=== PATIENT | female | born 1990 | race Caucasian/White ===

== ENCOUNTER 2016-11-21 09:21 | Inpatient (IN) | payer OTHER ==
[2016-11-21] MEDS ORDERED: HEMOQUE TEST 1 EACH EACH ONE ×3 (09:36→13:20)
[2016-11-21] MEDS ORDERED: SODIUM CHLORIDE 1,000 ML IV SCH (10:15)
--- NOTE | 2016-11-21 10:26 | PDOC ---
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4, with complications including peripheral neuropathy, but no diabetic retinopathy She was recently admitted for DKA in September 2016 Patient states in general her diabetes is poorly controlled for "a while" She is no longer on an insulin pump, and she is on a basal bolus regimen at this time Patient is complaining of a few days of progressive headache, nausea, diminished appetite, increased thirst, and polydipsia She is states like she feels like she is starting to go into DKA again, and her sugars have been running in the 300-400 range at home She states that she is having nausea, but has not vomited, but has not been able to eat or drink and feels very dehydrated She's also had a low-grade temperature yesterday of 100, but denies any cough or sputum, sore throat, earache, dysuria, diarrhea, or any other complaints She does have some mild diffuse abdominal discomfort, which she states that she usually gets when she has DKA She states that her last menstrual period was a month ago She states that she took her Lantus this morning, but did not take her NovoLog SHe states she feels very dehydrated Remainder of the review of systems is negative Past History - Past Medical History Allergies/Adverse Reactions: Allergies Allergy/AdvReac Type Severity Reaction Status Date / Time No Known Allergies Allergy Verified 11/21/16 09:27 Home Medications: Ambulatory Orders Insulin Glargine,Hum.rec.anlog [Lantus (nf)] 22 units SQ BID 09/26/16 Insulin Sliding Scale [Novolog Vial Sliding Scale -] 1 vial SQ HS units Anemia: No Asthma: No Cancer: No Cardiac Disorders: No CVA: No COPD: No CHF: No Dementia: No Diabetes: Yes (IDDM, HAS OMNI PD) GI Disorders: No Disorders: No HTN: No Hypercholesterolemia: No Liver Disease: No Suicide Attempt (Hx): No Seizures: No Thyroid Disease: No - Surgical History Abdominal Surgery: No Appendectomy: No Cardiac Surgery: No Cholecystectomy: No Lung Surgery: No Neurologic Surgery: No Orthopedic Surgery: No - Immunization History Immunization Up to Date: Yes - Psycho/Social/Smoking Cessation Hx Anxiety: No Suicidal Ideation: No Smoking Status: No Smoking History: Never smoked Have you smoked in the past 12 months: No Number of Cigarettes Smoked Daily: 0 Hx Alcohol Use: No Drug/Substance Use Hx: No Substance Use Type: None Review of Systems - Review of Systems Able to Perform ROS?: Yes Comments:: 11/21/16 10:26 12 point review of systems is as per history of present illness and otherwise negative *Physical Exam - Vital Signs Last Vital Signs Temp Pulse Resp BP Pulse Ox 97.8 F 132 H 22 119/78 99 11/21/16 09:24 11/21/16 09:24 11/21/16 09:24 11/21/16 09:24 11/21/16 09:24 - Physical Exam Comments: 11/21/16 10:28 Physical exam Last Vital Signs Temp Pulse Resp BP Pulse Ox 97.8 F 132 H 22 119/78 99 11/21/16 09:24 11/21/16 09:24 11/21/16 09:24 11/21/16 09:24 11/21/16 09:24 GENERAL: The patient is awake, alert, and answering questions, appears very dehydrated HEAD: Normal with no signs of trauma. EYES: Pupils equal, round and reactive to light, extraocular movements intact, sclera anicteric, conjunctiva are normal. ENT: He does membranes extremely dry NECK: Normal range of motion, supple LUNGS: Breath sounds equal, clear to auscultation bilaterally. No wheezes, and no crackles. HEART: Tachycardiac Regular rate and rhythm, normal S1 and S2 without murmur, rub or gallop. ABDOMEN: Soft, nontender, normoactive bowel sounds. No guarding, no rebound. No masses appreciated. EXTREMITIES: Normal range of motion, no edema. No clubbing or cyanosis. No cords, erythema, or tenderness. NEUROLOGICAL: Cranial nerves II through XII grossly intact. Normal speech, normal gait. PSYCH: Normal mood, normal affect. SKIN: Warm, Dry, normal turgor, no rashes or lesions noted. ED Treatment Course - LABORATORY CBC & Chemistry Diagram: 11/23/16 05:45 11/22/16 18:10 - ADDITIONAL ORDERS Additional order review: Laboratory Results 11/21/16 09:40 POC Glucometer 200.29466 11/21/16 09:40 POC Glucometer 200.89982 Medical Decision Making - Critical Care Time Total Critical Care Time (minutes): 45 Critical Care Statement: The care of this patient involved high complexity decision making to prevent further life threatening deterioration of the patient 's condition and/or to evalute & treat vital organ system(s) failure or risk of failure. - Medical Decision Making 11/21/16 10:32 26-year-old female with type 1 diabetes who is most likely in DKA, and appears extremely dehydrated Will start with IV fluid, awaiting lab work 11/21/16 12:00 Labwork reviewed-patient in DKA, with hypokalemia, and glucose under 200 (181) Will need to start correcting potassium first, then start the insulin drip without bolus since patient is under 200 After second liter of normal saline will switch to dextrose-containing solution Anion gap 20, potassium 3.3, glucose 181 Magnesium 2.3 Acetone positive ABG on room air PH 7.32/pCO2 29/pO2 105/bicarbonate 15/sat 98% CBC consistent with dehydration and hemoconcentration Laboratory Results - last 24 hr 11/21/16 11/21/16 11/21/16 09:40 10:15 10:15 WBC 7.1 D RBC 5.38 H Hgb 16.2 H D Hct 48.4 H MCV 90.0 MCHC 33.5 RDW 14.4 Plt Count 340 MPV 8.3 Anticoagulation Therapy Puncture Site ABG pH ABG pCO2 at Pt Temp ABG pO2 at Pt Temp ABG HCO3 ABG O2 Sat (Measured) ABG O2 Content ABG Base Excess Gucci Test O2 Delivery Device Oxygen Flow Rate Vent Mode Vent Rate Mechanical Rate PEEP Pressure Support Vent Sodium 140 Potassium 3.3 L Chloride 104 D Carbon Dioxide 16 L Anion Gap 20 H BUN 17 D Creatinine 0.9 Creat Clearance w eGFR > 60 POC Glucometer 200.60252 Random Glucose 181 H D Lactic Acid Calcium 9.4 Magnesium 2.3 D Total Bilirubin 0.7 D AST 11 D ALT 11 D Alkaline Phosphatase 111 H D Total Protein 8.0 Albumin 4.4 Lipase 23 Acetone, Qual 11/21/16 11/21/16 11/21/16 10:15 10:15 10:25 WBC RBC Hgb Hct MCV MCHC RDW Plt Count MPV Anticoagulation Therapy Y Puncture Site Left radial ABG pH 7.32 L ABG pCO2 at Pt Temp 29.9 L ABG pO2 at Pt Temp 105.0 H ABG HCO3 15.1 L ABG O2 Sat (Measured) 97.9 ABG O2 Content 20.9 ABG Base Excess -9.3 L Gucci Test Positive O2 Delivery Device Room air Oxygen Flow Rate 21% Vent Mode Y Vent Rate Y Mechanical Rate Y PEEP 0.0 Pressure Support Vent Y Sodium Potassium Chloride Carbon Dioxide Anion Gap BUN Creatinine Creat Clearance w eGFR POC Glucometer Random Glucose Lactic Acid 1.166 Calcium Magnesium Total Bilirubin AST ALT Alkaline Phosphatase Total Protein Albumin Lipase Acetone, Qual Positive small 1+ H Need to continue insulin drip to close the gap, at 0.1 units per kilogram, will not give bolus because glucose is under 200 Will need to replete potassium urgently, and then switch to dextrose-containing fluid Will need ICU admission Impression-DKA case discussed with Dr. Hunter for Dr. Watts-will admit Dr. CastroYbzvddit-qdrpllegwceax-qsqwj- no response yet Build And Release Manager paged 11/21/16 12:[address] DunlapIblayxkxff-hfszctwtlnb-wrlyer with above management Approves ICU bed 11/21/16 12:[address] CastroLtfgnguz-ncpwierms-tmjlhk with above management 1 second liter of normal saline is done, we'll switch to D5 half with 40 of potassium at 1 25 mL per hour He would also like the insulin drip decreased to 0.05 U per kilogram per hour ( 3 units per hour, rather than 6 units per hour)-will change 11/21/16 12:44 Normal sinus rhythm 87, normal axis Normal AV and IV conduction time Normal QTC Essentially normal EKG 11/21/16 12:54 Accu-Chek 62 ( pt on 0.05U/hr insulin drip WITHOUT any bolus given!) Insulin drip stopped, D5 half normal saline with 40 of potassium started Patient given one half amp of D50 Vital Signs - 24 hr 11/21/16 11/21/16 11/21/16 09:24 11:00 11:13 Temperature 97.8 F Pulse Rate 132 H Pulse Rate [ 90 88 Apical] Respiratory 22 20 19 Rate Blood Pressure 119/78 Blood Pressure 108/83 108/83 [Right Arm] O2 Sat by Pulse 99 100 100 Oximetry (%) 11/21/16 13:[address] Castro-agrees with above- States when the sugar is over 120, can restart the insulin drip at 2 units an hour 11/21/16 13:45 Glucose 146 after one half amp of D50 Will restart insulin drip at 2 units per hour, and patient will continue on the D5 half normal saline with 40 of potassium at 125 an hour Will repeat bmp and ekg pt to icu now *DC/Admit/Observation/Transfer Diagnosis at time of Disposition: Dehydration, Hypokalemia DKA (diabetic ketoacidoses) Qualifiers: Diabetes mellitus type: type 1 Diabetes mellitus complication detail: without coma Qualified Code(s): E10.10 - Type 1 diabetes mellitus with ketoacidosis without coma - Discharge Dispostion Condition at time of disposition: Fair Admit: Yes - Referrals
[2016-11-21 10:49] LABS: MCH 30.1 pg (25.7-33.7); MCHC 33.5 g/dl (32.0-36.0); MEAN PLT VOLUME 8.3 fl (7.5-11.1); PLATELET COUNT 340 K/MM3 (134-434); RDW 14.4 % (11.6-15.6); WHITE BLOOD COUNT 7.1 K/mm3 (4.0-10.0)
[2016-11-21 11:04] LABS: ALBUMIN 4.4 g/dl (3.5-5.0); ALK PHOS 111 U/L (32-92); ANION GAP 20 (8-16); BILIRUBIN,TOTAL 0.7 mg/dl (0.2-1.0); CALCIUM 9.4 mg/dl (8.4-10.2); CO2 16 mmol/L (22-28); CREATININE 0.9 mg/dl (0.6-1.3); GLUCOSE,RANDOM 181 mg/dl (74-106); MAGNESIUM 2.3 mg/dL (1.8-2.4); SGOT/AST 11 U/L (10-42); SGPT/ALT 11 U/L (10-40)
[2016-11-21 11:25] LABS: ALLENS TEST POSITIVE; ART PUNCT SITE LEFT RADIAL; ARTERIAL BLD GAS O2 SATURATION 97.9 % (90-98.9); ARTERIAL BLOOD GAS BASE EXCESS -9.3 meq/l (-2-2); ARTERIAL BLOOD GAS HCO3 15.1 meq/L (22-26); LPM/O2% 21%; PT. ON O2? NO; TYPE OF O2 ROOM AIR
[2016-11-21 11:26] LABS: ARTERIAL BLOOD GAS pH 7.32 (7.35-7.45)
--- NOTE | 2016-11-21 11:32 | EKG ---
Test Reason : Blood Pressure : / mmHG Vent. Rate : 087 BPM Atrial Rate : 087 BPM P-R Int : 150 ms QRS Dur : 074 ms QT Int : 348 ms P-R-T Axes : 048 052 036 degrees QTc Int : 418 ms POOR DATA QUALITY, INTERPRETATION MAY BE ADVERSELY AFFECTED NORMAL SINUS RHYTHM NONSPECIFIC ST ABNORMALITY ABNORMAL ECG WHEN COMPARED WITH ECG OF 06-FEB-2015 21:10, NO SIGNIFICANT CHANGE WAS FOUND Confirmed by OMERO SAINZ MD ([id number]) on 11/21/2016 11:31:39 AM Referred By: JASMYNE Confirmed By:OMERO SAINZ MD
[2016-11-21] MEDS ORDERED: KCL 10 MEQ IVPB 100 ML IVPB ONE (11:45)
[2016-11-21] MEDS ORDERED: SODIUM CHLORIDE 0.9% 500 ML INFUS.BAG IV ONE (11:48)
[2016-11-21] MEDS ORDERED: KCL 10 MEQ IVPB 100 ML IVPB SCH ×2 (12:00)
[2016-11-21] MEDS ORDERED: INSULIN REGULAR 100 UNITS in SODIUM CHLORIDE 99 ML IVPB SCH ×3 (12:00→14:00)
[2016-11-21] MEDS ORDERED: INSULIN REGULAR HUMAN 100 UNITS/ML *VIAL ONE ×2 (12:03→13:37)
[2016-11-21] MEDS ORDERED: ONDANSETRON 4 MG/2 ML VIAL ONE (12:26)
[2016-11-21] MEDS ORDERED: POTASSIUM CHLORIDE TABS 20 MEQ TABLET.ER (FP) PO ONE ×2 (12:27→13:01)
[2016-11-21] MEDS ORDERED: D5-1/2NS+40 MEQ KCL - 1,000 ML IV SCH (12:30)
[2016-11-21] MEDS ORDERED: DEXTROSE 50%-WATER 50 ML VIAL IVPUSH ONE (12:59)
[2016-11-21] MEDS ORDERED: DEXTROSE 50%-WATER 50 ML DISP.SYRIN ONE (13:00)
[2016-11-21 14:44] LABS: CALCIUM 7.9 mg/dl (8.4-10.2); CREATININE 0.6 mg/dl (0.6-1.3)
[2016-11-21 15:16] LABS: VENOUS BLOOD GAS HCO3 17.3 meq/L (22-29); VENOUS PH 7.29 (7.31-7.41)
[2016-11-21] MEDS ORDERED: ALBUTEROL SO4 0.083% IH SOL 2.5 MG/3 ML VIAL.NEB. NEB ONE (15:30)
[2016-11-21] MEDS ORDERED: EPINEPHrine/PF 1 MG/1 ML (1:1,000) AMPULE ONE (15:30)
--- NOTE | 2016-11-21 15:52 | EKG ---
Test Reason : Blood Pressure : / mmHG Vent. Rate : 082 BPM Atrial Rate : 082 BPM P-R Int : 150 ms QRS Dur : 064 ms QT Int : 378 ms P-R-T Axes : 042 053 050 degrees QTc Int : 441 ms POOR DATA QUALITY, INTERPRETATION MAY BE ADVERSELY AFFECTED NORMAL SINUS RHYTHM WHEN COMPARED WITH ECG OF 21-NOV-2016 10:46, NO SIGNIFICANT CHANGE WAS FOUND Confirmed by MD NURIA, VIKI ([id number]) on 11/21/2016 3:52:31 PM Referred By: JANEEN Confirmed By:VIKI QUIÑONES MD
[2016-11-21] MEDS ORDERED: INSULIN DETEMIR 100 UNITS/ML MDV SQ ONE (16:05)
--- NOTE | 2016-11-21 16:10 | CONSULT ---
Consult Consult Specialty:: Pulm/CCM Referred by:: ED Reason for Consultation:: Diabetic ketoacidosis - History of Present Illness Chief Complaint: nausea/Abdominal pain History of Present Illness: 26F with PMH of juvenile onset diabetes mellitus type 1 and diabetic neuropathy who presents to the ED at [facility] with nausea and abdominal pain. She was found to be in Diabetic Ketoacidosis with an elevated anion gap and hyperglycemia. She was recently discharged from this hospital with a diagnosis of Diabetic ketoacidosis. She states she had a low grade fever of 100F this morning. She also states she think she may have the flu. She states she felt the way she usually does when she is in DKA. She denies chest pain shortness of breath. She denies vomiting chills hematuria or dysuria. She used to have an insulin pump but no longer has one. - History Source History Provided By: Patient Limitations to Obtaining History: No Limitations - Past Medical History ...LMP: 09/17/16 Endocrine: Yes: Diabetes Mellitus (describes multiple episodes of DKA, the last being last month ), Other (Peripheral Neuropathy) - Alcohol/Substance Use Hx Alcohol Use: No - Smoking History Smoking history: Never smoked Have you smoked in the past 12 months: No Aproximately how many cigarettes per day: 0 - Social History Usual Living Arrangement: Alone ADL: Independent Occupation: Student / works at [employer] in COUNT[place] 234 BEDS AT THE [employer] History of Recent Travel: No Home Medications - Allergies Allergies/Adverse Reactions: Allergies Allergy/AdvReac Type Severity Reaction Status Date / Time No Known Allergies Allergy Verified 11/21/16 09:27 - Home Medications Home Medications: Ambulatory Orders Insulin Glargine,Hum.rec.anlog [Lantus (nf)] 22 units SQ BID 09/26/16 Insulin Sliding Scale [Novolog Vial Sliding Scale -] 1 vial SQ HS units Family Disease History - Family Disease History Family Disease History: Other: Father (alive: 42: healthy), Mother (alive: 43 GERD), Brother (No siblings), Son (No children) Other Family History: states most of father's side has diabetes Review of Systems - Review of Systems Constitutional: reports: Fever Eyes: reports: No Symptoms HENT: reports: No Symptoms Neck: reports: No Symptoms Cardiovascular: reports: No Symptoms Respiratory: reports: No Symptoms Gastrointestinal: reports: Bloating, Nausea Genitourinary: reports: No Symptoms Integumentary: reports: No Symptoms Neurological: reports: No Symptoms Hematology/Lymphatic: reports: No Symptoms Physical Exam Vital Signs: Vital Signs Temperature 97.8 F 11/21/16 15:16 Pulse Rate 88 11/21/16 15:16 Respiratory Rate 17 11/21/16 15:16 Blood Pressure 102/73 11/21/16 15:16 O2 Sat by Pulse Oximetry (%) 100 11/21/16 13:00 Constitutional: Yes: Well Nourished, No Distress, Calm Eyes: Yes: Conjunctiva Clear, EOM Intact HENT: Yes: Atraumatic, Normocephalic Neck: Yes: Supple, Trachea Midline Cardiovascular: Yes: Regular Rate and Rhythm Respiratory: Yes: WNL, Regular, CTA Bilaterally Gastrointestinal: Yes: Normal Bowel Sounds, Soft Musculoskeletal: Yes: WNL Extremities: Yes: WNL, Other (no calf tenderness) Edema: No Neurological: Yes: WNL, Alert, Oriented ...Motor Strength: WNL Psychiatric: Yes: Alert, Oriented Problem List - Problems (1) DKA (diabetic ketoacidoses) Assessment/Plan: states she is compliant with medications. also had a fever before presentation of symptoms. COuld be a viral syndrome causing patient to go into DKA Will do nasal flu swab admit to ICU insulin gtt then titrate off once anion gap closes bridge with levemir D51/2NS with 40meq potassium @ 125ml/hr strict I/O Diabetic diet Code(s): E13.10 - OTH DIABETES MELLITUS WITH KETOACIDOSIS WITHOUT COMA Qualifiers: Diabetes mellitus type: type 1 Diabetes mellitus complication detail: without coma Qualified Code(s): E10.10 - Type 1 diabetes mellitus with ketoacidosis without coma (2) Dehydration Assessment/Plan: secondary to poor oral intake and third spacing due to diabetic ketoacidosis aggressive IVF hydration Code(s): E86.0 - DEHYDRATION (3) Abdominal pain Assessment/Plan: abdominal pain significantly improved no issues at this time pain control PRN Code(s): R10.9 - UNSPECIFIED ABDOMINAL PAIN Qualifiers: Abdominal location: epigastric Qualified Code(s): R10.13 - Epigastric pain (4) Hyperglycemia due to type 1 diabetes mellitus Assessment/Plan: insulin sliding scale restart long acting levemir Code(s): E10.65 - TYPE 1 DIABETES MELLITUS WITH HYPERGLYCEMIA (5) IDDM (insulin dependent diabetes mellitus) Code(s): E11.9 - TYPE 2 DIABETES MELLITUS WITHOUT COMPLICATIONS Z79.4 - NURSING HOME (CURRENT) USE OF INSULIN (6) Diabetic neuropathy Assessment/Plan: used to be on gabapentin and lyrica but no longer on it outpatient follow up no issues at this time pain control PRN Code(s): E11.40 - TYPE 2 DIABETES MELLITUS WITH DIABETIC NEUROPATHY, UNSP Qualifiers: Diabetes mellitus type: type 1 Diabetes mellitus complication detail: diabetic polyneuropathy Qualified Code(s): E10.42 - Type 1 diabetes mellitus with diabetic polyneuropathy Assessment/Plan FEN: D51/2NS with 40meq potassium hypokalemia replete potassium recheck BMP diabetic diet PPx: HSQ no GI PPx needed no deconditioning concerns patient will need GI follow up for cholelithiasis upon discharge as she never saw a grade school teacher after discharge last month. Currently she is asymptomatic and will not need a grade school teacher or intervention at this time as an inpatient CCTime 60min
--- NOTE | 2016-11-21 16:29 | PN ---
Teaching Attending Note Name of Resident: Edison Michael ATTENDING PHYSICIAN STATEMENT I saw and evaluated the patient. I reviewed the resident's note and discussed the case with the resident. I agree with the resident's findings and plan as documented. SUBJECTIVE: 26 F, IDDM since childhood. Previous admissions for DKA. Presented to [facility] due to elevated blood sugars and feeling that she was "going into DKA." Patient was previously on an insulin pump, but has been on bolus regimen. (+) viral type symptoms. No CP or SOB. No significant cough or sputum production. (+) nausea, no vomiting, discomfort, and poor appetite Low grade temp. Intake & Output 11/18/16 11/19/16 11/20/16 11/21/16 23:59 23:59 23:59 23:59 Intake Total 2703 Balance 2703 Weight 130 lb Last Vital Signs Temp Pulse Resp BP Pulse Ox 97.8 F 88 17 102/73 100 11/21/16 15:16 11/21/16 15:16 11/21/16 15:16 11/21/16 15:16 11/21/16 13:00 Active Medications Sodium Chloride (Normal Saline -) 1,000 mls @ 500 mls/hr IV ASDIR DARA Last Admin: 11/21/16 10:15 Dose: 500 mls/hr Dextrose/Sodium Chloride (D5-1/2ns+40 Meq Kcl -) 1,000 mls @ 125 mls/hr IV ASDIR DARA Last Admin: 11/21/16 13:00 Dose: 125 mls/hr Insulin Human Regular 100 (units/ Sodium Chloride) 100 mls @ 2 mls/hr IVPB TITR DARA; 2 UNITS/HR PRN Reason: Protocol Last Admin: 11/21/16 13:45 Dose: 2 mls/hr GENERAL: awake, alert, NAD, appears dehydrated HEAD: Normal with no signs of trauma. EYES: Pupils equal, sclera anicteric ENT: (+) dry membranes NECK: Normal range of motion, supple LUNGS: Breath sounds equal, clear to auscultation bilaterally. HEART: Tachycardia, (-) murmur, rub or gallop. ABDOMEN: Soft, (+) mild tenderness, normoactive bowel sounds. No guarding EXTREMITIES: Normal range of motion, no edema. No clubbing or cyanosis. No cords, erythema, or tenderness. NEUROLOGICAL: Non-focal SKIN: Warm, Dry, normal turgor, no rashes or lesions noted. Laboratory Results - last 24 hr 11/21/16 11/21/16 11/21/16 09:40 10:15 10:15 WBC 7.1 D RBC 5.38 H Hgb 16.2 H D Hct 48.4 H MCV 90.0 MCHC 33.5 RDW 14.4 Plt Count 340 MPV 8.3 Anticoagulation Therapy Puncture Site ABG pH ABG pCO2 at Pt Temp ABG pO2 at Pt Temp ABG HCO3 ABG O2 Sat (Measured) ABG O2 Content ABG Base Excess Gucci Test VBG pH POC VBG pCO2 POC VBG pO2 O2 Delivery Device Oxygen Flow Rate Vent Mode Vent Rate Mechanical Rate PEEP Pressure Support Vent Sodium 140 Potassium 3.3 L Chloride 104 D Carbon Dioxide 16 L Anion Gap 20 H BUN 17 D Creatinine 0.9 Creat Clearance w eGFR > 60 POC Glucometer 200.83962 Random Glucose 181 H D Hemoglobin A1c % Lactic Acid Calcium 9.4 Magnesium 2.3 D Total Bilirubin 0.7 D AST 11 D ALT 11 D Alkaline Phosphatase 111 H D Total Protein 8.0 Albumin 4.4 Lipase 23 Acetone, Qual 11/21/16 11/21/16 11/21/16 10:15 10:15 10:25 WBC RBC Hgb Hct MCV MCHC RDW Plt Count MPV Anticoagulation Therapy Y Puncture Site Left radial ABG pH 7.32 L ABG pCO2 at Pt Temp 29.9 L ABG pO2 at Pt Temp 105.0 H ABG HCO3 15.1 L ABG O2 Sat (Measured) 97.9 ABG O2 Content 20.9 ABG Base Excess -9.3 L Gucci Test Positive VBG pH POC VBG pCO2 POC VBG pO2 O2 Delivery Device Room air Oxygen Flow Rate 21% Vent Mode Y Vent Rate Y Mechanical Rate Y PEEP 0.0 Pressure Support Vent Y Sodium Potassium Chloride Carbon Dioxide Anion Gap BUN Creatinine Creat Clearance w eGFR POC Glucometer Random Glucose Hemoglobin A1c % Lactic Acid 1.166 Calcium Magnesium Total Bilirubin AST ALT Alkaline Phosphatase Total Protein Albumin Lipase Acetone, Qual Positive small 1+ H 11/21/16 11/21/16 11/21/16 10:40 12:51 13:25 WBC RBC Hgb Hct MCV MCHC RDW Plt Count MPV Anticoagulation Therapy Puncture Site ABG pH ABG pCO2 at Pt Temp ABG pO2 at Pt Temp ABG HCO3 ABG O2 Sat (Measured) ABG O2 Content ABG Base Excess Gucci Test VBG pH POC VBG pCO2 POC VBG pO2 O2 Delivery Device Oxygen Flow Rate Vent Mode Vent Rate Mechanical Rate PEEP Pressure Support Vent Sodium Potassium Chloride Carbon Dioxide Anion Gap BUN Creatinine Creat Clearance w eGFR POC Glucometer 69.28103 142.79275 Random Glucose Hemoglobin A1c % 12.4 H D Lactic Acid Calcium Magnesium Total Bilirubin AST ALT Alkaline Phosphatase Total Protein Albumin Lipase Acetone, Qual 11/21/16 11/21/16 11/21/16 14:15 14:29 15:12 WBC RBC Hgb Hct MCV MCHC RDW Plt Count MPV Anticoagulation Therapy Puncture Site ABG pH ABG pCO2 at Pt Temp ABG pO2 at Pt Temp ABG HCO3 ABG O2 Sat (Measured) ABG O2 Content ABG Base Excess Gucci Test VBG pH 7.29 L POC VBG pCO2 37.0 L D POC VBG pO2 41.7 H D O2 Delivery Device Oxygen Flow Rate Vent Mode Vent Rate Mechanical Rate PEEP Pressure Support Vent Sodium 138 Potassium 3.8 Chloride 109 H Carbon Dioxide 15 L Anion Gap 14 BUN 14 Creatinine 0.6 D Creat Clearance w eGFR POC Glucometer 125.94171 Random Glucose 136 H D Hemoglobin A1c % Lactic Acid Calcium 7.9 L Magnesium Total Bilirubin AST ALT Alkaline Phosphatase Total Protein Albumin Lipase Acetone, Qual IMP: DKA Suspected Viral Illness Dehydration Electrolyte Imbalance PLAN: Insulin per protocol Aggressive IVF O2 as needed Follow BMP Strict I&O VTE prophylaxis Replete lytes Would monitor off ABX ICU monitoring Thank you. Dr Dunlap CCTime 35"
[2016-11-21 16:58] VITALS: BMI 24.6
--- NOTE | 2016-11-21 17:43 | CONSULT ---
Consult Consult Specialty:: Endocrinology Referred by:: Dr Hunter Reason for Consultation:: DKA - History of Present Illness Chief Complaint: Fever, Nausea History of Present Illness: This is a 26 y/o F with h/o T1DM with multiple admissions for DKA, Neuropathy who presented to ED with c/o Fever, nausea and abd pain for 2 days. Pt found to be acidotic with high anion gap and was treated with Insulin drip with improvement in the gap. Pt currently feels better with improved apetite. Pt was on Insulin pump until a few months ago when she lost her insurance and couldn't get the necessary supplies. Currently pt on Lantus 22 units BID and Novolog coverage premeals with BGM ranging from 150 to 200s and no hypoglycemia. - History Source History Provided By: Patient, Medical Record - Past Medical History ...LMP: 09/17/16 Endocrine: Yes: Diabetes Mellitus (describes multiple episodes of DKA, the last being last month ), Other (Peripheral Neuropathy) - Alcohol/Substance Use Hx Alcohol Use: No - Smoking History Smoking history: Never smoked Have you smoked in the past 12 months: No Aproximately how many cigarettes per day: 0 - Social History Usual Living Arrangement: Alone ADL: Independent Occupation: Student / works at [employer] in [facility] History of Recent Travel: No Home Medications - Allergies Allergies/Adverse Reactions: Allergies Allergy/AdvReac Type Severity Reaction Status Date / Time No Known Allergies Allergy Verified 11/21/16 09:27 - Home Medications Home Medications: Ambulatory Orders Insulin Glargine,Hum.rec.anlog [Lantus (nf)] 22 units SQ BID 09/26/16 Insulin Sliding Scale [Novolog Vial Sliding Scale -] 1 vial SQ HS units Family Disease History - Family Disease History Family Disease History: Other: Father (alive: 42: healthy), Mother (alive: 43 GERD), Brother (No siblings), Son (No children) Other Family History: states most of father's side has diabetes Review of Systems - Review of Systems Constitutional: reports: Loss of Appetite Eyes: reports: No Symptoms HENT: reports: No Symptoms Neck: reports: No Symptoms Cardiovascular: reports: No Symptoms Respiratory: reports: No Symptoms Gastrointestinal: reports: Nausea Genitourinary: reports: No Symptoms Breasts: reports: No Symptoms Reported Musculoskeletal: reports: No Symptoms Neurological: reports: No Symptoms Endocrine: reports: No Symptoms Hematology/Lymphatic: reports: No Symptoms Physical Exam Vital Signs: Vital Signs Temperature 98.5 F 11/21/16 15:45 Pulse Rate 83 11/21/16 15:45 Respiratory Rate 14 11/21/16 15:45 Blood Pressure 95/61 11/21/16 15:45 O2 Sat by Pulse Oximetry (%) 100 11/21/16 15:45 Constitutional: Yes: No Distress, Calm Eyes: Yes: Conjunctiva Clear, EOM Intact HENT: Yes: Atraumatic, Normocephalic Neck: Yes: Supple, Trachea Midline Cardiovascular: Yes: Regular Rate and Rhythm Respiratory: Yes: Regular, CTA Bilaterally Gastrointestinal: Yes: Normal Bowel Sounds, Soft Extremities: Yes: WNL Edema: No Neurological: Yes: Alert, Oriented Problem List - Problems (1) DKA (diabetic ketoacidoses) Code(s): E13.10 - OTH DIABETES MELLITUS WITH KETOACIDOSIS WITHOUT COMA Qualifiers: Diabetes mellitus type: type 1 Diabetes mellitus complication detail: without coma Qualified Code(s): E10.10 - Type 1 diabetes mellitus with ketoacidosis without coma (2) Diabetic neuropathy associated with type 1 diabetes mellitus Code(s): E10.40 - TYPE 1 DIABETES MELLITUS WITH DIABETIC NEUROPATHY, UNSP (3) IDDM (insulin dependent diabetes mellitus) Code(s): E11.9 - TYPE 2 DIABETES MELLITUS WITHOUT COMPLICATIONS Z79.4 - [facility] (CURRENT) USE OF INSULIN Assessment/Plan AP: DKA T1DM Diabetic Neuropathy Repeat BMP tonight CMP, Phos and Mag in a.m. Insulin drip at at least 2 units/hr until acidosis resolves Levemir with premeal Novolog once acidosis resolves D51/2NS with 40 KCL at 125ml/hr Increase D5 1/2NS as necessary to maintain blood sugar >120 D50 if BGM drops to >80
[2016-11-21] MEDS ORDERED: INSULIN (NOVOLOG) ASPART 100 UNITS/ML 10ML VIAL SQ ONE (20:00)
[2016-11-21 21:02] LABS: URINE APPEARANCE CLEAR; URINE BILIRUBIN NEGATIVE (NEGATIVE); URINE BLOOD NEGATIVE (NEGATIVE); URINE COLOR YELLOW; URINE GLUCOSE (UA) 2+ (NEGATIVE); URINE KETONE 2+ (NEGATIVE)
[2016-11-21 21:03] LABS: URINE LEUK ESTERASE 2+ (NEGATIVE); URINE NITRITE NEGATIVE (NEGATIVE); URINE PROTEIN 1+ (NEGATIVE); URINE UROBILINOGEN NORMAL (0.2-1.0)
[2016-11-21 21:05] LABS: URINE BACTERIA FEW /hpf (NEGATIVE); URINE HYALINE CAST 4 /lpf; URINE RBC 4 /hpf (0-3); URINE WBC 20 (3-5)
[2016-11-21 21:06] LABS: URINE MUCUS RARE
[2016-11-21] MEDS: HEPARIN NA (PORCINE) 5,000 UNITS/ML 1ML VIAL SQ SCH (21:25)
[2016-11-21 21:38] LABS: CALCIUM 7.7 mg/dL (8.5-10.1); CREATININE 0.9 mg/dL (0.55-1.02)
[2016-11-22] MEDS ORDERED: DEXTROSE 5%-0.45% SALINE 1,000 ML IV SCH (01:00)
[2016-11-22] MEDS: HEPARIN NA (PORCINE) 5,000 UNITS/ML 1ML VIAL SQ SCH ×4 (06:15→21:07)
[2016-11-22 06:50] LABS: ALBUMIN 2.9 g/dl (3.4-5.0); ANION GAP 12 (8-16); CALCIUM 8.4 mg/dL (8.5-10.1); CO2 25 mmol/L (21-32); GLUCOSE,RANDOM 160 mg/dL (74-106); PHOSPHOROUS 2.2 mg/dL (2.5-4.9); SGOT/AST 11 U/L (15-37)
[2016-11-22 06:52] LABS: ALK PHOS 101 U/L (45-117); BILIRUBIN,TOTAL 0.3 mg/dL (0.2-1.0); CREATININE 0.8 mg/dL (0.55-1.02); SGPT/ALT 13 U/L (12-78); TOT PROT 6.1 g/dl (6.4-8.2)
[2016-11-22] MEDS ORDERED: INSULIN DETEMIR 100 UNITS/ML MDV SQ ONE (08:15)
[2016-11-22] MEDS ORDERED: POTASSIUM CHLORIDE TABS 20 MEQ TABLET.ER (FP) PO ONE (08:15)
[2016-11-22] MEDS: KCL 10 MEQ IVPB 100 ML IVPB SCH ×3 (08:29→10:51)
[2016-11-22] MEDS ORDERED: MUPIROCIN 2% TOPICAL OINTMENT FOR DECOLONIZATION NS SCH (10:00)
--- NOTE | 2016-11-22 10:16 | PN ---
Progress Note (short form) - Note Progress Note: Seen and examined in the ICU Anion Gap closed transitioned to lantus resolved nausea, tolerating breakfast this AM Current Medications Chlorhexidine Gluconate (Hibiclens For Decolonization -) 1 applic TP HS DARA Heparin Sodium (Porcine) (Heparin -) 5,000 unit SQ TID DARA Last Admin: 11/22/16 06:15 Dose: 5,000 unit Dextrose/Sodium Chloride (D5-1/2ns -) 1,000 mls @ 25 mls/hr IV ASDIR [facility] Last Admin: 11/22/16 01:00 Dose: 25 mls/hr Potassium Chloride (Potassium Chloride 10 Meq Premix Ivpb -) 100 mls @ 100 mls/ hr IVPB Q1H [facility] Stop: 11/22/16 11:14 Last Admin: 11/22/16 09:15 Dose: 100 mls/hr Insulin Aspart (Novolog Vial Sliding Scale -) 1 vial SQ ACHS DARA PRN Reason: Protocol Mupirocin (Bactroban Ointment (For Decolonization) -) 1 applic NS BID [facility] Stop: 11/27/16 09:59 Vital Signs Period Temp Pulse Resp BP Sys/Estes Pulse Ox Last 24 Hr 97.8 F-98.6 F 65-90 13-20 93-140/57-83 100-100 Intake & Output 11/19/16 11/20/16 11/21/16 11/22/16 23:59 23:59 23:59 23:59 Intake Total 2943 295 Balance 2943 295 Weight 63.049 kg Exam: PERRL CTA RRR SNTND WWP +2 pulses, no edema Neuro: grossly intact CBCD WBC 7.1 K/mm3 (4.0-10.0) D 11/21/16 10:15 RBC 5.38 M/mm3 (3.60-5.2) H 11/21/16 10:15 Hgb 16.2 GM/dl (10.7-15.3) H D 11/21/16 10:15 Hct 48.4 % (32.4-45.2) H 11/21/16 10:15 MCV 90.0 fl (80-96) 11/21/16 10:15 MCHC 33.5 g/dl (32.0-36.0) 11/21/16 10:15 RDW 14.4 % (11.6-15.6) 11/21/16 10:15 Plt Count 340 K/MM3 (134-434) 11/21/16 10:15 MPV 8.3 fl (7.5-11.1) 11/21/16 10:15 CMP Sodium 141 mmol/L (136-145) 11/22/16 05:20 Potassium 2.9 mmol/L (3.5-5.1) L* D 11/22/16 05:20 Chloride 104 mmol/L (98-107) 11/22/16 05:20 Carbon Dioxide 25 mmol/L (21-32) D 11/22/16 05:20 Anion Gap 12 (8-16) 11/22/16 05:20 BUN 12 mg/dL (7-18) 11/22/16 05:20 Creatinine 0.8 mg/dL (0.55-1.02) 11/22/16 05:20 Creat Clearance w eGFR > 60 (>60) 11/22/16 05:20 Random Glucose 160 mg/dL (74-106) H D 11/22/16 05:20 Calcium 8.4 mg/dL (8.5-10.1) L 11/22/16 05:20 Total Bilirubin 0.3 mg/dL (0.2-1.0) 11/22/16 05:20 AST 11 U/L (15-37) L D 11/22/16 05:20 ALT 13 U/L (12-78) D 11/22/16 05:20 Alkaline Phosphatase 101 U/L (45-117) 11/22/16 05:20 Total Protein 6.1 g/dl (6.4-8.2) L 11/22/16 05:20 Albumin 2.9 g/dl (3.4-5.0) L 11/22/16 05:20 MP: DKA Suspected Viral Illness Dehydration Electrolyte Imbalance PLAN: Lantus and ISS IVF Follow BMP Strict I&O VTE prophylaxis advance diet stable for floor transfer Boerem ACNP Pulm/CCT CCT: 35m
[2016-11-22] MEDS: INSULIN SLIDING SCALE (NOVOLOG) 1 VIAL SQ SCH ×2 (10:52→16:48)
[2016-11-22] MEDS ORDERED: INSULIN SLIDING SCALE (NOVOLOG) 1 VIAL SQ SCH ×2 (11:00→22:00)
--- NOTE | 2016-11-22 11:05 | PN ---
Progress Note (short form) - Note Progress Note: Feels good tolerating diet Vital Signs Period Temp Pulse Resp BP Sys/Estes Pulse Ox Last 24 Hr 97.8 F-98.6 F 65-88 13-19 93-140/57-83 100-100 PE: AOx3 HEENT: PEERL, EOMI Neck: Supple, No JVD Lungs: CTA Abd: Benign CVS: S1S2 Ext: No edema Neuro: No focal deficit CMP Sodium 141 mmol/L (136-145) 11/22/16 05:20 Potassium 2.9 mmol/L (3.5-5.1) L* D 11/22/16 05:20 Chloride 104 mmol/L (98-107) 11/22/16 05:20 Carbon Dioxide 25 mmol/L (21-32) D 11/22/16 05:20 Anion Gap 12 (8-16) 11/22/16 05:20 BUN 12 mg/dL (7-18) 11/22/16 05:20 Creatinine 0.8 mg/dL (0.55-1.02) 11/22/16 05:20 Creat Clearance w eGFR > 60 (>60) 11/22/16 05:20 POC Glucometer 251.98665 UNITS (()) 11/22/16 10:16 Random Glucose 160 mg/dL (74-106) H D 11/22/16 05:20 Hemoglobin A1c % 12.4 % (4.8-6.0) H D 11/21/16 10:40 Lactic Acid 1.166 mmol/L (0.4-2.0) 11/21/16 10:15 Calcium 8.4 mg/dL (8.5-10.1) L 11/22/16 05:20 Phosphorus 2.2 mg/dL (2.5-4.9) L D 11/22/16 05:20 Magnesium 2.0 mg/dL (1.8-2.4) 11/22/16 05:20 Total Bilirubin 0.3 mg/dL (0.2-1.0) 11/22/16 05:20 AST 11 U/L (15-37) L D 11/22/16 05:20 ALT 13 U/L (12-78) D 11/22/16 05:20 Alkaline Phosphatase 101 U/L (45-117) 11/22/16 05:20 Total Protein 6.1 g/dl (6.4-8.2) L 11/22/16 05:20 Albumin 2.9 g/dl (3.4-5.0) L 11/22/16 05:20 Lipase 23 U/L (22-51) 11/21/16 10:15 Current Medications Generic Name Dose Route Start Last Admin Trade Name Freq PRN Reason Stop Dose Admin Chlorhexidine Gluconate 1 applic 11/22/16 22:00 Hibiclens For Decolonization - TP HS DARA Heparin Sodium (Porcine) 5,000 unit 11/21/16 22:00 11/22/16 06:15 Heparin - SQ 5,000 unit TID DARA Administration Dextrose/Sodium Chloride 1,000 mls @ 25 mls/hr 11/22/16 01:00 11/22/16 01:00 D5-1/2ns - IV 25 mls/hr ASDIR DARA Administration Potassium Chloride 100 mls @ 100 mls/hr 11/22/16 08:15 11/22/16 10:51 Potassium Chloride 10 Meq Premix Ivpb - IVPB 11/22/16 11:14 100 mls/hr Q1H DARA Administration Insulin Aspart 1 vial 11/22/16 11:00 11/22/16 10:52 Novolog Vial Sliding Scale - SQ 6 units TIDAC DARA Administration Protocol Insulin Aspart 0 units 11/22/16 22:00 Novolog SQ HS DARA Protocol Mupirocin 1 applic 11/22/16 10:00 Bactroban Ointment (For Decolonization) - NS 11/27/16 09:59 BID DARA AP: DKA: Resolved T1DM Electrolyte abnomality Viral Syndorme LEvermir 22 BID Novolog SS coverage Electrolyte replacement as necessary Dr Padilla covering until 11.25.2016 Problem List - Problems (1) DKA (diabetic ketoacidoses) Code(s): E13.10 - OTH DIABETES MELLITUS WITH KETOACIDOSIS WITHOUT COMA Qualifiers: Diabetes mellitus type: type 1 Diabetes mellitus complication detail: without coma Qualified Code(s): E10.10 - Type 1 diabetes mellitus with ketoacidosis without coma (2) Diabetic neuropathy associated with type 1 diabetes mellitus Code(s): E10.40 - TYPE 1 DIABETES MELLITUS WITH DIABETIC NEUROPATHY, UNSP (3) IDDM (insulin dependent diabetes mellitus) Code(s): E11.9 - TYPE 2 DIABETES MELLITUS WITHOUT COMPLICATIONS Z79.4 - INTERMEDIATE (CURRENT) USE OF INSULIN
[2016-11-22 15:15] LABS: CALCIUM 8.4 mg/dL (8.5-10.1); CREATININE 0.6 mg/dL (0.55-1.02)
--- NOTE | 2016-11-22 15:37 | PN ---
Progress Note, Physician Chief Complaint: Pt seen in the ICU Feels better,tolerating diet Pt is on Iv fluid And levemir Electrolyte abnormalities noted endocrine F/u noted - Current Medication List Current Medications: Active Medications Chlorhexidine Gluconate (Hibiclens For Decolonization -) 1 applic TP HS DARA Heparin Sodium (Porcine) (Heparin -) 5,000 unit SQ TID DARA Last Admin: 11/22/16 13:37 Dose: 5,000 unit Insulin Aspart (Novolog Vial Sliding Scale -) 1 vial SQ TIDAC DARA PRN Reason: Protocol Last Admin: 11/22/16 10:52 Dose: 6 units Insulin Aspart (Novolog) 0 units SQ HS DARA PRN Reason: Protocol Insulin Detemir (Levemir Vial) 20 units SQ BID DARA Mupirocin (Bactroban Ointment (For Decolonization) -) 1 applic NS BID DARA Stop: 11/27/16 09:59 Last Admin: 11/22/16 11:36 Dose: 1 applic - Objective Vital Signs: Vital Signs Temperature 98 F 11/22/16 12:39 Pulse Rate 77 11/22/16 15:00 Respiratory Rate 20 11/22/16 15:00 Blood Pressure 104/74 11/22/16 15:00 O2 Sat by Pulse Oximetry (%) 100 11/22/16 09:00 Constitutional: Yes: No Distress Eyes: Yes: Conjunctiva Clear HENT: Yes: Atraumatic Neck: Yes: Supple, Trachea Midline Cardiovascular: Yes: Regular Rate and Rhythm Respiratory: Yes: Regular, CTA Bilaterally Gastrointestinal: Yes: Normal Bowel Sounds, Soft Extremities: Yes: WNL Edema: No Peripheral Pulses WNL: Yes Integumentary: Yes: WNL Neurological: Yes: Alert, Oriented ...Motor Strength: WNL Psychiatric: Yes: WNL, Alert Labs: CBC, BMP 11/22/16 14:25 Laboratory Results - last 24 hr 11/21/16 11/21/16 11/21/16 16:36 18:38 19:00 Sodium 139 Potassium 3.7 Chloride 103 Carbon Dioxide 19 L D Anion Gap 17 H BUN 10 D Creatinine 0.9 D Creat Clearance w eGFR POC Glucometer 104.07979 231.88221 Random Glucose 265 H Calcium 7.7 L Phosphorus Magnesium Total Bilirubin AST ALT Alkaline Phosphatase Total Protein Albumin Urine Color Urine Appearance Urine pH Ur Specific Warner Urine Protein Urine Glucose (UA) Urine Ketones Urine Blood Urine Nitrite Urine Bilirubin Urine Ictotest Urine Urobilinogen Ur Leukocyte Esterase Urine RBC Urine WBC Ur Epithelial Cells Urine Bacteria Urine Casts Hyaline Casts Urine Mucus Urine HCG, Qual 11/21/16 11/21/16 11/21/16 19:30 19:31 19:40 Sodium Potassium Chloride Carbon Dioxide Anion Gap BUN Creatinine Creat Clearance w eGFR POC Glucometer 330.39912 Random Glucose Calcium Phosphorus Magnesium Total Bilirubin AST ALT Alkaline Phosphatase Total Protein Albumin Urine Color Yellow Urine Appearance Clear Urine pH 6.0 Ur Specific Warner 1.014 Urine Protein 1+ H Urine Glucose (UA) 2+ H Urine Ketones 2+ H Urine Blood Negative Urine Nitrite Negative Urine Bilirubin Negative Urine Ictotest Negative Urine Urobilinogen Normal Ur Leukocyte Esterase 2+ H Urine RBC 4 Urine WBC 20 Ur Epithelial Cells Rare Urine Bacteria Few Urine Casts 4 Hyaline Casts 4 Urine Mucus Rare Urine HCG, Qual Negative 11/21/16 11/22/16 11/22/16 20:28 00:40 04:09 Sodium Potassium Chloride Carbon Dioxide Anion Gap BUN Creatinine Creat Clearance w eGFR POC Glucometer 296.81730 145.72784 130.55858 Random Glucose Calcium Phosphorus Magnesium Total Bilirubin AST ALT Alkaline Phosphatase Total Protein Albumin Urine Color Urine Appearance Urine pH Ur Specific Warner Urine Protein Urine Glucose (UA) Urine Ketones Urine Blood Urine Nitrite Urine Bilirubin Urine Ictotest Urine Urobilinogen Ur Leukocyte Esterase Urine RBC Urine WBC Ur Epithelial Cells Urine Bacteria Urine Casts Hyaline Casts Urine Mucus Urine HCG, Qual 11/22/16 11/22/16 11/22/16 05:20 06:11 10:16 Sodium 141 Potassium 2.9 L* D Chloride 104 Carbon Dioxide 25 D Anion Gap 12 BUN 12 Creatinine 0.8 Creat Clearance w eGFR > 60 POC Glucometer 195.74717 251.29913 Random Glucose 160 H D Calcium 8.4 L Phosphorus 2.2 L D Magnesium 2.0 Total Bilirubin 0.3 AST 11 L D ALT 13 D Alkaline Phosphatase 101 Total Protein 6.1 L Albumin 2.9 L Urine Color Urine Appearance Urine pH Ur Specific Warner Urine Protein Urine Glucose (UA) Urine Ketones Urine Blood Urine Nitrite Urine Bilirubin Urine Ictotest Urine Urobilinogen Ur Leukocyte Esterase Urine RBC Urine WBC Ur Epithelial Cells Urine Bacteria Urine Casts Hyaline Casts Urine Mucus Urine HCG, Qual 01/28/17 14:25 Sodium 140 Potassium 3.5 D Chloride 102 Carbon Dioxide 27 Anion Gap 11 BUN 11 Creatinine 0.6 D Creat Clearance w eGFR POC Glucometer Random Glucose 178 H Calcium 8.4 L Phosphorus Magnesium Total Bilirubin AST ALT Alkaline Phosphatase Total Protein Albumin Urine Color Urine Appearance Urine pH Ur Specific Warner Urine Protein Urine Glucose (UA) Urine Ketones Urine Blood Urine Nitrite Urine Bilirubin Urine Ictotest Urine Urobilinogen Ur Leukocyte Esterase Urine RBC Urine WBC Ur Epithelial Cells Urine Bacteria Urine Casts Hyaline Casts Urine Mucus Urine HCG, Qual Assessment/Plan DKA resolved TYPE 1 DM,insulin dependant Electolye abnormality PLAN Monitor SUGAR MONITOR electrolytes INSULIN treatment ADA diet will f/u endocrine rec
--- NOTE | 2016-11-22 18:15 | HP ---
DATE OF ADMISSION: 11/21/2016 HISTORY OF PRESENT ILLNESS: The patient is a female with a past medical history of juvenile diabetes. Diabetes developed at the age of 4 with a complicating peripheral neuropathy, went to the emergency room with the complaints of , headache, nausea, and diminished appetite, polydipsia, and polyuria and palpitations. Her sugar is running between 300 and 400 mg. There is no history of any fever, no dysuria. The patient was recently admitted for diabetic ketoacidosis in September 2016 and as per her, she lost her insurance and she was no longer using the insulin pump, and she is currently using Lantus. The patient also complains of mild low-grade fever but no cough, no sore throat, no urinary symptoms. Mild diffuse abdominal discomfort worsens on and off, and complains of nausea also. PAST MEDICAL HISTORY: History of juvenile type diabetes mellitus. PAST SURGICAL HISTORY: Nothing significant. MEDICATIONS: Patient is on Lantus 22 units subcutaneous b.i.d. and NovoLog sliding scale. SOCIAL HISTORY: Never smoked. No alcohol. No drugs. Lives with the family. REVIEW OF SYSTEMS: As mentioned before. General: The patient feels tired, looks tired and mildly dehydrated. Nausea. Cardiovascular: Nothing significant. Respiratory: Nothing significant. Gastrointestinal: Mild nausea present. Genitourinary: Nothing significant. Central Nervous System: Mild headache present. Endocrine: History of diabetes. PHYSICAL EXAMINATION: Vital Signs: In the emergency room, temperature 97.8, blood pressure 119/78, pulse rate 132, respirations 22, saturation 99%. General: Awake, alert, dehydration present. Chest: Clear. Cardiovascular: Tachycardia present. First and second sound normal. Abdomen: Soft, mildly tender in the epigastrium area. Extremities: Full range of movement. No edema. Central Nervous System: Alert, oriented x3. No apparent motor or sensory deficits. Reflexes normal. Cranial nerves II-XII normal. LABORATORY DATA: CBC: Hemoglobin 16.2, hematocrit 48.4. CMP: Sugar 181, BUN 17, creatinine 0.9. Sodium 140, potassium 3.3, chloride 104, bicarbonate 16, AST 11, ALT 11, alkaline phosphatase normal. Lipase 23. Lactic acid 1.1. Hemoglobin A1c 12.4, magnesium 2.3. EKG normal sinus rhythm. Nonspecific ST changes. Blood shows acetone. Urine negative. ASSESSMENT AND PLAN: The patient admitted to intensive care unit. The patient was given insulin drip and normal saline IV hydration and monitoring of the blood sugar was done. Endocrine consult called. The patient started on D5 1/2 normal saline with 40 KCl at 125 mL/h. The patient started on Levemir and sliding scale. The patient stable on the floor. ADMITTING DIAGNOSES: Diabetic ketoacidosis, dehydration, hypokalemia, insulin-dependent diabetes. ALPA ANTONY M.D. [id number]
[2016-11-22 19:13] LABS: CALCIUM 8.3 mg/dL (8.5-10.1); CREATININE 0.9 mg/dL (0.55-1.02)
[2016-11-22] MEDS: INSULIN DETEMIR 100 UNITS/ML MDV SQ SCH (21:03)
[2016-11-22] MEDS ORDERED: Insulin (LOG) Aspart 100 UNITS/ML VIAL SQ SCH (22:00)
[2016-11-22] MEDS ORDERED: CHLORHEXIDINE GLUCONATE 4% CLEANSER FOR DECOLONIZATION TP SCH (22:00)
[2016-11-23] MEDS: HEPARIN NA (PORCINE) 5,000 UNITS/ML 1ML VIAL SQ SCH ×2 (06:11→13:14)
[2016-11-23] MEDS: INSULIN SLIDING SCALE (NOVOLOG) 1 VIAL SQ SCH ×4 (06:11→16:44)
[2016-11-23 07:11] LABS: BASOPHIL 0.5 % (0-2.0); EOSINOPHIL 3.9 % (0-4.5); MCH 31.2 pg (25.7-33.7); MCHC 34.2 g/dl (32.0-36.0); MEAN CELL VOLUME 91.2 fl (80-96); MEAN PLT VOLUME 8.5 fl (7.5-11.1); NEUTROPHILS 28.7 % (42.8-82.8); PLATELET COUNT 233 K/MM3 (134-434); RDW 15.4 % (11.6-15.6); WHITE BLOOD COUNT 4.2 K/mm3 (4.0-10.0)
[2016-11-23 07:49] LABS: ALBUMIN 2.9 g/dl (3.4-5.0); ALK PHOS 97 U/L (45-117); ANION GAP 11 (8-16); BILIRUBIN,TOTAL 0.3 mg/dL (0.2-1.0); CALCIUM 8.7 mg/dL (8.5-10.1); CO2 29 mmol/L (21-32); CREATININE 0.5 mg/dL (0.55-1.02); GLUCOSE,RANDOM 101 mg/dL (74-106); PHOSPHOROUS 3.3 mg/dL (2.5-4.9); SGOT/AST 11 U/L (15-37); SGPT/ALT 12 U/L (12-78); TOT PROT 6.1 g/dl (6.4-8.2)
[2016-11-23] MEDS ORDERED: INSULIN (NOVOLOG) ASPART 100 UNITS/ML 10ML VIAL ONE ×3 (08:10→16:42)
[2016-11-23] MEDS: INSULIN DETEMIR 100 UNITS/ML MDV SQ SCH (09:47)
--- NOTE | 2016-11-23 12:41 | PN ---
Progress Note, Physician Chief Complaint: Pt seen Feels better,tolerating diet Pt is on sliding scle insulin And levemir Electrolyte abnormalities noted endocrine F/u noted anticipate d/c home in the evening - Current Medication List Current Medications: Active Medications Heparin Sodium (Porcine) (Heparin -) 5,000 unit SQ TID [facility] Last Admin: 11/23/16 06:11 Dose: Not Given Insulin Aspart (Novolog Vial Sliding Scale -) 1 vial SQ TIDAC DARA PRN Reason: Protocol Last Admin: 11/23/16 11:16 Dose: 6 units Insulin Aspart (Novolog Vial Sliding Scale -) 1 vial SQ HS DARA PRN Reason: Protocol Last Admin: 11/22/16 21:03 Dose: 5 units Insulin Detemir (Levemir Vial) 20 units SQ BID [facility] Last Admin: 11/23/16 09:47 Dose: 20 units - Objective Vital Signs: Vital Signs Temperature 98.0 F 11/23/16 10:00 Pulse Rate 85 11/23/16 09:00 Respiratory Rate 18 11/23/16 09:00 Blood Pressure 98/61 11/23/16 09:00 O2 Sat by Pulse Oximetry (%) 97 11/23/16 09:00 HENT: Yes: Atraumatic, Normocephalic Neck: Yes: Supple, Trachea Midline Cardiovascular: Yes: Regular Rate and Rhythm Respiratory: Yes: Regular, CTA Bilaterally Gastrointestinal: Yes: Normal Bowel Sounds, Soft Musculoskeletal: Yes: WNL Extremities: Yes: WNL Peripheral Pulses WNL: Yes Neurological: Yes: WNL, Oriented Psychiatric: Yes: WNL, Alert Labs: CBC, BMP 11/23/16 05:45 11/23/16 05:45 Assessment/Plan DKA resolved TYPE 1 DM,insulin dependant Electolye abnormality PLAN Monitor SUGAR MONITOR electrolytes INSULIN treatment ADA diet will f/u endocrine rec K suppliment d/c home in the evening after checking k level
[2016-11-23] MEDS ORDERED: POTASSIUM CHLORIDE TABS 20 MEQ TABLET.ER (FP) PO ONE (13:15)
[2016-11-23 19:02] VITALS: BP 104/69; PULSE 70; TEMP 98.5
--- NOTE | 2016-11-23 20:33 | DS ---
Physical Examination Vital Signs: Vital Signs Temperature 98.5 F 11/23/16 18:00 Pulse Rate 70 11/23/16 18:00 Respiratory Rate 20 11/23/16 18:00 Blood Pressure 104/69 11/23/16 18:00 O2 Sat by Pulse Oximetry (%) 97 11/23/16 09:00 Labs: CBC, BMP 11/23/16 05:45 11/23/16 17:35 Discharge Summary Reason For Visit: DIABETIC KETOACIDOSIS Current Active Problems DKA (diabetic ketoacidoses) (Acute) Dehydration (Acute) Diabetic neuropathy (Acute) Diabetic neuropathy associated with diabetes mellitus due to underlying condition (Acute) Diabetic neuropathy associated with type 1 diabetes mellitus (Acute) Hypokalemia (Acute) Hospital Course: Pt with h/o insulin dependant Type 1 DM with neuropathy admitted with DKA, Dehydration and hypokalemia in ICU.Pt was treated with IV fluids,Insulin drip, and replacement of electrolytes once sugar was under control ,pt was put on levemir and humalog sliding scale . pt was follwed by endocrine.At the time of admission blood sugar was 181,K was 3.3 anion gap was high.Ekg was nl Pt was stable on the floor.Pt starts tolerating diet. d/c home in a stable condition on levemir and sliding scale insulin.pt advised to f/u with PMD and endocrine Condition: Stable - Instructions Referrals: Tarah Ceballos MD [Staff Physician] - Babak Castro MD [Primary Care Provider] - Disposition: HOME - Home Medications Comprehensive Discharge Medication List: Ambulatory Orders Insulin Glargine,Hum.rec.anlog [Lantus (10mL VIAL) -] 22 units SQ BID 09/26/16 Insulin Sliding Scale [Novolog Vial Sliding Scale -] 1 vial SQ HS units
== END 2016-11-23 19:07 | disposition home or self-care (01) | DRG 420 ==
LOC: FER 09:21 → JICU 15:45 → J5S 11-22 15:19
PROVIDERS: ADMIT Family Medicine; ATTEND Family Medicine
DX: E10.10 Type 1 diabetes mellitus with ketoacidosis without coma (principal); Z79.4 Long term (current) use of insulin; E10.42 Type 1 diabetes mellitus with diabetic polyneuropathy; E86.0 Dehydration; R10.13 Epigastric pain; B34.9 Viral infection, unspecified; E87.8 Other disorders of electrolyte and fluid balance, not elsewhere classified; E87.6 Hypokalemia
CPT/HCPCS: 36415; 36600; 80048; 80053; 81003; 81015; 82009; 82803; 83036; 83605; 83690; 83735; 84100; 84132; 84703; 85025; 85027; 87040; 87254; 87804; 93005; 99285-25; J1644

== ENCOUNTER 2017-01-09 11:51 | Inpatient (IN) | payer OTHER ==
[2017-01-09] MEDS ORDERED: SODIUM CHLORIDE 1,000 ML IV ONE ×2 (12:12→13:25)
--- NOTE | 2017-01-09 12:35 | PDOC ---
History of Present Illness - General History Source: Family Exam Limitations: Other - History of Present Illness Initial Comments: 01/09/17 14:52 The patient is a 26 year old female, with significant past medical history of IDDM, and peripheral neuropathy, who presents to the emergency department via ambulance with high glucose levels. When the ambulance arrived her blood sugar was 577. Her aunt administered 23 units of Lantus at home. The patient has a history of noncompliance with her insulin medications and has been in DKA before. The patient visited her primary doctor yesterday afternoon and was treated for a sinus infection. Upon arrival home from the doctors office, she experienced multiple episodes of vomiting throughout the night. Her aunt states that she has had difficulty breathing since last night. Denies fever, nausea, vomiting. Denies abdominal pain. Denies chest pain. Allergies: None reported PCP: [facility] Classer: Dr. Lazaro <Christin Cali - Last Filed: 01/09/17 15:25> - General History Source: Patient Exam Limitations: No Limitations <Marvel Nguyen - Last Filed: 01/12/17 20:06> - General Chief Complaint: Blood Sugar Problem Stated Complaint: HIGH BLOOD SUGAR Past History <Christin Cali - Last Filed: 01/09/17 15:25> - Past Medical History Anemia: No Asthma: No Cancer: No Cardiac Disorders: No CVA: No COPD: No CHF: No Dementia: No Diabetes: Yes (IDDM, HAS OMNI PD) GI Disorders: No Disorders: No HTN: No Hypercholesterolemia: No Liver Disease: No Suicide Attempt (Hx): No Seizures: No Thyroid Disease: No - Surgical History Abdominal Surgery: No Appendectomy: No Cardiac Surgery: No Cholecystectomy: No Lung Surgery: No Neurologic Surgery: No Orthopedic Surgery: No - Immunization History Immunization Up to Date: Yes - Psycho/Social/Smoking Cessation Hx Anxiety: No Suicidal Ideation: No Smoking Status: No Smoking History: Never smoked Have you smoked in the past 12 months: No Number of Cigarettes Smoked Daily: 0 Information on smoking cessation initiated: No Hx Alcohol Use: No Drug/Substance Use Hx: No Substance Use Type: None Hx Substance Use Treatment: No <Marvel Nguyen - Last Filed: 01/12/17 20:06> - Past Medical History Allergies/Adverse Reactions: Allergies Allergy/AdvReac Type Severity Reaction Status Date / Time No Known Allergies Allergy Verified 11/21/16 09:27 Home Medications: Ambulatory Orders Insulin Glargine,Hum.rec.anlog [Lantus (10mL VIAL) -] 23 units SQ BID 09/26/16 Insulin Sliding Scale [Novolog Vial Sliding Scale -] 1 vial SQ HS units Review of Systems - Review of Systems Able to Perform ROS?: No Is the patient limited Guinean proficient: Yes <Christin Cali - Last Filed: 01/09/17 15:25> *Physical Exam - Vital Signs Last Vital Signs Temp Pulse Resp BP Pulse Ox 94.6 F L 112 H 24 129/82 100 01/09/17 12:11 01/09/17 12:11 01/09/17 12:11 01/09/17 12:11 01/09/17 12:11 - Physical Exam Comments: 01/09/17 14:54 GENERAL: The patient is lethargic, kaussmall breathing HEAD: Normocephalic, atraumatic. EYES: extraocular movements intact, sclera anicteric, conjunctiva clear. ENT: Normal voice, very dry mucous membranes. NECK: Normal range of motion, supple LUNGS: Breath sounds equal, clear to auscultation bilaterally. No wheezes, no rhonchi, no rales. HEART: tachycardic ABDOMEN: Soft, nontender, normoactive bowel sounds. No guarding, no rebound. . No CVA tenderness EXTREMITIES: Normal range of motion, no edema. NEUROLOGICAL: No facial assymetry, Normal speech, SKIN: Warm, Dry, normal turgor, <Christin Cali - Last Filed: 01/09/17 15:25> - Vital Signs Last Vital Signs Temp Pulse Resp BP Pulse Ox 94.6 F L 112 H 24 129/82 100 01/09/17 12:11 01/09/17 12:11 01/09/17 12:11 01/09/17 12:11 01/09/17 12:11 <Marvel Nguyen - Last Filed: 01/12/17 20:06> Heart Score/ECG Review - ECG Impressions Comment:: 01/09/17 13:28 Twelve-lead EKG was performed and reviewed by me. There is normal sinus rhythm with a rate of 102 The axis is normal. The intervals are normal. There is normal R wave progression There are no ST or T wave abnormalities. Nonspecific T wave abnormality <Wendy,Marvel - Last Filed: 01/12/17 20:06> ED Treatment Course - LABORATORY CBC & Chemistry Diagram: 01/09/17 12:12 01/09/17 12:37 - ADDITIONAL ORDERS Additional order review: Laboratory Results 01/09/17 01/09/17 01/09/17 12:40 12:39 12:37 Puncture Site Md puncture ABG pH 6.90 L* D ABG pCO2 at Pt Temp 8.9 L* D ABG pO2 at Pt Temp 184.0 H* ABG HCO3 1.6 L* ABG O2 Sat (Measured) 97.9 ABG O2 Content 19.2 ABG Base Excess -32.6 L* Gucci Test Not applicable O2 Delivery Device Room air Oxygen Flow Rate 21% PEEP 0.0 Sodium Potassium Chloride Carbon Dioxide Anion Gap BUN Creatinine Creat Clearance w eGFR Random Glucose Lactic Acid 1.534 Calcium Magnesium Total Bilirubin AST ALT Alkaline Phosphatase Total Protein Albumin Acetone, Qual Positive moderate 2+ H 01/09/17 01/09/17 12:37 12:12 Puncture Site ABG pH ABG pCO2 at Pt Temp ABG pO2 at Pt Temp ABG HCO3 ABG O2 Sat (Measured) ABG O2 Content ABG Base Excess Gucci Test O2 Delivery Device Oxygen Flow Rate PEEP Sodium 134 L Potassium 3.7 Chloride 102 Carbon Dioxide 3 L D Anion Gap 29 H BUN 18 D Creatinine 1.0 D Creat Clearance w eGFR > 60 Random Glucose 516 H* D Lactic Acid Calcium 7.1 L Magnesium 2.1 Total Bilirubin 0.4 D AST 14 L D ALT 18 D Alkaline Phosphatase 187 H D Total Protein 7.2 Albumin 3.3 L Acetone, Qual 01/09/17 12:12 RBC 4.38 MCV 102.7 H MCHC 30.4 L RDW 16.3 H MPV 8.3 Neutrophils % 74.0 D Lymphocytes % 17.0 D Monocytes % 6.0 - Medications Given in the ED: ED Medications Discontinued Medications Generic Name Dose Route Start Last Admin Trade Name Freq PRN Reason Stop Dose Admin Sodium Chloride 1,000 mls @ 1,000 mls/hr 01/09/17 12:12 01/09/17 12:16 Normal Saline - IV 01/09/17 13:11 1,000 mls/hr .Q1H ONE Administration Sodium Chloride 1,000 mls @ 1,000 mls/hr 01/09/17 13:25 01/09/17 13:33 Normal Saline - IV 01/09/17 14:24 1,000 mls/hr .Q1H ONE Administration Insulin Human Regular 5 units 01/09/17 13:25 01/09/17 13:35 Novolin R Vial *For Ivpush Or Iv Drip Only* IVPUSH 01/09/17 13:26 5 units ONCE ONE Administration <Christin Cali - Last Filed: 01/09/17 15:25> - LABORATORY CBC & Chemistry Diagram: 01/12/17 05:00 01/12/17 05:00 - RADIOLOGY Radiology Studies Ordered: Category Date Time Status CHEST X-RAY PORTABLE* [RAD] Stat Radiology 01/09/17 12:12 Ordered <Marvel Nguyen - Last Filed: 01/12/17 20:06> Medical Decision Making - Medical Decision Making 01/09/17 15:25 Dr. Ceballos was paged at 1:29pm via office number. A second page was placed for Dr. Ceballos at 2:51pm. A third page was placed for Dr. Ceballos at 3:26pm. Dr. Lazaro was paged via office number at 1:30pm. Dr. Padilla is the covering doctor. Dr. Padilla was paged via paging service at 1:36pm. Dr. Nguyen spoke with Dr. Padilla regarding the patient's care at 1:45pm. <Christin Cali - Last Filed: 01/09/17 15:25> - Medical Decision Making 01/09/17 12:26 26y F hx of poorly controlled IDDM, dka, peripheral neuropathy, presents with vomiting, and tachypnea. on exam pt was slightly tachycardic, had very dry mucus membranes and is lethargic. pt also noted hyperthermic to 94. pt had recent uri symptoms and was given a zpack by her PMD. suspect dka will ck cultures, lactic acid leelee lsend abg, serum ketones, ua, test agressiv fluid hydration passive warming with warm blankets and warm IV fluids A portion of this note was documented by scribe services under my direction. I have reviewed the details of the note, within reason, and agree with the documentation with the following case summary and management plan written by me 01/09/17 13:27 pts labs reviewed c/w severe DKA with severe metabolic acidosis will start insulin gtt will giv emore fluids will admit to the ICU for further management Will page dr. Ocasio and dr lopez 01/09/17 13:[address] herring - will notify dr. ceballos, will admit pt to the ICU will notify dr. Lazaro will notify dr. Lloyd pt [facility] on [facility] CRITICAL CARE DOCUMENTATION: I spent ~35 minutes of Critical Care time, excluding separately billable procedures, involving high complexity decision making to assess, manipulate and support vital system function(s) to treat single or multiple vital organ system failure and/or to prevent further life threatening deterioration of the patient' s condition. 01/09/17 14:[address] lazaro, dr. lloyd agreed with icu admissino for further management of hypothermia and dka <Marvel Nguyen - Last Filed: 01/12/17 20:06> *DC/Admit/Observation/Transfer - Attestations Scribe Attestion: 01/09/17 14:54 Documentation prepared by DARON Horner, acting as medical laboratory assistant for Marvel Nguyen MD. <Christin Cali - Last Filed: 01/09/17 15:25> - Discharge Dispostion Admit: Yes <Marvel Nguyen - Last Filed: 01/12/17 20:06> Diagnosis at time of Disposition: DKA (diabetic ketoacidoses) Qualifiers: Diabetes mellitus type: type 1 Diabetes mellitus complication detail: without coma Qualified Code(s): E10.10 - Type 1 diabetes mellitus with ketoacidosis without coma Hypothermia Qualifiers: Encounter type: initial encounter Qualified Code(s): T68.XXXA - Hypothermia, initial encounter - Discharge Dispostion Condition at time of disposition: Critical
[2017-01-09 12:49] LABS: MCH 31.2 pg (25.7-33.7); MCHC 30.4 g/dl (32.0-36.0); MEAN CELL VOLUME 102.7 fl (80-96); MEAN PLT VOLUME 8.3 fl (7.5-11.1); PLATELET COUNT 294 K/MM3 (134-434); RDW 16.3 % (11.6-15.6); WHITE BLOOD COUNT 16.6 K/mm3 (4.0-10.0)
[2017-01-09 12:54] LABS: ARTERIAL BLD GAS O2 SATURATION 97.9 % (90-98.9); ARTERIAL BLOOD GAS HCO3 1.6 meq/L (22-26)
[2017-01-09 12:56] LABS: ARTERIAL BLOOD GAS BASE EXCESS -32.6 meq/l (-2-2)
[2017-01-09 13:02] LABS: LPM/O2% 21%; PT. ON O2? NO; TYPE OF O2 ROOM AIR
[2017-01-09] MEDS ORDERED: INSULIN REGULAR HUMAN 100 UNITS/ML *VIAL ONE (13:03)
[2017-01-09 13:19] LABS: ALBUMIN 3.3 g/dl (3.4-5.0); BILIRUBIN,TOTAL 0.4 mg/dL (0.2-1.0); CALCIUM 7.1 mg/dL (8.5-10.1); SGOT/AST 14 U/L (15-37); SGPT/ALT 18 U/L (12-78); TOT PROT 7.2 g/dl (6.4-8.2)
[2017-01-09 13:20] LABS: ALK PHOS 187 U/L (45-117)
[2017-01-09 13:23] LABS: ANION GAP 29 (8-16); CO2 3 mmol/L (21-32)
[2017-01-09 13:25] LABS: GLUCOSE,RANDOM 516 mg/dL (74-106)
[2017-01-09] MEDS ORDERED: INSULIN REGULAR HUMAN 100 UNITS/ML *VIAL IVPUSH ONE (13:25)
[2017-01-09] MEDS ORDERED: INSULIN REGULAR 100 UNITS in SODIUM CHLORIDE 99 ML IVPB SCH (13:30)
[2017-01-09 13:48] LABS: PLATELET ESTIMATE ADEQUATE (NORMAL)
[2017-01-09 15:08] LABS: ARTERIAL BLD GAS O2 SATURATION 78.8 % (90-98.9); ARTERIAL BLOOD GAS PO2 50.7 mmHg (80-100)
[2017-01-09 15:11] LABS: ARTERIAL BLOOD GAS BASE EXCESS -32.4 meq/l (-2-2); ARTERIAL BLOOD GAS HCO3 3.4 meq/L (22-26); ARTERIAL BLOOD GAS pH 6.84 (7.35-7.45); LPM/O2% 21%; PT. ON O2? NO; TYPE OF O2 ROOM AIR
[2017-01-09] MEDS ORDERED: SODIUM CHLORIDE 3,000 ML IV STA (16:08)
[2017-01-09] MEDS ORDERED: SODIUM CHLORIDE 1,000 ML IV SCH (16:15)
[2017-01-09] MEDS ORDERED: ONDANSETRON 4 MG/2 ML VIAL IVPB PRN (16:18)
[2017-01-09] MEDS ORDERED: LEVOFLOXACIN 500 MG IVPB 100 ML IVPB SCH (16:22)
[2017-01-09] MEDS ORDERED: ACETAMINOPHEN 1000 MG/100 ML VIAL (NON FORMULARY) IVPB PRN (16:23)
[2017-01-09 16:34] VITALS: BMI 20.5
--- NOTE | 2017-01-09 16:36 | PN ---
Teaching Attending Note Name of Resident: Cruz Cornejo ATTENDING PHYSICIAN STATEMENT I saw and evaluated the patient. I reviewed the resident's note and discussed the case with the resident. I agree with the resident's findings and plan as documented. SUBJECTIVE: Briefly, 26yo female with insulin dependent DM, compliant with her lantus/ novolog who presents with worsening shortness of breath, vomiting, generalized weakness. Found to be in DKA with anion gap 29 and pH 6.8. She had been experiencing sinus congestion with green discharge. She did receive her flu vaccine. Also with dysuria, polydipsia and polyuria. OBJECTIVE: Last Vital Signs Temp Pulse Resp BP Pulse Ox 93.2 F L 97 H 22 108/79 100 01/09/17 16:18 01/09/17 16:18 01/09/17 16:18 01/09/17 16:18 01/09/17 16:18 Intake & Output 01/06/17 01/07/17 01/08/17 01/09/17 23:59 23:59 23:59 23:59 Intake Total 1000 Balance 1000 Weight 120 lb Gen: weak appearing, lethargic but arousable, appropriate HEENT: dry mucous membranes Heart: RRR Lung: decreased breath sounds at the bases Abd: soft, nontender Ext: no edema CBC, BMP 01/09/17 12:12 01/09/17 12:37 Active Medications Acetaminophen (Ofirmev Injection -) 1,000 mg IVPB Q6H PRN PRN Reason: FEVER OR PAIN Stop: 01/10/17 10:24 Chlorhexidine Gluconate (Hibiclens For Decolonization -) 1 applic TP HS DARA Heparin Sodium (Porcine) (Heparin -) 5,000 unit SQ TID DARA Insulin Human Regular 100 (units/ Sodium Chloride) 100 mls @ 5.66 mls/hr IVPB TITR DARA; 0.1 UNITS/KG/HR PRN Reason: Protocol Last Admin: 01/09/17 13:33 Dose: 5.66 mls/hr Sodium Chloride (Normal Saline -) 3,000 mls @ 1,000 mls/hr IV ASDIR STA Stop: 01/09/17 19:07 Sodium Chloride (Normal Saline -) 1,000 mls @ 200 mls/hr IV ASDIR DARA Levofloxacin (Levaquin 500 Mg Premixed Ivpb -) 100 mls @ 100 mls/hr IVPB DAILY [facility] Mupirocin (Bactroban Ointment (For Decolonization) -) 1 applic NS BID DARA Stop: 01/14/17 21:59 ASSESSMENT AND PLAN: Diabetic Ketoacidosis Severe Anion Gap Metabolic Acidosis r/o Sinusitis r/o UTI - aggressive IVF resuscitation - insulin gtt 0.1units/kg/hr while pt with anion gap - check FS q1h, BMP q4h - if K <4.5 while on insulin gtt, add KCl 20mEq to IVF - if BGM <250 while on insulin gtt, add D5 to IVF - empiric antibiotics - send UA, urine culture - clears for now - advance diet when clinically improving - DVT prophylaxis
[2017-01-09] MEDS: LEVOFLOXACIN 500 MG IVPB 100 ML IVPB SCH (17:44)
--- NOTE | 2017-01-09 17:49 | CONSULT ---
Consultation: REQUESTING PROVIDER: Dr. Ceabllos CONSULT REQUEST: We have been asked to medically evaluate this patient for ICU care HISTORY OF PRESENT ILLNESS: 26 yo F w/ h/o IDDM type I on Lantus 23 unit/day and novolog with peripheral neuropathy admitted to the ICU for DKA. Patient has been admitted 3 times for DKA in last 12 months but she stated that she has been compliant with her insulin administrations. She's been feeling sick since Thursday in that she has headache, n/v, sinus fullness and tenderness, diffuse abd pain, and greenish nasal discharge at times but no fever or chills. She went to see her PMD on and was given albuterol and z-pack 250mg with no relief. Further more, she denies dizziness, chest pain, urinary or bowel sx. REVIEW OF SYSTEMS: CONSTITUTIONAL: loss of appetite Absent: fever, chills, diaphoresis, generalized weakness, malaise, , weight change HEENT: nasal discharge Absent: rhinorrhea, nasal congestion, throat pain, throat swelling, difficulty swallowing, mouth swelling, ear pain, eye pain, visual changes CARDIOVASCULAR: Absent: chest pain, syncope, palpitations, irregular heart rate, lightheadedness , peripheral edema RESPIRATORY: shortness of breath Absent: cough, dyspnea with exertion, orthopnea, wheezing, stridor, hemoptysis GASTROINTESTINAL: abdominal pain Absent:, abdominal distension, nausea, vomiting, diarrhea, constipation, melena , hematochezia GENITOURINARY: frequency Absent: dysuria, urgency, hesitancy, hematuria, flank pain, genital pain MUSCULOSKELETAL: Absent: myalgia, arthralgia, joint swelling, back pain, neck pain SKIN: Absent: rash, itching, pallor HEMATOLOGIC/IMMUNOLOGIC: Absent: easy bleeding, easy bruising, lymphadenopathy, frequent infections ENDOCRINE: Absent: unexplained weight gain, unexplained weight loss, heat intolerance, cold intolerance NEUROLOGIC: headache Absent: focal weakness or paresthesias, dizziness, unsteady gait, seizure, mental status changes, bladder or bowel incontinence PSYCHIATRIC: Absent: anxiety, depression, suicidal or homicidal ideation, hallucinations. PHYSICAL EXAMINATION Last Vital Signs Temp Pulse Resp BP Pulse Ox 93.2 F L 97 H 22 108/79 100 01/09/17 16:18 01/09/17 16:18 01/09/17 16:18 01/09/17 16:18 01/09/17 16:18 GENERAL: Awake, alert, and fully oriented, appears weak HEAD: AT, NC EYES: Pupils equal, round and reactive to light, sclera anicteric, conjunctiva clear EARS, NOSE, THROAT: nares patent, dry mucus, oropharynx clear without exudates, sinus tenderness LUNGS:CTAB HEART: Tachycardic, S1 and S2, no murmur, rub ABDOMEN: +bs, soft, mild diffuse tenderness, no rebound, guarding EXTREMITIES: No calf tenderness. No peripheral edema. NEUROLOGICAL: Cranial nerves II-XII intact ABG Results ABG pH 6.84 (7.35-7.45) L* 01/09/17 15:10 ABG pCO2 at Pt Temp 20.9 mmHg (35-45) L D 01/09/17 15:10 ABG pO2 at Pt Temp 50.7 mmHg (80-100) L D 01/09/17 15:10 ABG HCO3 3.4 meq/L (22-26) L* 01/09/17 15:10 ABG O2 Sat (Measured) 78.8 % (90-98.9) L 01/09/17 15:10 ABG O2 Content 16.4 % vol (15-22) 01/09/17 15:10 ABG Base Excess -32.4 meq/l (-2-2) L* 01/09/17 15:10 CBCD WBC 16.6 K/mm3 (4.0-10.0) H D 01/09/17 12:12 RBC 4.38 M/mm3 (3.60-5.2) 01/09/17 12:12 Hgb 13.7 GM/dL (10.7-15.3) 01/09/17 12:12 Hct 44.9 % (32.4-45.2) D 01/09/17 12:12 MCV 102.7 fl (80-96) H 01/09/17 12:12 MCHC 30.4 g/dl (32.0-36.0) L 01/09/17 12:12 RDW 16.3 % (11.6-15.6) H 01/09/17 12:12 Plt Count 294 K/MM3 (134-434) D 01/09/17 12:12 MPV 8.3 fl (7.5-11.1) 01/09/17 12:12 CMP Sodium 134 mmol/L (136-145) L 01/09/17 12:37 Potassium 3.7 mmol/L (3.5-5.1) 01/09/17 12:37 Chloride 102 mmol/L (98-107) 01/09/17 12:37 Carbon Dioxide 3 mmol/L (21-32) L D 01/09/17 12:37 Anion Gap 29 (8-16) H 01/09/17 12:37 BUN 18 mg/dL (7-18) D 01/09/17 12:37 Creatinine 1.0 mg/dL (0.55-1.02) D 01/09/17 12:37 Creat Clearance w eGFR > 60 (>60) 01/09/17 12:37 Calcium 7.1 mg/dL (8.5-10.1) L 01/09/17 12:37 Total Bilirubin 0.4 mg/dL (0.2-1.0) D 01/09/17 12:37 AST 14 U/L (15-37) L D 01/09/17 12:37 ALT 18 U/L (12-78) D 01/09/17 12:37 Alkaline Phosphatase 187 U/L (45-117) H D 01/09/17 12:37 Total Protein 7.2 g/dl (6.4-8.2) 01/09/17 12:37 Albumin 3.3 g/dl (3.4-5.0) L 01/09/17 12:37 Intake & Output 01/06/17 01/07/17 01/08/17 01/09/17 23:59 23:59 23:59 23:59 Intake Total 1000 Balance 1000 Weight 54.431 kg Active Medications Generic Name Dose Route Start Last Admin Trade Name Freq PRN Reason Stop Dose Admin Acetaminophen 1,000 mg 01/09/17 16:23 Ofirmev Injection - IVPB 01/10/17 10:24 Q6H PRN FEVER OR PAIN Chlorhexidine Gluconate 1 applic 01/09/17 22:00 Hibiclens For Decolonization - TP HS [facility] Heparin Sodium (Porcine) 5,000 unit 01/09/17 22:00 Heparin - SQ TID DARA Insulin Human Regular 100 100 mls @ 5.66 mls/hr 01/09/17 13:30 01/09/17 13:33 units/ Sodium Chloride IVPB 5.66 mls/hr TITR DARA Administration Protocol 0.1 UNITS/KG/HR Sodium Chloride 3,000 mls @ 1,000 mls/hr 01/09/17 16:08 Normal Saline - IV 01/09/17 19:07 ASDIR STA Sodium Chloride 1,000 mls @ 200 mls/hr 01/09/17 16:15 Normal Saline - IV ASDIR DARA Levofloxacin 100 mls @ 100 mls/hr 01/09/17 16:22 Levaquin 500 Mg Premixed Ivpb - IVPB DAILY DARA Mupirocin 1 applic 01/09/17 22:00 Bactroban Ointment (For Decolonization) - NS 01/14/17 21:59 BID DARA Imaging CXR on 01/09: No acute pathology ASSESSMENT/PLAN: 26 yo F w/ h/o IDDM type I on Lantus 23 unit/day and novolog with peripheral neuropathy admitted to the ICU for DKA Endo: DKA with anion gap metabolic acidosis - Glc = 516, pH < 7.3, bicarb >18 + ketonuria - Received 2L NS in ED * Received 2 boluses of NS in ICU * transition to D5+1/2 NS + 20 KCl at 125ml/hr once glc in target range - On insulin gtt 5 unit/hr * slowly titrate insulin gtt to maintain glc 200 * restart diet and start sliding scale - Potassium within normal limit * add 20 KCl * maintain K+ between 4-5 - BMP Q4H, FS Q1H ID: Sinusitis - Levaquin 500mg IVPB daily - F/U urine culture - Cont to monitor CBC FEN - Fluid management as above - Cont. to monitor lytes - Start feeding after glc is at goal Prophylaxis - DVT: heparin SQ 5000 TID - GI: not indicated Disposition - Cont to monitor in ICU Code status - Full code Visit type - Emergency Visit Emergency Visit: Yes ED Registration Date: 01/09/17 Care time: The patient presented to the Emergency Department on the above date and was hospitalized for further evaluation of their emergent condition. - New Patient This patient is new to me today: Yes Date on this admission: 01/09/17 - Critical Care Critical Care patient: Yes Total Critical Care Time (in minutes): 45 Critical Care Statement: The care of this patient involved high complexity decision making to prevent further life threatening deterioration of the patient 's condition and/or to evalute & treat vital organ system(s) failure or risk of failure.
[2017-01-09 17:59] LABS: CREATININE 0.8 mg/dL (0.55-1.02)
[2017-01-09 18:07] LABS: CALCIUM 6.5 mg/dL (8.5-10.1)
[2017-01-09] MEDS ORDERED: CALCIUM GLUCONATE 10% - 1,000 MG/10 ML VIAL IVPB ONE (18:20)
--- NOTE | 2017-01-09 18:23 | CONSULT ---
Consult Consult Specialty:: endocrine/diabetes mellitus Referred by:: covering for / called by er Reason for Consultation:: dka - History of Present Illness Chief Complaint: dka History of Present Illness: 26 year old female, with significant past medical history of IDDM, and peripheral neuropathy, who presents to the emergency department via ambulance with high glucose levels. When the ambulance arrived her blood sugar was 577. Her aunt administered 23 units of Lantus at home. The patient has a history of noncompliance with her insulin medications and has been in DKA before. has had nausea vomiting shortness of breath,weakness,unable to keep food or liquid down. - History Source History Provided By: Patient - Past Medical History ...LMP: 09/17/16 ...LMP Comment: IRREGULAR Endocrine: Yes: Diabetes Mellitus (describes multiple episodes of DKA, the last being last month ), Other (Peripheral Neuropathy) - Alcohol/Substance Use Hx Alcohol Use: No - Smoking History Smoking history: Never smoked Have you smoked in the past 12 months: No Aproximately how many cigarettes per day: 0 - Social History Usual Living Arrangement: Alone ADL: Independent Occupation: Student / works at [employer] in [place] [facility] [employer] History of Recent Travel: No Home Medications - Allergies Allergies/Adverse Reactions: Allergies Allergy/AdvReac Type Severity Reaction Status Date / Time No Known Allergies Allergy Verified 11/21/16 09:27 - Home Medications Home Medications: Ambulatory Orders Insulin Glargine,Hum.rec.anlog [Lantus (10mL VIAL) -] 23 units SQ BID 09/26/16 Insulin Sliding Scale [Novolog Vial Sliding Scale -] 1 vial SQ HS units Family Disease History - Family Disease History Family Disease History: Other: Father (alive: 42: healthy), Mother (alive: 43 GERD), Brother (No siblings), Son (No children) Review of Systems - Review of Systems Constitutional: reports: Lethargy, Loss of Appetite Eyes: reports: Blurred Vision HENT: reports: No Symptoms Neck: reports: No Symptoms Cardiovascular: reports: No Symptoms Respiratory: reports: SOB on Exertion Gastrointestinal: reports: No Symptoms Genitourinary: reports: No Symptoms Breasts: reports: No Symptoms Reported Musculoskeletal: reports: No Symptoms Integumentary: reports: No Symptoms Neurological: reports: Weakness Endocrine: reports: Unexplained Weight Loss Hematology/Lymphatic: reports: No Symptoms Physical Exam Vital Signs: Vital Signs Temperature 93.2 F L 01/09/17 16:18 Pulse Rate 97 H 01/09/17 16:18 Respiratory Rate 22 01/09/17 16:18 Blood Pressure 108/79 01/09/17 16:18 O2 Sat by Pulse Oximetry (%) 100 01/09/17 16:18 Constitutional: Yes: Anxious Eyes: Yes: EOM Intact HENT: Yes: Normocephalic Neck: Yes: Trachea Midline Cardiovascular: Yes: Regular Rate and Rhythm Respiratory: Yes: SOB on Exertion, Tachypnea Gastrointestinal: Yes: WNL ...Rectal Exam: Yes: Deferred Renal/: Yes: WNL Breast(s): Yes: WNL Musculoskeletal: Yes: Muscle Weakness Extremities: Yes: WNL Edema: No Peripheral Pulses WNL: Yes Neurological: Yes: Alert ...Motor Strength: WNL Labs: CBC, BMP 01/09/17 17:00 Problem List - Problems (1) DKA (diabetic ketoacidoses) Code(s): E13.10 - [facility] DIABETES MELLITUS WITH KETOACIDOSIS WITHOUT COMA Qualifiers: Diabetes mellitus type: type 1 Diabetes mellitus complication detail: without coma Qualified Code(s): E10.10 - Type 1 diabetes mellitus with ketoacidosis without coma Assessment/Plan Current Active Problems DKA (diabetic ketoacidoses) (Acute) Hypothermia (Acute) Abnormal Lab Results 01/09/17 01/09/17 01/09/17 12:12 12:37 12:37 WBC 16.6 H D MCV 102.7 H MCHC 30.4 L RDW 16.3 H ABG pH ABG pCO2 at Pt Temp ABG pO2 at Pt Temp ABG HCO3 ABG O2 Sat (Measured) ABG Base Excess Sodium 134 L Potassium Carbon Dioxide 3 L D Anion Gap 29 H Random Glucose 516 H* D Calcium 7.1 L AST 14 L D Alkaline Phosphatase 187 H D Albumin 3.3 L Acetone, Qual Positive moderate 2+ H 01/09/17 01/09/17 01/09/17 12:39 15:10 17:00 WBC MCV MCHC RDW ABG pH 6.90 L* D 6.84 L* ABG pCO2 at Pt Temp 8.9 L* D 20.9 L D ABG pO2 at Pt Temp 184.0 H* 50.7 L D ABG HCO3 1.6 L* 3.4 L* ABG O2 Sat (Measured) 78.8 L ABG Base Excess -32.6 L* -32.4 L* Sodium Potassium 3.0 L Carbon Dioxide 6 L D Anion Gap 25 H Random Glucose 243 H D Calcium 6.5 L* AST Alkaline Phosphatase Albumin Acetone, Qual Laboratory Tests 01/09/17 12:37 Sodium 134 L Potassium 3.7 Chloride 102 Carbon Dioxide 3 L D Anion Gap 29 H BUN 18 D Creatinine 1.0 D Creat Clearance w eGFR > 60 Random Glucose 516 H* D plan: continue ivns 200cc/hr insulin drip q 1 hr bgm ck bmp [id number] blood cultures pending
[2017-01-09] MEDS ORDERED: D5-1/2NS+20 MEQ KCL - 1,000 ML IV SCH (18:30)
[2017-01-09] MEDS ORDERED: SODIUM BICARBONATE IV SCH ×4 (18:57→23:45)
[2017-01-09] MEDS ORDERED: [UNRECOGNIZED DRUG - OTHER] IV SCH ×2 (18:57→19:15)
[2017-01-09] MEDS ORDERED: KCL IV SCH ×3 (18:57→23:45)
[2017-01-09] MEDS ORDERED: D5 IV SCH ×3 (18:57→23:45)
--- NOTE | 2017-01-09 19:49 | HP ---
DATE OF ADMISSION: DATE OF DICTATION: 01/09/2017 HISTORY OF PRESENT ILLNESS: This is a 26-year-old insulin dependent diabetic came to the emergency room not feeling well, was found to be in DKA. She was seen in my office yesterday with complaints of upper respiratory, was started on Z-Alvarado. Her last admission to the hospital with DKA was a few months ago. PHYSICAL EXAMINATION: General: Today she is awake, alert, not in severe distress. Vital signs: Blood pressure 100/71, respirations 20, temperature 98. HEENT: Unremarkable. Neck: Supple. No JVD. Lungs: Clear. Heart: S1, S2 normal. No S3, S4. Abdomen: Soft. Nontender. Extremities: Legs no edema. LABORATORY REPORTS: WBC 16, hemoglobin 13, hematocrit 44.9. Chemistry: sodium 138, potassium 3, chloride 107, CO2 of 6, anion gap 25, BUN 15, creatinine 0.8. Lactic acid 243. FINAL DIAGNOSIS: Diabetic ketoacidosis, insulin dependent diabetes, upper respiratory infection. PLAN: IV antibiotics, IV fluid, insulin IV, endocrine followup. Cory [id number]
[2017-01-09] MEDS: INSULIN REGULAR 100 UNITS in SODIUM CHLORIDE 99 ML IVPB SCH (19:59)
[2017-01-09 20:01] LABS: URINE APPEARANCE CLEAR; URINE BILIRUBIN NEGATIVE (NEGATIVE); URINE COLOR COLORLESS; URINE GLUCOSE (UA) 3+ (NEGATIVE); URINE KETONE 2+ (NEGATIVE); URINE LEUK ESTERASE NEGATIVE (NEGATIVE); URINE NITRITE NEGATIVE (NEGATIVE); URINE PROTEIN NEGATIVE (NEGATIVE); URINE UROBILINOGEN NEGATIVE E.U./dl (0.2-1.0)
[2017-01-09 20:10] LABS: URINE BLOOD 1+ (NEGATIVE)
[2017-01-09 20:19] LABS: URINE MUCUS RARE; URINE RBC 11 /hpf (0-3); URINE WBC 1 /hpf (3-5)
[2017-01-09] MEDS: HEPARIN NA (PORCINE) 5,000 UNITS/ML 1ML VIAL SQ SCH (22:06)
[2017-01-09] MEDS: INSULIN SLIDING SCALE (NOVOLOG) 1 VIAL SQ SCH (22:07)
[2017-01-09] MEDS: MUPIROCIN 2% TOPICAL OINTMENT FOR DECOLONIZATION NS SCH (22:07)
[2017-01-09] MEDS: CHLORHEXIDINE GLUCONATE 4% CLEANSER FOR DECOLONIZATION TP SCH (22:07)
[2017-01-09 23:18] LABS: CALCIUM 7.6 mg/dL (8.5-10.1); CREATININE 0.9 mg/dL (0.55-1.02)
[2017-01-09] MEDS ORDERED: [UNRECOGNIZED DRUG - OTHER] IV SCH (23:45)
[2017-01-09] MEDS ORDERED: [UNRECOGNIZED DRUG - OTHER] IV SCH (23:45)
[2017-01-09] MEDS ORDERED: DEXTROSE IV SCH (23:45)
[2017-01-09] MEDS ORDERED: POTASSIUM CHLORIDE TABS 20 MEQ TABLET.ER (FP) PO ONE (23:48)
[2017-01-09] MEDS ORDERED: SODIUM CHLORIDE 1,000 ML IV STA (23:48)
[2017-01-10] MEDS ORDERED: ONDANSETRON 4 MG/2 ML VIAL ONE ×2 (01:58→20:55)
[2017-01-10] MEDS: ONDANSETRON 4 MG/2 ML VIAL IVPUSH PRN ×2 (02:00→10:21)
[2017-01-10] MEDS: HEPARIN NA (PORCINE) 5,000 UNITS/ML 1ML VIAL SQ SCH ×3 (05:50→21:24)
[2017-01-10 05:58] LABS: BASOPHIL 0.1 % (0-2.0); MCH 31.7 pg (25.7-33.7); MCHC 34.5 g/dl (32.0-36.0); MEAN CELL VOLUME 91.9 fl (80-96); MEAN PLT VOLUME 8.2 fl (7.5-11.1); NEUTROPHILS 76.7 % (42.8-82.8); PLATELET COUNT 238 K/MM3 (134-434); RDW 15.8 % (11.6-15.6); WHITE BLOOD COUNT 10.2 K/mm3 (4.0-10.0)
[2017-01-10 06:29] LABS: ALBUMIN 2.9 g/dl (3.4-5.0); ANION GAP 15 (8-16); BILIRUBIN,TOTAL 0.3 mg/dL (0.2-1.0); CALCIUM 7.6 mg/dL (8.5-10.1); CO2 19 mmol/L (21-32); CREATININE 0.9 mg/dL (0.55-1.02); GLUCOSE,RANDOM 96 mg/dL (74-106); SGOT/AST 15 U/L (15-37); SGPT/ALT 16 U/L (12-78); TOT PROT 6.2 g/dl (6.4-8.2)
[2017-01-10 06:30] LABS: ALK PHOS 131 U/L (45-117)
[2017-01-10] MEDS: INSULIN SLIDING SCALE (NOVOLOG) 1 VIAL SQ SCH ×4 (06:42→22:22)
[2017-01-10] MEDS: KCL 10 MEQ IVPB 100 ML IVPB SCH ×3 (08:42→10:46)
[2017-01-10] MEDS: D5-1/2NS+40 MEQ KCL - 1,000 ML IV SCH (08:45)
[2017-01-10] MEDS: LEVOFLOXACIN 500 MG IVPB 100 ML IVPB SCH (09:04)
[2017-01-10] MEDS: RANITIDINE HCL 150 MG TABLET (FP) PO SCH ×2 (09:08→21:25)
[2017-01-10] MEDS: MUPIROCIN 2% TOPICAL OINTMENT FOR DECOLONIZATION NS SCH ×2 (09:08→21:24)
--- NOTE | 2017-01-10 09:20 | PN ---
Progress Note, Physician Chief Complaint: C/O nausea History of Present Illness: IDDM admitted with DKA - Current Medication List Current Medications: Active Medications Acetaminophen (Ofirmev Injection -) 1,000 mg IVPB Q6H PRN PRN Reason: FEVER OR PAIN Stop: 01/10/17 10:24 Acetaminophen (Tylenol -) 650 mg PO Q6H PRN PRN Reason: FEVER OR PAIN Chlorhexidine Gluconate (Hibiclens For Decolonization -) 1 applic TP HS [facility] Last Admin: 01/09/17 22:07 Dose: 1 applic Heparin Sodium (Porcine) (Heparin -) 5,000 unit SQ TID [facility] Last Admin: 01/10/17 05:50 Dose: 5,000 unit Levofloxacin (Levaquin 500 Mg Premixed Ivpb -) 100 mls @ 100 mls/hr IVPB DAILY [facility] Last Admin: 01/10/17 09:04 Dose: 100 mls/hr Insulin Human Regular 100 (units/ Sodium Chloride) 100 mls @ 5.44 mls/hr IVPB TITR [facility]; 0.1 UNITS/KG/HR PRN Reason: Protocol Last Titration: 01/10/17 09:03 Dose: 0.03 units/kg/hr Potassium Chloride (Potassium Chloride 10 Meq Premix Ivpb -) 100 mls @ 100 mls/ hr IVPB Q1H [facility] Stop: 01/10/17 11:59 Last Admin: 01/10/17 08:42 Dose: 100 mls/hr Dextrose/Sodium Chloride (D5-1/2ns+40 Meq Kcl -) 1,000 mls @ 125 mls/hr IV ASDIR [facility] Last Admin: 01/10/17 08:45 Dose: 125 mls/hr Insulin Aspart (Novolog Vial Sliding Scale -) 1 vial SQ ACHS [facility] PRN Reason: Protocol Last Admin: 01/10/17 06:42 Dose: Not Given Mupirocin (Bactroban Ointment (For Decolonization) -) 1 applic NS BID [facility] Stop: 01/14/17 21:59 Last Admin: 01/10/17 09:08 Dose: 1 applic Ondansetron HCl (Zofran Injection) 4 mg IVPUSH Q4H PRN PRN Reason: NAUSEA AND/OR VOMITING Stop: 01/10/17 14:45 Last Admin: 01/10/17 02:00 Dose: 4 mg Ranitidine HCl (Zantac -) 150 mg PO BID [facility] Last Admin: 01/10/17 09:08 Dose: 150 mg - Objective Vital Signs: Vital Signs Temperature 99.1 F 01/10/17 06:00 Pulse Rate 109 H 01/10/17 06:00 Respiratory Rate 21 01/10/17 06:00 Blood Pressure 103/67 01/10/17 06:00 O2 Sat by Pulse Oximetry (%) 100 01/09/17 20:54 Constitutional: Yes: Mild Distress Eyes: Yes: WNL HENT: Yes: WNL Neck: Yes: WNL Cardiovascular: Yes: WNL Respiratory: Yes: WNL Gastrointestinal: Yes: Normal Bowel Sounds ...Rectal Exam: Yes: Deferred Genitourinary: Yes: WNL Extremities: Yes: WNL Edema: No Peripheral Pulses WNL: Yes Integumentary: Yes: WNL Neurological: Yes: Alert Psychiatric: Yes: Alert Labs: CBC, BMP 01/10/17 05:00 01/10/17 05:00 Assessment/Plan Continue ICU care
--- NOTE | 2017-01-10 10:40 | PN ---
Progress Note (short form) - Note Progress Note: PULMONARY/CCM Pt seen and examined in the ICU. Remains on insulin gtt. Anion gap improving. Still with abdominal discomfort and nausea. Vomited bilious fluid. +subjective fevers. Last Vital Signs Temp Pulse Resp BP Pulse Ox 99.1 F 107 H 19 112/81 100 01/10/17 06:00 01/10/17 08:00 01/10/17 09:00 01/10/17 08:00 01/09/17 20:54 Intake & Output 01/07/17 01/08/17 01/09/17 01/10/17 23:59 23:59 23:59 23:59 Intake Total 4800 2130 Output Total 1000 2150 Balance 3800 -20 Weight 120 lb Gen: listless Heart: tachycardic, regular Lung: decreased breath sounds at the bases Abd: soft, mild diffuse TTP Ext: no edema CBC, BMP 01/10/17 05:00 01/10/17 05:00 Active Medications Acetaminophen (Tylenol -) 650 mg PO Q6H PRN PRN Reason: FEVER OR PAIN Chlorhexidine Gluconate (Hibiclens For Decolonization -) 1 applic TP HS [facility] Last Admin: 01/09/17 22:07 Dose: 1 applic Heparin Sodium (Porcine) (Heparin -) 5,000 unit SQ TID [facility] Last Admin: 01/10/17 05:50 Dose: 5,000 unit Levofloxacin (Levaquin 500 Mg Premixed Ivpb -) 100 mls @ 100 mls/hr IVPB DAILY [facility] Last Admin: 01/10/17 09:04 Dose: 100 mls/hr Insulin Human Regular 100 (units/ Sodium Chloride) 100 mls @ 5.44 mls/hr IVPB TITR [facility]; 0.1 UNITS/KG/HR PRN Reason: Protocol Last Titration: 01/10/17 10:15 Dose: 0.03 units/kg/hr Potassium Chloride (Potassium Chloride 10 Meq Premix Ivpb -) 100 mls @ 100 mls/ hr IVPB Q1H [facility] Stop: 01/10/17 11:59 Last Admin: 01/10/17 09:45 Dose: 100 mls/hr Dextrose/Sodium Chloride (D5-1/2ns+40 Meq Kcl -) 1,000 mls @ 125 mls/hr IV ASDIR [facility] Last Admin: 01/10/17 08:45 Dose: 125 mls/hr Insulin Aspart (Novolog Vial Sliding Scale -) 1 vial SQ ACHS [facility] PRN Reason: Protocol Last Admin: 01/10/17 06:42 Dose: Not Given Mupirocin (Bactroban Ointment (For Decolonization) -) 1 applic NS BID [facility] Stop: 01/14/17 21:59 Last Admin: 01/10/17 09:08 Dose: 1 applic Ondansetron HCl (Zofran Injection) 4 mg IVPUSH Q4H PRN PRN Reason: NAUSEA AND/OR VOMITING Stop: 01/10/17 14:45 Last Admin: 01/10/17 10:21 Dose: 4 mg Ranitidine HCl (Zantac -) 150 mg PO BID [facility] Last Admin: 01/10/17 09:08 Dose: 150 mg A/P Diabetic Ketoacidosis Severe Anion Gap Metabolic Acidosis r/o Sinusitis r/o UTI - continue IVF - insulin gtt per endocrine - monitor FS, BMP - if K <4.5 while on insulin gtt, add KCl 20mEq to IVF - if BGM <250 while on insulin gtt, add D5 to IVF - continue empiric antibiotics - f/u cultures - clears for now - advance diet when clinically improving - DVT prophylaxis - continue ICU monitoring
[2017-01-10] MEDS: POTASSIUM CHLORIDE 40 MEQ/30 ML UNIT DOSE CUP PO SCH ×2 (10:52→13:47)
[2017-01-10 12:37] LABS: CALCIUM 8.1 mg/dL (8.5-10.1); CREATININE 0.8 mg/dL (0.55-1.02)
[2017-01-10] MEDS: ACETAMINOPHEN 325 MG TABLET (FP) PO PRN ×2 (13:51→21:25)
[2017-01-10] MEDS: INSULIN REGULAR 100 UNITS in SODIUM CHLORIDE 99 ML IVPB SCH (21:04)
[2017-01-10] MEDS: CHLORHEXIDINE GLUCONATE 4% CLEANSER FOR DECOLONIZATION TP SCH (21:24)
[2017-01-10] MEDS: INSULIN DETEMIR 100 UNITS/ML MDV SQ SCH (21:25)
[2017-01-11 05:45] LABS: BASOPHIL 0.2 % (0-2.0); EOSINOPHIL 1.1 % (0-4.5); MCH 31.5 pg (25.7-33.7); MEAN CELL VOLUME 89.9 fl (80-96); MEAN PLT VOLUME 7.8 fl (7.5-11.1); NEUTROPHILS 45.4 % (42.8-82.8); PLATELET COUNT 220 K/MM3 (134-434); RDW 15.7 % (11.6-15.6); WHITE BLOOD COUNT 6.9 K/mm3 (4.0-10.0)
[2017-01-11] MEDS: INSULIN SLIDING SCALE (NOVOLOG) 1 VIAL SQ SCH ×5 (06:15→22:09)
[2017-01-11] MEDS: HEPARIN NA (PORCINE) 5,000 UNITS/ML 1ML VIAL SQ SCH ×3 (06:15→22:08)
[2017-01-11 09:01] LABS: ALBUMIN 2.6 g/dl (3.4-5.0); ANION GAP 11 (8-16); CALCIUM 8.1 mg/dL (8.5-10.1); CO2 28 mmol/L (21-32); CREATININE 0.5 mg/dL (0.55-1.02); GLUCOSE,RANDOM 77 mg/dL (74-106); MAGNESIUM 1.7 mg/dL (1.8-2.4); SGOT/AST 15 U/L (15-37); SGPT/ALT 12 U/L (12-78); TOT PROT 5.6 g/dl (6.4-8.2)
[2017-01-11] MEDS: RANITIDINE HCL 150 MG TABLET (FP) PO SCH ×2 (09:01→22:09)
[2017-01-11] MEDS: D5-1/2NS+40 MEQ KCL - 1,000 ML IV SCH ×2 (09:01→10:00)
[2017-01-11] MEDS: LEVOFLOXACIN 500 MG IVPB 100 ML IVPB SCH (09:01)
[2017-01-11 09:08] LABS: ALK PHOS 105 U/L (45-117); BILIRUBIN,TOTAL 0.3 mg/dL (0.2-1.0)
[2017-01-11] MEDS: MUPIROCIN 2% TOPICAL OINTMENT FOR DECOLONIZATION NS SCH (09:09)
[2017-01-11] MEDS: INSULIN DETEMIR 100 UNITS/ML MDV SQ SCH ×2 (09:09→22:08)
[2017-01-11 09:12] LABS: PHOSPHOROUS 0.9 mg/dL (2.5-4.9)
[2017-01-11] MEDS ORDERED: POTASSIUM CHLORIDE TABS 20 MEQ TABLET.ER (FP) PO SCH ×2 (10:30→14:30)
[2017-01-11] MEDS ORDERED: NAPH,MB-DB/K PH,MBDB POWDER PACKET PO SCH (10:30)
[2017-01-11] MEDS ORDERED: D5-1/2NS+40 MEQ KCL - 1,000 ML IV SCH (10:36)
--- NOTE | 2017-01-11 10:36 | PN ---
Progress Note (short form) - Note Progress Note: PULMONARY/CCM Pt seen and examined in the ICU. Insulin gtt stopped overnight. Anion gap closed. Still with abdominal discomfort and nausea. +headache Last Vital Signs Temp Pulse Resp BP Pulse Ox 97.5 F L 91 H 18 109/79 100 01/11/17 08:00 01/11/17 10:00 01/11/17 10:00 01/11/17 10:00 01/09/17 20:54 Intake & Output 01/08/17 01/09/17 01/10/17 01/11/17 23:59 23:59 23:59 23:59 Intake Total 4800 4505 1000 Output Total 1000 3150 Balance 3800 1355 1000 Weight 120 lb Gen: more comfortable Heart: RRR Lung: decreased breath sounds at the bases Abd: soft, mild diffuse TTP Ext: no edema CBC, BMP 01/11/17 05:00 01/11/17 05:00 Active Medications Acetaminophen (Tylenol -) 650 mg PO Q6H PRN PRN Reason: FEVER OR PAIN Last Admin: 01/10/17 21:25 Dose: 650 mg Chlorhexidine Gluconate (Hibiclens For Decolonization -) 1 applic TP HS [facility] Last Admin: 01/10/17 21:24 Dose: 1 applic Heparin Sodium (Porcine) (Heparin -) 5,000 unit SQ TID [facility] Last Admin: 01/11/17 06:15 Dose: 5,000 unit Levofloxacin (Levaquin 500 Mg Premixed Ivpb -) 100 mls @ 100 mls/hr IVPB DAILY [facility] Last Admin: 01/11/17 09:01 Dose: 100 mls/hr Insulin Human Regular 100 (units/ Sodium Chloride) 100 mls @ 5.44 mls/hr IVPB TITR [facility]ARA; 0.1 UNITS/KG/HR PRN Reason: Protocol Last Admin: 01/10/17 21:04 Dose: Not Given Dextrose/Sodium Chloride (D5-1/2ns+40 Meq Kcl -) 1,000 mls @ 125 mls/hr IV ASDIR [facility] Last Admin: 01/11/17 09:01 Dose: 125 mls/hr Potassium Phosphate 25 mm/ (Sodium Chloride) 258.3333 mls @ 62.5 mls/hr IVPB ONCE ONE Stop: 01/11/17 14:36 Insulin Aspart (Novolog Vial Sliding Scale -) 1 vial SQ ACHS [facility] PRN Reason: Protocol Last Admin: 01/11/17 10:00 Dose: 2 units Insulin Detemir (Levemir Vial) 15 units SQ BID [facility] Last Admin: 01/11/17 09:09 Dose: 15 units Mupirocin (Bactroban Ointment (For Decolonization) -) 1 applic NS BID [facility] Stop: 01/14/17 21:59 Last Admin: 01/11/17 09:09 Dose: 1 applic Potassium Chloride (K-Dur -) 40 meq PO Q4H [facility] Stop: 01/11/17 14:31 Potassium Phos/Sodium Phos (Phos-Nak Packet -) 1 packet PO TID [facility] Stop: 01/11/17 22:01 Ranitidine HCl (Zantac -) 150 mg PO BID [facility] Last Admin: 01/11/17 09:01 Dose: 150 mg A/P Diabetic Ketoacidosis resolved r/o Sinusitis - decrease IVF - replete lytes - continue empiric antibiotics - f/u cultures - advance diet as tolerated - DVT prophylaxis - OOB - can monitor on floor
[2017-01-11] MEDS ORDERED: POTASSIUM PHOSPHATE 25 MM in SODIUM CHLORIDE 250 ML IVPB ONE ×2 (10:50→11:00)
[2017-01-11] MEDS ORDERED: INSULIN REGULAR 100 UNITS in SODIUM CHLORIDE 99 ML IVPB SCH (10:50)
--- NOTE | 2017-01-11 11:16 | PN ---
Progress Note, Physician Chief Complaint: Feels better History of Present Illness: DKA improved - Current Medication List Current Medications: Active Medications Acetaminophen (Tylenol -) 650 mg PO Q6H PRN PRN Reason: FEVER OR PAIN Heparin Sodium (Porcine) (Heparin -) 5,000 unit SQ TID [facility] Insulin Human Regular 100 (units/ Sodium Chloride) 100 mls @ 5.44 mls/hr IVPB TITR [facility]ARA; 0.1 UNITS/KG/HR PRN Reason: Protocol Levofloxacin (Levaquin 500 Mg Premixed Ivpb -) 100 mls @ 100 mls/hr IVPB DAILY [facility] Dextrose/Sodium Chloride (D5-1/2ns+40 Meq Kcl -) 1,000 mls @ 75 mls/hr IV ASDIR [facility] Potassium Phosphate 25 mm/ (Sodium Chloride) 258.3333 mls @ 64.58 mls/hr IVPB ONCE ONE PRN Reason: 25 MM/4 HR Stop: 01/11/17 14:50 Insulin Aspart (Novolog Vial Sliding Scale -) 1 vial SQ ACHS [facility] PRN Reason: Protocol Insulin Detemir (Levemir Vial) 15 units SQ BID@0700,2200 [facility] Potassium Chloride (K-Dur -) 40 meq PO Q4H [facility] Stop: 01/11/17 14:31 Potassium Phos/Sodium Phos (Phos-Nak Packet -) 1 packet PO TID [facility] Stop: 01/11/17 22:01 Ranitidine HCl (Zantac -) 150 mg PO BID [facility] - Objective Vital Signs: Vital Signs Temperature 97.5 F L 01/11/17 08:00 Pulse Rate 91 H 01/11/17 10:00 Respiratory Rate 18 01/11/17 10:00 Blood Pressure 109/79 01/11/17 10:00 O2 Sat by Pulse Oximetry (%) 100 01/09/17 20:54 Constitutional: Yes: Anxious Eyes: Yes: WNL HENT: Yes: WNL Neck: Yes: WNL Cardiovascular: Yes: WNL Respiratory: Yes: WNL Gastrointestinal: Yes: WNL ...Rectal Exam: Yes: Deferred Genitourinary: Yes: WNL Musculoskeletal: Yes: WNL Extremities: Yes: WNL Labs: CBC, BMP 01/11/17 05:00 01/11/17 05:00 Assessment/Plan trasfer to floor
--- NOTE | 2017-01-11 11:16 | EKG ---
Test Reason : Blood Pressure : / mmHG Vent. Rate : 102 BPM Atrial Rate : 102 BPM P-R Int : 140 ms QRS Dur : 094 ms QT Int : 384 ms P-R-T Axes : 070 064 048 degrees QTc Int : 500 ms SINUS TACHYCARDIA NONSPECIFIC T WAVE ABNORMALITY ABNORMAL ECG WHEN COMPARED WITH ECG OF 21-NOV-2016 14:09, QT HAS LENGTHENED Confirmed by TALON DUKE MD ([id number]) on 01/11/2017 11:16:04 AM Referred By: Confirmed By:TALON DUKE MD
[2017-01-11] MEDS: NAPH,MB-DB/K PH,MBDB POWDER PACKET PO SCH ×2 (13:24→22:09)
[2017-01-12 05:55] LABS: MCH 31.9 pg (25.7-33.7); MCHC 34.6 g/dl (32.0-36.0); MEAN CELL VOLUME 91.9 fl (80-96); MEAN PLT VOLUME 8.1 fl (7.5-11.1); PLATELET COUNT 193 K/MM3 (134-434); RDW 15.8 % (11.6-15.6); WHITE BLOOD COUNT 4.8 K/mm3 (4.0-10.0)
[2017-01-12 06:20] LABS: CALCIUM 8.2 mg/dL (8.5-10.1); MAGNESIUM 1.7 mg/dL (1.8-2.4)
[2017-01-12 06:21] LABS: CREATININE 0.5 mg/dL (0.55-1.02)
[2017-01-12] MEDS: HEPARIN NA (PORCINE) 5,000 UNITS/ML 1ML VIAL SQ SCH ×3 (06:22→21:36)
[2017-01-12] MEDS: INSULIN DETEMIR 100 UNITS/ML MDV SQ SCH ×2 (06:22→21:37)
[2017-01-12] MEDS: INSULIN SLIDING SCALE (NOVOLOG) 1 VIAL SQ SCH ×4 (06:23→21:37)
[2017-01-12] MEDS ORDERED: POTASSIUM CHLORIDE 40 MEQ/30 ML UNIT DOSE CUP PO ONE (07:20)
[2017-01-12 08:50] LABS: SMUDGE CELLS FEW
[2017-01-12] MEDS: RANITIDINE HCL 150 MG TABLET (FP) PO SCH ×2 (09:03→21:38)
[2017-01-12] MEDS: LEVOFLOXACIN 500 MG IVPB 100 ML IVPB SCH (09:13)
--- NOTE | 2017-01-12 09:53 | PN ---
Progress Note, Physician Chief Complaint: Feels better History of Present Illness: DKA being corrected - Current Medication List Current Medications: Active Medications Acetaminophen (Tylenol -) 650 mg PO Q6H PRN PRN Reason: FEVER OR PAIN Heparin Sodium (Porcine) (Heparin -) 5,000 unit SQ TID [facility] Last Admin: 01/12/17 06:22 Dose: 5,000 unit Levofloxacin (Levaquin 500 Mg Premixed Ivpb -) 100 mls @ 100 mls/hr IVPB DAILY [facility] Last Admin: 01/12/17 09:13 Dose: 100 mls/hr Dextrose/Sodium Chloride (D5-1/2ns+40 Meq Kcl -) 1,000 mls @ 75 mls/hr IV ASDIR [facility] Last Admin: 01/11/17 10:00 Dose: 75 mls/hr Insulin Aspart (Novolog Vial Sliding Scale -) 1 vial SQ ACHS [facility] PRN Reason: Protocol Last Admin: 01/12/17 06:23 Dose: 5 units Insulin Detemir (Levemir Vial) 15 units SQ BID@0700,2200 [facility] Last Admin: 01/12/17 06:22 Dose: 15 units Magnesium Sulfate (Magnesium Sulfate) 2 gm IVPB ONCE ONE Stop: 01/12/17 09:51 Ranitidine HCl (Zantac -) 150 mg PO BID [facility] Last Admin: 01/12/17 09:03 Dose: 150 mg - Objective Vital Signs: Vital Signs Temperature 98.2 F 01/12/17 06:00 Pulse Rate 80 01/12/17 08:00 Respiratory Rate 16 01/12/17 08:59 Blood Pressure 85/55 01/12/17 08:00 O2 Sat by Pulse Oximetry (%) 100 01/09/17 20:54 Constitutional: Yes: Mild Distress Eyes: Yes: WNL HENT: Yes: WNL Neck: Yes: WNL Cardiovascular: Yes: WNL Respiratory: Yes: WNL Gastrointestinal: Yes: WNL ...Rectal Exam: Yes: Deferred Genitourinary: Yes: WNL Breast(s): Yes: WNL Musculoskeletal: Yes: WNL Labs: CBC, BMP 01/12/17 05:00 01/12/17 05:00 Assessment/Plan Mag sulfate ordered
[2017-01-12] MEDS ORDERED: MAGNESIUM SULF 50% (8.12 MEQ/2 ML-1 GM VIAL) IVPB ONE (10:00)
--- NOTE | 2017-01-12 12:30 | PN ---
Teaching Attending Note Name of Resident: Cruz Cornejo ATTENDING PHYSICIAN STATEMENT I saw and evaluated the patient. I reviewed the resident's note and discussed the case with the resident. I agree with the resident's findings and plan as documented. SUBJECTIVE: Pt seen and examined in the ICU. Feels better, abdominal pain persists but improving. Still with pressure like headache from sinuses. OBJECTIVE: Last Vital Signs Temp Pulse Resp BP Pulse Ox 98.6 F 84 16 101/72 100 01/12/17 10:18 01/12/17 10:18 01/12/17 10:18 01/12/17 10:18 01/09/17 20:54 Intake & Output 01/09/17 01/10/17 01/11/17 01/12/17 23:59 23:59 23:59 23:59 Intake Total 4800 4505 2020 940 Output Total 1000 3150 Balance 3800 1355 2020 940 Weight 120 lb Gen: more comfortable Heart: RRR Lung: decreased breath sounds at the bases Abd: soft, mild TTP lower quadrants Ext: no edema CBC, BMP 01/12/17 05:00 01/12/17 05:00 Active Medications Acetaminophen (Tylenol -) 650 mg PO Q6H PRN PRN Reason: FEVER OR PAIN Heparin Sodium (Porcine) (Heparin -) 5,000 unit SQ TID [facility] Last Admin: 01/12/17 06:22 Dose: 5,000 unit Levofloxacin (Levaquin 500 Mg Premixed Ivpb -) 100 mls @ 100 mls/hr IVPB DAILY [facility] Last Admin: 01/12/17 09:13 Dose: 100 mls/hr Dextrose/Sodium Chloride (D5-1/2ns+40 Meq Kcl -) 1,000 mls @ 75 mls/hr IV ASDIR [facility] Last Admin: 01/11/17 10:00 Dose: 75 mls/hr Insulin Aspart (Novolog Vial Sliding Scale -) 1 vial SQ ACHS [facility] PRN Reason: Protocol Last Admin: 01/12/17 10:05 Dose: 5 units Insulin Detemir (Levemir Vial) 15 units SQ BID@0700,2200 [facility] Last Admin: 01/12/17 06:22 Dose: 15 units Ranitidine HCl (Zantac -) 150 mg PO BID [facility] Last Admin: 01/12/17 09:03 Dose: 150 mg ASSESSMENT AND PLAN: Diabetic Ketoacidosis resolved r/o Sinusitis - continue IVF - replete lytes - continue empiric antibiotics - add flonase BID - advance diet as tolerated - DVT prophylaxis - OOB - can monitor on floor
[2017-01-12] MEDS: D5-1/2NS+40 MEQ KCL - 1,000 ML IV SCH (14:00)
--- NOTE | 2017-01-12 14:20 | PN ---
Physical Exam: SUBJECTIVE: Patient seen and examined in the ICU at bedside. She reported feeling better but still having headache, dizziness, chills, productive cough, RUQ and LLQ pain. She denied fever, weakness, tingling or numbness in extremities, dark stool, or urinary sx. OBJECTIVE: Vital Signs Period Temp Pulse Resp BP Sys/Estes Pulse Ox Last 24 Hr 98 F-98.6 F 77-104 15-25 85-104/55-77 GENERAL: Awake, alert, and fully oriented HEAD: AT, NC EYES: Pupils equal, round and reactive to light, sclera anicteric, conjunctiva clear EARS, NOSE, THROAT: nares patent oropharynx clear without exudates, sinus tenderness LUNGS:CTAB HEART: Tachycardic, S1 and S2, no murmur, rub ABDOMEN: +bs, soft, RUQ and LLQ tenderness, no rebound, guarding EXTREMITIES: No calf tenderness. No peripheral edema. NEUROLOGICAL: Cranial nerves II-XII intact CBCD WBC 4.8 K/mm3 (4.0-10.0) D 01/12/17 05:00 RBC 3.75 M/mm3 (3.60-5.2) 01/12/17 05:00 Hgb 11.9 GM/dL (10.7-15.3) 01/12/17 05:00 Hct 34.5 % (32.4-45.2) 01/12/17 05:00 MCV 91.9 fl (80-96) 01/12/17 05:00 MCHC 34.6 g/dl (32.0-36.0) 01/12/17 05:00 RDW 15.8 % (11.6-15.6) H 01/12/17 05:00 Plt Count 193 K/MM3 (134-434) 01/12/17 05:00 MPV 8.1 fl (7.5-11.1) 01/12/17 05:00 CMP Sodium 143 mmol/L (136-145) 01/12/17 05:00 Potassium 3.0 mmol/L (3.5-5.1) L 01/12/17 05:00 Chloride 103 mmol/L (98-107) 01/12/17 05:00 Carbon Dioxide 32 mmol/L (21-32) 01/12/17 05:00 Anion Gap 8 (8-16) 01/12/17 05:00 BUN 13 mg/dL (7-18) D 01/12/17 05:00 Creatinine 0.5 mg/dL (0.55-1.02) L 01/12/17 05:00 Creat Clearance w eGFR > 60 (>60) 01/11/17 05:00 Calcium 8.2 mg/dL (8.5-10.1) L 01/12/17 05:00 Total Bilirubin 0.3 mg/dL (0.2-1.0) 01/11/17 05:00 AST 15 U/L (15-37) 01/11/17 05:00 ALT 12 U/L (12-78) D 01/11/17 05:00 Alkaline Phosphatase 105 U/L (45-117) 01/11/17 05:00 Total Protein 5.6 g/dl (6.4-8.2) L 01/11/17 05:00 Albumin 2.6 g/dl (3.4-5.0) L 01/11/17 05:00 Intake & Output 01/09/17 01/10/17 01/11/17 01/12/17 23:59 23:59 23:59 23:59 Intake Total 4800 4505 2020 940 Output Total 1000 3150 Balance 3800 1355 2020 940 Weight 54.431 kg Active Medications Generic Name Dose Route Start Last Admin Trade Name Freq PRN Reason Stop Dose Admin Acetaminophen 650 mg 01/11/17 10:50 Tylenol - PO Q6H PRN FEVER OR PAIN Fluticasone Propionate 1 spray 01/12/17 14:00 Flonase - NS BID [facility] Heparin Sodium (Porcine) 5,000 unit 01/11/17 14:00 01/12/17 14:09 Heparin - SQ 5,000 unit TID [facility] Administration Levofloxacin 100 mls @ 100 mls/hr 01/12/17 10:00 01/12/17 09:13 Levaquin 500 Mg Premixed Ivpb - IVPB 100 mls/hr DAILY [facility] Administration Dextrose/Sodium Chloride 1,000 mls @ 75 mls/hr 01/11/17 10:50 01/11/17 10:00 D5-1/2ns+40 Meq Kcl - IV 75 mls/hr ASDIR [facility] Administration Insulin Aspart 1 vial 01/11/17 11:00 01/12/17 10:05 Novolog Vial Sliding Scale - SQ 5 units ACHS [facility] Administration Protocol Insulin Detemir 15 units 01/11/17 22:00 01/12/17 06:22 Levemir Vial SQ 15 units BID@0700,2200 [facility] Administration Ranitidine HCl 150 mg 01/11/17 22:00 01/12/17 09:03 Zantac - PO 150 mg BID [facility] Administration Microbiology 01/09/17 12:12 Blood - Peripheral Venous Blood Culture - Preliminary NO GROWTH OBTAINED AFTER 72 HOURS, INCUBATION TO CONTINUE FOR 2 DAYS. 01/09/17 12:12 Blood - Peripheral Venous Blood Culture - Preliminary NO GROWTH OBTAINED AFTER 72 HOURS, INCUBATION TO CONTINUE FOR 2 DAYS. ASSESSMENT/PLAN: 26 yo F w/ h/o IDDM type I on Lantus 23 unit/day and novolog with peripheral neuropathy admitted to the ICU for DKA Endo: DKA with anion gap metabolic acidosis - Resolved - Hypokalemia, cont. D5+1/2NS+40MeqKCl and PO KCl - On Levemir 15 BID and sliding scale - Glc stable at goal - F/U daily BMP ID: Sinusitis - Levaquin 500mg IVPB day 4 - Fluticosone BID for nasal pressure FEN - Fluid management as above - Cont. to monitor lytes - Diabetic diet Prophylaxis - DVT: heparin SQ 5000 TID - GI: not indicated Disposition - Transfer to [facility] Code status - Full code Visit type - Emergency Visit Emergency Visit: No - New Patient This patient is new to me today: No - Critical Care Critical Care patient: Yes Total Critical Care Time (in minutes): 45 Critical Care Statement: The care of this patient involved high complexity decision making to prevent further life threatening deterioration of the patient 's condition and/or to evalute & treat vital organ system(s) failure or risk of failure.
[2017-01-12] MEDS: FLUTICASONE PROP 0.05% 16 GM NASAL SPRAY NS SCH ×2 (17:16→21:36)
[2017-01-12 23:25] LABS: CALCIUM 8.7 mg/dL (8.5-10.1); CREATININE 0.6 mg/dL (0.55-1.02); MAGNESIUM 2.1 mg/dL (1.8-2.4); PHOSPHOROUS 2.9 mg/dL (2.5-4.9)
[2017-01-13] MEDS: INSULIN DETEMIR 100 UNITS/ML MDV SQ SCH ×2 (06:23→21:45)
[2017-01-13] MEDS: HEPARIN NA (PORCINE) 5,000 UNITS/ML 1ML VIAL SQ SCH ×3 (06:24→21:45)
[2017-01-13] MEDS: INSULIN SLIDING SCALE (NOVOLOG) 1 VIAL SQ SCH ×3 (06:24→16:25)
--- NOTE | 2017-01-13 08:23 | PN ---
Progress Note, Physician History of Present Illness: This is a 26 year old female with history of T1DM and peripheral neuropathy, who presents to the emergency department via ambulance with high glucose level of 577 when done by EMS. Her aunt administered 23 units of Lantus at home. Pt gives h/o feeling unwell for 3 days prior to admission with SOB, Fever, cough. Was seen by PCP a day prior to the admission and was treated for Sinusitis. Pt was found to be in DKA and treated with IV hyration, IV Insulin and electrolyte replacement in the ICU with resolution of DKA. Pt transferred to floor yesterday. Still feels not completely well with poor appetite. The patient has a history of noncompliance with her insulin medications and has been in DKA before. She has missed multiple appointments in the office. She was supposed to get labs including C Peptide and return to office to get approval for her Insulin pump supplies approved by her Insurance plan which she has not done yet. - Current Medication List Current Medications: Active Medications Acetaminophen (Tylenol -) 650 mg PO Q6H PRN PRN Reason: FEVER OR PAIN Fluticasone Propionate (Flonase -) 1 spray NS BID [facility] Last Admin: 01/12/17 21:36 Dose: 1 spray Heparin Sodium (Porcine) (Heparin -) 5,000 unit SQ TID [facility] Last Admin: 01/13/17 06:24 Dose: 5,000 unit Levofloxacin (Levaquin 500 Mg Premixed Ivpb -) 100 mls @ 100 mls/hr IVPB DAILY [facility] Last Admin: 01/12/17 09:13 Dose: 100 mls/hr Dextrose/Sodium Chloride (D5-1/2ns+40 Meq Kcl -) 1,000 mls @ 75 mls/hr IV ASDIR [facility] Last Admin: 01/12/17 14:00 Dose: 75 mls/hr Insulin Aspart (Novolog Vial Sliding Scale -) 1 vial SQ ACHS [facility] PRN Reason: Protocol Last Admin: 01/13/17 06:24 Dose: 4 units Insulin Detemir (Levemir Vial) 15 units SQ BID@0700,2200 [facility] Last Admin: 01/13/17 06:23 Dose: 15 units Ranitidine HCl (Zantac -) 150 mg PO BID [facility] Last Admin: 01/12/17 21:38 Dose: 150 mg - Objective Vital Signs: Vital Signs Temperature 97.6 F 01/13/17 06:21 Pulse Rate 71 01/13/17 06:21 Respiratory Rate 18 01/13/17 06:21 Blood Pressure 95/60 01/13/17 06:21 O2 Sat by Pulse Oximetry (%) 100 01/09/17 20:54 Constitutional: Yes: Calm Eyes: Yes: Conjunctiva Clear, EOM Intact HENT: Yes: Atraumatic, Normocephalic Neck: Yes: Supple, Trachea Midline Cardiovascular: Yes: Regular Rate and Rhythm Respiratory: Yes: Regular, CTA Bilaterally Gastrointestinal: Yes: Normal Bowel Sounds, Soft Musculoskeletal: Yes: WNL Extremities: Yes: WNL Edema: No Neurological: Yes: Alert, Oriented ...Motor Strength: WNL Psychiatric: Yes: Alert, Oriented Labs: CBC, BMP 01/12/17 05:00 Problem List - Problems (1) DKA (diabetic ketoacidoses) Code(s): E13.10 - OTH DIABETES MELLITUS WITH KETOACIDOSIS WITHOUT COMA Qualifiers: Diabetes mellitus type: type 1 Diabetes mellitus complication detail: without coma Qualified Code(s): E10.10 - Type 1 diabetes mellitus with ketoacidosis without coma (2) Diabetic neuropathy Code(s): E11.40 - TYPE 2 DIABETES MELLITUS WITH DIABETIC NEUROPATHY, UNSP Qualifiers: Diabetes mellitus type: type 1 Diabetes mellitus complication detail: diabetic polyneuropathy Qualified Code(s): E10.42 - Type 1 diabetes mellitus with diabetic polyneuropathy (3) Hypokalemia Code(s): E87.6 - HYPOKALEMIA Assessment/Plan AP: T1DM: DKA resolved URI Discussed need for compliance with Insulin. To go to ED whenever she feels sick and is unable to take long acting Insulin. To check urine for DKA whenever she feels sick or when BGM >300 at home. Pt verbalizes understanding and has necessary supplies at home. Levemir 15 BID Novolog SS coverage IVF Electrolyte replacement as necessary Levaquin Will f/u
[2017-01-13 08:33] LABS: CALCIUM 8.4 mg/dL (8.5-10.1); CREATININE 0.5 mg/dL (0.55-1.02); PHOSPHOROUS 4.1 mg/dL (2.5-4.9)
[2017-01-13] MEDS: RANITIDINE HCL 150 MG TABLET (FP) PO SCH ×2 (09:10→21:47)
[2017-01-13] MEDS: FLUTICASONE PROP 0.05% 16 GM NASAL SPRAY NS SCH ×2 (09:10→21:45)
[2017-01-13] MEDS: LEVOFLOXACIN 500 MG IVPB 100 ML IVPB SCH (09:10)
--- NOTE | 2017-01-13 09:35 | PN ---
Progress Note, Physician Chief Complaint: C/O cough History of Present Illness: DKA resolved Dr Rooney follow up note noted - Current Medication List Current Medications: Active Medications Acetaminophen (Tylenol -) 650 mg PO Q6H PRN PRN Reason: FEVER OR PAIN Fluticasone Propionate (Flonase -) 1 spray NS BID [facility] Last Admin: 01/13/17 09:10 Dose: 1 spray Heparin Sodium (Porcine) (Heparin -) 5,000 unit SQ TID [facility] Last Admin: 01/13/17 06:24 Dose: 5,000 unit Levofloxacin (Levaquin 500 Mg Premixed Ivpb -) 100 mls @ 100 mls/hr IVPB DAILY [facility] Last Admin: 01/13/17 09:10 Dose: 100 mls/hr Dextrose/Sodium Chloride (D5-1/2ns+40 Meq Kcl -) 1,000 mls @ 75 mls/hr IV ASDIR [facility] Last Admin: 01/12/17 14:00 Dose: 75 mls/hr Insulin Aspart (Novolog Vial Sliding Scale -) 1 vial SQ TIDAC [facility] PRN Reason: Protocol Insulin Aspart (Novolog Vial Sliding Scale -) 1 vial SQ HS [facility] PRN Reason: Protocol Insulin Detemir (Levemir Vial) 15 units SQ BID@0700,2200 [facility] Last Admin: 01/13/17 06:23 Dose: 15 units Ranitidine HCl (Zantac -) 150 mg PO BID [facility] Last Admin: 01/13/17 09:10 Dose: 150 mg - Objective Vital Signs: Vital Signs Temperature 97.9 F 01/13/17 08:52 Pulse Rate 71 01/13/17 08:52 Respiratory Rate 18 01/13/17 08:52 Blood Pressure 96/55 01/13/17 08:52 O2 Sat by Pulse Oximetry (%) 100 01/09/17 20:54 Constitutional: Yes: No Distress Eyes: Yes: WNL HENT: Yes: WNL Neck: Yes: WNL Cardiovascular: Yes: WNL Respiratory: Yes: WNL ...Rectal Exam: Yes: Deferred Genitourinary: Yes: WNL Edema: No Peripheral Pulses WNL: No Integumentary: Yes: WNL Psychiatric: Yes: Alert Labs: CBC, BMP 01/12/17 05:00 01/13/17 07:10 Assessment/Plan continue same trt
[2017-01-13] MEDS ORDERED: INSULIN (NOVOLOG) ASPART 100 UNITS/ML 10ML VIAL ONE ×3 (11:45→21:52)
[2017-01-13] MEDS: D5-1/2NS+40 MEQ KCL - 1,000 ML IV SCH (11:58)
[2017-01-13] MEDS ORDERED: INSULIN SLIDING SCALE (NOVOLOG) 1 VIAL SQ SCH (22:00)
[2017-01-14] MEDS: HEPARIN NA (PORCINE) 5,000 UNITS/ML 1ML VIAL SQ SCH ×3 (06:12→21:15)
[2017-01-14] MEDS ORDERED: INSULIN (NOVOLOG) ASPART 100 UNITS/ML 10ML VIAL ONE ×2 (06:24→21:11)
[2017-01-14] MEDS: INSULIN DETEMIR 100 UNITS/ML MDV SQ SCH ×2 (06:24→21:15)
[2017-01-14] MEDS: INSULIN SLIDING SCALE (NOVOLOG) 1 VIAL SQ SCH ×4 (06:25→21:16)
--- NOTE | 2017-01-14 08:57 | PN ---
Progress Note (short form) - Note Progress Note: Blood sugar >400 in morning No hypos Getting bedtime snack Feels better Tolerating food Vital Signs Period Temp Pulse Resp BP Sys/Estes Pulse Ox Last 24 Hr 97.7 F-97.8 F 60-76 18-20 94-103/60-64 99 PE: AOx3 Neck: Supple, No JVD HEENT: PERRL EOMI Lungs: CTA Abd: Benign CVS: S1S2 reg Ext: No edema Neuro: No focal deficit CMP Sodium 142 mmol/L (136-145) 01/13/17 07:10 Potassium 3.7 mmol/L (3.5-5.1) 01/13/17 07:10 Chloride 102 mmol/L (98-107) 01/13/17 07:10 Carbon Dioxide 30 mmol/L (21-32) 01/13/17 07:10 Anion Gap 10 (8-16) 01/13/17 07:10 BUN 12 mg/dL (7-18) 01/13/17 07:10 Creatinine 0.5 mg/dL (0.55-1.02) L 01/13/17 07:10 Creat Clearance w eGFR > 60 (>60) 01/11/17 05:00 POC Glucometer 425 UNITS (()) 01/14/17 06:15 Random Glucose 190 mg/dL (74-106) H D 01/13/17 07:10 Hemoglobin A1c % 13.7 % (4.8-6.0) H D 01/10/17 05:00 Lactic Acid 1.534 mmol/L (0.4-2.0) 01/09/17 12:40 Calcium 8.4 mg/dL (8.5-10.1) L 01/13/17 07:10 Phosphorus 4.1 mg/dL (2.5-4.9) D 01/13/17 07:10 Magnesium 2.0 mg/dL (1.8-2.4) 01/13/17 07:10 Total Bilirubin 0.3 mg/dL (0.2-1.0) 01/11/17 05:00 AST 15 U/L (15-37) 01/11/17 05:00 ALT 12 U/L (12-78) D 01/11/17 05:00 Alkaline Phosphatase 105 U/L (45-117) 01/11/17 05:00 Total Protein 5.6 g/dl (6.4-8.2) L 01/11/17 05:00 Albumin 2.6 g/dl (3.4-5.0) L 01/11/17 05:00 Serum , Qual Negative 01/09/17 14:50 Current Medications Generic Name Dose Route Start Last Admin Trade Name Freq PRN Reason Stop Dose Admin Acetaminophen 650 mg 01/11/17 10:50 Tylenol - PO Q6H PRN FEVER OR PAIN Fluticasone Propionate 1 spray 01/12/17 14:00 01/13/17 21:45 Flonase - NS 1 spray BID DARA Administration Heparin Sodium (Porcine) 5,000 unit 01/11/17 14:00 01/14/17 06:12 Heparin - SQ Not Given TID DARA Levofloxacin 100 mls @ 100 mls/hr 01/12/17 10:00 01/13/17 09:10 Levaquin 500 Mg Premixed Ivpb - IVPB 100 mls/hr DAILY [facility] Administration Insulin Aspart 1 vial 01/13/17 11:00 01/14/17 06:25 Novolog Vial Sliding Scale - SQ 10 unit TIDAC DARA Administration Protocol Insulin Aspart 1 vial 01/13/17 22:00 01/13/17 21:46 Novolog Vial Sliding Scale - SQ 6 units HS DARA Administration Protocol Insulin Detemir 15 units 01/11/17 22:00 01/14/17 06:24 Levemir Vial SQ 15 units BID@0700,2200 DARA Administration Ranitidine HCl 150 mg 01/11/17 22:00 01/13/17 21:47 Zantac - PO 150 mg BID DARA Administration AP: T1DM: S/P DKA Diabetic Neuropathy Increase Levemir 17 BID Increase Novolog coverage Diet Exercise discussed Discussed need for compliance with Insulin again Problem List - Problems (1) DKA (diabetic ketoacidoses) Code(s): E13.10 - OTH DIABETES MELLITUS WITH KETOACIDOSIS WITHOUT COMA Qualifiers: Diabetes mellitus type: type 1 Diabetes mellitus complication detail: without coma Qualified Code(s): E10.10 - Type 1 diabetes mellitus with ketoacidosis without coma (2) Diabetic neuropathy Code(s): E11.40 - TYPE 2 DIABETES MELLITUS WITH DIABETIC NEUROPATHY, UNSP Qualifiers: Diabetes mellitus type: type 1 Diabetes mellitus complication detail: diabetic polyneuropathy Qualified Code(s): E10.42 - Type 1 diabetes mellitus with diabetic polyneuropathy (3) Hypokalemia Code(s): E87.6 - HYPOKALEMIA
[2017-01-14 09:00] LABS: ALBUMIN 2.6 g/dl (3.4-5.0); ANION GAP 13 (8-16); CALCIUM 8.7 mg/dL (8.5-10.1); CO2 26 mmol/L (21-32); MAGNESIUM 1.8 mg/dL (1.8-2.4); SGPT/ALT 14 U/L (12-78)
[2017-01-14 09:03] LABS: ALK PHOS 127 U/L (45-117); BILIRUBIN,TOTAL 0.3 mg/dL (0.2-1.0); CREATININE 0.8 mg/dL (0.55-1.02); SGOT/AST 18 U/L (15-37); TOT PROT 5.9 g/dl (6.4-8.2)
--- NOTE | 2017-01-14 09:25 | PN ---
Progress Note, Physician Chief Complaint: Head ache mostly in the night History of Present Illness: Dr Meade note noted This AM sugar was very high 425 ,Lovemir increased to 17u BID - Current Medication List Current Medications: Active Medications Acetaminophen (Tylenol -) 650 mg PO Q6H PRN PRN Reason: FEVER OR PAIN Fluticasone Propionate (Flonase -) 1 spray NS BID [facility] Last Admin: 01/13/17 21:45 Dose: 1 spray Heparin Sodium (Porcine) (Heparin -) 5,000 unit SQ TID [facility] Last Admin: 01/14/17 06:12 Dose: Not Given Levofloxacin (Levaquin 500 Mg Premixed Ivpb -) 100 mls @ 100 mls/hr IVPB DAILY [facility] Last Admin: 01/13/17 09:10 Dose: 100 mls/hr Insulin Aspart (Novolog Vial Sliding Scale -) 1 vial SQ TIDAC [facility] PRN Reason: Protocol Insulin Aspart (Novolog Vial Sliding Scale -) 1 vial SQ HS [facility] PRN Reason: Protocol Insulin Detemir (Levemir Vial) 17 units SQ BID@0700,2200 [facility] Ranitidine HCl (Zantac -) 150 mg PO BID [facility] Last Admin: 01/13/17 21:47 Dose: 150 mg - Objective Vital Signs: Vital Signs Temperature 97.7 F 01/14/17 07:56 Pulse Rate 70 01/14/17 07:56 Respiratory Rate 20 01/14/17 07:56 Blood Pressure 94/60 01/14/17 07:56 O2 Sat by Pulse Oximetry (%) 99 01/13/17 20:58 Constitutional: Yes: No Distress Eyes: Yes: WNL HENT: Yes: Other (Tenderness noted on the maxillary sinus areas) Cardiovascular: Yes: WNL Respiratory: Yes: Juan-Hanks Gastrointestinal: Yes: WNL ...Rectal Exam: Yes: Deferred Extremities: Yes: WNL Edema: No Neurological: Yes: Alert Labs: CBC, BMP 01/12/17 05:00 01/14/17 08:00 Assessment/Plan Sinus Xrays ordered
[2017-01-14 09:33] LABS: GLUCOSE,RANDOM 335 mg/dL (74-106)
[2017-01-14] MEDS ORDERED: PT OWN MED DRAWER 7, Y5N ONE ×2 (09:51→21:11)
[2017-01-14] MEDS: LEVOFLOXACIN 500 MG IVPB 100 ML IVPB SCH (10:00)
[2017-01-14] MEDS: RANITIDINE HCL 150 MG TABLET (FP) PO SCH ×2 (10:00→21:16)
[2017-01-14] MEDS: FLUTICASONE PROP 0.05% 16 GM NASAL SPRAY NS SCH ×2 (10:01→21:15)
[2017-01-14] MEDS: ACETAMINOPHEN 325 MG TABLET (FP) PO PRN (14:49)
[2017-01-15] MEDS: HEPARIN NA (PORCINE) 5,000 UNITS/ML 1ML VIAL SQ SCH ×3 (05:52→21:40)
[2017-01-15] MEDS: INSULIN DETEMIR 100 UNITS/ML MDV SQ SCH ×2 (06:23→21:36)
[2017-01-15] MEDS: INSULIN SLIDING SCALE (NOVOLOG) 1 VIAL SQ SCH ×4 (06:23→21:37)
--- NOTE | 2017-01-15 08:45 | PN ---
Progress Note (short form) - Note Progress Note: Feels good denies any complaints No hypos Vital Signs Period Temp Pulse Resp BP Sys/Estes Pulse Ox Last 24 Hr 97.6 F-98.2 F 60-94 18-20 92-104/55-65 100 PE: AOx3 Neck: Supple, No JVD HEENT: PERRL EOMI Lungs: CTA Abd: Benign CVS: S1S2 reg Ext: No edema Neuro: No focal deficit CMP Sodium 136 mmol/L (136-145) 01/14/17 08:00 Potassium 4.4 mmol/L (3.5-5.1) 01/14/17 08:00 Chloride 97 mmol/L (98-107) L 01/14/17 08:00 Carbon Dioxide 26 mmol/L (21-32) 01/14/17 08:00 Anion Gap 13 (8-16) 01/14/17 08:00 BUN 16 mg/dL (7-18) D 01/14/17 08:00 Creatinine 0.8 mg/dL (0.55-1.02) D 01/14/17 08:00 Creat Clearance w eGFR > 60 (>60) 01/14/17 08:00 POC Glucometer 362 UNITS (()) 01/15/17 06:19 Random Glucose 335 mg/dL (74-106) H* D 01/14/17 08:00 Hemoglobin A1c % 13.7 % (4.8-6.0) H D 01/10/17 05:00 Lactic Acid 1.534 mmol/L (0.4-2.0) 01/09/17 12:40 Calcium 8.7 mg/dL (8.5-10.1) 01/14/17 08:00 Phosphorus 4.1 mg/dL (2.5-4.9) D 01/13/17 07:10 Magnesium 1.8 mg/dL (1.8-2.4) 01/14/17 08:00 Total Bilirubin 0.3 mg/dL (0.2-1.0) 01/14/17 08:00 AST 18 U/L (15-37) 01/14/17 08:00 ALT 14 U/L (12-78) 01/14/17 08:00 Alkaline Phosphatase 127 U/L (45-117) H D 01/14/17 08:00 Total Protein 5.9 g/dl (6.4-8.2) L 01/14/17 08:00 Albumin 2.6 g/dl (3.4-5.0) L 01/14/17 08:00 Serum , Qual Negative 01/09/17 14:50 Current Medications Generic Name Dose Route Start Last Admin Trade Name Freq PRN Reason Stop Dose Admin Acetaminophen 650 mg 01/11/17 10:50 01/14/17 14:49 Tylenol - PO 650 mg Q6H PRN Administration FEVER OR PAIN Fluticasone Propionate 1 spray 01/12/17 14:00 01/14/17 21:15 Flonase - NS 1 spray BID DARA Administration Heparin Sodium (Porcine) 5,000 unit 01/11/17 14:00 01/15/17 05:52 Heparin - SQ Not Given TID DARA Levofloxacin 100 mls @ 100 mls/hr 01/12/17 10:00 01/14/17 10:00 Levaquin 500 Mg Premixed Ivpb - IVPB 100 mls/hr DAILY [facility] Administration Insulin Aspart 1 vial 01/14/17 08:59 01/15/17 06:23 Novolog Vial Sliding Scale - SQ 11 units TIDAC [facility]ARA Administration Protocol Insulin Aspart 1 vial 01/14/17 08:59 01/14/17 21:16 Novolog Vial Sliding Scale - SQ 7 units HS DARA Administration Protocol Insulin Detemir 17 units 01/14/17 22:00 01/15/17 06:23 Levemir Vial SQ 17 units BID@0700,2200 [facility] Administration Ranitidine HCl 150 mg 01/11/17 22:00 01/14/17 21:16 Zantac - PO 150 mg BID DARA Administration AP: T1DM: S/P DKA Diabetic Neuropathy Sinusitis: Sinus X ray shows b/L maxillary sinusitis Increase Levemir 20 BID Increase Novolog coverage Diet Exercise discussed Discussed need for compliance with Insulin again Levaquin 500mg IVPB daily Problem List - Problems (1) DKA (diabetic ketoacidoses) Code(s): E13.10 - OTH DIABETES MELLITUS WITH KETOACIDOSIS WITHOUT COMA Qualifiers: Diabetes mellitus type: type 1 Diabetes mellitus complication detail: without coma Qualified Code(s): E10.10 - Type 1 diabetes mellitus with ketoacidosis without coma (2) Diabetic neuropathy Code(s): E11.40 - TYPE 2 DIABETES MELLITUS WITH DIABETIC NEUROPATHY, UNSP Qualifiers: Diabetes mellitus type: type 1 Diabetes mellitus complication detail: diabetic polyneuropathy Qualified Code(s): E10.42 - Type 1 diabetes mellitus with diabetic polyneuropathy (3) Hypokalemia Code(s): E87.6 - HYPOKALEMIA
--- NOTE | 2017-01-15 09:18 | PN ---
Progress Note, Physician History of Present Illness: Feels better ,BS still high X ray sinuses consistent with Ac sinusitis - Current Medication List Current Medications: Active Medications Acetaminophen (Tylenol -) 650 mg PO Q6H PRN PRN Reason: FEVER OR PAIN Last Admin: 01/14/17 14:49 Dose: 650 mg Fluticasone Propionate (Flonase -) 1 spray NS BID [facility] Last Admin: 01/14/17 21:15 Dose: 1 spray Heparin Sodium (Porcine) (Heparin -) 5,000 unit SQ TID [facility] Last Admin: 01/15/17 05:52 Dose: Not Given Levofloxacin (Levaquin 500 Mg Premixed Ivpb -) 100 mls @ 100 mls/hr IVPB DAILY [facility] Last Admin: 01/14/17 10:00 Dose: 100 mls/hr Insulin Aspart (Novolog Vial Sliding Scale -) 1 vial SQ TIDAC [facility] PRN Reason: Protocol Last Admin: 01/15/17 06:23 Dose: 11 units Insulin Aspart (Novolog Vial Sliding Scale -) 1 vial SQ HS [facility] PRN Reason: Protocol Last Admin: 01/14/17 21:16 Dose: 7 units Insulin Detemir (Levemir Vial) 17 units SQ BID@0700,2200 [facility] Last Admin: 01/15/17 06:23 Dose: 17 units Ranitidine HCl (Zantac -) 150 mg PO BID [facility] Last Admin: 01/14/17 21:16 Dose: 150 mg - Objective Vital Signs: Vital Signs Temperature 97.7 F 01/15/17 07:58 Pulse Rate 94 H 01/15/17 07:58 Respiratory Rate 18 01/15/17 07:58 Blood Pressure 104/65 01/15/17 07:58 O2 Sat by Pulse Oximetry (%) 100 01/14/17 09:00 Constitutional: Yes: No Distress Eyes: Yes: WNL HENT: Yes: WNL Neck: Yes: WNL Cardiovascular: Yes: WNL Respiratory: Yes: WNL Gastrointestinal: Yes: WNL ...Rectal Exam: Yes: WNL Genitourinary: Yes: WNL Musculoskeletal: Yes: WNL Edema: No Neurological: Yes: Alert Labs: CBC, BMP 01/12/17 05:00 01/14/17 08:00 Assessment/Plan Lantus insulin increased 20 units BID
[2017-01-15] MEDS: LEVOFLOXACIN 500 MG IVPB 100 ML IVPB SCH (09:38)
[2017-01-15] MEDS: RANITIDINE HCL 150 MG TABLET (FP) PO SCH ×2 (09:38→21:38)
[2017-01-15] MEDS: FLUTICASONE PROP 0.05% 16 GM NASAL SPRAY NS SCH ×2 (09:39→21:35)
--- NOTE | 2017-01-15 10:45 | PN ---
Progress Note (short form) - Note Progress Note: Sinus COTTO and pressure. Some intermittent congested cough. Noted elevated BS -> meds adjusted by Endocrine. Intake & Output 01/12/17 01/13/17 01/14/17 01/15/17 23:59 23:59 23:59 23:59 Intake Total 2780 2300 1700 450 Balance 2780 2300 1700 450 Weight 122 lb 5 oz 124 lb 2 oz 125 lb 6 oz Last Vital Signs Temp Pulse Resp BP Pulse Ox 97.7 F 94 H 18 104/65 100 01/15/17 07:58 01/15/17 07:58 01/15/17 07:58 01/15/17 07:58 01/14/17 09:00 Active Medications Acetaminophen (Tylenol -) 650 mg PO Q6H PRN PRN Reason: FEVER OR PAIN Last Admin: 01/14/17 14:49 Dose: 650 mg Fluticasone Propionate (Flonase -) 1 spray NS BID [facility] Last Admin: 01/15/17 09:39 Dose: 1 spray Heparin Sodium (Porcine) (Heparin -) 5,000 unit SQ TID [facility] Last Admin: 01/15/17 05:52 Dose: Not Given Levofloxacin (Levaquin 500 Mg Premixed Ivpb -) 100 mls @ 100 mls/hr IVPB DAILY [facility] Last Admin: 01/15/17 09:38 Dose: 100 mls/hr Insulin Aspart (Novolog Vial Sliding Scale -) 1 vial SQ HS [facility] PRN Reason: Protocol Last Admin: 01/14/17 21:16 Dose: 7 units Insulin Aspart (Novolog Vial Sliding Scale -) 1 vial SQ TIDAC [facility] PRN Reason: Protocol Insulin Detemir (Levemir Vial) 20 units SQ BID@0700,2200 [facility] Ranitidine HCl (Zantac -) 150 mg PO BID [facility] Last Admin: 01/15/17 09:38 Dose: 150 mg Gen: NAD Heart: RRR Lung: decreased breath sounds at the bases Abd: soft, NT, (+) BS Ext: no edema Laboratory Results - last 24 hr 01/14/17 01/14/17 01/14/17 11:46 16:37 21:06 POC Glucometer 423 314 285 01/15/17 06:19 POC Glucometer 362 ASSESSMENT AND PLAN: Diabetic Ketoacidosis resolved Acute Sinusitis - Noted ABX ordered - Nasal spray - Flonase BID - PO as tolerated - DVT prophylaxis - OOB - Glycemic control per Endocrine Dr Dunlpa
[2017-01-15] MEDS: ACETAMINOPHEN 325 MG TABLET (FP) PO PRN ×2 (11:32→21:39)
[2017-01-15] MEDS ORDERED: INSULIN (NOVOLOG) ASPART 100 UNITS/ML 10ML VIAL ONE (16:25)
[2017-01-16] MEDS: HEPARIN NA (PORCINE) 5,000 UNITS/ML 1ML VIAL SQ SCH (06:00)
[2017-01-16] MEDS: INSULIN DETEMIR 100 UNITS/ML MDV SQ SCH (06:18)
[2017-01-16] MEDS: INSULIN SLIDING SCALE (NOVOLOG) 1 VIAL SQ SCH ×3 (06:18→17:05)
--- NOTE | 2017-01-16 08:32 | DS ---
Physical Examination Vital Signs: Vital Signs Temperature 97.6 F 01/16/17 05:00 Pulse Rate 60 01/16/17 05:00 Respiratory Rate 20 01/16/17 05:00 Blood Pressure 98/54 01/16/17 05:00 O2 Sat by Pulse Oximetry (%) 100 01/14/17 09:00 Findings/Remarks: Admitted with DKA and sinusitis improved Constitutional: Yes: No Distress Eyes: Yes: WNL HENT: Yes: WNL Neck: Yes: WNL Cardiovascular: Yes: WNL Respiratory: Yes: WNL Gastrointestinal: Yes: WNL ...Rectal Exam: Yes: WNL Renal/: Yes: WNL Musculoskeletal: Yes: WNL Extremities: Yes: WNL Edema: No Integumentary: Yes: WNL Wound/Incision: Yes: Unapproximated ...Motor Strength: WNL Psychiatric: Yes: WNL Labs: CBC, BMP 01/12/17 05:00 01/14/17 08:00 Discharge Summary Reason For Visit: DKA,HYPERGLYCEMIA,HYPOTHERMIA Current Active Problems DKA (diabetic ketoacidoses) (Acute) Hypothermia (Acute) Condition: Critical - Home Medications Comprehensive Discharge Medication List: Ambulatory Orders Insulin Glargine,Hum.rec.anlog [Lantus (10mL VIAL) -] 23 units SQ BID 09/26/16 Insulin Sliding Scale [Novolog Vial Sliding Scale -] 1 vial SQ HS units
--- NOTE | 2017-01-16 08:49 | PN ---
Progress Note (short form) - Note Progress Note: Feels good denies any complaints No headache No hypos Vital Signs Period Temp Pulse Resp BP Sys/Estes Pulse Ox Last 24 Hr 97.4 F-98.2 F 60-76 16-20 98-99/54-66 PE: AOx3 Neck: Supple, No JVD HEENT: PERRL EOMI Lungs: CTA Abd: Benign CVS: S1S2 reg Ext: No edema Neuro: No focal deficit CMP Sodium 136 mmol/L (136-145) 01/14/17 08:00 Potassium 4.4 mmol/L (3.5-5.1) 01/14/17 08:00 Chloride 97 mmol/L (98-107) L 01/14/17 08:00 Carbon Dioxide 26 mmol/L (21-32) 01/14/17 08:00 Anion Gap 13 (8-16) 01/14/17 08:00 BUN 16 mg/dL (7-18) D 01/14/17 08:00 Creatinine 0.8 mg/dL (0.55-1.02) D 01/14/17 08:00 Creat Clearance w eGFR > 60 (>60) 01/14/17 08:00 POC Glucometer 274 UNITS (()) 01/16/17 05:49 Random Glucose 335 mg/dL (74-106) H* D 01/14/17 08:00 Hemoglobin A1c % 13.7 % (4.8-6.0) H D 01/10/17 05:00 Lactic Acid 1.534 mmol/L (0.4-2.0) 01/09/17 12:40 Calcium 8.7 mg/dL (8.5-10.1) 01/14/17 08:00 Phosphorus 4.1 mg/dL (2.5-4.9) D 01/13/17 07:10 Magnesium 1.8 mg/dL (1.8-2.4) 01/14/17 08:00 Total Bilirubin 0.3 mg/dL (0.2-1.0) 01/14/17 08:00 AST 18 U/L (15-37) 01/14/17 08:00 ALT 14 U/L (12-78) 01/14/17 08:00 Alkaline Phosphatase 127 U/L (45-117) H D 01/14/17 08:00 Total Protein 5.9 g/dl (6.4-8.2) L 01/14/17 08:00 Albumin 2.6 g/dl (3.4-5.0) L 01/14/17 08:00 Serum , Qual Negative 01/09/17 14:50 Current Medications Generic Name Dose Route Start Last Admin Trade Name Malcomq PRN Reason Stop Dose Admin Acetaminophen 650 mg 01/11/17 10:50 01/15/17 21:39 Tylenol - PO 650 mg Q6H PRN Administration FEVER OR PAIN Fluticasone Propionate 1 spray 01/12/17 14:00 01/15/17 21:35 Flonase - NS 1 spray BID DARA Administration Insulin Aspart 1 vial 01/14/17 08:59 01/15/17 21:37 Novolog Vial Sliding Scale - SQ 7 units HS DARA Administration Protocol Insulin Aspart 1 vial 01/15/17 09:34 01/16/17 06:18 Novolog Vial Sliding Scale - SQ 11 units TIDAC DARA Administration Protocol Insulin Detemir 20 units 01/15/17 22:00 01/16/17 06:18 Levemir Vial SQ 20 unit BID@0700,2200 DARA Administration Ranitidine HCl 150 mg 01/11/17 22:00 01/15/17 21:38 Zantac - PO 150 mg BID DARA Administration AP: T1DM: S/P DKA Diabetic Neuropathy Sinusitis: Sinus X ray shows b/L maxillary sinusitis Increase Levemir 22 BID Novolog coverage Diet Exercise discussed Discussed need for compliance with Insulin again. Complications of DKA including discussed. Levaquin 500mg IVPB daily Pt to get Cpeptide done tomorrow. F/U in office next week with FS record. Problem List - Problems (1) DKA (diabetic ketoacidoses) Code(s): E13.10 - OTH DIABETES MELLITUS WITH KETOACIDOSIS WITHOUT COMA Qualifiers: Diabetes mellitus type: type 1 Diabetes mellitus complication detail: without coma Qualified Code(s): E10.10 - Type 1 diabetes mellitus with ketoacidosis without coma (2) Diabetic neuropathy Code(s): E11.40 - TYPE 2 DIABETES MELLITUS WITH DIABETIC NEUROPATHY, UNSP Qualifiers: Diabetes mellitus type: type 1 Diabetes mellitus complication detail: diabetic polyneuropathy Qualified Code(s): E10.42 - Type 1 diabetes mellitus with diabetic polyneuropathy (3) Hypokalemia Code(s): E87.6 - HYPOKALEMIA
[2017-01-16] MEDS ORDERED: PT OWN MED DRAWER 7, Y5N ONE (09:05)
[2017-01-16] MEDS: RANITIDINE HCL 150 MG TABLET (FP) PO SCH (09:10)
[2017-01-16] MEDS: FLUTICASONE PROP 0.05% 16 GM NASAL SPRAY NS SCH (09:11)
[2017-01-16] MEDS ORDERED: INSULIN (NOVOLOG) ASPART 100 UNITS/ML 10ML VIAL ONE (11:16)
[2017-01-16 14:05] VITALS: BP 101/64; PULSE 75; TEMP 98.2
[2017-01-16] MEDS: ACETAMINOPHEN 325 MG TABLET (FP) PO PRN (14:54)
[2017-01-16] MEDS ORDERED: LEVOFLOXACIN 500 MG IVPB 100 ML IVPB ONE (15:45)
[2017-01-16] MEDS ORDERED: INSULIN DETEMIR 100 UNITS/ML MDV SQ SCH (22:00)
== END 2017-01-16 18:23 | disposition home or self-care (01) | DRG 420 ==
LOC: JER 11:51 → JERBED 13:34 → JICU 15:45 → J6S 01-12 22:40
PROVIDERS: ADMIT Internal Medicine; ATTEND Internal Medicine
DX: E10.10 Type 1 diabetes mellitus with ketoacidosis without coma (principal); J01.00 Acute maxillary sinusitis, unspecified; E10.42 Type 1 diabetes mellitus with diabetic polyneuropathy; E10.65 Type 1 diabetes mellitus with hyperglycemia; Z79.4 Long term (current) use of insulin; R68.0 Hypothermia, not associated with low environmental temperature; E87.6 Hypokalemia
CPT/HCPCS: 36415; 36600; 70220-TC; 71010-TC; 80048; 80053; 81003; 81015; 82009; 82803; 83036; 83605; 83735; 84100; 84703; 85025; 87040; 93005; 93010; 99284-25; J1644

== ENCOUNTER → 2017-05-10 | Emergency (ER) | payer OTHER ==
[~2017-05-10] MED LIST: CLINDAMYCIN 600MG PREMIX IVPB 50 ML IVPB ONE; LIDOCAINE HCL 2% (20ML MULTI-DOSE VIAL) NR ONE; ONDANSETRON 4 MG/2 ML VIAL IVPUSH ONE; ONDANSETRON 4 MG/2 ML VIAL ONE; OXYCODONE/APAP 5/325MG COMBO TABLET ONE; OXYCODONE/APAP 5/325MG COMBO TABLET PO ONE; SODIUM CHLORIDE 1,000 ML IV STA; morphine CARPU-JECT 4 MG/1 ML DISP.SYRIN IVPUSH ONE; morphine CARPU-JECT 4 MG/1 ML DISP.SYRIN ONE
[2017-05-10 22:48] VITALS: BMI 22.3
--- NOTE | 2017-05-11 00:06 | PDOC ---
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 Patient states symptoms began 3 weeks ago, patient saw [facility] 2 weeks ago was prescribed topical cream but unsure of the names. She states going to beach today when symptoms worsened. She denies n/v/d, fever, rash, abd pain, CP, diff breathing, or any other complaints at this time. Patient states having difficulty sitting. Timing/Duration: getting worse Severity: severe Modifying Factors: improves with: medication Associated Symptoms: denies: denies symptoms, chest pain, cough, diaphoresis, fever/chills, headaches, loss of appetite, malaise, nausea/vomiting, rash, seizure, shortness of breath, syncope, weakness, other Aspirin Received prior to arrival: No: no aspirin today, unknown, 81 mg x 1, 81 mg x 2, 81 mg x 3, 81 mg x 4, 325 mg x 1, provided at home, provided by EMS, provided by ED [facility] Contraindications(Core Measure): No: Allergy, Other, Active Blding w/i 24 hrs., Plavix, Receiving Warfarin Beta Taryn Contraindications(Core Measure): No: Not Prescribed, Allergy, Bradycardia (HR <60bpm), Advanced Heart Block, Pacemaker, Other Past History - Travel Traveled outside of the country in the last 30 days: No Close contact w/someone who was outside of country & ill: No - Past Medical History Allergies/Adverse Reactions: Allergies Allergy/AdvReac Type Severity Reaction Status Date / Time No Known Allergies Allergy Verified 05/10/17 22:45 Home Medications: Ambulatory Orders Insulin Glargine,Hum.rec.anlog [Lantus (10mL VIAL) -] 23 units SQ BID 09/26/16 Insulin Sliding Scale [Novolog Vial Sliding Scale -] 1 vial SQ HS units Clindamycin [Cleocin -] 300 mg PO Q6H #40 capsule 05/11/17 Oxycodone HCl/Acetaminophen [Percocet 5-325 mg Tablet] 1 tab PO Q6H PRN #20 tablet MDD 4 TABS 05/11/17 Anemia: No Asthma: No Cancer: No Cardiac Disorders: No CVA: No COPD: No CHF: No Dementia: No Diabetes: Yes (IDDM, HAS OMNI PD) GI Disorders: No Disorders: No HTN: No Hypercholesterolemia: No Liver Disease: No Suicide Attempt (Hx): No Seizures: No Thyroid Disease: No Other medical history: Peripheral neuropathy - Surgical History Abdominal Surgery: No Appendectomy: No Cardiac Surgery: No Cholecystectomy: No Lung Surgery: No Neurologic Surgery: No Orthopedic Surgery: No - Immunization History Immunization Up to Date: Yes - Psycho/Social/Smoking Cessation Hx Anxiety: No Suicidal Ideation: No Smoking Status: No Smoking History: Never smoked Have you smoked in the past 12 months: No Number of Cigarettes Smoked Daily: 0 Information on smoking cessation initiated: No Hx Alcohol Use: No Drug/Substance Use Hx: No Substance Use Type: None Hx Substance Use Treatment: No Review of Systems - Review of Systems Able to Perform ROS?: Yes Is the patient limited Kyrgyz proficient: No Integumentary: Yes: Other (Abscess) All Other Systems: Reviewed and Negative *Physical Exam - Vital Signs Last Vital Signs Temp Pulse Resp BP Pulse Ox 98.3 F 113 H 20 111/73 98 05/10/17 22:45 05/10/17 22:45 05/10/17 22:45 05/10/17 22:45 05/10/17 22:45 - Physical Exam General Appearance: Yes: Nourished, Appropriately Dressed, Apparent Distress, Moderate Distress. No: Mild Distress, Severe Distress Respiratory/Chest: positive: Lungs Clear, Normal Breath Sounds. negative: Chest Tender, Respiratory Distress, Accessory Muscle Use, Labored Respiration, Rapid RR Cardiovascular: positive: Regular Rhythm, Regular Rate Gastrointestinal/Abdominal: positive: Normal Bowel Sounds, Soft. negative: Distended, Guarding, Rebound, Tenderness Rectal Exam: positive: normal exam, normal rectal tone. negative: decreased tone, hemorrhoids Musculoskeletal: positive: Normal Inspection. negative: CVA Tenderness Extremity: positive: Normal Capillary Refill, Normal Inspection, Normal Range of Motion. negative: Pedal Edema, Swelling, Calf Tenderness, Erythema Integumentary: positive: Normal Color, Dry, Warm, Erythema, Swelling, Other ( Large Abscess to left inner thigh adjacent to Vagina (Labia Majora). Abscess head noted, swollen, tender, erythema to area.) Neurologic: positive: servicer II-XII NML intact, Fully Oriented, Alert, Normal Mood/ Affect, Normal Response, Motor Strength 5/5 Procedures - Consent Consent obtained: Verbal, From Patient - Incision and Drainage I&D Site: Left: Groin Betadine cleansed: Yes Anesthesia: 1% Lidocaine Volume(ml): 8 Blade Size: 15 Attempts: 1 Plain Packing: No Complications: none Dressing: Yes Progress: 05/11/17 00:48 PATIENT TOLERATED PROCEDURE WELL. SMALL INCISION TO HEAD OF ABSCESS. PURULENT BLOODY DRAINAGE EXPRESSED. WOUND EXPLORED AND IRRIGATED. NO PACKING. STERILE DRESSING TO SITE. IV ABX STARTED. ED Treatment Course - LABORATORY CBC & Chemistry Diagram: 05/11/17 00:05 05/11/17 00:05 - Medications Given in the ED: ED Medications Discontinued Medications Generic Name Dose Route Start Last Admin Trade Name Freq PRN Reason Stop Dose Admin Morphine Sulfate 4 mg 05/10/17 23:43 05/10/17 23:58 Morphine Injection - IVPUSH 05/10/17 23:44 4 mg ONCE ONE Administration Ondansetron HCl 4 mg 05/10/17 23:43 05/10/17 23:59 Zofran Injection IVPUSH 05/10/17 23:44 4 mg ONCE ONE Administration *DC/Admit/Observation/Transfer Diagnosis at time of Disposition: Abscess - Discharge Dispostion Disposition: HOME Condition at time of disposition: Improved Admit: No - Prescriptions Prescriptions: Clindamycin [Cleocin -] 300 mg PO Q6H #40 capsule Oxycodone HCl/Acetaminophen [Percocet 5-325 mg Tablet] 1 tab PO Q6H PRN #20 tablet MDD 4 TABS PRN Reason: Severe Pain - Patient Instructions Printed Discharge Instructions: DI for Incision and Drainage of a Skin Abscess , DI for Skin Abscess Additional Instructions: FOLLOW UP WITH DR. BLACKWELL THIS WEEK. CALL TO SCHEDULE APPOINTMENT. TAKE MEDICATIONS PRESCRIBED. DRESSING CHANGES TWICE A DAY. KEEP AREA CLEAN AND DRY. PERCOCET FOR PAIN NOT RELIEVED BY MOTRIN OR TYLENOL. RETURN IF SYMPTOMS WORSEN OR ANY CONCERNS FOR FURTHER EVALUATION. Print Language: WELSH - Post Discharge Activity Work/School Note: Back to Work
[2017-05-11 00:28] LABS: BASOPHIL 0.5 % (0-2.0); EOSINOPHIL 2.3 % (0-4.5); MCH 31.6 pg (25.7-33.7); MEAN CELL VOLUME 93.1 fl (80-96); MEAN PLT VOLUME 8.4 fl (7.5-11.1); NEUTROPHILS 64.9 % (42.8-82.8); PLATELET COUNT 265 K/MM3 (134-434); RDW 14.4 % (11.6-15.6); WHITE BLOOD COUNT 7.5 K/mm3 (4.0-10.0)
[2017-05-11 00:56] LABS: ALBUMIN 3.8 g/dl (3.4-5.0); ALK PHOS 148 U/L (45-117); ANION GAP 12 (8-16); BILIRUBIN,TOTAL 0.4 mg/dL (0.2-1.0); CALCIUM 8.9 mg/dL (8.5-10.1); CO2 25 mmol/L (21-32); CREATININE 1.2 mg/dL (0.55-1.02); GLUCOSE,RANDOM 230 mg/dL (74-106); SGOT/AST 12 U/L (15-37); SGPT/ALT 14 U/L (12-78); TOT PROT 7.4 g/dl (6.4-8.2)
[2017-05-11 01:14] VITALS: BP 111/71; PULSE 90; TEMP 98.5
== END | disposition home or self-care (01) ==
LOC: JER 22:24
PROC: 0U9MXZZ Drainage of Vulva, External Approach (ICD-10-PCS; principal; 2017-05-10)
PROC: 3E03329 Introduction of Other Anti-infective into Peripheral Vein, Percutaneous Approach (ICD-10-PCS; 2017-05-10)
PROC: 3E033NZ Introduction of Analgesics, Hypnotics, Sedatives into Peripheral Vein, Percutaneous Approach (ICD-10-PCS; 2017-05-10)
PROC: 3E033GC Introduction of Other Therapeutic Substance into Peripheral Vein, Percutaneous Approach (ICD-10-PCS; 2017-05-10)
DX: N76.4 Abscess of vulva (principal); E10.9 Type 1 diabetes mellitus without complications; Z79.4 Long term (current) use of insulin
CPT/HCPCS: 36415; 56405; 80053; 85025; 87040; 96365; 96375; 99283-25

== ENCOUNTER 2017-06-06 17:03 | Emergency (ER) | payer OTHER ==
[2017-06-06 17:31] VITALS: BP 109/74; PULSE 85; TEMP 97.8; BMI 223.1
[2017-06-06] MEDS ORDERED: TETRACAINE 0.5% OPHTH SOLN 2 ML BOTTLE ONE (17:55)
[2017-06-06] MEDS ORDERED: FLUORESCEIN NA 1 EA STRIP ONE (17:55)
--- NOTE | 2017-06-06 18:02 | PDOC ---
Attending Attestation - Resident Resident Name: Vini Alvarado - ED Attending Attestation I have performed the following: I have examined & evaluated the patient, The case was reviewed & discussed with the resident, I agree w/resident's findings & plan, Exceptions are as noted
[2017-06-06] MEDS ORDERED: FLUORESCEIN NA 1 EA STRIP OS ONE (18:04)
[2017-06-06] MEDS ORDERED: TETRACAINE 0.5% HCL 0.6ML DROPPER.BOTTLE OS ONE (18:04)
[2017-06-06] MEDS ORDERED: valACYclovir HCL 1000 MG TABLET PO ONE (18:04)
[2017-06-06] MEDS ORDERED: valACYclovir HCL 500 MG TABLET (FP) ONE (18:30)
--- NOTE | 2017-06-06 18:33 | PDOC ---
History of Present Illness - General Chief Complaint: Pain Stated Complaint: PAIN AND REDNESS TO LEFT EYE Time Seen by Provider: 06/06/17 18:04 History Source: Patient - History of Present Illness Initial Comments: 06/06/17 19:02 27 with dm2 presents with one day of Left eye redness and pain, photophobia and periocular pain. Crusty discharge in the morning, watery throughout the day. Decreased vision on the left. Doesn't wear contacts. No purulent discharge. Fingerstick around 100, 250's yesterday due to lots of food at family member's wake. Past History - Past Medical History Allergies/Adverse Reactions: Allergies Allergy/AdvReac Type Severity Reaction Status Date / Time No Known Allergies Allergy Verified 06/06/17 17:05 Home Medications: Ambulatory Orders Insulin Glargine,Hum.rec.anlog [Lantus (10mL VIAL) -] 26 units SQ BID 09/26/16 Insulin Sliding Scale [Novolog Vial Sliding Scale -] 1 vial SQ HS units Carboxymethylcell/Glycerin/Pf [Lubricant 0.5-0.9% Eye Drops] 3 each OS PRN PRN # 7 droperette 06/06/17 Carboxymethylcellulose Sodium [Thera Tears] 15 ml OP PRN #7 drops 06/06/17 Polymyxin B Sulf/Trimethoprim [Polymyxin B-Tmp Eye Drops] 10 ml OP Q3H6XD #7 drops 06/06/17 Polymyxin B Sulf/Trimethoprim [Polymyxin B-Tmp Eye Drops] 10 ml OS Q3H6XD #7 drops 06/06/17 Valacyclovir HCl [Valtrex] 1,000 mg PO ONCE #7 tablet 06/06/17 Valacyclovir HCl [Valtrex] 1,000 mg PO ONCE #7 tablet 06/06/17 Anemia: No Asthma: No Cancer: No Cardiac Disorders: No CVA: No COPD: No CHF: No Dementia: No Diabetes: Yes (IDDM, HAS OMNI PD) GI Disorders: No Disorders: No HTN: No Hypercholesterolemia: No Liver Disease: No Suicide Attempt (Hx): No Seizures: No Thyroid Disease: No Other medical history: NEUROPATHY - Surgical History Abdominal Surgery: No Appendectomy: No Cardiac Surgery: No Cholecystectomy: No Lung Surgery: No Neurologic Surgery: No Orthopedic Surgery: No - Immunization History Immunization Up to Date: Yes - Psycho/Social/Smoking Cessation Hx Anxiety: No Suicidal Ideation: No Smoking Status: No Smoking History: Never smoked Have you smoked in the past 12 months: No Number of Cigarettes Smoked Daily: 0 Information on smoking cessation initiated: No Hx Alcohol Use: Yes (SOCIAL) Drug/Substance Use Hx: No Substance Use Type: Alcohol Hx Substance Use Treatment: No Review of Systems - Review of Systems Constitutional: No: Symptoms Reported HEENTM: Yes: See HPI Respiratory: No: Symptoms reported Cardiac (ROS): No: Symptoms Reported ABD/GI: No: Symptoms Reported : No: Symptoms Reported Musculoskeletal: No: Symptoms Reported *Physical Exam - Vital Signs Last Vital Signs Temp Pulse Resp BP Pulse Ox 97.8 F 85 14 109/74 100 06/06/17 17:05 06/06/17 17:05 06/06/17 17:05 06/06/17 17:05 06/06/17 17:05 - Physical Exam General Appearance: Yes: Nourished, Appropriately Dressed, Mild Distress (Light bothering her) HEENT: positive: Photophobia, Other (Herpetic lesion at right corner of mouth, untreated. Normal pupils, equal and reactive to light. Injected conjuntiva. Left eye acuity: 20/50. right: 20/20). negative: Normal ENT Inspection, Nasal Congestion, Rhinorrhea Neck: negative: Tender, Trachea midline Respiratory/Chest: positive: Lungs Clear, Normal Breath Sounds. negative: Chest Tender Cardiovascular: positive: Regular Rhythm, Regular Rate, S1, S2 Procedures - Eye Procedure Alcaine Drops Administered: (tetracaine + Fluorets: negative exam.) ED Treatment Course - Medications Given in the ED: ED Medications Discontinued Medications Generic Name Dose Route Start Last Admin Trade Name Freq PRN Reason Stop Dose Admin Fluorescein Sodium 1 ea 06/06/17 18:04 06/06/17 18:00 Fluorets - OS 06/06/17 18:05 1 ea ONCE ONE Administration Tetracaine HCl 1 drop 06/06/17 18:04 06/06/17 18:00 Tetravisc 0.5% Eye Drops - OS 06/06/17 18:05 1 drop ONCE ONE Administration Medical Decision Making - Medical Decision Making 06/06/17 19:10 27F presenting with left red eye Viral conjunctivitis vs infective keratitis vs bacterial etiology Given patient's herpetic lesion on the right corner of the mouth, given Valtrex dose + Rx, Cellulose drops for comfort and polymixin anx drops for empiric therapy. Follow up with opthalmologist MARIE. *DC/Admit/Observation/Transfer Diagnosis at time of Disposition: Eye infection - Discharge Dispostion Disposition: HOME Condition at time of disposition: Stable Admit: No - Prescriptions Prescriptions: Polymyxin B Sulf/Trimethoprim [Polymyxin B-Tmp Eye Drops] 10 ml OS Q3H6XD #7 drops Polymyxin B Sulf/Trimethoprim [Polymyxin B-Tmp Eye Drops] 10 ml OP Q3H6XD #7 drops Carboxymethylcell/Glycerin/Pf [Lubricant 0.5-0.9% Eye Drops] 3 each OS PRN PRN # 7 droperette PRN Reason: Dry Eyes Carboxymethylcellulose Sodium [Thera Tears] 15 ml OP PRN #7 drops Valacyclovir HCl [Valtrex] 1,000 mg PO ONCE #7 tablet Valacyclovir HCl [Valtrex] 1,000 mg PO ONCE #7 tablet - Referrals Referrals: Chao Ruby MD [Staff Physician] - - Patient Instructions Printed Discharge Instructions: How to Instill Eye Drops, DI for Red Eye Additional Instructions: Take Valtrex twice a day for one day 12h apart. Use the rest of the prescription if you have future episodes. Take it as soon as you start feeling symptoms. Please follow up with your Opthalmologist or with Dr. Ruby.
== END 2017-06-06 18:52 | disposition home or self-care (01) ==
LOC: FER 17:03
DX: H44.002 Unspecified purulent endophthalmitis, left eye (principal); E11.8 Type 2 diabetes mellitus with unspecified complications; Z79.4 Long term (current) use of insulin
CPT/HCPCS: 99281-25

== ENCOUNTER 2017-10-30 21:34 | Inpatient (IN) | payer OTHER ==
[2017-10-30] MEDS ORDERED: SODIUM CHLORIDE 0.9% 500 ML INFUS.BAG IV ONE (22:01)
[2017-10-30] MEDS ORDERED: ACETAMINOPHEN 1000 MG/100 ML VIAL (NON FORMULARY) IVPB ONE (22:05)
[2017-10-30] MEDS ORDERED: ACETAMINOPHEN INJECTION 100 ML IVPB ONE (22:08)
[2017-10-30 22:21] VITALS: BMI 20.5
[2017-10-30 22:33] LABS: BASO % 0.2 % (0-2.0); HEMATOCRIT 45.9 % (32.4-45.2); HEMOGLOBIN 14.7 GM/dL (10.7-15.3); LYMPH % 5.2 % (8-40); MCH 32.7 pg (25.7-33.7); MEAN CELL VOLUME 102.1 fl (80-96); MEAN PLT VOLUME 8.6 fl (7.5-11.1); NEUT % 88.6 % (42.8-82.8); PLATELET COUNT 311 K/MM3 (134-434); RDW 13.5 % (11.6-15.6); WHITE BLOOD COUNT 13.8 K/mm3 (4.0-10.0)
[2017-10-30 23:00] LABS: VENOUS PO2 46.2 mmHg (28-48)
[2017-10-30 23:02] LABS: VENOUS PC02 14.8 mmHg (38-52); VENOUS PH 7.15 (7.32-7.42)
[2017-10-30 23:07] LABS: ALBUMIN 4.1 g/dl (3.4-5.0); ANION GAP 29 (8-16); BLOOD UREA NITROGEN 21 mg/dL (7-18); CALCIUM 8.3 mg/dL (8.5-10.1); CHLORIDE 104 mmol/L (98-107); CO2 7 mmol/L (21-32); CREATININE 1.2 mg/dL (0.55-1.02); MAGNESIUM 2.2 mg/dL (1.8-2.4); POTASSIUM 3.8 mmol/L (3.5-5.1); SGOT/AST 14 U/L (15-37); SGPT/ALT 26 U/L (12-78); SODIUM 140 mmol/L (136-145)
[2017-10-30 23:11] LABS: ALK PHOS 139 U/L (45-117); BILIRUBIN,TOTAL 0.8 mg/dL (0.2-1.0)
[2017-10-30 23:14] LABS: GLUCOSE,RANDOM 381 mg/dL (74-106)
--- NOTE | 2017-10-30 23:21 | PDOC ---
History of Present Illness <Zoey Graham - Last Filed: 10/31/17 00:23> - History of Present Illness Initial Comments: 10/31/17 02:29 The patient is a 27 year old female with past medical history of IDDM and DKA who presents to the ED with complaints of nausea and NBNB vomiting that began today. She reports that her symptoms began after breakfast in which resulted in her vomiting up her breakfast and every other meal after. She reports also that she took multiple finger sticks today which have been in the 300s. She states they normally run in the 200s. She reports having abdominal pain cramping prior to arrival which has subsided, but presently complains of gradual onset frontal/ bitemporal headache.The patient reports having a sore throat in the previous week where she was prescribed a Z pack and reports finishing it yesterday. She reports that her symptoms shes experiencing are similar to when she has been in DKA before. She denies any shortness of breath or chest pain. She denies any urinary symptoms. Denies focal weakness or numbness. <Miyl Sims - Last Filed: 10/31/17 02:31> - General Chief Complaint: Blood Sugar Problem Stated Complaint: HYPERGLYCEMIA Time Seen by Provider: 10/30/17 22:02 Past History <Zoey Graham - Last Filed: 10/31/17 00:23> - Past Medical History Anemia: No Asthma: No Cancer: No Cardiac Disorders: No CVA: No COPD: No CHF: No Dementia: No Diabetes: Yes (IDDM, HAS OMNI PD) GI Disorders: No Disorders: No HTN: No Hypercholesterolemia: No Liver Disease: No Seizures: No Thyroid Disease: No - Surgical History Abdominal Surgery: No Appendectomy: No Cardiac Surgery: No Cholecystectomy: No Lung Surgery: No Neurologic Surgery: No Orthopedic Surgery: No - Immunization History Immunization Up to Date: Yes - Suicide/Smoking/Psychosocial Hx Smoking Status: No Smoking History: Never smoked Have you smoked in the past 12 months: No Number of Cigarettes Smoked Daily: 0 Hx Alcohol Use: No Drug/Substance Use Hx: No Substance Use Type: Alcohol Hx Substance Use Treatment: No <Mily Sims - Last Filed: 10/31/17 02:31> - Past Medical History Allergies/Adverse Reactions: Allergies Allergy/AdvReac Type Severity Reaction Status Date / Time No Known Allergies Allergy Verified 06/06/17 17:05 Home Medications: Ambulatory Orders Insulin Glargine,Hum.rec.anlog [Lantus (10mL VIAL) -] 26 units SQ BID 09/26/16 Insulin Sliding Scale [Novolog Vial Sliding Scale -] 1 vial SQ HS units Review of Systems - Review of Systems Comments:: 10/31/17 02:30 GENERAL/CONSTITUTIONAL: No fever or chills. No weakness. HEAD, EYES, EARS, NOSE AND THROAT: No change in vision. No ear pain or discharge. No sore throat. GASTROINTESTINAL: Present: nausea, vomiting No diarrhea or constipation, abd pain GENITOURINARY: No dysuria, frequency, or change in urination. CARDIOVASCULAR: No chest pain or shortness of breath. RESPIRATORY: No cough, wheezing, or hemoptysis. MUSCULOSKELETAL: No joint or muscle swelling or pain. No neck or back pain. SKIN: No rash NEUROLOGIC: Present: headache No vertigo, loss of consciousness, or change in strength/sensation. ENDOCRINE: No increased thirst. No abnormal weight change. HEMATOLOGIC/LYMPHATIC: No anemia, easy bleeding, or history of blood clots. ALLERGIC/IMMUNOLOGIC: No hives or skin allergy. <Mily Sims - Last Filed: 10/31/17 02:31> *Physical Exam - Vital Signs Last Vital Signs Temp Pulse Resp BP Pulse Ox 98.5 F 89 113/78 100 10/30/17 22:17 10/30/17 22:17 10/30/17 22:17 10/30/17 22:17 <Zoey Graham - Last Filed: 10/31/17 00:23> - Vital Signs Last Vital Signs Temp Pulse Resp BP Pulse Ox 98.5 F 89 113/78 100 10/30/17 22:17 10/30/17 22:17 10/30/17 22:17 10/30/17 22:17 - Physical Exam Comments: 10/31/17 02:30 GENERAL: Awake, alert, and fully oriented, in no acute distress HEAD: No signs of trauma EYES: PERRLA, EOMI, sclera anicteric, conjunctiva clear ENT: Auricles normal inspection, hearing grossly normal, nares patent, oropharynx clear without exudates. dry MM NECK: Normal ROM, supple, no lymphadenopathy, JVD, or masses LUNGS: Breath sounds equal, clear to auscultation bilaterally. No wheezes, and no crackles HEART: tachy to 110 but regular, normal S1 and S2, no murmurs, rubs or gallops ABDOMEN: Soft, nontender, normoactive bowel sounds. No guarding, no rebound. No masses. EXTREMITIES: Normal range of motion, no edema. No clubbing or cyanosis. No cords, erythema, or tenderness NEUROLOGICAL: Normal speech, cranial nerves intact, negative pronator drift, 5/ 5 strength in all 4 extremities, normal sensation to light touch in all 4 extremities, normal cerebellar exam, normal reflexes and tone, gait deferred SKIN: Warm, Dry, normal turgor, no rashes or lesions noted. <Mily Sims - Last Filed: 10/31/17 02:31> ED Treatment Course - LABORATORY CBC & Chemistry Diagram: 10/30/17 22:18 10/30/17 22:18 - ADDITIONAL ORDERS Additional order review: Laboratory Results 10/30/17 10/30/17 10/30/17 22:38 22:18 22:18 VBG pH 7.15 L* POC VBG pCO2 14.8 L* D POC VBG pO2 46.2 Mixed VBG HCO3 4.9 L* Sodium 140 Potassium 3.8 Chloride 104 Carbon Dioxide 7 L D Anion Gap 29 H BUN 21 H D Creatinine 1.2 H Creat Clearance w eGFR 54.74 POC Glucometer Random Glucose 381 H* D Calcium 8.3 L Magnesium 2.2 D Total Bilirubin 0.8 D AST 14 L ALT 26 D Alkaline Phosphatase 139 H Total Protein 8.0 Albumin 4.1 Beta HCG, Quant < 1.0 Acetone, Qual Positive large 3+ H 10/30/17 22:01 VBG pH POC VBG pCO2 POC VBG pO2 Mixed VBG HCO3 Sodium Potassium Chloride Carbon Dioxide Anion Gap BUN Creatinine Creat Clearance w eGFR POC Glucometer [phone] Random Glucose Calcium Magnesium Total Bilirubin AST ALT Alkaline Phosphatase Total Protein Albumin Beta HCG, Quant Acetone, Qual 10/30/17 10/30/17 22:18 22:01 RBC 4.50 MCV 102.1 H MCHC 32.0 RDW 13.5 MPV 8.6 Neutrophils % 88.6 H D Lymphocytes % 5.2 L D Monocytes % 6.0 Eosinophils % 0.0 D Basophils % 0.2 POC Glucometer [phone] - Medications Given in the ED: ED Medications Discontinued Medications Generic Name Dose Route Start Last Admin Trade Name Elena PRN Reason Stop Dose Admin Acetaminophen 1,000 mg 10/30/17 22:05 10/30/17 23:44 Ofirmev Injection - IVPB 10/30/17 22:06 1,000 mg ONCE ONE Administration Potassium Chloride 20 meq/ 1,010 mls @ 1,000 mls/hr 10/30/17 23:22 10/30/17 23:37 Sodium Chloride IVPB 10/31/17 00:22 1,000 mls/hr ASDIR STA Administration Sodium Chloride 1,000 ml 10/30/17 22:01 10/30/17 22:03 Normal Saline - IV 10/30/17 22:02 1,000 ml ONCE ONE Administration <Zoey Graham - Last Filed: 10/31/17 00:23> - LABORATORY CBC & Chemistry Diagram: 10/30/17 22:18 10/30/17 22:18 - ADDITIONAL ORDERS Additional order review: Laboratory Results 10/30/17 10/30/17 10/30/17 22:38 22:18 22:18 VBG pH 7.15 L* POC VBG pCO2 14.8 L* D POC VBG pO2 46.2 Mixed VBG HCO3 4.9 L* Sodium 140 Potassium 3.8 Chloride 104 Carbon Dioxide 7 L D Anion Gap 29 H BUN 21 H D Creatinine 1.2 H Creat Clearance w eGFR 54.74 Random Glucose 381 H* D Calcium 8.3 L Magnesium 2.2 D Total Bilirubin 0.8 D AST 14 L ALT 26 D Alkaline Phosphatase 139 H Total Protein 8.0 Albumin 4.1 Beta HCG, Quant < 1.0 Acetone, Qual Positive large 3+ H 10/30/17 22:18 RBC 4.50 MCV 102.1 H MCHC 32.0 RDW 13.5 MPV 8.6 Neutrophils % 88.6 H D Lymphocytes % 5.2 L D Monocytes % 6.0 Eosinophils % 0.0 D Basophils % 0.2 - Medications Given in the ED: ED Medications Discontinued Medications Generic Name Dose Route Start Last Admin Trade Name Elena PRN Reason Stop Dose Admin Sodium Chloride 1,000 ml 10/30/17 22:01 01/05/18 22:03 Normal Saline - IV 10/30/17 22:02 1,000 ml ONCE ONE Administration <Mily Sims - Last Filed: 10/31/17 02:31> Medical Decision Making - Medical Decision Making 10/31/17 00:23 Microblog sent to [facility] at 23:26. Awaiting call back <Zoey Graham - Last Filed: 10/31/17 00:23> - Medical Decision Making 10/30/17 23:19 27-year-old female with a history of insulin-dependent diabetes complicated by multiple episodes of DKA presents with nausea, vomiting and elevated fingersticks at home. The patient reports this feels like her previous episodes of DKA. Labs are remarkable for tachycardia to the 110s. Exam remarkable for dry mucous membranes. Initial labs with acetone at a level of 3+ consistent with likely DKA. Patient is currently being given fluids, will await potassium level prior to initiating insulin. 10/31/17 00:06 Anion gap is 30, pH is 7.15 consistent with DKA. Potassium level is 3.8, Mg wnl. Ordered another liter of fluids with 20 mEq of potassium. Started an insulin drip at 5 units an hour. test is negative, will order a chest x-ray to evaluate for infection. Patient has been discussed with Dr. Blanc. Also discussed case with SAL Orellana from ICU, pt is currently needs ICU level care , however there are no ICU beds. Case discussed in detail with admitting physician Dr. Blanc including history , physical exam and ancillary studies. Admitting physician has assumed care for the patient, will follow all pending diagnostics and will complete the evaluation and treatment. <Mily Sims - Last Filed: 10/31/17 02:31> *DC/Admit/Observation/Transfer - Attestations Scribe Attestion: 10/31/17 00:23 Documentation prepared by oZey Graham, acting as medical social worker for Mily Sims MD. <Zoey Graham - Last Filed: 10/31/17 00:23> - Discharge Dispostion Admit: Yes - Attestations Physician Attestion: 10/31/17 00:34 I, Dr. Mily Sims MD, attest that this document has been prepared under my direction and personally reviewed by me in its entirety. I further attest, that it accurately reflects all work, treatment, procedures and medical decision -making performed by me. <Mily Sims - Last Filed: 10/31/17 02:31> Diagnosis at time of Disposition: DKA (diabetic ketoacidoses) - Discharge Dispostion Condition at time of disposition: Guarded
[2017-10-30] MEDS ORDERED: SODIUM CHLORIDE 1,000 ML with POTASSIUM CHLORIDE 20 MEQ IVPB STA (23:22)
[2017-10-30] MEDS ORDERED: INSULIN REGULAR 100 UNITS in SODIUM CHLORIDE 99 ML IVPB SCH (23:45)
[2017-10-30] MEDS ORDERED: INSULIN REGULAR HUMAN 100 UNITS/ML *VIAL ONE (23:48)
[2017-10-31 00:29] LABS: URINE APPEARANCE CLEAR; URINE BILIRUBIN NEGATIVE (NEGATIVE); URINE BLOOD 1+ (NEGATIVE); URINE COLOR COLORLESS; URINE GLUCOSE (UA) 3+ (NEGATIVE); URINE KETONE 2+ (NEGATIVE); URINE LEUK ESTERASE NEGATIVE (NEGATIVE); URINE NITRITE NEGATIVE (NEGATIVE); URINE PROTEIN NEGATIVE (NEGATIVE); URINE UROBILINOGEN NEGATIVE mg/dL (0.2-1.0)
[2017-10-31 00:30] LABS: HCG,QUALITATIVE URINE NEGATIVE
[2017-10-31 00:33] LABS: URINE BACTERIA RARE /hpf (NONE SEEN); URINE MUCUS RARE
--- NOTE | 2017-10-31 01:41 | HP ---
CHIEF COMPLAINT: nausea, vomiting, elevated blood glucose PCP: Dr. Ceballos Grain Drier Operator: Dr. Biggs HISTORY OF PRESENT ILLNESS: 27yo young woman with PMH of IDDM Type I, multiple admission for DKA, and peripheral neuropathy who p/w nausea and NBNB emesis starting today. She reports have a sore throat and cough for the past several days and completed a Zpack yesterday. Patient also states that due to insurance changes she had to switch from insulin omnipump to Flexpen, which has been more difficult for her to regulate her BG levels. Denies fever, chill, chest pain, or sob. Reports that her symptoms are similar to prior DKA episodes. ER course was notable for: (1) BG 381 (2) VBG pH 7.15, AG 29 (3) UA 2+ ketones, 3+ Acetone in blood Recent Travel: none PAST MEDICAL HISTORY: see HPI PAST SURGICAL HISTORY: none Social History: Smoking: never smoker Alcohol: none Drugs: none Family History: paternal side with DM Allergies: NKDA HOME MEDICATIONS: Home Medications Medication Instructions Recorded Insulin Glargine,Hum.rec.anlog 26 units SQ BID 09/26/16 [Lantus (10mL VIAL) -] Insulin Sliding Scale [Novolog 1 vial SQ HS units 10/06/16 Vial Sliding Scale -] REVIEW OF SYSTEMS CONSTITUTIONAL: Absent: fever, chills, diaphoresis, generalized weakness, malaise, loss of appetite, weight change HEENT: +rhinorrhea, throat pain Absent: rhinorrhea, nasal congestion, throat pain, throat swelling, difficulty swallowing, mouth swelling, ear pain, eye pain, visual changes CARDIOVASCULAR: Absent: chest pain, syncope, palpitations, irregular heart rate, lightheadedness , peripheral edema RESPIRATORY: Absent: cough, shortness of breath, dyspnea with exertion, orthopnea, wheezing, stridor, hemoptysis GASTROINTESTINAL: +nausea, vomiting Absent: abdominal pain, abdominal distension, nausea, vomiting, diarrhea, constipation, melena, hematochezia GENITOURINARY: Absent: dysuria, frequency, urgency, hesitancy, hematuria, flank pain, genital pain MUSCULOSKELETAL: Absent: myalgia, arthralgia, joint swelling, back pain, neck pain SKIN: Absent: rash, itching, pallor HEMATOLOGIC/IMMUNOLOGIC: Absent: easy bleeding, easy bruising, lymphadenopathy, frequent infections ENDOCRINE: Absent: unexplained weight gain, unexplained weight loss, heat intolerance, cold intolerance NEUROLOGIC: Absent: headache, focal weakness or paresthesias, dizziness, unsteady gait, seizure, mental status changes, bladder or bowel incontinence PSYCHIATRIC: Absent: anxiety, depression, suicidal or homicidal ideation, hallucinations. PHYSICAL EXAMINATION Vital Signs - 24 hr 10/30/17 22:17 Temperature 98.5 F Pulse Rate 89 Blood Pressure 113/78 O2 Sat by Pulse 100 Oximetry (%) GENERAL: nad, aaox3 HEAD: No signs of trauma EYES: PERRLA, EOMI, sclera anicteric, conjunctiva clear ENT: oropharynx clear without exudates. dry MM NECK: Normal ROM, supple, no cervical LAD LUNGS: CTAB HEART: tachy to 110 but regular, normal S1/S2, no m/r/g ABDOMEN: Soft, ntnd, normoactive bowel sounds EXTREMITIES: Normal range of motion, no edema. No clubbing or cyanosis. No cords, erythema, or tenderness NEUROLOGICAL: CN intact, Normal speech, motor strength 5/5 in all 4 extremities , negative pronator drift, intact sensation to light touch in all 4 extremities , FnF intact, normal reflexes and tone, gait deferred SKIN: Warm, Dry, normal turgor, no rashes or lesions noted. CBC, BMP 10/30/17 22:18 10/30/17 22:18 Hepatic Panel Total Bilirubin 0.8 mg/dL (0.2-1.0) D 10/30/17 22:18 AST 14 U/L (15-37) L 10/30/17 22:18 ALT 26 U/L (12-78) D 10/30/17 22:18 Alkaline Phosphatase 139 U/L (45-117) H 10/30/17 22:18 Albumin 4.1 g/dl (3.4-5.0) 10/30/17 22:18 Urine Test Results Urine Color Colorless 10/31/17 00:00 Urine Appearance Clear 10/31/17 00:00 Urine pH 5.0 (5.0-8.0) 10/31/17 00:00 Ur Specific [place] 1.005 (1.001-1.035) 10/31/17 00:00 Urine Protein Negative (NEGATIVE) 10/31/17 00:00 Urine Glucose (UA) 3+ (NEGATIVE) H 10/31/17 00:00 Urine Ketones 2+ (NEGATIVE) H 10/31/17 00:00 Urine Blood 1+ (NEGATIVE) H 10/31/17 00:00 Urine Nitrite Negative (NEGATIVE) 10/31/17 00:00 Urine Bilirubin Negative (NEGATIVE) 10/31/17 00:00 Ur Leukocyte Esterase Negative (NEGATIVE) 10/31/17 00:00 Urine Bacteria Rare /hpf (NONE SEEN) 10/31/17 00:00 Urine Mucus Rare 10/31/17 00:00 CXR: No focal consolidations, pleural effusion, or pneumothorax. Active Medications Chlorhexidine Gluconate (Hibiclens For Decolonization -) 1 applic TP HS DARA Potassium Chloride/Dextrose/Sod Cl (D5-1/2ns+20 Meq Kcl -) 20 meq in 1,000 mls @ 200 mls/hr IV ASDIR DARA Last Admin: 10/31/17 04:48 Dose: 200 mls/hr Insulin Human Regular 100 (units/ Sodium Chloride) 100 mls @ 52.61 mls/hr IVPB TITR DARA; 1 UNITS/KG/HR PRN Reason: Protocol Mupirocin (Bactroban Ointment (For Decolonization) -) 1 applic NS BID DARA Stop: 11/05/17 09:59 Prochlorperazine Edisylate (Compazine Injection -) 5 mg IVPB Q4H PRN PRN Reason: NAUSEA AND/OR VOMITING ASSESSMENT/PLAN: 27yo young woman with IDDM Type 1 and multiple prior episodes of DKA who p/w with nausea and NBNB emesis x1 day and found to be in DKA in the setting of recent cold. #DKA -IVF -insulin drip with BGM Q1H -BMP q2H until gap closes -compazine for nausea -f/u urine and blood cultures #FEN: continue IVFs/ K repletion as needed / NPO #DVT PPX - encourage early ambulation #Dispo: ICU Full code d/w Dr. Jayashree Banuelos MD PGY1 - Internal Medicine Visit type - Emergency Visit Emergency Visit: Yes ED Registration Date: 10/31/17 Care time: The patient presented to the Emergency Department on the above date and was hospitalized for further evaluation of their emergent condition. - New Patient This patient is new to me today: Yes Date on this admission: 10/31/17 - Critical Care Critical Care patient: No
[2017-10-31] MEDS ORDERED: D5-1/2NS+20 MEQ KCL - 20 MEQ/1,000 ML INFUS.BAG IV SCH ×3 (02:00→14:47)
[2017-10-31] MEDS ORDERED: DEXTROSE 50%-WATER 25 GM/50 ML DISP.SYRIN IVPUSH ONE (04:34)
[2017-10-31] MEDS ORDERED: DEXTROSE 50%-WATER 25 GM/50 ML DISP.SYRIN ONE (04:42)
[2017-10-31 05:26] LABS: CHLORIDE 112 mmol/L (98-107); POTASSIUM 3.2 mmol/L (3.5-5.1); SODIUM 146 mmol/L (136-145)
[2017-10-31 05:31] LABS: ANION GAP 17 (8-16); BLOOD UREA NITROGEN 17 mg/dL (7-18); CALCIUM 7.8 mg/dL (8.5-10.1); CO2 17 mmol/L (21-32)
[2017-10-31] MEDS ORDERED: POTASSIUM CHLORIDE ORAL LIQUID 20 MEQ/15 ML PO ONE (05:32)
[2017-10-31 05:33] LABS: GLUCOSE,RANDOM 35 mg/dL (74-106)
[2017-10-31] MEDS ORDERED: POTASSIUM CHLORIDE ORAL LIQUID 20 MEQ/15 ML ONE (05:36)
[2017-10-31] MEDS ORDERED: INSULIN REGULAR 100 UNITS in SODIUM CHLORIDE 99 ML IVPB SCH ×2 (05:46→10:30)
--- NOTE | 2017-10-31 05:46 | PN ---
Teaching Attending Note Name of Resident: Tiffanie Banuelos ATTENDING PHYSICIAN STATEMENT I saw and evaluated the patient. I reviewed the resident's note and discussed the case with the resident. I agree with the resident's findings and plan as documented. SUBJECTIVE: 27 y/o Female c/o anorexia, nonbloody diarrhea and nausea, presented to ED and found to be in DKA. PAtient has h/o significant neuropathy that previously had her wheelchair bound, but now has resolved. OBJECTIVE: GEN: A&Ox3 in NAD HEENT: NC, AT, PERRLA, EOMI, MMM CVS: RRR, S1, S2 Lungs: CTA, no wheezing Abd: Soft, NT, ND, BS+, no organomegaly Ext: Nl ROM, 2+ pulses, no edema Skin: no lesions CBCD WBC 13.8 K/mm3 (4.0-10.0) H D 10/30/17 22:18 RBC 4.50 M/mm3 (3.60-5.2) 10/30/17 22:18 Hgb 14.7 GM/dL (10.7-15.3) 10/30/17 22:18 Hct 45.9 % (32.4-45.2) H 10/30/17 22:18 MCV 102.1 fl (80-96) H 10/30/17 22:18 MCHC 32.0 g/dl (32.0-36.0) 10/30/17 22:18 RDW 13.5 % (11.6-15.6) 10/30/17 22:18 Plt Count 311 K/MM3 (134-434) 10/30/17 22:18 MPV 8.6 fl (7.5-11.1) 10/30/17 22:18 CMP Sodium 146 mmol/L (136-145) H 10/31/17 04:50 Potassium 3.2 mmol/L (3.5-5.1) L 10/31/17 04:50 Chloride 112 mmol/L (98-107) H 10/31/17 04:50 Carbon Dioxide 17 mmol/L (21-32) L D 10/31/17 04:50 Anion Gap 17 (8-16) H 10/31/17 04:50 BUN 17 mg/dL (7-18) 10/31/17 04:50 Creatinine 1.0 mg/dL (0.55-1.02) 10/31/17 04:50 Creat Clearance w eGFR 54.74 (>60) 10/30/17 22:18 Random Glucose 35 mg/dL (74-106) L* D 10/31/17 04:50 Calcium 7.8 mg/dL (8.5-10.1) L 10/31/17 04:50 Total Bilirubin 0.8 mg/dL (0.2-1.0) D 10/30/17 22:18 AST 14 U/L (15-37) L 10/30/17 22:18 ALT 26 U/L (12-78) D 10/30/17 22:18 Alkaline Phosphatase 139 U/L (45-117) H 10/30/17 22:18 Total Protein 8.0 g/dl (6.4-8.2) 10/30/17 22:18 Albumin 4.1 g/dl (3.4-5.0) 10/30/17 22:18 ASSESSMENT AND PLAN: DKA- IVF switched to D51/2NS with KCL 20 MEQ, Insulin drip and titrate as needed. Trend BMP and FS and when AG closes, start Basal insulin 28 Units BID and RISS AC. Maintain potassium above 4. metoclopramide in case of nausea. DVt prophylaxis Critical Care Total Critical Care Time (in minutes): 135 Critical Care Statement: The care of this patient involved high complexity decision making to prevent further life threatening deterioration of the patient 's condition and/or to evaluate & treat vital organ system(s) failure or risk of failure.
[2017-10-31] MEDS ORDERED: PROCHLORPERAZINE INJECTION 10 MG/2 ML VIAL IVPB PRN (05:56)
[2017-10-31] MEDS ORDERED: HEMOQUE TEST 1 EACH EACH ONE (07:40)
[2017-10-31 08:06] LABS: ARTERIAL BLOOD GAS BASE EXCESS -6.4 meq/l (-2-2); ARTERIAL BLOOD GAS PCO2 33.2 mmHg (35-45); ARTERIAL BLOOD GAS PO2 95.9 mmHg (80-100); ARTERIAL BLOOD GAS pH 7.35 (7.35-7.45)
[2017-10-31 08:43] LABS: ALLENS TEST POSITIVE
[2017-10-31 09:07] LABS: ANION GAP 12 (8-16); BLOOD UREA NITROGEN 12 mg/dL (7-18); CALCIUM 7.9 mg/dL (8.5-10.1); CHLORIDE 107 mmol/L (98-107); CO2 19 mmol/L (21-32); GLUCOSE,RANDOM 280 mg/dL (74-106); POTASSIUM 4.6 mmol/L (3.5-5.1); SODIUM 138 mmol/L (136-145)
[2017-10-31] MEDS: MUPIROCIN 2% TOPICAL OINTMENT FOR DECOLONIZATION NS SCH ×2 (09:59→22:28)
[2017-10-31 12:28] LABS: ANION GAP 11 (8-16); BLOOD UREA NITROGEN 10 mg/dL (7-18); CALCIUM 8.3 mg/dL (8.5-10.1); CHLORIDE 107 mmol/L (98-107); CO2 22 mmol/L (21-32); CREATININE 1.1 mg/dL (0.55-1.02); GLUCOSE,RANDOM 246 mg/dL (74-106); POTASSIUM 3.8 mmol/L (3.5-5.1); SODIUM 140 mmol/L (136-145)
--- NOTE | 2017-10-31 13:24 | EKG ---
Test Reason : Blood Pressure : / mmHG Vent. Rate : 095 BPM Atrial Rate : 095 BPM P-R Int : 140 ms QRS Dur : 084 ms QT Int : 338 ms P-R-T Axes : 049 050 061 degrees QTc Int : 424 ms NORMAL SINUS RHYTHM NONSPECIFIC T WAVE ABNORMALITY ABNORMAL ECG Confirmed by OMERO SAINZ MD ([id number]) on 10/31/2017 1:24:36 PM Referred By: Confirmed By:OMERO SAINZ MD
--- NOTE | 2017-10-31 14:27 | CONSULT ---
Consult Consult Specialty:: Endocrinology Referred by:: Dr Ceballos Reason for Consultation:: DKA - History of Present Illness Chief Complaint: Nausea, vomiting History of Present Illness: This is a 27y/o young woman with h/o T1DM diagnosed at age 5, severe neuropathy , multiple admissions for DKA, who presented to ED with c/o nausea and vomiting starting yesterday.. She reported a sore throat and cough for the past several days and completed a Zpack yesterday. Patient also states that due to insurance changes she had to switch from insulin omnipump to Flexpen, which has been more difficult for her to regulate her BG levels. Pt found to be in DKA and treated with IV hydration, IV Insulin and electrolyte replacement with resolution of DKA. Pt feels much better and has tolerated regular diet. Takes Lantus 28 BID at home. Pt has been noncompliant with last f/u in the office in April. Says she has been taking her Insulins including Lantus regularly and last dose taken last night. - History Source History Provided By: Patient, Medical Record - Past Medical History ...LMP: 09/17/16 Endocrine: Yes: Diabetes Mellitus (describes multiple episodes of DKA, the last being last month ), Other (Peripheral Neuropathy) - Alcohol/Substance Use Hx Alcohol Use: No - Smoking History Smoking history: Never smoked Have you smoked in the past 12 months: No Aproximately how many cigarettes per day: 0 - Social History Usual Living Arrangement: Alone ADL: Independent Occupation: Student / works at [employer] in [employer] [facility] [employer] [facility] History of Recent Travel: No Home Medications - Allergies Allergies/Adverse Reactions: Allergies Allergy/AdvReac Type Severity Reaction Status Date / Time No Known Allergies Allergy Verified 06/06/17 17:05 - Home Medications Home Medications: Ambulatory Orders Insulin Glargine,Hum.rec.anlog [Lantus (10mL VIAL) -] 26 units SQ BID 09/26/16 Insulin Sliding Scale [Novolog Vial Sliding Scale -] 1 vial SQ HS units Family Disease History - Family Disease History Family Disease History: Other: Father (alive: 42: healthy), Mother (alive: 43 GERD), Brother (No siblings), Son (No children) Other Family History: Aunts have diabetes Review of Systems - Review of Systems Constitutional: reports: Malaise Eyes: reports: No Symptoms HENT: reports: No Symptoms Neck: reports: No Symptoms Cardiovascular: reports: No Symptoms Respiratory: reports: No Symptoms Gastrointestinal: reports: No Symptoms Genitourinary: reports: No Symptoms Breasts: reports: No Symptoms Reported Musculoskeletal: reports: Other (Numbness of feet) Integumentary: reports: No Symptoms Neurological: reports: No Symptoms Endocrine: reports: No Symptoms Physical Exam Vital Signs: Vital Signs Temperature 98.0 F 10/31/17 07:47 Pulse Rate 102 H 10/31/17 13:10 Respiratory Rate 16 10/31/17 13:10 Blood Pressure 88/58 10/31/17 13:10 O2 Sat by Pulse Oximetry (%) 100 10/31/17 13:10 Constitutional: Yes: No Distress, Calm Eyes: Yes: Conjunctiva Clear, EOM Intact HENT: Yes: Atraumatic, Normocephalic Neck: Yes: Supple, Trachea Midline Cardiovascular: Yes: Regular Rate and Rhythm Respiratory: Yes: Regular, CTA Bilaterally Gastrointestinal: Yes: Normal Bowel Sounds Musculoskeletal: Yes: WNL Extremities: Yes: WNL Edema: No Neurological: Yes: Alert, Oriented Labs: CBC, BMP 10/30/17 22:18 10/31/17 11:38 Problem List - Problems (1) DKA (diabetic ketoacidoses) Code(s): E13.10 - OTH DIABETES MELLITUS WITH KETOACIDOSIS WITHOUT COMA Qualifiers: (2) Diabetic neuropathy Code(s): E11.40 - TYPE 2 DIABETES MELLITUS WITH DIABETIC NEUROPATHY, UNSP Qualifiers: Diabetes mellitus type: type 1 Diabetes mellitus complication detail: diabetic polyneuropathy Qualified Code(s): E10.42 - Type 1 diabetes mellitus with diabetic polyneuropathy (3) IDDM (insulin dependent diabetes mellitus) Code(s): E11.9 - TYPE 2 DIABETES MELLITUS WITHOUT COMPLICATIONS; Z79.4 - ALF (CURRENT) USE OF INSULIN Assessment/Plan AP: DKA with CO2 of 7 and A Gap 27, now resolved T1DM Peripheral Neuropathy BGM QACHS and 3 a.m. Levemir 20 units Stat Stop Insulin drip one hour after injecting Levemir Levemir 16 units BID starting tomorrow morning Novolog SS coverage D5 1/2 NS 75 cc/hr CMP at 6 p.m. HbAic Electrolyte replacement as necessary May be admitted to the floor.
[2017-10-31] MEDS ORDERED: INSULIN DETEMIR 100 UNITS/ML MDV SQ ONE (14:34)
[2017-10-31] MEDS ORDERED: Insulin (LOG) Aspart 100 UNITS/ML VIAL SQ SCH ×2 (16:30→22:00)
[2017-10-31 21:30] LABS: ALK PHOS 86 U/L (45-117); ANION GAP 15 (8-16); BILIRUBIN,TOTAL 0.5 mg/dL (0.2-1.0); BLOOD UREA NITROGEN 8 mg/dL (7-18); CALCIUM 8.4 mg/dL (8.5-10.1); CHLORIDE 102 mmol/L (98-107); CO2 21 mmol/L (21-32); CREATININE 1.1 mg/dL (0.55-1.02); GLUCOSE,RANDOM 245 mg/dL (74-106); SGPT/ALT 20 U/L (12-78); SODIUM 138 mmol/L (136-145)
[2017-10-31 21:41] LABS: POTASSIUM 3.8 mmol/L (3.5-5.1); SGOT/AST 16 U/L (15-37)
[2017-10-31] MEDS ORDERED: CHLORHEXIDINE GLUCONATE 4% CLEANSER FOR DECOLONIZATION TP SCH (22:00)
[2017-10-31] MEDS ORDERED: INSULIN (NOVOLOG) ASPART 100 UNITS/ML 10ML VIAL ONE (22:21)
[2017-10-31] MEDS: INSULIN SLIDING SCALE (NOVOLOG) 1 VIAL SQ SCH (22:24)
[2017-11-01] MEDS: INSULIN DETEMIR 100 UNITS/ML MDV SQ SCH ×2 (06:24→10:48)
[2017-11-01] MEDS: INSULIN SLIDING SCALE (NOVOLOG) 1 VIAL SQ SCH ×4 (06:25→21:26)
[2017-11-01 08:45] LABS: ALK PHOS 88 U/L (45-117); ANION GAP 8 (8-16); BILIRUBIN,TOTAL 0.4 mg/dL (0.2-1.0); BLOOD UREA NITROGEN 9 mg/dL (7-18); CALCIUM 8.8 mg/dL (8.5-10.1); CHLORIDE 102 mmol/L (98-107); CO2 31 mmol/L (21-32); CREATININE 0.8 mg/dL (0.55-1.02); GLUCOSE,RANDOM 196 mg/dL (74-106); MAGNESIUM 1.8 mg/dL (1.8-2.4); PHOSPHOROUS 2.9 mg/dL (2.5-4.9); POTASSIUM 3.4 mmol/L (3.5-5.1); SGOT/AST 13 U/L (15-37); SGPT/ALT 20 U/L (12-78); SODIUM 141 mmol/L (136-145)
[2017-11-01] MEDS ORDERED: INSULIN (NOVOLOG) ASPART 100 UNITS/ML 10ML VIAL ONE ×2 (11:45→21:23)
[2017-11-01] MEDS ORDERED: POTASSIUM CHLORIDE TABS 20 MEQ TABLET.ER (FP) PO ONE (12:15)
--- NOTE | 2017-11-01 12:56 | PN ---
Progress Note (short form) - Note Progress Note: Feels good No complaints Vital Signs Period Temp Pulse Resp BP Sys/Estes Pulse Ox Last 24 Hr 98.7 F-99.1 F 80-102 16-20 88-110/57-70 100-100 PE: AOx3 Neck: Supple, No JVD HEENT: PERRL, EOMI Lungs: CTA CVS: S1S2 Abd: Benign Ext: No edema Neuro: No focal deficit CMP Sodium 141 mmol/L (136-145) 11/01/17 07:30 Potassium 3.4 mmol/L (3.5-5.1) L 11/01/17 07:30 Chloride 102 mmol/L (98-107) 11/01/17 07:30 Carbon Dioxide 31 mmol/L (21-32) D 11/01/17 07:30 Anion Gap 8 (8-16) 11/01/17 07:30 BUN 9 mg/dL (7-18) 11/01/17 07:30 Creatinine 0.8 mg/dL (0.55-1.02) D 11/01/17 07:30 Creat Clearance w eGFR > 60 (>60) 11/01/17 07:30 POC Glucometer 316 UNITS (80-120) 11/01/17 11:39 Random Glucose 196 mg/dL (74-106) H 11/01/17 07:30 Hemoglobin A1c % 13.7 % (4.8-6.0) H 11/01/17 07:30 Calcium 8.8 mg/dL (8.5-10.1) 11/01/17 07:30 Phosphorus 2.9 mg/dL (2.5-4.9) D 11/01/17 07:30 Magnesium 1.8 mg/dL (1.8-2.4) 11/01/17 07:30 Total Bilirubin 0.4 mg/dL (0.2-1.0) 11/01/17 07:30 AST 13 U/L (15-37) L 11/01/17 07:30 ALT 20 U/L (12-78) 11/01/17 07:30 Alkaline Phosphatase 88 U/L (45-117) 11/01/17 07:30 Total Protein 6.0 g/dl (6.4-8.2) L 11/01/17 07:30 Albumin 3.0 g/dl (3.4-5.0) L 11/01/17 07:30 Beta HCG, Quant < 1.0 mIU/ml 10/30/17 22:18 Current Medications Generic Name Dose Route Start Last Admin Trade Name Elena PRN Reason Stop Dose Admin Insulin Aspart 1 vial 11/01/17 07:00 11/01/17 06:25 Novolog Vial Sliding Scale - SQ 5 units TIDAC DARA Administration Protocol Insulin Aspart 1 vial 10/31/17 22:15 10/31/17 22:24 Novolog Vial Sliding Scale - SQ 6 units HS DARA Administration Protocol Insulin Detemir 16 units 11/01/17 07:00 11/01/17 10:48 Levemir Vial SQ 16 units BID DARA Administration Prochlorperazine Edisylate 5 mg 10/31/17 05:56 Compazine Injection - IVPB Q4H PRN NAUSEA AND/OR VOMITING AP: DKA with CO2 of 7 and A Gap 27, now resolved T1DM Peripheral Neuropathy Discussed need for contol of blood sugar. Diet exercise discussed BGM QACHS and 3 a.m. Levemir 16 units BID. Hold Levemir dose tonight if FS <200 as she already got 2 doses today, Increase Novolog SS coverage D/C D5 1/2 NS KCL 40 meq given HbAic: 13.7 Electrolyte replacement as necessary Problem List - Problems (1) DKA (diabetic ketoacidoses) Code(s): E13.10 - OTH DIABETES MELLITUS WITH KETOACIDOSIS WITHOUT COMA Qualifiers: (2) Diabetic neuropathy Code(s): E11.40 - TYPE 2 DIABETES MELLITUS WITH DIABETIC NEUROPATHY, UNSP Qualifiers: Diabetes mellitus type: type 1 Diabetes mellitus complication detail: diabetic polyneuropathy Qualified Code(s): E10.42 - Type 1 diabetes mellitus with diabetic polyneuropathy (3) IDDM (insulin dependent diabetes mellitus) Code(s): E11.9 - TYPE 2 DIABETES MELLITUS WITHOUT COMPLICATIONS; Z79.4 - HALF-WAY (CURRENT) USE OF INSULIN
[2017-11-01] MEDS ORDERED: INSULIN DETEMIR 100 UNITS/ML MDV SQ SCH (13:00)
--- NOTE | 2017-11-01 13:30 | HP ---
DATE OF ADMISSION: 10/31/2017 This is a 27-year-old known to have insulin-dependent diabetes, came to the emergency room with complaints of vomiting, 2 days' duration. In the ER, she was found to be in DKA, so got admitted. Dr. Castro is her excellence leader; she was consulted. This morning, the patient is feeling fine. She was on IV fluids and insulin; now her DKA is corrected. No complaints of vomiting this morning. PHYSICAL EXAMINATION: General: Awake, alert, oriented, not in distress. Vital Signs: Blood pressure is 110/66, pulse 72, respirations 20, temperature 98.7. HEENT: Unremarkable. Neck: Supple. No JVD. Lungs: Clear. Heart: S1, S2 normal. No S3, S4. Abdomen: Soft, nontender. Legs: No edema. Neurologic: Grossly normal. LABORATORY: Yesterday, probably on October 30, 2017, WBC count 13, hemoglobin 14, hematocrit 45. Chemistry at the time of admission, her CO2 is 21 and anion gap was 15. Chemistry this morning, her anion gap is normal and CO2 is 31; blood sugar 316, which is not as bad; potassium is 3.4 today. ELECTROCARDIOGRAM: Normal sinus rhythm. CHEST X-RAY: Negative. IMPRESSION: Diabetic ketoacidosis, insulin-dependent diabetes. PLAN: Continue same treatment. Will follow. Case discussed with Dr. Castro. MC BLACKWELL M.D. [id number]
[2017-11-02] MEDS: INSULIN SLIDING SCALE (NOVOLOG) 1 VIAL SQ SCH ×2 (06:36→11:22)
--- NOTE | 2017-11-02 09:03 | DS ---
Physical Examination Vital Signs: Vital Signs Temperature 97.6 F 11/02/17 08:44 Pulse Rate 74 11/02/17 08:44 Respiratory Rate 18 11/02/17 08:44 Blood Pressure 97/62 11/02/17 08:44 O2 Sat by Pulse Oximetry (%) 100 11/01/17 22:00 Findings/Remarks: Admitted with DKA Corrected,DC home with follow up in the office Constitutional: Yes: No Distress Eyes: Yes: WNL HENT: Yes: WNL Neck: Yes: WNL Cardiovascular: Yes: WNL Respiratory: Yes: WNL Gastrointestinal: Yes: WNL Renal/: Yes: WNL Breast(s): Yes: WNL Musculoskeletal: Yes: WNL Edema: No Peripheral Pulses WNL: Yes Integumentary: Yes: WNL Neurological: Yes: WNL ...Motor Strength: WNL Labs: CBC, BMP 10/30/17 22:18 11/01/17 07:30 Discharge Summary Reason For Visit: DIABETIC KETOACIDOSIS Current Active Problems DKA (diabetic ketoacidoses) (Acute) Condition: Guarded - Instructions Referrals: Tarah Ceballos MD [Primary Care Provider] - - Home Medications Comprehensive Discharge Medication List: Ambulatory Orders Insulin Glargine,Hum.rec.anlog [Lantus (10mL VIAL) -] 26 units SQ BID 09/26/16 Insulin Sliding Scale [Novolog Vial Sliding Scale -] 1 vial SQ HS units
--- NOTE | 2017-11-02 09:56 | PN ---
Progress Note (short form) - Note Progress Note: Feels good No complaints Blood sugar fluctuating Vital Signs Period Temp Pulse Resp BP Sys/Estes Pulse Ox Last 24 Hr 97.6 F-98.8 F 66-78 18-20 84-97/52-65 100-100 PE: AOx3 Neck: Supple, No JVD HEENT: PERRL, EOMI Lungs: CTA CVS: S1S2 Abd: Benign Ext: No edema Neuro: No focal deficit CMP Sodium 141 mmol/L (136-145) 11/01/17 07:30 Potassium 3.4 mmol/L (3.5-5.1) L 11/01/17 07:30 Chloride 102 mmol/L (98-107) 11/01/17 07:30 Carbon Dioxide 31 mmol/L (21-32) D 11/01/17 07:30 Anion Gap 8 (8-16) 11/01/17 07:30 BUN 9 mg/dL (7-18) 11/01/17 07:30 Creatinine 0.8 mg/dL (0.55-1.02) D 11/01/17 07:30 Creat Clearance w eGFR > 60 (>60) 11/01/17 07:30 POC Glucometer 265 UNITS (80-120) 11/02/17 05:42 Random Glucose 196 mg/dL (74-106) H 11/01/17 07:30 Hemoglobin A1c % 13.7 % (4.8-6.0) H 11/01/17 07:30 Calcium 8.8 mg/dL (8.5-10.1) 11/01/17 07:30 Phosphorus 2.9 mg/dL (2.5-4.9) D 11/01/17 07:30 Magnesium 1.8 mg/dL (1.8-2.4) 11/01/17 07:30 Total Bilirubin 0.4 mg/dL (0.2-1.0) 11/01/17 07:30 AST 13 U/L (15-37) L 11/01/17 07:30 ALT 20 U/L (12-78) 11/01/17 07:30 Alkaline Phosphatase 88 U/L (45-117) 11/01/17 07:30 Total Protein 6.0 g/dl (6.4-8.2) L 01/07/18 07:30 Albumin 3.0 g/dl (3.4-5.0) L 11/01/17 07:30 Beta HCG, Quant < 1.0 mIU/ml 10/30/17 22:18 Current Medications Generic Name Dose Route Start Last Admin Trade Name Elena PRN Reason Stop Dose Admin Insulin Aspart 1 vial 10/31/17 22:15 11/01/17 21:26 Novolog Vial Sliding Scale - SQ Not Given HS DARA Protocol Insulin Aspart 1 vial 11/01/17 16:30 11/02/17 06:36 Novolog Vial Sliding Scale - SQ 7 units TIDAC DARA Administration Protocol Insulin Detemir 16 units 11/01/17 13:00 11/02/17 09:50 Levemir Vial SQ 16 units BID DARA Administration Prochlorperazine Edisylate 5 mg 10/31/17 05:56 Compazine Injection - IVPB Q4H PRN NAUSEA AND/OR VOMITING AP: DKA with CO2 of 7 and A Gap 27, now resolved T1DM Peripheral Neuropathy Discussed need for contol of blood sugar. Diet exercise discussed. BGM QACHS and 3 a.m. Levemir 16 units at 10 a.m. today Novolog SS coverage HbAic: 13.7 F/U in office this week with FS record To take Levemir 20 units tonight at home and go back to her usual dose of 26 BID starting tomorrow. Discussed with pt. Problem List - Problems (1) DKA (diabetic ketoacidoses) Code(s): E13.10 - OTH DIABETES MELLITUS WITH KETOACIDOSIS WITHOUT COMA Qualifiers: (2) Diabetic neuropathy Code(s): E11.40 - TYPE 2 DIABETES MELLITUS WITH DIABETIC NEUROPATHY, UNSP Qualifiers: Diabetes mellitus type: type 1 Diabetes mellitus complication detail: diabetic polyneuropathy Qualified Code(s): E10.42 - Type 1 diabetes mellitus with diabetic polyneuropathy (3) IDDM (insulin dependent diabetes mellitus) Code(s): E11.9 - TYPE 2 DIABETES MELLITUS WITHOUT COMPLICATIONS; Z79.4 - PRISON (CURRENT) USE OF INSULIN
[2017-11-02 15:02] VITALS: BP 103/66; PULSE 72; TEMP 97.7
== END 2017-11-02 17:24 | disposition home or self-care (01) | DRG 420 ==
LOC: JER 21:34 → JERBED 10-31 00:35 → UNDOADMIN 10-31 00:44 → JERBED 10-31 00:44 → J6S 10-31 16:59
PROVIDERS: ADMIT Internal Medicine; ATTEND Internal Medicine
DX: E10.10 Type 1 diabetes mellitus with ketoacidosis without coma (principal); E10.40 Type 1 diabetes mellitus with diabetic neuropathy, unspecified; Z79.4 Long term (current) use of insulin
CPT/HCPCS: 36415; 36600; 71045-TC; 80048; 80053; 81003; 81015; 82009; 82803; 82962; 83036; 83735; 84100; 84702; 84703; 85025; 87040; 87086; 93005; 93010; 99285-25

== ENCOUNTER 2018-02-17 06:20 | Inpatient (IN) | payer OTHER ==
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
[2018-02-17] MEDS ORDERED: SODIUM CHLORIDE 1,000 ML IV STA ×2 (06:28→08:30)
[2018-02-17 07:05] LABS: BASO % 0.4 % (0-2.0); EOS % 0.9 % (0-4.5); HEMATOCRIT 41.7 % (32.4-45.2); HEMOGLOBIN 14.3 GM/dL (10.7-15.3); LYMPH % 32.6 % (8-40); MCH 34.3 pg (25.7-33.7); MCHC 34.4 g/dl (32.0-36.0); MEAN CELL VOLUME 99.9 fl (80-96); MEAN PLT VOLUME 8.2 fl (7.5-11.1); MONO % 6.6 % (3.8-10.2); NEUT % 59.5 % (42.8-82.8); PLATELET COUNT 299 K/MM3 (134-434); RBC 4.17 M/mm3 (3.60-5.2); RDW 13.1 % (11.6-15.6); VENOUS PC02 27.8 mmHg (38-52); VENOUS PH 7.32 (7.32-7.42); WHITE BLOOD COUNT 5.4 K/mm3 (4.0-10.0)
[2018-02-17 07:10] LABS: INR 0.85 (0.82-1.09); PROTHROMBIN TIME (PATIENT) 9.6 SEC (9.7-13.0)
[2018-02-17] MEDS ORDERED: IBUPROFEN 400 MG TABLET (FP) PO ONE ×2 (07:57→07:59)
[2018-02-17 08:24] LABS: ARTERIAL BLD GAS O2 SATURATION 97.5 % (90-98.9); ARTERIAL BLOOD GAS BASE EXCESS -8.4 meq/l (-2-2); ARTERIAL BLOOD GAS PCO2 33.2 mmHg (35-45); ARTERIAL BLOOD GAS PO2 95.8 mmHg (80-100); ARTERIAL BLOOD GAS pH 7.32 (7.35-7.45); CARBOXYHEMOGLOBIN 1.9 gm% (0.5-2.0)
[2018-02-17 08:28] LABS: ALLENS TEST POSITIVE
[2018-02-17 08:31] LABS: URINE APPEARANCE CLEAR; URINE BILIRUBIN NEGATIVE (<2.0 mg/dL); URINE BLOOD NEGATIVE (NEGATIVE); URINE COLOR STRAW; URINE GLUCOSE (UA) 3+ (NEGATIVE); URINE KETONE 2+ (NEGATIVE); URINE LEUK ESTERASE TRACE (NEGATIVE); URINE NITRITE NEGATIVE (NEGATIVE); URINE PROTEIN NEGATIVE (NEGATIVE); URINE UROBILINOGEN NEGATIVE mg/dL (0.2-1.0)
[2018-02-17 08:59] LABS: ALBUMIN 3.4 g/dl (3.4-5.0); ANION GAP 18 (8-16); BILIRUBIN,TOTAL 0.7 mg/dL (0.2-1.0); BLOOD UREA NITROGEN 15 mg/dL (7-18); CALCIUM 8.3 mg/dL (8.5-10.1); CHLORIDE 107 mmol/L (98-107); CO2 16 mmol/L (21-32); CREATININE 0.9 mg/dL (0.55-1.02); GLUCOSE,RANDOM 257 mg/dL (74-106); LIPASE 95 U/L (73-393); MAGNESIUM 2.1 mg/dL (1.8-2.4); POTASSIUM 3.1 mmol/L (3.5-5.1); SGOT/AST 11 U/L (15-37); SGPT/ALT 19 U/L (12-78); SODIUM 141 mmol/L (136-145)
[2018-02-17 09:02] LABS: ALK PHOS 135 U/L (45-117)
[2018-02-17] MEDS ORDERED: POTASSIUM CHLORIDE TABS 20 MEQ TABLET.ER (FP) PO ONE ×3 (09:13→14:00)
[2018-02-17] MEDS ORDERED: D5-1/2NS+20 MEQ KCL - 20 MEQ/1,000 ML INFUS.BAG IV SCH (09:15)
[2018-02-17 09:24] LABS: EPI CELLS RARE /HPF (FEW); URINE MUCUS RARE
[2018-02-17] MEDS ORDERED: SODIUM CHLORIDE 1,000 ML IV SCH (10:00)
[2018-02-17] MEDS ORDERED: INSULIN REGULAR 100 UNITS in SODIUM CHLORIDE 99 ML IVPB SCH ×2 (10:00→10:15)
[2018-02-17 11:26] VITALS: BMI 18.8
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
[2018-02-17 12:56] LABS: ANION GAP 15 (8-16); BLOOD UREA NITROGEN 12 mg/dL (7-18); CALCIUM 7.8 mg/dL (8.5-10.1); CHLORIDE 106 mmol/L (98-107); CO2 18 mmol/L (21-32); CREATININE 0.8 mg/dL (0.55-1.02); GLUCOSE,RANDOM 249 mg/dL (74-106); POTASSIUM 3.1 mmol/L (3.5-5.1); SODIUM 139 mmol/L (136-145)
[2018-02-17] MEDS ORDERED: ONDANSETRON 4 MG/2 ML VIAL IVPUSH PRN (13:22)
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
--- NOTE | 2018-02-17 13:34 | PN ---
Teaching Attending Note Name of Resident: Bela Armenta ATTENDING PHYSICIAN STATEMENT I saw and evaluated the patient. I reviewed the resident's note and discussed the case with the resident. I agree with the resident's findings and plan as documented. SUBJECTIVE: Pt seen and examined in the ICU. Briefly, 28yo female with h/o IDDM with questionable compliance, h/o DKA, peripheral neuropathy who was admitted with nausea and abdominal pain. Denies missed doses, reports multiple sick contacts. Glucometer nonfunctioning at home, unable to check her fingersticks. No fevers but with subjective chills. Found to be hyperglycemic, hypokalemic with anion gap of 18. Started on IVF and insulin gtt, transferred to the ICU for further monitoring. OBJECTIVE: Last Vital Signs Temp Pulse Resp BP Pulse Ox 99 F 96 H 18 83/56 100 02/17/18 11:15 02/17/18 12:00 02/17/18 12:00 02/17/18 12:00 02/17/18 11:44 Intake & Output 02/14/18 02/15/18 02/16/18 02/17/18 23:59 23:59 23:59 23:59 Intake Total 1999 Balance 1999 Weight 47.627 kg Gen: listless Heart: RRR Lung: decreased breath sounds at the bases Abd: soft, nontender Ext: no edema CBC, BMP 02/17/18 06:42 02/17/18 11:49 Active Medications Chlorhexidine Gluconate (Hibiclens For Decolonization -) 1 applic TP HS DARA Heparin Sodium (Porcine) (Heparin -) 5,000 unit SQ TID DARA Potassium Chloride/Dextrose/Sod Cl (D5-1/2ns+20 Meq Kcl -) 20 meq in 1,000 mls @ 125 mls/hr IV ASDIR DARA Last Admin: 02/17/18 09:45 Dose: 125 mls/hr Sodium Chloride (Normal Saline -) 1,000 mls @ 100 mls/hr IV ASDIR DARA Last Admin: 02/17/18 09:59 Dose: 100 mls/hr Insulin Human Regular 100 (units/ Sodium Chloride) 100 mls @ 2.38 mls/hr IVPB TITR DARA; 0.05 UNITS/KG/HR PRN Reason: Protocol Last Admin: 02/17/18 10:44 Dose: 0.05 units/kg/hr, 2.38 mls/hr Mupirocin (Bactroban Ointment (For Decolonization) -) 1 applic NS BID DARA Stop: 02/22/18 21:59 Ondansetron HCl (Zofran Injection) 4 mg IVPUSH Q4H PRN PRN Reason: NAUSEA AND/OR VOMITING Potassium Chloride (K-Dur -) 40 meq PO ONCE ONE Stop: 02/17/18 14:01 ASSESSMENT AND PLAN: Diabetic Ketoacidosis Hypokalemia Diabetic Neuropathy - insulin gtt - IVF resuscitation - monitor BGM q1h, BMP q4h while on insulin gtt - replete lytes - antiemetics - diabetic teaching - continue ICU monitoring while on insulin gtt
[2018-02-17] MEDS ORDERED: HEMOQUE TEST 1 EACH EACH ONE (14:20)
[2018-02-17] MEDS ORDERED: ACETAMINOPHEN 1000 MG/100 ML VIAL (NON FORMULARY) IVPB ONE ×2 (14:31)
[2018-02-17] MEDS: SODIUM CHLORIDE 0.9%/KCL 20 MEQ/1,000 ML INFUS.BAG IV SCH (15:11)
--- NOTE | 2018-02-17 15:33 | EKG ---
Test Reason : Blood Pressure : / mmHG Vent. Rate : 097 BPM Atrial Rate : 097 BPM P-R Int : 144 ms QRS Dur : 070 ms QT Int : 342 ms P-R-T Axes : 044 056 030 degrees QTc Int : 434 ms NORMAL SINUS RHYTHM POSSIBLE LEFT ATRIAL ENLARGEMENT NONSPECIFIC T WAVE ABNORMALITY ABNORMAL ECG WHEN COMPARED WITH ECG OF 31-OCT-2017 06:43, NO SIGNIFICANT CHANGE WAS FOUND Confirmed by DELMA BARAJAS, SUBHA ([id number]) on 02/17/2018 3:33:10 PM Referred By: Confirmed By:SUBHA NGUYỄN MD
[2018-02-17 16:16] LABS: ANION GAP 11 (8-16); BLOOD UREA NITROGEN 10 mg/dL (7-18); CALCIUM 8.2 mg/dL (8.5-10.1); CHLORIDE 106 mmol/L (98-107); CO2 21 mmol/L (21-32); CREATININE 0.7 mg/dL (0.55-1.02); GLUCOSE,RANDOM 134 mg/dL (74-106); MAGNESIUM 1.8 mg/dL (1.8-2.4); POTASSIUM 3.6 mmol/L (3.5-5.1); SODIUM 138 mmol/L (136-145)
[2018-02-17] MEDS: INSULIN SLIDING SCALE (NOVOLOG) 1 VIAL SQ SCH ×2 (17:01→21:21)
[2018-02-17] MEDS: INSULIN (LEVEMIR) 100 UNITS/ML UNITS SQ SCH (21:21)
[2018-02-17] MEDS: HEPARIN NA (PORCINE) 5,000 UNITS/ML 1ML VIAL SQ SCH (21:21)
[2018-02-17] MEDS: MUPIROCIN 2% TOPICAL OINTMENT FOR DECOLONIZATION NS SCH (21:23)
[2018-02-17 21:47] LABS: ANION GAP 7 (8-16); BLOOD UREA NITROGEN 9 mg/dL (7-18); CALCIUM 8.2 mg/dL (8.5-10.1); CHLORIDE 104 mmol/L (98-107); CO2 25 mmol/L (21-32); CREATININE 0.7 mg/dL (0.55-1.02); GLUCOSE,RANDOM 242 mg/dL (74-106); POTASSIUM 3.4 mmol/L (3.5-5.1); SODIUM 136 mmol/L (136-145)
[2018-02-17] MEDS ORDERED: CHLORHEXIDINE GLUCONATE 4% CLEANSER FOR DECOLONIZATION TP SCH (22:00)
[2018-02-18] MEDS: HEPARIN NA (PORCINE) 5,000 UNITS/ML 1ML VIAL SQ SCH ×3 (06:24→21:34)
[2018-02-18] MEDS: INSULIN (LEVEMIR) 100 UNITS/ML UNITS SQ SCH ×2 (06:24→21:33)
[2018-02-18] MEDS: INSULIN SLIDING SCALE (NOVOLOG) 1 VIAL SQ SCH ×4 (06:24→21:32)
[2018-02-18 06:30] LABS: HEMATOCRIT 35.5 % (32.4-45.2); HEMOGLOBIN 12.7 GM/dL (10.7-15.3); MCH 35.3 pg (25.7-33.7); MCHC 35.7 g/dl (32.0-36.0); MEAN CELL VOLUME 98.9 fl (80-96); MEAN PLT VOLUME 8.4 fl (7.5-11.1); PLATELET COUNT 232 K/MM3 (134-434); RDW 12.9 % (11.6-15.6); WHITE BLOOD COUNT 4.8 K/mm3 (4.0-10.0)
[2018-02-18 07:02] LABS: ALBUMIN 2.7 g/dl (3.4-5.0); ANION GAP 5 (8-16); BILIRUBIN,TOTAL 0.4 mg/dL (0.2-1.0); BLOOD UREA NITROGEN 11 mg/dL (7-18); CHLORIDE 108 mmol/L (98-107); CO2 30 mmol/L (21-32); CREATININE 0.6 mg/dL (0.55-1.02); GLUCOSE,RANDOM 76 mg/dL (74-106); MAGNESIUM 1.6 mg/dL (1.8-2.4); PHOSPHOROUS 3.9 mg/dL (2.5-4.9); POTASSIUM 3.1 mmol/L (3.5-5.1); SGOT/AST 12 U/L (15-37); SGPT/ALT 13 U/L (12-78); SODIUM 143 mmol/L (136-145); TOT PROT 5.3 g/dl (6.4-8.2)
[2018-02-18 07:03] LABS: ALK PHOS 92 U/L (45-117)
[2018-02-18] MEDS: SODIUM CHLORIDE 0.9%/KCL 20 MEQ/1,000 ML INFUS.BAG IV SCH ×3 (07:40→17:57)
[2018-02-18] MEDS ORDERED: MAGNESIUM OXIDE 400 MG TABLET (FP) PO ONE (07:40)
[2018-02-18] MEDS ORDERED: POTASSIUM CHLORIDE TABS 20 MEQ TABLET.ER (FP) PO ONE ×2 (07:40→07:57)
[2018-02-18] MEDS ORDERED: MAGNESIUM SULF 50% (8.12 MEQ/2 ML-1 GM VIAL) IVPB ONE (07:56)
[2018-02-18] MEDS: MUPIROCIN 2% TOPICAL OINTMENT FOR DECOLONIZATION NS SCH (09:01)
--- NOTE | 2018-02-18 09:05 | PN ---
Progress Note, Physician Chief Complaint: Feels OK History of Present Illness: Admitted with DKA Corrected now ,co2 is 30 - Current Medication List Current Medications: Active Medications Chlorhexidine Gluconate (Hibiclens For Decolonization -) 1 applic TP HS [facility] Last Admin: 02/17/18 21:22 Dose: 1 applic Heparin Sodium (Porcine) (Heparin -) 5,000 unit SQ TID [facility] Last Admin: 02/18/18 06:24 Dose: 5,000 unit Potassium Chloride/Sodium Chloride (Ns+20 Meq Kcl -) 20 meq in 1,000 mls @ 125 mls/hr IV ASDIR [facility] Last Admin: 02/18/18 07:40 Dose: 125 mls/hr Insulin Aspart (Novolog Vial Sliding Scale -) 1 vial SQ ACHS [facility] PRN Reason: Protocol Last Admin: 02/18/18 06:24 Dose: Not Given Insulin Detemir (Levemir Vial) 28 units SQ BID@0700,2200 [facility] Last Admin: 02/18/18 06:24 Dose: 28 units Mupirocin (Bactroban Ointment (For Decolonization) -) 1 applic NS BID [facility] Stop: 02/22/18 21:59 Last Admin: 02/18/18 09:01 Dose: 1 applic Ondansetron HCl (Zofran Injection) 4 mg IVPUSH Q4H PRN PRN Reason: NAUSEA AND/OR VOMITING - Objective Vital Signs: Vital Signs Temperature 98.0 F 02/18/18 08:00 Pulse Rate 89 02/18/18 08:00 Respiratory Rate 15 02/18/18 08:00 Blood Pressure 87/68 02/18/18 08:00 O2 Sat by Pulse Oximetry (%) 99 02/18/18 08:00 Constitutional: Yes: No Distress Eyes: Yes: WNL HENT: Yes: WNL Neck: Yes: WNL Cardiovascular: Yes: WNL Respiratory: Yes: WNL Gastrointestinal: Yes: WNL ...Rectal Exam: Yes: Deferred Genitourinary: Yes: WNL Extremities: Yes: WNL Neurological: Yes: Alert Labs: CBC, BMP 02/18/18 05:25 02/18/18 05:25 INR, PTT INR 0.85 (0.82-1.09) L 02/17/18 06:42 Assessment/Plan DC IV KCL po Transfer to regular floor
--- NOTE | 2018-02-18 09:07 | PN ---
Progress Note (short form) - Note Progress Note: feels better No nausea, vomiting Tolerating food Vital Signs Period Temp Pulse Resp BP Sys/Estes Pulse Ox Last 24 Hr 98 F-99 F 64-98 15-19 83-103/53-73 96-100 PE: AOx3 Neck: Supple HEENT: PERRL, EOMI Lungs: CTA CVS: s1S2 Abd: Benign Ext: No edema Neuro: No focal deficit CMP Sodium 143 mmol/L (136-145) 02/18/18 05:25 Potassium 3.1 mmol/L (3.5-5.1) L 02/18/18 05:25 Chloride 108 mmol/L (98-107) H 02/18/18 05:25 Carbon Dioxide 30 mmol/L (21-32) 02/18/18 05:25 Anion Gap 5 (8-16) L 02/18/18 05:25 BUN 11 mg/dL (7-18) 02/18/18 05:25 Creatinine 0.6 mg/dL (0.55-1.02) 02/18/18 05:25 Creat Clearance w eGFR > 60 (>60) 02/18/18 05:25 POC Glucometer 87.82625 UNITS (80-120) 02/18/18 05:45 Random Glucose 76 mg/dL (74-106) 02/18/18 05:25 Hemoglobin A1c % 14.1 % (4.8-6.0) H 02/17/18 11:49 Lactic Acid 1.7 mmol/L (0.0-2.0) 02/17/18 06:42 Calcium 8.0 mg/dL (8.5-10.1) L 02/18/18 05:25 Phosphorus 3.9 mg/dL (2.5-4.9) 02/18/18 05:25 Magnesium 1.6 mg/dL (1.8-2.4) L 02/18/18 05:25 Total Bilirubin 0.4 mg/dL (0.2-1.0) D 02/18/18 05:25 AST 12 U/L (15-37) L 02/18/18 05:25 ALT 13 U/L (12-78) 02/18/18 05:25 Alkaline Phosphatase 92 U/L (45-117) 02/18/18 05:25 Creatine Kinase 38 IU/L (26-192) 02/17/18 08:20 Troponin I < 0.02 ng/ml (0.00-0.05) 02/17/18 08:20 Total Protein 5.3 g/dl (6.4-8.2) L 02/18/18 05:25 Albumin 2.7 g/dl (3.4-5.0) L 02/18/18 05:25 Lipase 95 U/L (73-393) 02/17/18 08:20 Serum , Qual Negative 02/17/18 06:42 Current Medications Generic Name Dose Route Start Last Admin Trade Name Freq PRN Reason Stop Dose Admin Chlorhexidine Gluconate 1 applic 02/17/18 22:00 02/17/18 21:22 Hibiclens For Decolonization - TP 1 applic HS DARA Administration Heparin Sodium (Porcine) 5,000 unit 02/17/18 18:00 02/18/18 06:24 Heparin - SQ 5,000 unit TID DARA Administration Potassium Chloride/Sodium Chloride 20 meq in 1,000 mls @ 125 mls/hr 02/17/18 14:45 02/18/18 07:40 Ns+20 Meq Kcl - IV 125 mls/hr ASDIR DARA Administration Insulin Aspart 1 vial 02/17/18 16:30 02/18/18 06:24 Novolog Vial Sliding Scale - SQ Not Given ACHS [facility] Protocol Insulin Detemir 28 units 02/17/18 22:00 02/18/18 06:24 Levemir Vial SQ 28 units BID@0700,2200 DARA Administration Mupirocin 1 applic 02/17/18 22:00 02/18/18 09:01 Bactroban Ointment (For Decolonization) - NS 02/22/18 21:59 1 applic BID DARA Administration Ondansetron HCl 4 mg 02/17/18 13:22 Zofran Injection IVPUSH Q4H PRN NAUSEA AND/OR VOMITING AP: DKA: resolved T1DM Neuropathy BGM Q ACHS and 3 a.m. Off Insulin drip levemri 28 BID Novolog Coverage ACHS IV hydration with KCl as necessary: replace electrolytes as necessary Will f/u
[2018-02-18] MEDS ORDERED: ACETAMINOPHEN 325 MG TABLET (FP) PO PRN ×2 (10:31→17:08)
--- NOTE | 2018-02-18 10:43 | PN ---
Teaching Attending Note Name of Resident: Bela Armenta ATTENDING PHYSICIAN STATEMENT I saw and evaluated the patient. I reviewed the resident's note and discussed the case with the resident. I agree with the resident's findings and plan as documented. SUBJECTIVE: Pt seen and examined in the ICU. Anion gap closed, off insulin gtt. Still some headache and abdominal pain. Tolerating PO. OBJECTIVE: Last Vital Signs Temp Pulse Resp BP Pulse Ox 98.1 F 82 15 88/68 99 02/18/18 10:00 02/18/18 10:00 02/18/18 10:00 02/18/18 10:00 02/18/18 08:00 Intake & Output 02/15/18 02/16/18 02/17/18 02/18/18 23:59 23:59 23:59 23:59 Intake Total 3135.2 1576 Balance 3135.2 1576 Weight 47.627 kg Gen: NAD at rest Heart: RRR Lung: clear to auscultation Abd: soft, nontender Ext: no edema CBC, BMP 02/18/18 05:25 02/18/18 05:25 Active Medications Acetaminophen (Tylenol -) 650 mg PO Q4H PRN PRN Reason: HEADACHE Last Admin: 02/18/18 10:35 Dose: 650 mg Chlorhexidine Gluconate (Hibiclens For Decolonization -) 1 applic TP HS [facility] Last Admin: 02/17/18 21:22 Dose: 1 applic Heparin Sodium (Porcine) (Heparin -) 5,000 unit SQ TID [facility] Last Admin: 02/18/18 06:24 Dose: 5,000 unit Potassium Chloride/Sodium Chloride (Ns+20 Meq Kcl -) 20 meq in 1,000 mls @ 125 mls/hr IV ASDIR [facility] Last Admin: 02/18/18 07:40 Dose: 125 mls/hr Insulin Aspart (Novolog Vial Sliding Scale -) 1 vial SQ ACHS [facility] PRN Reason: Protocol Last Admin: 02/18/18 06:24 Dose: Not Given Insulin Detemir (Levemir Vial) 28 units SQ BID@0700,2200 [facility] Last Admin: 02/18/18 06:24 Dose: 28 units Mupirocin (Bactroban Ointment (For Decolonization) -) 1 applic NS BID [facility] Stop: 02/22/18 21:59 Last Admin: 02/18/18 09:01 Dose: 1 applic Ondansetron HCl (Zofran Injection) 4 mg IVPUSH Q4H PRN PRN Reason: NAUSEA AND/OR VOMITING ASSESSMENT AND PLAN: Diabetic Ketoacidosis resolved Hypokalemia Diabetic Neuropathy - continue levemir - IVF - monitor BGM - replete lytes - antiemetics - diabetic teaching - DVT prophylaxis - can monitor on floor
--- NOTE | 2018-02-18 11:08 | PN ---
Physical Exam: SUBJECTIVE: Patient seen and examined in the ICU. Anion gap closed, insulin drip D/Oumar yesterday afternoon. Pt continues to c/o headache. Pt denies chest pain, sob, abdominal pain, fever, chills, n/v/d/c. Pt tolerating diabetic diet. No events overnight. OBJECTIVE: Vital Signs Period Temp Pulse Resp BP Sys/Estes Pulse Ox Last 24 Hr 98 F-99 F 64-98 15-19 83-99/53-72 96-100 GENERAL: Awake, alert, and fully oriented, in no acute distress. LUNGS: Breath sounds equal, clear to auscultation bilaterally. No wheezes, and no crackles. No accessory muscle use. HEART: Regular rate and rhythm, normal S1 and S2 without murmur, rub or gallop. ABDOMEN: Soft, nontender, not distended, no guarding. LOWER EXTREMITIES: Warm, well-perfused. No calf tenderness. No peripheral edema. NEUROLOGICAL: Cranial nerves II-XII grossly intact. Normal speech. No facial droop. PSYCHIATRIC: Cooperative. Good eye contact. Appropriate mood and affect. Laboratory Results - last 24 hr 02/17/18 02/17/18 02/17/18 06:28 10:36 11:49 WBC RBC Hgb Hct MCV MCH MCHC RDW Plt Count MPV Sodium 139 Potassium 3.1 L Chloride 106 Carbon Dioxide 18 L Anion Gap 15 BUN 12 Creatinine 0.8 Creat Clearance w eGFR POC Glucometer 242.98767 264.93521 Random Glucose 249 H Hemoglobin A1c % Calcium 7.8 L Phosphorus Magnesium Total Bilirubin AST ALT Alkaline Phosphatase Total Protein Albumin 02/17/18 02/17/18 02/17/18 11:49 12:04 12:56 WBC RBC Hgb Hct MCV MCH MCHC RDW Plt Count MPV Sodium Potassium Chloride Carbon Dioxide Anion Gap BUN Creatinine Creat Clearance w eGFR POC Glucometer 250.23921 219.50965 Random Glucose Hemoglobin A1c % 14.1 H Calcium Phosphorus Magnesium Total Bilirubin AST ALT Alkaline Phosphatase Total Protein Albumin 02/17/18 02/17/18 02/17/18 14:20 14:24 15:20 WBC RBC Hgb Hct MCV MCH MCHC RDW Plt Count MPV Sodium Cancelled 138 Potassium Cancelled 3.6 Chloride Cancelled 106 Carbon Dioxide Cancelled 21 Anion Gap Cancelled 11 BUN Cancelled 10 Creatinine Cancelled 0.7 Creat Clearance w eGFR POC Glucometer 155.87190 Random Glucose Cancelled 134 H Hemoglobin A1c % Calcium Cancelled 8.2 L Phosphorus Magnesium 1.8 Total Bilirubin AST ALT Alkaline Phosphatase Total Protein Albumin 02/17/18 02/17/18 02/17/18 15:33 16:57 20:30 WBC RBC Hgb Hct MCV MCH MCHC RDW Plt Count MPV Sodium 136 Potassium 3.4 L Chloride 104 Carbon Dioxide 25 Anion Gap 7 L BUN 9 Creatinine 0.7 Creat Clearance w eGFR POC Glucometer 151.60829 164.34653 Random Glucose 242 H Hemoglobin A1c % Calcium 8.2 L Phosphorus Magnesium Total Bilirubin AST ALT Alkaline Phosphatase Total Protein Albumin 02/17/18 02/18/18 02/18/18 21:18 05:25 05:25 WBC 4.8 RBC 3.60 Hgb 12.7 D Hct 35.5 MCV 98.9 H MCH 35.3 H MCHC 35.7 RDW 12.9 Plt Count 232 D MPV 8.4 Sodium 143 Potassium 3.1 L Chloride 108 H Carbon Dioxide 30 Anion Gap 5 L BUN 11 Creatinine 0.6 Creat Clearance w eGFR > 60 POC Glucometer 265.58944 Random Glucose 76 Hemoglobin A1c % Calcium 8.0 L Phosphorus 3.9 Magnesium 1.6 L Total Bilirubin 0.4 D AST 12 L ALT 13 Alkaline Phosphatase 92 Total Protein 5.3 L Albumin 2.7 L 02/18/18 05:45 WBC RBC Hgb Hct MCV MCH MCHC RDW Plt Count MPV Sodium Potassium Chloride Carbon Dioxide Anion Gap BUN Creatinine Creat Clearance w eGFR POC Glucometer 87.67590 Random Glucose Hemoglobin A1c % Calcium Phosphorus Magnesium Total Bilirubin AST ALT Alkaline Phosphatase Total Protein Albumin Active Medications Generic Name Dose Route Start Last Admin Trade Name Freq PRN Reason Stop Dose Admin Acetaminophen 650 mg 02/18/18 10:31 02/18/18 10:35 Tylenol - PO 650 mg Q4H PRN Administration HEADACHE Chlorhexidine Gluconate 1 applic 02/17/18 22:00 02/17/18 21:22 Hibiclens For Decolonization - TP 1 applic HS DARA Administration Heparin Sodium (Porcine) 5,000 unit 02/17/18 18:00 02/18/18 06:24 Heparin - SQ 5,000 unit TID DARA Administration Potassium Chloride/Sodium Chloride 20 meq in 1,000 mls @ 125 mls/hr 02/17/18 14:45 02/18/18 07:40 Ns+20 Meq Kcl - IV 125 mls/hr ASDIR DARA Administration Insulin Aspart 1 vial 02/17/18 16:30 02/18/18 06:24 Novolog Vial Sliding Scale - SQ Not Given ACHS DARA Protocol Insulin Detemir 28 units 02/17/18 22:00 02/18/18 06:24 Levemir Vial SQ 28 units BID@0700,2200 D[facility] Administration Mupirocin 1 applic 02/17/18 22:00 02/18/18 09:01 Bactroban Ointment (For Decolonization) - NS 02/22/18 21:59 1 applic BID DARA Administration Ondansetron HCl 4 mg 02/17/18 13:22 Zofran Injection IVPUSH Q4H PRN NAUSEA AND/OR VOMITING ASSESSMENT/PLAN: 28F with PMH of IDDM, multiple admissions for DKA, peripheral neuropathy, presents with nausea and abdominal pain, c/o feeling like she is going into DKA. # IDDM - DKA resolved, anion gap closed, insulin drip D/Oumar yesterday afternoon at 2 :30pm - continue home regimen of Levemir 28U BID - Novolog SSI - monitor BGMs - IVFs - Zofran prn for nausea - blood cultures (-) x 24 hrs - urine culture (+) for beta hemolytic strep - most likely contaminant # headache - Tylenol prn added # electrolyte abnormalities - hypokalemia repleted with K-dur 40meq - hypomagnesemia repleted with MagOx 800mg po # FEN - Fluids: D5-1/2 NS + 20meq KCl/L @ 125 ml/hr - Electrolytes: continue to monitor - Nutrition: diabetic diet # Prophylaxis - DVT ppx with Heparin TID # dispo - pt stable for transfer to med-surg floors Visit type - Emergency Visit Emergency Visit: Yes ED Registration Date: 02/17/18 Care time: The patient presented to the Emergency Department on the above date and was hospitalized for further evaluation of their emergent condition. - New Patient This patient is new to me today: No - Critical Care Critical Care patient: Yes Total Critical Care Time (in minutes): 36 Critical Care Statement: The care of this patient involved high complexity decision making to prevent further life threatening deterioration of the patient 's condition and/or to evaluate & treat vital organ system(s) failure or risk of failure.
[2018-02-18] MEDS ORDERED: diphenhydrAMINE HCL 25 MG CAPSULE (FP) PO ONE (14:00)
[2018-02-18] MEDS ORDERED: PT OWN MED DRAWER 7, Y5N ONE (15:16)
[2018-02-18] MEDS ORDERED: METOCLOPRAMIDE HCL 10 MG TABLET (FP) PO SCH (16:30)
[2018-02-18] MEDS ORDERED: ONDANSETRON 4 MG/2 ML VIAL IVPUSH PRN (17:14)
[2018-02-18 17:16] LABS: MAGNESIUM 1.8 mg/dL (1.8-2.4); POTASSIUM 4.2 mmol/L (3.5-5.1)
[2018-02-18] MEDS: METOCLOPRAMIDE HCL 10 MG TABLET (FP) PO SCH (21:32)
[2018-02-19] MEDS: SODIUM CHLORIDE 0.9%/KCL 20 MEQ/1,000 ML INFUS.BAG IV SCH ×4 (01:51→18:39)
[2018-02-19] MEDS: HEPARIN NA (PORCINE) 5,000 UNITS/ML 1ML VIAL SQ SCH ×3 (05:20→22:03)
[2018-02-19] MEDS: INSULIN SLIDING SCALE (NOVOLOG) 1 VIAL SQ SCH ×4 (06:04→21:58)
[2018-02-19] MEDS ORDERED: INSULIN (NOVOLOG) ASPART 100 UNITS/ML 10ML VIAL ONE ×2 (06:12→16:55)
[2018-02-19] MEDS: METOCLOPRAMIDE HCL 10 MG TABLET (FP) PO SCH ×4 (06:15→21:59)
[2018-02-19] MEDS: INSULIN (LEVEMIR) 100 UNITS/ML UNITS SQ SCH ×2 (06:34→21:59)
[2018-02-19 07:36] LABS: HEMATOCRIT 36.1 % (32.4-45.2); HEMOGLOBIN 12.7 GM/dL (10.7-15.3); MCH 34.6 pg (25.7-33.7); MCHC 35.1 g/dl (32.0-36.0); MEAN CELL VOLUME 98.4 fl (80-96); MEAN PLT VOLUME 8.2 fl (7.5-11.1); PLATELET COUNT 176 K/MM3 (134-434); RBC 3.67 M/mm3 (3.60-5.2)
[2018-02-19 07:46] LABS: WHITE BLOOD COUNT 1.5 K/mm3 (4.0-10.0)
[2018-02-19 08:24] LABS: ANION GAP 9 (8-16); BLOOD UREA NITROGEN 16 mg/dL (7-18); CALCIUM 8.3 mg/dL (8.5-10.1); CHLORIDE 105 mmol/L (98-107); CO2 30 mmol/L (21-32); CREATININE 0.4 mg/dL (0.55-1.02); GLUCOSE,RANDOM 81 mg/dL (74-106); MAGNESIUM 1.7 mg/dL (1.8-2.4); PHOSPHOROUS 4.4 mg/dL (2.5-4.9); POTASSIUM 3.8 mmol/L (3.5-5.1); SODIUM 144 mmol/L (136-145)
[2018-02-19 08:43] LABS: HEMOGLOBIN 13.2 GM/dL (10.7-15.3); MCH 34.1 pg (25.7-33.7); MCHC 34.7 g/dl (32.0-36.0); MEAN CELL VOLUME 98.4 fl (80-96); MEAN PLT VOLUME 8.1 fl (7.5-11.1); PLATELET COUNT 201 K/MM3 (134-434); RBC 3.87 M/mm3 (3.60-5.2); RDW 13.3 % (11.6-15.6)
[2018-02-19 08:49] LABS: WHITE BLOOD COUNT 1.8 K/mm3 (4.0-10.0)
--- NOTE | 2018-02-19 09:37 | PN ---
Progress Note (short form) - Note Progress Note: Events noted Found to be neutropenic Denies any fever or chills Was not taking any meds except for insulin at home Vital Signs Period Temp Pulse Resp BP Sys/Estes Pulse Ox Last 24 Hr 97.8 F-98.3 F 71-102 14-20 88-120/64-77 99 PE: AOx3 Neck: Supple HEENT: PERRL, EOMI Lungs: CTA CVS: s1S2 Abd: Benign Ext: No edema Neuro: No focal deficit CMP Sodium 144 mmol/L (136-145) 02/19/18 06:40 Potassium 3.8 mmol/L (3.5-5.1) 02/19/18 06:40 Chloride 105 mmol/L (98-107) 02/19/18 06:40 Carbon Dioxide 30 mmol/L (21-32) 02/19/18 06:40 Anion Gap 9 (8-16) 02/19/18 06:40 BUN 16 mg/dL (7-18) 02/19/18 06:40 Creatinine 0.4 mg/dL (0.55-1.02) L 02/19/18 06:40 Creat Clearance w eGFR > 60 (>60) 02/18/18 05:25 POC Glucometer 109 UNITS (80-120) 02/19/18 05:37 Random Glucose 81 mg/dL (74-106) 02/19/18 06:40 Hemoglobin A1c % 14.1 % (4.8-6.0) H 02/17/18 11:49 Lactic Acid 1.7 mmol/L (0.0-2.0) 02/17/18 06:42 Calcium 8.3 mg/dL (8.5-10.1) L 02/19/18 06:40 Phosphorus 4.4 mg/dL (2.5-4.9) 02/19/18 06:40 Magnesium 1.7 mg/dL (1.8-2.4) L 02/19/18 06:40 Total Bilirubin 0.4 mg/dL (0.2-1.0) D 02/18/18 05:25 AST 12 U/L (15-37) L 02/18/18 05:25 ALT 13 U/L (12-78) 02/18/18 05:25 Alkaline Phosphatase 92 U/L (45-117) 02/18/18 05:25 Creatine Kinase 38 IU/L (26-192) 02/17/18 08:20 Troponin I < 0.02 ng/ml (0.00-0.05) 02/17/18 08:20 Total Protein 5.3 g/dl (6.4-8.2) L 02/18/18 05:25 Albumin 2.7 g/dl (3.4-5.0) L 02/18/18 05:25 Lipase 95 U/L (73-393) 02/17/18 08:20 Serum , Qual Negative 02/17/18 06:42 Current Medications Generic Name Dose Route Start Last Admin Trade Name Freq PRN Reason Stop Dose Admin Acetaminophen 650 mg 02/18/18 17:08 Tylenol - PO Q4H PRN HEADACHE Heparin Sodium (Porcine) 5,000 unit 02/18/18 22:00 02/19/18 05:20 Heparin - SQ Not Given TID DARA Potassium Chloride/Sodium Chloride 20 meq in 1,000 mls @ 125 mls/hr 02/18/18 17:15 02/19/18 01:51 Ns+20 Meq Kcl - IV 125 mls/hr ASDIR DARA Administration Insulin Aspart 1 vial 02/18/18 22:00 02/18/18 21:32 Novolog Vial Sliding Scale - SQ Not Given HS [facility] Protocol Insulin Aspart 1 vial 02/18/18 16:30 02/19/18 06:04 Novolog Vial Sliding Scale - SQ Not Given TIDAC [facility] Protocol Insulin Detemir 28 units 02/18/18 22:00 02/19/18 06:34 Levemir Vial SQ 28 units BID@0700,2200 DARA Administration Metoclopramide HCl 10 mg 02/18/18 22:00 02/19/18 06:15 Reglan - PO 10 mg ACHS DARA Administration Ondansetron HCl 4 mg 02/18/18 17:14 Zofran Injection IVPUSH Q4H PRN NAUSEA AND/OR VOMITING AP: Neutropenia DKA: resolved T1DM Neuropathy UTI: 30 to 40 thousand beta hemolytic strep BGM Q ACHS and 3 a.m. Off Insulin drip levemir 28 BID Novolog Coverage ACHS IV hydration with KCl as necessary: replace electrolytes as necessary Management of Neutropenia as per Primary. Consider Hematology consult. Discussed with primary. Will F/u
--- NOTE | 2018-02-19 09:51 | PN ---
Progress Note, Physician Chief Complaint: Feels better History of Present Illness: WBC came down to 1.8 Urine culture grew Beta strep - Current Medication List Current Medications: Active Medications Acetaminophen (Tylenol -) 650 mg PO Q4H PRN PRN Reason: HEADACHE Heparin Sodium (Porcine) (Heparin -) 5,000 unit SQ TID [facility] Last Admin: 02/19/18 05:20 Dose: Not Given Potassium Chloride/Sodium Chloride (Ns+20 Meq Kcl -) 20 meq in 1,000 mls @ 125 mls/hr IV ASDIR [facility] Last Admin: 02/19/18 01:51 Dose: 125 mls/hr Cefazolin Sodium (Ancef 1 Gm Premixed Ivpb -) 1 gm in 50 mls @ 100 mls/hr IVPB Q8H-IV DARA Insulin Aspart (Novolog Vial Sliding Scale -) 1 vial SQ HS [facility] PRN Reason: Protocol Last Admin: 02/18/18 21:32 Dose: Not Given Insulin Aspart (Novolog Vial Sliding Scale -) 1 vial SQ TIDAC [facility] PRN Reason: Protocol Last Admin: 02/19/18 06:04 Dose: Not Given Insulin Detemir (Levemir Vial) 28 units SQ BID@0700,2200 [facility] Last Admin: 02/19/18 06:34 Dose: 28 units Metoclopramide HCl (Reglan -) 10 mg PO ACHS [facility] Last Admin: 02/19/18 06:15 Dose: 10 mg Ondansetron HCl (Zofran Injection) 4 mg IVPUSH Q4H PRN PRN Reason: NAUSEA AND/OR VOMITING - Objective Vital Signs: Vital Signs Temperature 98.3 F 02/19/18 08:37 Pulse Rate 98 H 02/19/18 08:37 Respiratory Rate 18 02/19/18 08:37 Blood Pressure 120/70 02/19/18 08:37 O2 Sat by Pulse Oximetry (%) 99 02/18/18 17:30 Constitutional: Yes: No Distress Eyes: Yes: WNL HENT: Yes: WNL Neck: Yes: WNL Cardiovascular: Yes: WNL Respiratory: Yes: WNL Gastrointestinal: Yes: Normal Bowel Sounds ...Rectal Exam: Yes: Deferred Genitourinary: Yes: WNL Neurological: Yes: Alert Labs: CBC, BMP 02/19/18 08:25 04/27/18 06:40 INR, PTT INR 0.85 (0.82-1.09) L 02/17/18 06:42 Assessment/Plan Neutropenia precaution ordered Start on ancf for +urine culture
[2018-02-19] MEDS ORDERED: ceFAZolin SODIUM 1 GM VIAL ONE ×2 (10:30→17:05)
[2018-02-19] MEDS ORDERED: DEXTROSE 5%-WATER - 50 ML IVPB ONE ×2 (10:30→17:05)
[2018-02-19] MEDS: CEFAZOLIN 1 GM in DEXTROSE 5%-WATER - 50 ML IVPB SCH ×2 (10:33→18:28)
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
[2018-02-19] MEDS: MAGNESIUM OXIDE 400 MG TABLET (FP) PO SCH (16:44)
[2018-02-20] MEDS ORDERED: DEXTROSE 5%-WATER - 50 ML IVPB ONE ×2 (00:45→09:31)
[2018-02-20] MEDS ORDERED: ceFAZolin SODIUM 1 GM VIAL ONE ×2 (00:45→09:31)
[2018-02-20] MEDS: CEFAZOLIN 1 GM in DEXTROSE 5%-WATER - 50 ML IVPB SCH ×2 (01:27→09:44)
[2018-02-20] MEDS: HEPARIN NA (PORCINE) 5,000 UNITS/ML 1ML VIAL SQ SCH ×4 (05:16→22:15)
[2018-02-20] MEDS: SODIUM CHLORIDE 0.9%/KCL 20 MEQ/1,000 ML INFUS.BAG IV SCH ×3 (05:41→22:14)
[2018-02-20] MEDS: INSULIN SLIDING SCALE (NOVOLOG) 1 VIAL SQ SCH ×4 (06:06→22:13)
[2018-02-20] MEDS: METOCLOPRAMIDE HCL 10 MG TABLET (FP) PO SCH ×2 (06:13→11:55)
[2018-02-20 07:32] LABS: HEMATOCRIT 34.3 % (32.4-45.2); HEMOGLOBIN 12.1 GM/dL (10.7-15.3); MCHC 35.3 g/dl (32.0-36.0); MEAN CELL VOLUME 99.1 fl (80-96); MEAN PLT VOLUME 8.7 fl (7.5-11.1); PLATELET COUNT 154 K/MM3 (134-434); RBC 3.46 M/mm3 (3.60-5.2); RDW 12.7 % (11.6-15.6)
[2018-02-20 07:37] LABS: WHITE BLOOD COUNT 1.5 K/mm3 (4.0-10.0)
[2018-02-20 08:50] LABS: CHLORIDE 101 mmol/L (98-107); POTASSIUM 4.1 mmol/L (3.5-5.1); SODIUM 142 mmol/L (136-145)
--- NOTE | 2018-02-20 08:55 | PN ---
Progress Note, Physician Chief Complaint: Feels better History of Present Illness: Admitted with DKA Also has UTI on IV antibiotics WBC count is low 1.5 - Current Medication List Current Medications: Active Medications Acetaminophen (Tylenol -) 650 mg PO Q4H PRN PRN Reason: HEADACHE Last Admin: 02/19/18 11:27 Dose: 650 mg Heparin Sodium (Porcine) (Heparin -) 5,000 unit SQ TID ON LICENSE OF [facility] Last Admin: 02/20/18 05:16 Dose: Not Given Potassium Chloride/Sodium Chloride (Ns+20 Meq Kcl -) 20 meq in 1,000 mls @ 125 mls/hr IV ASDIR ON LICENSE OF [facility] Last Admin: 02/20/18 05:41 Dose: 125 mls/hr Cefazolin Sodium 1 gm/ (Dextrose) 50 mls @ 100 mls/hr IVPB Q8H-IV ON LICENSE OF [facility] Last Admin: 02/20/18 01:27 Dose: 100 mls/hr Insulin Aspart (Novolog Vial Sliding Scale -) 1 vial SQ HS ON LICENSE OF [facility] PRN Reason: Protocol Last Admin: 02/19/18 21:58 Dose: 2 units Insulin Aspart (Novolog Vial Sliding Scale -) 1 vial SQ TIDAC ON LICENSE OF [facility] PRN Reason: Protocol Last Admin: 02/20/18 06:06 Dose: Not Given Insulin Detemir (Levemir Vial) 28 units SQ BID@0700,2200 ON LICENSE OF [facility] Last Admin: 02/19/18 21:59 Dose: 28 units Magnesium Oxide (Mag-Ox -) 400 mg PO DAILY ON LICENSE OF [facility] Stop: 02/20/18 10:01 Last Admin: 02/19/18 16:44 Dose: 400 mg Metoclopramide HCl (Reglan -) 10 mg PO ACHS ON LICENSE OF [facility] Last Admin: 02/20/18 06:13 Dose: 10 mg Ondansetron HCl (Zofran Injection) 4 mg IVPUSH Q4H PRN PRN Reason: NAUSEA AND/OR VOMITING - Objective Vital Signs: Vital Signs Temperature 97.7 F 02/20/18 08:44 Pulse Rate 73 02/20/18 08:44 Respiratory Rate 18 02/20/18 08:44 Blood Pressure 95/63 02/20/18 08:44 O2 Sat by Pulse Oximetry (%) 98 02/19/18 09:00 Constitutional: Yes: No Distress Eyes: Yes: WNL HENT: Yes: WNL, Tonsillar Exudate Cardiovascular: Yes: WNL Respiratory: Yes: WNL Gastrointestinal: Yes: WNL ...Rectal Exam: Yes: Deferred Genitourinary: Yes: WNL Breast(s): Yes: WNL Extremities: Yes: WNL Edema: No Labs: CBC, BMP 02/20/18 06:30 INR, PTT INR 0.85 (0.82-1.09) L 02/17/18 06:42 Assessment/Plan Continue same trt
[2018-02-20 09:20] LABS: ALBUMIN 2.7 g/dl (3.4-5.0); ALK PHOS 138 U/L (45-117); ANION GAP 8 (8-16); BILIRUBIN,TOTAL 0.3 mg/dL (0.2-1.0); BLOOD UREA NITROGEN 12 mg/dL (7-18); CALCIUM 8.5 mg/dL (8.5-10.1); CO2 33 mmol/L (21-32); CREATININE 0.4 mg/dL (0.55-1.02); GLUCOSE,RANDOM 144 mg/dL (74-106); TOT PROT 5.3 g/dl (6.4-8.2)
[2018-02-20] MEDS: INSULIN (LEVEMIR) 100 UNITS/ML UNITS SQ SCH ×2 (09:43→22:13)
[2018-02-20] MEDS: MAGNESIUM OXIDE 400 MG TABLET (FP) PO SCH (09:44)
[2018-02-20 09:46] LABS: SGOT/AST 1425 U/L (15-37); SGPT/ALT 794 U/L (12-78)
--- NOTE | 2018-02-20 10:50 | PN ---
Progress Note (short form) - Note Progress Note: No new complaints Still neutropenic Denies any fever or chills elevated LFTs now Vital Signs Period Temp Pulse Resp BP Sys/Estes Pulse Ox Last 24 Hr 97.7 F-98.7 F 62-87 18-18 89-120/61-70 PE: AOx3 Neck: Supple HEENT: PERRL, EOMI Lungs: CTA CVS: s1S2 Abd: Benign Ext: No edema Neuro: No focal deficit CMP Sodium 142 mmol/L (136-145) 02/20/18 06:30 Potassium 4.1 mmol/L (3.5-5.1) 02/20/18 06:30 Chloride 101 mmol/L (98-107) 02/20/18 06:30 Carbon Dioxide 33 mmol/L (21-32) H 02/20/18 06:30 Anion Gap 8 (8-16) 02/20/18 06:30 BUN 12 mg/dL (7-18) 02/20/18 06:30 Creatinine 0.4 mg/dL (0.55-1.02) L 02/20/18 06:30 Creat Clearance w eGFR > 60 (>60) 02/20/18 06:30 POC Glucometer 280 UNITS (80-120) 02/20/18 09:42 Random Glucose 144 mg/dL (74-106) H 02/20/18 06:30 Hemoglobin A1c % 14.1 % (4.8-6.0) H 02/17/18 11:49 Lactic Acid 1.7 mmol/L (0.0-2.0) 02/17/18 06:42 Calcium 8.5 mg/dL (8.5-10.1) 02/20/18 06:30 Phosphorus 4.4 mg/dL (2.5-4.9) 02/19/18 06:40 Magnesium 1.7 mg/dL (1.8-2.4) L 02/19/18 06:40 Total Bilirubin 0.3 mg/dL (0.2-1.0) D 02/20/18 06:30 AST 1425 U/L (15-37) H 02/20/18 06:30 ALT 794 U/L (12-78) H 02/20/18 06:30 Alkaline Phosphatase 138 U/L (45-117) H 02/20/18 06:30 Creatine Kinase 38 IU/L (26-192) 02/17/18 08:20 Troponin I < 0.02 ng/ml (0.00-0.05) 02/17/18 08:20 Total Protein 5.3 g/dl (6.4-8.2) L 02/20/18 06:30 Albumin 2.7 g/dl (3.4-5.0) L 02/20/18 06:30 Lipase 95 U/L (73-393) 02/17/18 08:20 Serum , Qual Negative 02/17/18 06:42 Current Medications Generic Name Dose Route Start Last Admin Trade Name Freq PRN Reason Stop Dose Admin Acetaminophen 650 mg 02/18/18 17:08 02/19/18 11:27 Tylenol - PO 650 mg Q4H PRN Administration HEADACHE Heparin Sodium (Porcine) 5,000 unit 02/18/18 22:00 02/20/18 05:16 Heparin - SQ Not Given TID [facility] Potassium Chloride/Sodium Chloride 20 meq in 1,000 mls @ 125 mls/hr 02/18/18 17:15 02/20/18 05:41 Ns+20 Meq Kcl - IV 125 mls/hr ASDIR DARA Administration Cefazolin Sodium 1 gm/ 50 mls @ 100 mls/hr 02/19/18 10:00 02/20/18 09:44 Dextrose IVPB 100 mls/hr Q8H-IV DARA Administration Insulin Aspart 1 vial 02/18/18 22:00 02/19/18 21:58 Novolog Vial Sliding Scale - SQ 2 units HS DARA Administration Protocol Insulin Aspart 1 vial 02/18/18 16:30 02/20/18 06:06 Novolog Vial Sliding Scale - SQ Not Given TIDAC [facility] Protocol Insulin Detemir 28 units 02/18/18 22:00 02/20/18 09:43 Levemir Vial SQ 28 units BID@0700,2200 ADRA Administration Metoclopramide HCl 10 mg 02/18/18 22:00 02/20/18 06:13 Reglan - PO 10 mg ACHS DARA Administration Ondansetron HCl 4 mg 02/18/18 17:14 Zofran Injection IVPUSH Q4H PRN NAUSEA AND/OR VOMITING AP: Neutropenia Elevated LFTs DKA: resolved T1DM Neuropathy UTI: 30 to 40 thousand beta hemolytic strep EB virus, CMV and Hepatitis Panel Consider ID Consult BGM Q ACHS and 3 a.m. Off Insulin drip Decrease levemir 25 BID Novolog Coverage ACHS Management of Neutropenia as per Primary. Consider Hematology/ID consult. Will F/u
--- NOTE | 2018-02-20 11:51 | PN ---
Progress Note (short form) - Note Progress Note: PULMONARY Leukopenic. Some chills overnight. Last Vital Signs Temp Pulse Resp BP Pulse Ox 97.7 F 73 18 95/63 98 02/20/18 08:44 02/20/18 08:44 02/20/18 08:44 02/20/18 08:44 02/19/18 09:00 Gen: NAD at rest Heart: RRR Lung: decreased breath sounds at the bases Abd: soft, nontender Ext: no edema CBC, BMP 02/20/18 06:30 02/20/18 06:30 Active Medications Acetaminophen (Tylenol -) 650 mg PO Q4H PRN PRN Reason: HEADACHE Last Admin: 02/19/18 11:27 Dose: 650 mg Heparin Sodium (Porcine) (Heparin -) 5,000 unit SQ TID [facility] Last Admin: 02/20/18 05:16 Dose: Not Given Potassium Chloride/Sodium Chloride (Ns+20 Meq Kcl -) 20 meq in 1,000 mls @ 125 mls/hr IV ASDIR [facility] Last Admin: 02/20/18 05:41 Dose: 125 mls/hr Cefazolin Sodium 1 gm/ (Dextrose) 50 mls @ 100 mls/hr IVPB Q8H-IV [facility] Last Admin: 02/20/18 09:44 Dose: 100 mls/hr Insulin Aspart (Novolog Vial Sliding Scale -) 1 vial SQ HS [facility] PRN Reason: Protocol Last Admin: 02/19/18 21:58 Dose: 2 units Insulin Aspart (Novolog Vial Sliding Scale -) 1 vial SQ TIDAC [facility] PRN Reason: Protocol Last Admin: 02/20/18 06:06 Dose: Not Given Insulin Detemir (Levemir Vial) 25 units SQ BID@0700,2200 [facility] Metoclopramide HCl (Reglan -) 10 mg PO ACHS [facility] Last Admin: 02/20/18 06:13 Dose: 10 mg Ondansetron HCl (Zofran Injection) 4 mg IVPUSH Q4H PRN PRN Reason: NAUSEA AND/OR VOMITING A/P Diabetic Ketoacidosis resolved Hypokalemia Diabetic Neuropathy Leukopenia - will d/c antibiotics as urinalysis not suggestive of UTI and cefazolin has been associated with leukopenia - d/c reglan as well - continue levemir - monitor WBC - DVT prophylaxis
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
[2018-02-21] MEDS: INSULIN (LEVEMIR) 100 UNITS/ML UNITS SQ SCH ×2 (06:21→21:47)
[2018-02-21] MEDS: INSULIN SLIDING SCALE (NOVOLOG) 1 VIAL SQ SCH ×4 (06:22→21:48)
[2018-02-21] MEDS: HEPARIN NA (PORCINE) 5,000 UNITS/ML 1ML VIAL SQ SCH ×3 (06:22→21:43)
[2018-02-21] MEDS: SODIUM CHLORIDE 0.9%/KCL 20 MEQ/1,000 ML INFUS.BAG IV SCH ×3 (06:23→17:15)
[2018-02-21] MEDS ORDERED: INSULIN (NOVOLOG) ASPART 100 UNITS/ML 10ML VIAL ONE (06:31)
[2018-02-21 08:07] LABS: CMV IgM < 30.0 AU/mL (0.0-29.9)
[2018-02-21 08:24] LABS: BASO % 0.9 % (0-2.0); HEMATOCRIT 34.9 % (32.4-45.2); LYMPH % 49.7 % (8-40); MCH 34.4 pg (25.7-33.7); MCHC 34.5 g/dl (32.0-36.0); MEAN CELL VOLUME 99.7 fl (80-96); MEAN PLT VOLUME 8.7 fl (7.5-11.1); MONO % 10.5 % (3.8-10.2); NEUT % 31.9 % (42.8-82.8); PLATELET COUNT 180 K/MM3 (134-434); RDW 13.4 % (11.6-15.6); WHITE BLOOD COUNT 2.7 K/mm3 (4.0-10.0)
[2018-02-21 08:45] LABS: ALBUMIN 2.5 g/dl (3.4-5.0); ALK PHOS 148 U/L (45-117); ANION GAP 8 (8-16); BILIRUBIN,TOTAL 0.4 mg/dL (0.2-1.0); BLOOD UREA NITROGEN 16 mg/dL (7-18); CALCIUM 8.7 mg/dL (8.5-10.1); CHLORIDE 105 mmol/L (98-107); CO2 29 mmol/L (21-32); CREATININE 0.4 mg/dL (0.55-1.02); GLUCOSE,RANDOM 109 mg/dL (74-106); POTASSIUM 4.1 mmol/L (3.5-5.1); SODIUM 142 mmol/L (136-145); TOT PROT 5.4 g/dl (6.4-8.2)
[2018-02-21 09:04] LABS: SGOT/AST 606 U/L (15-37); SGPT/ALT 565 U/L (12-78)
--- NOTE | 2018-02-21 10:37 | PN ---
Progress Note, Physician Chief Complaint: Patient feels improved denies any chest pain or SOB History of Present Illness: 28 y.o. female with PMH of uncontrolled IDDM, DKA, and peripheral neuropathy admitted for c/o nausea and vomiting and generally not feeling well. She was admitted to the ICU for management of DKA , treated with Cefazolin for suspected UTI , U grew Group B Strept but no symptoms, developed leukopenia and deranged LFTs, now improving off Cefazolin (wbc - 1.5K) and elevated LFTs. - Current Medication List Current Medications: Active Medications Heparin Sodium (Porcine) (Heparin -) 5,000 unit SQ TID [facility] Last Admin: 02/21/18 06:22 Dose: Not Given Potassium Chloride/Sodium Chloride (Ns+20 Meq Kcl -) 20 meq in 1,000 mls @ 125 mls/hr IV ASDIR [facility] Last Admin: 02/21/18 06:23 Dose: 125 mls/hr Insulin Aspart (Novolog Vial Sliding Scale -) 1 vial SQ HS [facility] PRN Reason: Protocol Last Admin: 02/20/18 22:13 Dose: 2 units Insulin Aspart (Novolog Vial Sliding Scale -) 1 vial SQ TIDAC [facility] PRN Reason: Protocol Last Admin: 02/21/18 06:22 Dose: 4 units Insulin Detemir (Levemir Vial) 25 units SQ BID@0700,2200 [facility] Last Admin: 02/21/18 06:21 Dose: 25 units Ondansetron HCl (Zofran Injection) 4 mg IVPUSH Q4H PRN PRN Reason: NAUSEA AND/OR VOMITING - Objective Vital Signs: Vital Signs Temperature 98.0 F 02/21/18 09:27 Pulse Rate 76 02/21/18 09:27 Respiratory Rate 16 02/21/18 09:27 Blood Pressure 102/69 02/21/18 09:27 O2 Sat by Pulse Oximetry (%) 92 L 02/20/18 09:00 Young F not in distress HEENT: Mm moist, no anemia, PERRLA, EOMI NECK: No JVd, No bruit CHEST: CTA B/L CVS: S1S2 R no m/g/r ABD: No distention, non tender Bs + EXT: No edema feet, no calf tenderness [employer]GER: AOX3 non focal Labs: CBC, BMP 02/21/18 07:50 02/21/18 07:50 INR, PTT INR 0.85 (0.82-1.09) L 02/17/18 06:42 Problem List - Problems (1) DKA (diabetic ketoacidoses) Assessment/Plan: Improved currently tolerating PO Fs are well controlled , Cont current Insulin regimen. Code(s): E13.10 - OTH DIABETES MELLITUS WITH KETOACIDOSIS WITHOUT COMA Qualifiers: Diabetes mellitus type: other specified (including LIANA) Diabetes mellitus complication detail: without coma Qualified Code(s): E13.10 - Other specified diabetes mellitus with ketoacidosis without coma (2) Neutropenia Assessment/Plan: Probably drug induced or due to Viral sickness as patient has deranged Lfts F/U Viral panel as recommonded by ID observer off abx Code(s): D70.9 - NEUTROPENIA, UNSPECIFIED (3) Transaminitis Assessment/Plan: Elevated LFts now improving avoid paracetamol f/u LFTs daily hepatitis panel - ve Code(s): R74.0 - NONSPEC ELEV OF LEVELS OF TRANSAMNS & LACTIC ACID DEHYDRGNSE (4) Group B streptococcal bacteriuria Assessment/Plan: No symptoms will rpt UA observe off abx. Code(s): R82.71 - BACTERIURIA
--- NOTE | 2018-02-21 12:45 | PN ---
Progress Note (short form) - Note Progress Note: PULMONARY Leukopenia improving. Some sweats at night. Last Vital Signs Temp Pulse Resp BP Pulse Ox 98.0 F 76 16 102/69 92 L 02/21/18 09:27 02/21/18 09:27 02/21/18 09:27 02/21/18 09:27 02/20/18 09:00 Gen: NAD at rest Heart: RRR Lung: decreased breath sounds at the bases Abd: soft, nontender Ext: no edema CBC, BMP 02/21/18 07:50 02/21/18 07:50 Active Medications Heparin Sodium (Porcine) (Heparin -) 5,000 unit SQ TID [facility] Last Admin: 02/21/18 06:22 Dose: Not Given Potassium Chloride/Sodium Chloride (Ns+20 Meq Kcl -) 20 meq in 1,000 mls @ 125 mls/hr IV ASDIR [facility] Last Admin: 02/21/18 11:40 Dose: Not Given Insulin Aspart (Novolog Vial Sliding Scale -) 1 vial SQ HS [facility] PRN Reason: Protocol Last Admin: 02/20/18 22:13 Dose: 2 units Insulin Aspart (Novolog Vial Sliding Scale -) 1 vial SQ TIDAC [facility] PRN Reason: Protocol Last Admin: 02/21/18 11:45 Dose: 3 units Insulin Detemir (Levemir Vial) 25 units SQ BID@0700,2200 [facility] Last Admin: 02/21/18 06:21 Dose: 25 units Ondansetron HCl (Zofran Injection) 4 mg IVPUSH Q4H PRN PRN Reason: NAUSEA AND/OR VOMITING A/P Diabetic Ketoacidosis resolved Hypokalemia Diabetic Neuropathy Leukopenia - monitor CBC - monitor off antibiotics - continue levemir - DVT prophylaxis
--- NOTE | 2018-02-21 14:24 | PN ---
Progress Note (short form) - Note Progress Note: No new complaints Improving Neutropenia and LFTS Denies any fever or chills Vital Signs Period Temp Pulse Resp BP Sys/Estes Pulse Ox Last 24 Hr 97.6 F-98.0 F 60-80 16-20 86-122/55-72 PE: AOx3 Neck: Supple HEENT: PERRL, EOMI Lungs: CTA CVS: s1S2 Abd: Benign Ext: No edema Neuro: No focal deficit CMP Sodium 142 mmol/L (136-145) 02/21/18 07:50 Potassium 4.1 mmol/L (3.5-5.1) 02/21/18 07:50 Chloride 105 mmol/L (98-107) 02/21/18 07:50 Carbon Dioxide 29 mmol/L (21-32) 02/21/18 07:50 Anion Gap 8 (8-16) 02/21/18 07:50 BUN 16 mg/dL (7-18) 02/21/18 07:50 Creatinine 0.4 mg/dL (0.55-1.02) L 02/21/18 07:50 Creat Clearance w eGFR > 60 (>60) 02/21/18 07:50 POC Glucometer 189 UNITS (80-120) 02/21/18 11:39 Random Glucose 109 mg/dL (74-106) H 02/21/18 07:50 Hemoglobin A1c % 14.1 % (4.8-6.0) H 02/17/18 11:49 Lactic Acid 1.7 mmol/L (0.0-2.0) 02/17/18 06:42 Calcium 8.7 mg/dL (8.5-10.1) 02/21/18 07:50 Phosphorus 4.4 mg/dL (2.5-4.9) 02/19/18 06:40 Magnesium 1.7 mg/dL (1.8-2.4) L 02/19/18 06:40 Total Bilirubin 0.4 mg/dL (0.2-1.0) D 02/21/18 07:50 AST 606 U/L (15-37) H 02/21/18 07:50 ALT 565 U/L (12-78) H 02/21/18 07:50 Alkaline Phosphatase 148 U/L (45-117) H 02/21/18 07:50 Creatine Kinase 38 IU/L (26-192) 02/17/18 08:20 Troponin I < 0.02 ng/ml (0.00-0.05) 02/17/18 08:20 Total Protein 5.4 g/dl (6.4-8.2) L 02/21/18 07:50 Albumin 2.5 g/dl (3.4-5.0) L 02/21/18 07:50 Lipase 95 U/L (73-393) 02/17/18 08:20 Serum , Qual Negative 02/17/18 06:42 Current Medications Generic Name Dose Route Start Last Admin Trade Name Freq PRN Reason Stop Dose Admin Heparin Sodium (Porcine) 5,000 unit 02/18/18 22:00 02/21/18 14:21 Heparin - SQ Not Given TID [facility] Potassium Chloride/Sodium Chloride 20 meq in 1,000 mls @ 125 mls/hr 02/18/18 17:15 02/21/18 11:40 Ns+20 Meq Kcl - IV Not Given ASDIR DARA Insulin Aspart 1 vial 02/18/18 22:00 02/20/18 22:13 Novolog Vial Sliding Scale - SQ 2 units HS [facility] Administration Protocol Insulin Aspart 1 vial 02/18/18 16:30 02/21/18 11:45 Novolog Vial Sliding Scale - SQ 3 units TIDAC [facility] Administration Protocol Insulin Detemir 25 units 02/20/18 22:00 02/21/18 06:21 Levemir Vial SQ 25 units BID@0700,2200 [facility] Administration Ondansetron HCl 4 mg 02/18/18 17:14 Zofran Injection IVPUSH Q4H PRN NAUSEA AND/OR VOMITING AP: Neutropenia Elevated LFTs DKA: resolved T1DM Neuropathy UTI: 30 to 40 thousand beta hemolytic strep EB virus and Hep A and B results Pending. CMV IgG Positive IgM neg, Hepatitis C neg HIV neg ID Consult noted BGM Q ACHS and 3 a.m. Off Insulin drip Increase levemir 27 BID Increase Novolog Coverage ACHS Management of Neutropenia as per Primary Will F/u
--- NOTE | 2018-02-21 14:34 | PN ---
Progress Note, Physician History of Present Illness: Pt without new specific complaints. Denies shortness of breath, cough, abd pain/ n/v/d, dysuria. Remains afebrile. - Current Medication List Current Medications: Active Medications Heparin Sodium (Porcine) (Heparin -) 5,000 unit SQ TID [facility] Last Admin: 02/21/18 14:21 Dose: Not Given Potassium Chloride/Sodium Chloride (Ns+20 Meq Kcl -) 20 meq in 1,000 mls @ 125 mls/hr IV ASDIR [facility] Last Admin: 02/21/18 11:40 Dose: Not Given Insulin Aspart (Novolog Vial Sliding Scale -) 1 vial SQ HS [facility] PRN Reason: Protocol Last Admin: 02/20/18 22:13 Dose: 2 units Insulin Aspart (Novolog Vial Sliding Scale -) 1 vial SQ TIDAC [facility] PRN Reason: Protocol Insulin Detemir (Levemir Vial) 27 units SQ BID@0700,2200 [facility] Ondansetron HCl (Zofran Injection) 4 mg IVPUSH Q4H PRN PRN Reason: NAUSEA AND/OR VOMITING - Objective Vital Signs: Vital Signs Temperature 98.0 F 02/21/18 09:27 Pulse Rate 76 02/21/18 09:27 Respiratory Rate 16 02/21/18 09:27 Blood Pressure 102/69 02/21/18 09:27 O2 Sat by Pulse Oximetry (%) 92 L 02/20/18 09:00 Constitutional: Yes: No Distress, Calm Cardiovascular: Yes: Regular Rate and Rhythm Respiratory: Yes: CTA Bilaterally Gastrointestinal: Yes: Normal Bowel Sounds, Soft Genitourinary: Yes: WNL Extremities: Yes: WNL Edema: No Neurological: Yes: Alert, Oriented Labs: CBC, BMP 02/21/18 07:50 02/21/18 07:50 INR, PTT INR 0.85 (0.82-1.09) L 02/17/18 06:42 CMP Sodium 142 mmol/L (136-145) 02/21/18 07:50 Potassium 4.1 mmol/L (3.5-5.1) 02/21/18 07:50 Chloride 105 mmol/L (98-107) 02/21/18 07:50 Carbon Dioxide 29 mmol/L (21-32) 02/21/18 07:50 Anion Gap 8 (8-16) 02/21/18 07:50 BUN 16 mg/dL (7-18) 02/21/18 07:50 Creatinine 0.4 mg/dL (0.55-1.02) L 02/21/18 07:50 Creat Clearance w eGFR > 60 (>60) 02/21/18 07:50 POC Glucometer 189 UNITS (80-120) 02/21/18 11:39 Random Glucose 109 mg/dL (74-106) H 02/21/18 07:50 Hemoglobin A1c % 14.1 % (4.8-6.0) H 02/17/18 11:49 Lactic Acid 1.7 mmol/L (0.0-2.0) 02/17/18 06:42 Calcium 8.7 mg/dL (8.5-10.1) 02/21/18 07:50 Phosphorus 4.4 mg/dL (2.5-4.9) 02/19/18 06:40 Magnesium 1.7 mg/dL (1.8-2.4) L 02/19/18 06:40 Total Bilirubin 0.4 mg/dL (0.2-1.0) D 02/21/18 07:50 AST 606 U/L (15-37) H 02/21/18 07:50 ALT 565 U/L (12-78) H 02/21/18 07:50 Alkaline Phosphatase 148 U/L (45-117) H 02/21/18 07:50 Creatine Kinase 38 IU/L (26-192) 02/17/18 08:20 Troponin I < 0.02 ng/ml (0.00-0.05) 02/17/18 08:20 Total Protein 5.4 g/dl (6.4-8.2) L 02/21/18 07:50 Albumin 2.5 g/dl (3.4-5.0) L 02/21/18 07:50 Lipase 95 U/L (73-393) 02/17/18 08:20 Serum , Qual Negative 02/17/18 06:42 HIV Ab neg Hep C Ab neg CMV IgM neg Problem List - Problems (1) DKA (diabetic ketoacidoses) Code(s): E13.10 - OTH DIABETES MELLITUS WITH KETOACIDOSIS WITHOUT COMA Qualifiers: Diabetes mellitus type: other specified (including LIANA) Diabetes mellitus complication detail: without coma Qualified Code(s): E13.10 - Other specified diabetes mellitus with ketoacidosis without coma (2) Hypokalemia Code(s): E87.6 - HYPOKALEMIA (3) Diabetic neuropathy associated with type 1 diabetes mellitus Code(s): E10.40 - TYPE 1 DIABETES MELLITUS WITH DIABETIC NEUROPATHY, [facility] Assessment/Plan 28 y.o. female admitted to the ICU and treated for DKA and transferred to medical floor noted to develop leukopenia and elevated LFTs. Pt remains afebrile , vitals stable DKA - resolved Leukopenia - improving Elevated LFTs - trending down asymptomatic bacteriuria --continue monitor wbc, LFTs -- monitor off antibiotics -- off hepatotoxic meds -- monitor vitals - currently stable
[2018-02-21] MEDS: PANTOPRAZOLE 20 MG TABLET (FP) PO SCH (18:59)
[2018-02-22] MEDS: INSULIN (LEVEMIR) 100 UNITS/ML UNITS SQ SCH ×2 (06:21→21:35)
[2018-02-22] MEDS: HEPARIN NA (PORCINE) 5,000 UNITS/ML 1ML VIAL SQ SCH ×3 (06:21→21:37)
[2018-02-22] MEDS: INSULIN SLIDING SCALE (NOVOLOG) 1 VIAL SQ SCH ×4 (06:21→21:34)
[2018-02-22] MEDS ORDERED: INSULIN (NOVOLOG) ASPART 100 UNITS/ML 10ML VIAL ONE ×2 (06:27→20:54)
[2018-02-22 07:34] LABS: BASO % 0.9 % (0-2.0); EOS % 6.5 % (0-4.5); HEMATOCRIT 35.5 % (32.4-45.2); HEMOGLOBIN 12.3 GM/dL (10.7-15.3); LYMPH % 41.5 % (8-40); MCH 34.8 pg (25.7-33.7); MCHC 34.6 g/dl (32.0-36.0); MEAN CELL VOLUME 100.5 fl (80-96); MEAN PLT VOLUME 8.5 fl (7.5-11.1); MONO % 10.6 % (3.8-10.2); NEUT % 40.5 % (42.8-82.8); PLATELET COUNT 202 K/MM3 (134-434); RBC 3.53 M/mm3 (3.60-5.2); RDW 13.5 % (11.6-15.6); WHITE BLOOD COUNT 3.4 K/mm3 (4.0-10.0)
[2018-02-22 08:00] LABS: ALBUMIN 2.7 g/dl (3.4-5.0); ANION GAP 8 (8-16); BLOOD UREA NITROGEN 21 mg/dL (7-18); CALCIUM 8.7 mg/dL (8.5-10.1); CHLORIDE 103 mmol/L (98-107); CO2 29 mmol/L (21-32); GLUCOSE,RANDOM 202 mg/dL (74-106); POTASSIUM 4.1 mmol/L (3.5-5.1); SGOT/AST 327 U/L (15-37); SODIUM 140 mmol/L (136-145)
[2018-02-22 08:02] LABS: ALK PHOS 163 U/L (45-117); BILIRUBIN,TOTAL 0.4 mg/dL (0.2-1.0); CREATININE 0.5 mg/dL (0.55-1.02); TOT PROT 5.8 g/dl (6.4-8.2)
--- NOTE | 2018-02-22 08:28 | DS ---
Physical Examination Vital Signs: Vital Signs Temperature 98.3 F 02/22/18 06:00 Pulse Rate 61 02/22/18 06:00 Respiratory Rate 18 02/22/18 06:00 Blood Pressure 93/58 02/22/18 06:00 O2 Sat by Pulse Oximetry (%) 92 L 02/20/18 09:00 Findings/Remarks: Admitted with DKA,developed urosepsis WBC count was low ,got improved after antibiotics Also noted to have abnormal LFT,s Constitutional: Yes: No Distress Eyes: Yes: WNL HENT: Yes: WNL Neck: Yes: WNL Cardiovascular: Yes: WNL Respiratory: Yes: Regular Gastrointestinal: Yes: WNL ...Rectal Exam: Yes: Deferred Breast(s): Yes: WNL Musculoskeletal: Yes: WNL Extremities: Yes: WNL Edema: No Integumentary: Yes: WNL Neurological: Yes: Alert ...Motor Strength: WNL Psychiatric: Yes: Alert Labs: CBC, BMP 02/22/18 06:03 Discharge Summary Reason For Visit: DIABETIC KETOACIDOSIS,HYPOKALEMIA Current Active Problems DKA (diabetic ketoacidoses) (Acute) Group B streptococcal bacteriuria (Acute) Hypokalemia (Acute) Neutropenia (Acute) Transaminitis (Acute) Condition: Critical - Instructions Referrals: Tarah Ceballos MD [Primary Care Provider] - - Home Medications Comprehensive Discharge Medication List: Ambulatory Orders Insulin Glargine,Hum.rec.anlog [Lantus (10mL VIAL) -] 28 units SQ BID 09/26/16 Insulin Sliding Scale [Novolog Vial Sliding Scale -] 0 units SQ HS 02/17/18 Insulin Sliding Scale [Novolog Vial Sliding Scale -] 0 units SQ TIDAC 02/17/18
[2018-02-22 08:35] LABS: SGPT/ALT 454 U/L (12-78)
[2018-02-22] MEDS: PANTOPRAZOLE 20 MG TABLET (FP) PO SCH (10:13)
--- NOTE | 2018-02-22 11:01 | PN ---
Progress Note (short form) - Note Progress Note: Feels good Denies any complaints Improving Neutropenia and LFTS Denies any fever or chills Fluctuating blood sugar Vital Signs Period Temp Pulse Resp BP Sys/Estes Pulse Ox Last 24 Hr 98.0 F-98.3 F 58-75 18-20 91-100/58-68 PE: AOx3 Neck: Supple HEENT: PERRL, EOMI Lungs: CTA CVS: s1S2 Abd: Benign Ext: No edema Neuro: No focal deficit CMP Sodium 140 mmol/L (136-145) 02/22/18 06:03 Potassium 4.1 mmol/L (3.5-5.1) 02/22/18 06:03 Chloride 103 mmol/L (98-107) 02/22/18 06:03 Carbon Dioxide 29 mmol/L (21-32) 02/22/18 06:03 Anion Gap 8 (8-16) 02/22/18 06:03 BUN 21 mg/dL (7-18) H 02/22/18 06:03 Creatinine 0.5 mg/dL (0.55-1.02) L 02/22/18 06:03 Creat Clearance w eGFR > 60 (>60) 02/22/18 06:03 POC Glucometer 114 UNITS (80-120) 02/22/18 08:49 Random Glucose 202 mg/dL (74-106) H 02/22/18 06:03 Hemoglobin A1c % 14.1 % (4.8-6.0) H 02/17/18 11:49 Lactic Acid 1.7 mmol/L (0.0-2.0) 02/17/18 06:42 Calcium 8.7 mg/dL (8.5-10.1) 02/22/18 06:03 Phosphorus 4.4 mg/dL (2.5-4.9) 02/19/18 06:40 Magnesium 1.7 mg/dL (1.8-2.4) L 02/19/18 06:40 Total Bilirubin 0.4 mg/dL (0.2-1.0) 02/22/18 06:03 AST 327 U/L (15-37) H 02/22/18 06:03 ALT 454 U/L (12-78) H 02/22/18 06:03 Alkaline Phosphatase 163 U/L (45-117) H 02/22/18 06:03 Creatine Kinase 38 IU/L (26-192) 02/17/18 08:20 Troponin I < 0.02 ng/ml (0.00-0.05) 02/17/18 08:20 Total Protein 5.8 g/dl (6.4-8.2) L 02/22/18 06:03 Albumin 2.7 g/dl (3.4-5.0) L 02/22/18 06:03 Lipase 95 U/L (73-393) 02/17/18 08:20 Serum , Qual Negative 02/17/18 06:42 Current Medications Generic Name Dose Route Start Last Admin Trade Name Freq PRN Reason Stop Dose Admin Heparin Sodium (Porcine) 5,000 unit 02/18/18 22:00 02/22/18 06:21 Heparin - SQ Not Given TID DARA Insulin Aspart 1 vial 02/18/18 22:00 02/21/18 21:48 Novolog Vial Sliding Scale - SQ 4 units HS DARA Administration Protocol Insulin Aspart 1 vial 02/21/18 14:25 02/22/18 06:21 Novolog Vial Sliding Scale - SQ 5 units TIDAC DARA Administration Protocol Insulin Detemir 27 units 02/21/18 22:00 02/22/18 06:21 Levemir Vial SQ 27 units BID@0700,2200 DARA Administration Ondansetron HCl 4 mg 02/18/18 17:14 Zofran Injection IVPUSH Q4H PRN NAUSEA AND/OR VOMITING Pantoprazole Sodium 20 mg 02/21/18 19:00 02/22/18 10:13 Protonix - PO 20 mg DAILY DARA Administration AP: Neutropenia improving Elevated LFTs improving DKA: resolved T1DM Neuropathy ?UTI: Culture no growth EB virus and Hep A and B results Pending. CMV IgG Positive IgM neg, Hepatitis C neg HIV neg ID Consult noted BGM Q ACHS and 3 a.m. Off Insulin drip levemir 27 BID Novolog Coverage ACHS Discussed need for compliance with diet. Management of Neutropenia as per Primary Will F/u
--- NOTE | 2018-02-22 13:01 | PN ---
Progress Note, Physician History of Present Illness: patient doing well no new issues c/o some abd pain - Current Medication List Current Medications: Active Medications Heparin Sodium (Porcine) (Heparin -) 5,000 unit SQ TID [facility] Last Admin: 02/22/18 06:21 Dose: Not Given Insulin Aspart (Novolog Vial Sliding Scale -) 1 vial SQ HS [facility] PRN Reason: Protocol Last Admin: 02/21/18 21:48 Dose: 4 units Insulin Aspart (Novolog Vial Sliding Scale -) 1 vial SQ TIDAC [facility] PRN Reason: Protocol Last Admin: 02/22/18 12:00 Dose: 4 units Insulin Detemir (Levemir Vial) 27 units SQ BID@0700,2200 [facility] Last Admin: 02/22/18 06:21 Dose: 27 units Ondansetron HCl (Zofran Injection) 4 mg IVPUSH Q4H PRN PRN Reason: NAUSEA AND/OR VOMITING Pantoprazole Sodium (Protonix -) 20 mg PO DAILY [facility] Last Admin: 02/22/18 10:13 Dose: 20 mg - Objective Vital Signs: Vital Signs Temperature 98.1 F 02/22/18 10:00 Pulse Rate 81 02/22/18 10:00 Respiratory Rate 17 02/22/18 10:00 Blood Pressure 93/56 02/22/18 10:00 O2 Sat by Pulse Oximetry (%) 92 L 02/20/18 09:00 Constitutional: Yes: No Distress, Calm Cardiovascular: Yes: Regular Rate and Rhythm Respiratory: Yes: Regular, CTA Bilaterally Gastrointestinal: Yes: Normal Bowel Sounds, Soft Musculoskeletal: Yes: WNL Extremities: Yes: WNL Neurological: Yes: Alert, Oriented Psychiatric: Yes: Alert, Oriented Labs: CBC, BMP 02/22/18 06:03 02/22/18 06:03 INR, PTT INR 0.85 (0.82-1.09) L 02/17/18 06:42 Assessment/Plan Problem List - Problems (1) DKA (diabetic ketoacidoses) Code(s): E13.10 - OTH DIABETES MELLITUS WITH KETOACIDOSIS WITHOUT COMA Qualifiers: Diabetes mellitus type: other specified (including LIANA) Diabetes mellitus complication detail: without coma Qualified Code(s): E13.10 - Other specified diabetes mellitus with ketoacidosis without coma (2) Hypokalemia Code(s): E87.6 - HYPOKALEMIA (3) Diabetic neuropathy associated with type 1 diabetes mellitus Code(s): E10.40 - TYPE 1 DIABETES MELLITUS WITH DIABETIC NEUROPATHY, UNSP plan continue current mgmt follow up with primary patient doing well
[2018-02-22 16:26] LABS: EPSTEIN BARR ANTIBODY IgM <36.0 U/mL (0.0-35.9)
[2018-02-23 00:14] LABS: HBSAG SCREEN Negative (Negative); HEP A AB, IGM Negative (Negative); HEP B CORE AB, TOT Negative (Negative)
[2018-02-23] MEDS: HEPARIN NA (PORCINE) 5,000 UNITS/ML 1ML VIAL SQ SCH ×2 (05:55→14:06)
[2018-02-23] MEDS: INSULIN SLIDING SCALE (NOVOLOG) 1 VIAL SQ SCH ×4 (06:23→16:59)
[2018-02-23] MEDS ORDERED: INSULIN (NOVOLOG) ASPART 100 UNITS/ML 10ML VIAL ONE (06:34)
[2018-02-23] MEDS: INSULIN (LEVEMIR) 100 UNITS/ML UNITS SQ SCH (07:00)
[2018-02-23 07:42] LABS: HEMATOCRIT 34.9 % (32.4-45.2); HEMOGLOBIN 11.9 GM/dL (10.7-15.3); MCH 34.6 pg (25.7-33.7); MCHC 34.1 g/dl (32.0-36.0); MEAN CELL VOLUME 101.7 fl (80-96); MEAN PLT VOLUME 9.2 fl (7.5-11.1); PLATELET COUNT 225 K/MM3 (134-434); RBC 3.44 M/mm3 (3.60-5.2); RDW 13.1 % (11.6-15.6); WHITE BLOOD COUNT 4.1 K/mm3 (4.0-10.0)
[2018-02-23 07:48] LABS: ALBUMIN 2.6 g/dl (3.4-5.0); ANION GAP 5 (8-16); BLOOD UREA NITROGEN 30 mg/dL (7-18); CALCIUM 8.6 mg/dL (8.5-10.1); CHLORIDE 104 mmol/L (98-107); CO2 30 mmol/L (21-32); GLUCOSE,RANDOM 238 mg/dL (74-106); POTASSIUM 4.3 mmol/L (3.5-5.1); SODIUM 139 mmol/L (136-145)
[2018-02-23 07:52] LABS: ALK PHOS 156 U/L (45-117); BILIRUBIN,TOTAL 0.3 mg/dL (0.2-1.0); CREATININE 0.5 mg/dL (0.55-1.02); SGOT/AST 183 U/L (15-37); SGPT/ALT 347 U/L (12-78); TOT PROT 5.6 g/dl (6.4-8.2)
[2018-02-23] MEDS: PANTOPRAZOLE 20 MG TABLET (FP) PO SCH (09:42)
--- NOTE | 2018-02-23 10:57 | PN ---
Progress Note (short form) - Note Progress Note: PULMONARY Feels better. Leukopenia improving. Last Vital Signs Temp Pulse Resp BP Pulse Ox 98.0 F 73 17 90/51 96 02/23/18 09:50 02/23/18 09:50 02/23/18 09:50 02/23/18 09:50 02/22/18 21:00 Gen: NAD at rest Heart: RRR Lung: decreased breath sounds at the bases Abd: soft, nontender Ext: no edema CBC, BMP 02/23/18 06:25 02/23/18 06:25 Active Medications Heparin Sodium (Porcine) (Heparin -) 5,000 unit SQ TID [facility] Last Admin: 02/23/18 05:55 Dose: Not Given Insulin Aspart (Novolog Vial Sliding Scale -) 1 vial SQ HS [facility] PRN Reason: Protocol Last Admin: 02/22/18 21:34 Dose: 4 units Insulin Aspart (Novolog Vial Sliding Scale -) 1 vial SQ TIDAC [facility] PRN Reason: Protocol Last Admin: 02/23/18 06:23 Dose: 5 units Insulin Detemir (Levemir Vial) 27 units SQ BID@0700,2200 [facility] Last Admin: 02/23/18 07:00 Dose: 27 units Ondansetron HCl (Zofran Injection) 4 mg IVPUSH Q4H PRN PRN Reason: NAUSEA AND/OR VOMITING Pantoprazole Sodium (Protonix -) 20 mg PO DAILY [facility] Last Admin: 02/23/18 09:42 Dose: 20 mg A/P Diabetic Ketoacidosis resolved Hypokalemia Diabetic Neuropathy Leukopenia improving Elevated LFTs - monitor CBC - monitor off antibiotics - continue levemir - DVT prophylaxis
--- NOTE | 2018-02-23 11:48 | PN ---
Progress Note (short form) - Note Progress Note: [place] dizzy yesterday Denies any complaints now Improving Neutropenia and LFTS Denies any fever or chills Fluctuating blood sugar Vital Signs Period Temp Pulse Resp BP Sys/Estes Pulse Ox Last 24 Hr 98.0 F-98.2 F 67-75 16-18 90-109/49-76 96-96 PE: AOx3 Neck: Supple HEENT: PERRL, EOMI Lungs: CTA CVS: s1S2 Abd: Benign Ext: No edema Neuro: No focal deficit CMP Sodium 139 mmol/L (136-145) 02/23/18 06:25 Potassium 4.3 mmol/L (3.5-5.1) 02/23/18 06:25 Chloride 104 mmol/L (98-107) 02/23/18 06:25 Carbon Dioxide 30 mmol/L (21-32) 02/23/18 06:25 Anion Gap 5 (8-16) L 02/23/18 06:25 BUN 30 mg/dL (7-18) H 02/23/18 06:25 Creatinine 0.5 mg/dL (0.55-1.02) L 02/23/18 06:25 Creat Clearance w eGFR > 60 (>60) 02/23/18 06:25 POC Glucometer 208 UNITS (80-120) 02/23/18 05:36 Random Glucose 238 mg/dL (74-106) H 02/23/18 06:25 Hemoglobin A1c % 14.1 % (4.8-6.0) H 02/17/18 11:49 Lactic Acid 1.7 mmol/L (0.0-2.0) 02/17/18 06:42 Calcium 8.6 mg/dL (8.5-10.1) 02/23/18 06:25 Phosphorus 4.4 mg/dL (2.5-4.9) 02/19/18 06:40 Magnesium 1.7 mg/dL (1.8-2.4) L 02/19/18 06:40 Total Bilirubin 0.3 mg/dL (0.2-1.0) D 02/23/18 06:25 AST 183 U/L (15-37) H 02/23/18 06:25 ALT 347 U/L (12-78) H 02/23/18 06:25 Alkaline Phosphatase 156 U/L (45-117) H 02/23/18 06:25 Creatine Kinase 38 IU/L (26-192) 02/17/18 08:20 Troponin I < 0.02 ng/ml (0.00-0.05) 02/17/18 08:20 Total Protein 5.6 g/dl (6.4-8.2) L 02/23/18 06:25 Albumin 2.6 g/dl (3.4-5.0) L 02/23/18 06:25 Lipase 95 U/L (73-393) 02/17/18 08:20 Serum , Qual Negative 02/17/18 06:42 Current Medications Generic Name Dose Route Start Last Admin Trade Name Freq PRN Reason Stop Dose Admin Heparin Sodium (Porcine) 5,000 unit 02/18/18 22:00 02/23/18 05:55 Heparin - SQ Not Given TID DARA Insulin Aspart 1 vial 02/18/18 22:00 02/22/18 21:34 Novolog Vial Sliding Scale - SQ 4 units HS DARA Administration Protocol Insulin Aspart 1 vial 02/21/18 14:25 02/23/18 06:23 Novolog Vial Sliding Scale - SQ 5 units TIDAC [facility] Administration Protocol Insulin Detemir 27 units 02/21/18 22:00 02/23/18 07:00 Levemir Vial SQ 27 units BID@0700,2200 DARA Administration Ondansetron HCl 4 mg 02/18/18 17:14 Zofran Injection IVPUSH Q4H PRN NAUSEA AND/OR VOMITING Pantoprazole Sodium 20 mg 02/21/18 19:00 02/23/18 09:42 Protonix - PO 20 mg DAILY DARA Administration AP: Dizziness Neutropenia improving Elevated LFTs improving DKA: resolved T1DM Neuropathy ?UTI: Culture no growth EB virus and Hep A and B results Pending. CMV IgG Positive IgM neg, Hepatitis C neg HIV neg ID Consult noted BGM Q ACHS and 3 a.m. Off Insulin drip Increase levemir 29 BID Increase Novolog Coverage Discussed need for compliance with diet. Management of Neutropenia as per Primary Will F/u
[2018-02-23] MEDS ORDERED: INSULIN SLIDING SCALE (NOVOLOG) 1 VIAL SQ SCH (11:49)
--- NOTE | 2018-02-23 14:48 | PN ---
Progress Note, Physician Chief Complaint: Feels good History of Present Illness: Yesterday DC was cancelled - Current Medication List Current Medications: Active Medications Heparin Sodium (Porcine) (Heparin -) 5,000 unit SQ TID [facility] Last Admin: 02/23/18 14:06 Dose: Not Given Insulin Aspart (Novolog Vial Sliding Scale -) 1 vial SQ HS [facility]ARA PRN Reason: Protocol Last Admin: 02/22/18 21:34 Dose: 4 units Insulin Aspart (Novolog Vial Sliding Scale -) 1 vial SQ TIDAC [facility] PRN Reason: Protocol Last Admin: 02/23/18 12:04 Dose: 6 units Insulin Detemir (Levemir Vial) 29 units SQ BID@0700,2200 DARA Ondansetron HCl (Zofran Injection) 4 mg IVPUSH Q4H PRN PRN Reason: NAUSEA AND/OR VOMITING Pantoprazole Sodium (Protonix -) 20 mg PO DAILY [facility] Last Admin: 02/23/18 09:42 Dose: 20 mg - Objective Vital Signs: Vital Signs Temperature 98.0 F 02/23/18 09:50 Pulse Rate 73 02/23/18 09:50 Respiratory Rate 17 02/23/18 09:50 Blood Pressure 90/51 02/23/18 09:50 O2 Sat by Pulse Oximetry (%) 96 02/23/18 09:00 Constitutional: Yes: No Distress Eyes: Yes: WNL HENT: Yes: WNL Neck: Yes: WNL Cardiovascular: Yes: WNL Respiratory: Yes: WNL Gastrointestinal: Yes: WNL ...Rectal Exam: Yes: Deferred Genitourinary: Yes: WNL Breast(s): Yes: WNL Musculoskeletal: Yes: WNL Edema: No Neurological: Yes: Alert Labs: CBC, BMP 02/23/18 06:25 02/23/18 06:25 INR, PTT INR 0.85 (0.82-1.09) L 02/17/18 06:42 Assessment/Plan DC home
[2018-02-23 15:25] VITALS: BP 91/59; PULSE 83; TEMP 98.2
--- NOTE | 2018-02-23 15:44 | PN ---
Progress Note, Physician History of Present Illness: stable had dizziness last evening with tingling in the legs better today now better - Current Medication List Current Medications: Active Medications Heparin Sodium (Porcine) (Heparin -) 5,000 unit SQ TID [facility] Last Admin: 02/23/18 14:06 Dose: Not Given Insulin Aspart (Novolog Vial Sliding Scale -) 1 vial SQ HS [facility] PRN Reason: Protocol Last Admin: 02/22/18 21:34 Dose: 4 units Insulin Aspart (Novolog Vial Sliding Scale -) 1 vial SQ TIDAC [facility] PRN Reason: Protocol Last Admin: 02/23/18 12:04 Dose: 6 units Insulin Detemir (Levemir Vial) 29 units SQ BID@0700,2200 DARA Ondansetron HCl (Zofran Injection) 4 mg IVPUSH Q4H PRN PRN Reason: NAUSEA AND/OR VOMITING Pantoprazole Sodium (Protonix -) 20 mg PO DAILY [facility] Last Admin: 02/23/18 09:42 Dose: 20 mg - Objective Vital Signs: Vital Signs Temperature 98.2 F 02/23/18 14:22 Pulse Rate 83 02/23/18 14:22 Respiratory Rate 20 02/23/18 14:22 Blood Pressure 91/59 02/23/18 14:22 O2 Sat by Pulse Oximetry (%) 96 02/23/18 09:00 Constitutional: Yes: Calm, Mild Distress Cardiovascular: Yes: Regular Rate and Rhythm Respiratory: Yes: Regular, CTA Bilaterally Gastrointestinal: Yes: Normal Bowel Sounds, Soft Musculoskeletal: Yes: WNL Extremities: Yes: WNL Neurological: Yes: Alert, Oriented Psychiatric: Yes: Alert, Oriented Labs: CBC, BMP 02/23/18 06:25 02/23/18 06:25 INR, PTT INR 0.85 (0.82-1.09) L 02/17/18 06:42 Assessment/Plan Problem List - Problems (1) DKA (diabetic ketoacidoses) Code(s): E13.10 - OTH DIABETES MELLITUS WITH KETOACIDOSIS WITHOUT COMA Qualifiers: Diabetes mellitus type: other specified (including LIANA) Diabetes mellitus complication detail: without coma Qualified Code(s): E13.10 - Other specified diabetes mellitus with ketoacidosis without coma (2) Hypokalemia Code(s): E87.6 - HYPOKALEMIA (3) Diabetic neuropathy associated with type 1 diabetes mellitus Code(s): E10.40 - TYPE 1 DIABETES MELLITUS WITH DIABETIC NEUROPATHY, UNSP plan continue current mgmt follow up with primary patient doing well diabetes control
[2018-02-23] MEDS ORDERED: INSULIN (LEVEMIR) 100 UNITS/ML UNITS SQ SCH (22:00)
== END 2018-02-23 18:10 | disposition home or self-care (01) | DRG 420 ==
LOC: JER 06:20 → JERBED 10:01 → JICU 11:15 → J5S 02-18 16:58
PROVIDERS: ADMIT Internal Medicine; ATTEND Internal Medicine
DX: E10.10 Type 1 diabetes mellitus with ketoacidosis without coma (principal); Z79.4 Long term (current) use of insulin; D70.9 Neutropenia, unspecified; E87.6 Hypokalemia; R74.0 Nonspecific elevation of levels of transaminase and lactic acid dehydrogenase [LDH]; D72.819 Decreased white blood cell count, unspecified; R51 Headache; E10.40 Type 1 diabetes mellitus with diabetic neuropathy, unspecified; R42 Dizziness and giddiness; E83.42 Hypomagnesemia; R82.71 Bacteriuria
CPT/HCPCS: 36415; 36600; 71045-TC-FY; 80048; 80053; 81003; 81015; 82009; 82375; 82550; 82803; 82962; 83036; 83050; 83605; 83690; 83735; 84100; 84132; 84484; 84703; 85025; 85027; 85610; 86644; 86645; 86664; 86665; 86704; 86706; 86708; 87040; 87086; 87186; 87340; 87389; 93005; 93010; 99285-25; J0131; J1644; J7030

== ENCOUNTER 2018-10-23 09:10 | Emergency (ER) | payer OTHER ==
--- NOTE | 2018-10-23 09:16 | PDOC ---
Attending Attestation - Resident Resident Name: Vini Alvarado - ED Attending Attestation I have performed the following: I have examined & evaluated the patient, The case was reviewed & discussed with the resident, I agree w/resident's findings & plan, Exceptions are as noted - HPI HPI: 10/23/18 09:43 28yo female with IDDM on an insulin pump with diabetic neuropathy to the legs. Pt presents stating her leg pain has gotten worse. Pt takes lyrica BID and did take her dose this AM. Pt is wearing her insulin pump. Pt states she follows with Dr. Hatch from neurology and Dr. Ceballos is her PMD. Pt states she tried tylenol at home without relief. Pt denies f/c. No cp/sob/cough. No abd pain. No n/v/d. No rashes. No diabetic wounds. No other complaints. No dysuria. - Physicial Exam PE: 10/23/18 09:45 Gen: aaox3, nad heart: +s1s2 reg Lungs: cta b/l abd: soft, nt/nd +bs, pump to L side of abd ext: no c/c/e, pedal pulses intact, no wounds to feet, no swelling, diffuse ttp , no ecchymosis neuro: cn ii-xii grossly intact, muscle strength 5/5 UE and LE, sensation intact diffusely - Medical Decision Making 10/23/18 09:16 I, Dr. Liz Rubio, DO, attest that this document has been prepared under my direction and personally reviewed by me in its entirety. I further attest, that it accurately reflects all work, treatment, procedures and medical decision -making performed by me. 10/23/18 09:46 a/p: 28yo female with diabetic neuropathy to the legs -glucose 226 -will check upreg -toradol IM -on lyrica -has appt with neurology for Oct -pt is nontoxic in appearance -pain control and dc to home 10/23/18 10:25 urine preg negative given toradol 10/23/18 10:43 pain improved pt feeling better discussed follow up with her PMD, endo, neuro, and will give pain management 10/23/18 10:43 answered all questions pt stable for dc to home
[2018-10-23 09:31] VITALS: BP 121/78; PULSE 112; TEMP 97.9; BMI 21.7
[2018-10-23] MEDS ORDERED: HEMOQUE TEST 1 EACH EACH ONE ×2 (09:34→09:40)
[2018-10-23] MEDS ORDERED: KETOROLAC TROMETHAMINE 60 MG/2 ML VIAL IM ONE (09:43)
--- NOTE | 2018-10-23 09:51 | PDOC ---
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 Has been taking Percocet for a month but ran out of it 2 weeks ago and the pain came back progressively worse. The pain is described as burning and tingling in the knees, shins and feet, worse when she walks. Has been using an insulin pump for a month and a half, had trouble controlling her sugar before. Knows her hA1C is high. Took her Lyrica this morning. Tried to make an appointment with her neurologist Dr. Duran but could only see her Nov 20. Denies headache, dizziness, fever, chills, abdominal pain. Past History - Past Medical History Allergies/Adverse Reactions: Allergies Allergy/AdvReac Type Severity Reaction Status Date / Time No Known Allergies Allergy Verified 10/23/18 09:11 Home Medications: Ambulatory Orders Capsaicin [Capsicum Hot Patch] 1 each TP PRN PRN 10 Days #20 adh..patch Ibuprofen [Motrin -] 600 mg PO TID #21 tablet 10/23/18 Insulin Pump/Infus. Set/Meter [Accu-Chek Combo System] See Protocol SUBD DAILY 10/23/18 Pregabalin [Lyrica] 200 mg PO TID 10/23/18 Anemia: No Asthma: No Cancer: No Cardiac Disorders: No CVA: No COPD: No CHF: No Dementia: No Diabetes: Yes (IDDM) GI Disorders: No Disorders: No HTN: No Hypercholesterolemia: No Liver Disease: No Seizures: No Thyroid Disease: No Other medical history: NEUROPATHY - Surgical History Abdominal Surgery: No Appendectomy: No Cardiac Surgery: No Cholecystectomy: No Lung Surgery: No Neurologic Surgery: No Orthopedic Surgery: No - Immunization History Immunization Up to Date: Yes - Suicide/Smoking/Psychosocial Hx Smoking Status: No Smoking History: Never smoked Have you smoked in the past 12 months: No Number of Cigarettes Smoked Daily: 0 Information on smoking cessation initiated: No Hx Alcohol Use: No Drug/Substance Use Hx: No Substance Use Type: Alcohol Hx Substance Use Treatment: No Review of Systems - Review of Systems Able to Perform ROS?: Yes Is the patient limited Uzbek proficient: No Constitutional: No: Symptoms Reported HEENTM: No: Symptoms Reported Respiratory: No: Symptoms reported Cardiac (ROS): No: Symptoms Reported ABD/GI: No: Symptoms Reported : No: Symptoms Reported Musculoskeletal: Yes: See HPI Integumentary: No: Symptoms Reported Neurological: No: Symptoms reported All Other Systems: Reviewed and Negative *Physical Exam - Vital Signs Last Vital Signs Temp Pulse Resp BP Pulse Ox 97.9 F 112 H 16 121/78 100 10/23/18 09:11 10/23/18 09:11 10/23/18 09:11 10/23/18 09:11 10/23/18 09:11 - Physical Exam General Appearance: Yes: Nourished, Appropriately Dressed, Apparent Distress, Mild Distress HEENT: positive: EOMI, TIFFANY, Normal ENT Inspection Respiratory/Chest: positive: Lungs Clear, Normal Breath Sounds. negative: Chest Tender, Respiratory Distress Cardiovascular: positive: Regular Rhythm, S1, S2, Tachycardia Gastrointestinal/Abdominal: positive: Normal Bowel Sounds, Flat, Soft. negative : Tender Musculoskeletal: positive: Normal Inspection. negative: CVA Tenderness Extremity: positive: Normal Capillary Refill, Normal Inspection, Normal Range of Motion Integumentary: positive: Normal Color, Dry, Warm Neurologic: positive: Fully Oriented, Alert, Normal Mood/Affect, Normal Response , Motor Strength 5/5 Moderate Sedation - Procedure Monitoring Vital Signs: Procedure Monitoring Vital Signs Temperature 97.9 F 10/23/18 09:11 Pulse Rate 112 H 10/23/18 09:11 Respiratory Rate 16 10/23/18 09:11 Blood Pressure 121/78 10/23/18 09:11 O2 Sat by Pulse Oximetry (%) 100 10/23/18 09:11 Medical Decision Making - Medical Decision Making 10/23/18 09:52 28 with acute on chronic neurological pain. will check preg, fingerstick and treat with shot of toradol. Educated patient about medication compliance and opiod addiction. She's open to see a face painter. *DC/Admit/Observation/Transfer Diagnosis at time of Disposition: Diabetic neuropathy associated with diabetes mellitus due to underlying condition - Discharge Dispostion Condition at time of disposition: Stable Decision to Admit order: No - Referrals Referrals: Ayo Shen MD [Staff Physician] - - Patient Instructions Printed Discharge Instructions: DI for Diabetic Neuropathy, Capsaicin Patch May Improve Painful Diabetic Peripheral Neuropathy Symptoms Additional Instructions: Follow up with your neurology appointment at the end of October. Come back to the emergency department for any new, worsening or concerning symptom. hotel service supervisor your prescriptions at the pharmacy. Follow up with Dr. Shen for pain management. - Post Discharge Activity
[2018-10-23 09:59] LABS: PH,URINE 6.5 (4.5-8); URINE APPEARANCE Clear; URINE BILIRUBIN Negative (NEGATIVE); URINE COLOR Yellow; URINE GLUCOSE (UA) 1+ (NEGATIVE); URINE KETONE Negative (NEGATIVE); URINE LEUK ESTERASE TRACE (NEGATIVE); URINE NITRITE Negative (NEGATIVE); URINE PROTEIN Negative (NEGATIVE); URINE UROBILINOGEN 0.2 (0.2-1.0)
[2018-10-23 10:05] LABS: HCG,QUALITATIVE URINE Negative
[2018-10-23] MEDS ORDERED: KETOROLAC TROMETHAMINE 60 MG/2 ML VIAL ONE (10:11)
[2018-10-23 10:23] LABS: URINE RBC 0-2 /hpf (0-3)
[2018-10-23 10:24] LABS: EPI CELLS 2+ /HPF
== END 2018-10-23 10:56 | disposition home or self-care (01) ==
LOC: FER 09:10
PROC: 3E0233Z Introduction of Anti-inflammatory into Muscle, Percutaneous Approach (ICD-10-PCS; principal; 2018-10-23)
DX: E08.40 Diabetes mellitus due to underlying condition with diabetic neuropathy, unspecified (principal); Z79.4 Long term (current) use of insulin
CPT/HCPCS: 81003; 81015; 84703; 87086; 99282-25

== ENCOUNTER 2018-12-05 10:32 | Inpatient (IN) | payer OTHER ==
[2018-12-05 10:46] VITALS: BMI 21.2
--- NOTE | 2018-12-05 10:48 | PDOC ---
Attending Attestation - Resident Resident Name: Dong Mckeon - HPI HPI: 12/05/18 11:45 Pt presents to the ED complaining of acute worsening of her chronic bilateral leg pain which is secondary to peripheral neuropathy. Patient is a poorly controlled diabetic and has a history of chronic severe peripheral neuropathy which is resistant to pain control with multiple medicines. Also walks with a walker. Patient sees Dr. Hatch. Denies injury or fever. Denies problems with bowel or bladder control. Reports increased, symmetric weakness to both of her lower extremities. - Physicial Exam PE: 12/05/18 11:49 Agree with resident exam. Patient reports pain with light touch to her entire lower extremities, although there is no erythema, swelling or bruising. Decreased strength with leg raise and plantar/dorsi flexion bilaterally. - Medical Decision Making 12/05/18 11:51 Pt presents to the ED complaining of bilateral lower extremity weakness and severe pain. Pain is likely secondary to her chronic peripheral neuropathy.
--- NOTE | 2018-12-05 11:08 | PDOC ---
History of Present Illness - General Chief Complaint: Pain, Acute Stated Complaint: pain Time Seen by Provider: 12/05/18 10:48 History Source: Patient Exam Limitations: No Limitations - History of Present Illness Initial Comments: 28 yo F w a pmh of T1DM insulin dependent with chronic neuropathy presents to the ER with extreme bilateral leg pain and weakness which she says has been going on for the past 6 months. She has been taking gabapentin - 800, tramadol - 37.5, tylenol - 325, and percocet with minimal relief. She is presenting to the ER because she cannot tolerate her pain today. She is having extreme difficulty walking with her walker. She is also experiencing bilateral leg weakness, numbness, and tingling. She tried getting in touch with her doctor this morning but couldn't so came into the ER for pain control. She denies recent fevers, infections, headache, neck pain, chest pain, SOB, difficulty breathing, bowel or bladder incontinence, saddle anesthesia, or loss of sensation. Neurologist: Dr. Hatch - [phone]. He states he has tried IVIG PCP: Tarah Ceballos PSH: Leg biopsy for neuropathy Allergies: NKA, NKDA Social Hx: Denies smoking, drinking, or alcohol usage. Past History - Past Medical History Allergies/Adverse Reactions: Allergies Allergy/AdvReac Type Severity Reaction Status Date / Time No Known Allergies Allergy Verified 12/05/18 11:06 Home Medications: Ambulatory Orders Insulin Pump/Infus. Set/Meter [Accu-Chek Combo System] See Protocol SUBD DAILY 10/23/18 Pregabalin [Lyrica] 200 mg PO TID 10/23/18 Anemia: No Asthma: No Cancer: No Cardiac Disorders: No CVA: No COPD: No CHF: No Dementia: No Diabetes: Yes (IDDM) GI Disorders: No Disorders: No HTN: No Hypercholesterolemia: No Liver Disease: No Seizures: No Thyroid Disease: No Other medical history: Neuropathy - Surgical History Abdominal Surgery: No Appendectomy: No Cardiac Surgery: No Cholecystectomy: No Lung Surgery: No Neurologic Surgery: No Orthopedic Surgery: No - Immunization History Immunization Up to Date: Yes - Suicide/Smoking/Psychosocial Hx Smoking Status: No Smoking History: Never smoked Have you smoked in the past 12 months: No Number of Cigarettes Smoked Daily: 0 Information on smoking cessation initiated: No Hx Alcohol Use: No Drug/Substance Use Hx: No Substance Use Type: Alcohol Hx Substance Use Treatment: No Review of Systems - Review of Systems Able to Perform ROS?: Yes Comments:: CONSTITUTIONAL: Absent: fever, no chills, no fatigue EYES: Absent: visual changes ENT: Absent: ear pain, no sore throat CARDIOVASCULAR: Absent: chest pain, no palpitations RESPIRATORY: Absent: cough, no SOB GI: Absent: abdominal pain, no nausea, no vomiting, no constipation, no diarrhea GENITOURINARY: Absent: dysuria, no frequency, no hematuria MUSKULOSKELETAL: Present: Arthralgia, myalgia Absent: back pain EXTREMITIES: Present: tingling, pain, weakness SKIN: Absent: rash NEURO: Absent: headache *Physical Exam - Vital Signs Last Vital Signs Temp Pulse Resp BP Pulse Ox 97.6 F 118 H 18 110/80 100 12/05/18 10:42 12/05/18 10:42 12/05/18 10:42 12/05/18 10:42 12/05/18 10:42 - Physical Exam Comments: GENERAL: She is crying and appears to be in a significant amount of pain. HEENT: Normocephalic, atraumatic. PERRL, EOM intact. CARDIOVASCULAR: Normal S1, S2. Tachycardic rate and regular rhythm. PULMONARY: No evidence of respiratory distress. Lungs clear to auscultation bilaterally. No wheezing, rales or rhonchi. ABDOMEN: Soft, non-distended, non-tender. EXTREMITIES: Limited ROM in lower extremities. Her legs are bilaterally weak and she has dysthesias. It is painful when her legs are brushed upon. Normal ROM in upper extremities. No gross deformities. SKIN: Warm, dry. No rash NEUROLOGICAL: decreased patellar and achilles reflexes. downward going toes. Moderate Sedation - Procedure Monitoring Vital Signs: Procedure Monitoring Vital Signs Temperature 97.6 F 12/05/18 10:42 Pulse Rate 118 H 12/05/18 10:42 Respiratory Rate 18 12/05/18 10:42 Blood Pressure 110/80 12/05/18 10:42 O2 Sat by Pulse Oximetry (%) 100 12/05/18 10:42 ED Treatment Course - LABORATORY CBC & Chemistry Diagram: 12/05/18 11:30 12/05/18 11:30 - ADDITIONAL ORDERS Additional order review: Laboratory Results 12/05/18 10:47 POC Glucometer 250 12/05/18 10:47 POC Glucometer 250 Medical Decision Making - Medical Decision Making 28 yo F w a pmh of T1DM insulin dependent with chronic neuropathy presents to the ER with extreme bilateral leg pain and weakness which she says has been going on for the past 6 months. She has been taking gabapentin - 800, tramadol - 37.5, tylenol - 325, and percocet with minimal relief. She is presenting to the ER because she cannot tolerate her pain today. She is having extreme difficulty walking with her walker. She is also experiencing bilateral leg weakness, numbness, and tingling. She tried getting in touch with her doctor this morning but couldn't so came into the ER for pain control. VS: Tachycardic DDx IBNLT: Neuropathy, neuropathic pain, spinal cord process, acute flacid vs transverse myelitis, cauda equina. Plan: Labs, analgesia, Neuro copnsult, re-assess. Spoke with Dr. Hatch. He agrees best course of action to start is to give her some analgesia and re-assess her leg weakness to see if it is true weakenss or secondary to pain. On re-assessment the patient has experienced significant analgesic relief but still has bilateral leg weakness. She also has decreased patellar and achilles reflexes with downward going toes ( negative babinsky) I spoke with Dr. Hatch who agrees that we should bring in this patient to get an MRI and evaluate this patients bilateral leg weakness. -Dr. Hatch will come to see the patient today. Will admit to med/surg for further care and to receive MRI of the spine. *DC/Admit/Observation/Transfer Diagnosis at time of Disposition: Diabetic neuropathy, Leg weakness, bilateral - Discharge Dispostion Condition at time of disposition: Stable Decision to Admit order: Yes - Referrals - Patient Instructions - Post Discharge Activity
[2018-12-05] MEDS ORDERED: KETOROLAC TROMETHAMINE 30 MG/1 ML VIAL IVPUSH ONE (11:18)
[2018-12-05] MEDS ORDERED: morphine CARPU-JECT 4 MG/1 ML DISP.SYRIN IVPUSH ONE ×2 (11:18→14:48)
[2018-12-05] MEDS ORDERED: KETOROLAC TROMETHAMINE 30 MG/1 ML VIAL ONE (11:37)
[2018-12-05] MEDS ORDERED: morphine SULFATE 4 MG/ML VIAL ONE ×2 (11:37→14:53)
[2018-12-05] MEDS ORDERED: SODIUM CHLORIDE 0.9% 500 ML INFUS.BAG IV ONE ×2 (11:37→17:52)
[2018-12-05 11:43] LABS: BASO % 0.5 % (0-2.0); HEMATOCRIT 39.2 % (32.4-45.2); HEMOGLOBIN 13.6 GM/dL (10.7-15.3); LYMPH % 43.7 % (8-40); MCH 31.3 pg (25.7-33.7); MCHC 34.7 g/dl (32.0-36.0); MEAN CELL VOLUME 90.2 fl (80-96); MONO % 5.5 % (3.8-10.2); NEUT % 47.3 % (42.8-82.8); PLATELET COUNT 317 K/MM3 (134-434); RBC 4.35 M/mm3 (3.60-5.2); RDW 12.5 % (11.6-15.6)
[2018-12-05 12:24] LABS: ALBUMIN 3.6 g/dl (3.4-5.0); ALK PHOS 88 U/L (45-117); ANION GAP 8 MMOL/L (8-16); BILIRUBIN,TOTAL 0.5 mg/dL (0.2-1); BLOOD UREA NITROGEN 17 mg/dL (7-18); CALCIUM 9.3 mg/dL (8.5-10.1); CHLORIDE 101 mmol/L (98-107); CO2 27 mmol/L (21-32); CREATININE 0.4 mg/dL (0.55-1.3); GLUCOSE,RANDOM 215 mg/dL (74-106); POTASSIUM 5.1 mmol/L (3.5-5.1); SGOT/AST 24 U/L (15-37); SGPT/ALT 22 U/L (13-61); SODIUM 136 mmol/L (136-145); TOT PROT 7.1 g/dl (6.4-8.2)
[2018-12-05] MEDS ORDERED: DEXTROSE 50%-WATER 25 GM/50 ML DISP.SYRIN ONE (18:20)
--- NOTE | 2018-12-05 18:42 | PDOC ---
*Physical Exam - Vital Signs Last Vital Signs Temp Pulse Resp BP Pulse Ox 99.2 F 129 H 18 119/73 98 12/05/18 17:52 12/05/18 17:52 12/05/18 17:52 12/05/18 17:52 12/05/18 17:52 ED Treatment Course - LABORATORY CBC & Chemistry Diagram: 12/05/18 11:30 12/05/18 11:30 - ADDITIONAL ORDERS Additional order review: Laboratory Results 12/05/18 12/05/18 12/05/18 11:30 11:30 10:47 Sodium 136 Potassium 5.1 Chloride 101 Carbon Dioxide 27 Anion Gap 8 BUN 17 Creatinine 0.4 L Creat Clearance w eGFR > 60 POC Glucometer 250 Random Glucose 215 H Calcium 9.3 Total Bilirubin 0.5 AST 24 ALT 22 Alkaline Phosphatase 88 Total Protein 7.1 Albumin 3.6 Serum , Qual Negative 12/05/18 12/05/18 11:30 10:47 RBC 4.35 MCV 90.2 MCHC 34.7 RDW 12.5 MPV 8.0 D Neutrophils % 47.3 Lymphocytes % 43.7 H Monocytes % 5.5 Eosinophils % 3.0 Basophils % 0.5 POC Glucometer 250 - Medications Given in the ED: ED Medications Discontinued Medications Generic Name Dose Route Start Last Admin Trade Name Freq PRN Reason Stop Dose Admin Ketorolac Tromethamine 30 mg 12/05/18 11:18 12/05/18 11:40 Toradol Injection - IVPUSH 12/05/18 11:19 30 mg ONCE ONE Administration Morphine Sulfate 4 mg 12/05/18 11:18 12/05/18 11:40 Morphine Injection - IVPUSH 12/05/18 11:19 4 mg ONCE ONE Administration Morphine Sulfate 4 mg 12/05/18 14:48 12/05/18 14:56 Morphine Injection - IVPUSH 12/05/18 14:49 4 mg ONCE ONE Administration Sodium Chloride 1,000 ml 12/05/18 11:37 12/05/18 11:40 Normal Saline - IV 12/05/18 11:38 1,000 ml ONCE ONE Administration Sodium Chloride 1,000 ml 12/05/18 17:52 12/05/18 18:26 Normal Saline - IV 12/05/18 17:53 1,000 ml ONCE ONE Administration Medical Decision Making - Medical Decision Making Patient continues to be tachycardic throughout the day. Her fingerstick was noted to be in the low 60's - Gave her some food but she is not eating well. - Giving her half a shot of D50 and another liter of fluid. - Repeat EKG is still sinus tachy into the high 120's If patient is persistently tachycardic despite IV hydration, analgesia, and glucose correction will consider obtaining b/l duplex US's to r/o DVT. - Will also consider getting a D-Dimer and if positive get a CTA to r/o PE Will sign out patient to night team to monitor. *DC/Admit/Observation/Transfer Diagnosis at time of Disposition: Diabetic neuropathy, Leg weakness, bilateral - Discharge Dispostion Condition at time of disposition: Stable - Referrals - Patient Instructions - Post Discharge Activity
[2018-12-05] MEDS ORDERED: MORPHINE SULFATE 2 MG/ML VIAL ONE (20:13)
[2018-12-05] MEDS ORDERED: morphine CARPU-JECT 2 MG/1 ML DISP.SYRIN IVPUSH ONE (20:16)
--- NOTE | 2018-12-05 21:15 | CON.NEURO ---
Consult Consult Specialty:: [facility]en Referred by:: ER Reason for Consultation:: Leg weakness - History of Present Illness History of Present Illness: 28 years old woman with IDDM and neuropathy Patient kaba dory thbrigida am By nacho time I called her she came to the ER with pain and weakness I evaluated the patient the emergency room at the request of the emergency room doctor. Patient was noted to be with increasing weakness pain was controlled with 2 mg of morphine. Patient still with significant difficulty with leg weakness arm numbness! Patient had an EMG nerve conduction testing in 2018 which revealed sensorimotor polyneuropathy - History Source History Provided By: Patient Limitations to Obtaining History: No Limitations - Past Medical History ...LMP: 09/17/16 Endocrine: Yes: Diabetes Mellitus (describes multiple episodes of DKA, the last being last month ), Other (Peripheral Neuropathy) - Alcohol/Substance Use Hx Alcohol Use: No - Smoking History Smoking history: Never smoked Have you smoked in the past 12 months: No Aproximately how many cigarettes per day: 0 - Social History Usual Living Arrangement: Other (staying with mother and aunt for the past week) ADL: Independent Occupation: Student / works at [employer] in [facility] History of Recent Travel: No Home Medications - Allergies Allergies/Adverse Reactions: Allergies Allergy/AdvReac Type Severity Reaction Status Date / Time No Known Allergies Allergy Verified 12/05/18 11:06 - Home Medications Home Medications: Ambulatory Orders Insulin Pump/Infus. Set/Meter [Accu-Chek Combo System] See Protocol SUBD DAILY 10/23/18 Pregabalin [Lyrica] 200 mg PO TID 10/23/18 Family Disease History - Family Disease History Family Disease History: Diabetes: Grandparent, Other: Father (alive: 42: healthy ), Mother (alive: 43 GERD), Brother (No siblings), Son (No children) Review of Systems - Review of Systems Constitutional: reports: No Symptoms Eyes: reports: No Symptoms HENT: reports: No Symptoms Neurological: reports: Headache, Incoordination Physical Exam-Neuro Vital Signs: Vital Signs Temperature 99.2 F 12/05/18 17:52 Pulse Rate 129 H 12/05/18 17:52 Respiratory Rate 18 12/05/18 17:52 Blood Pressure 119/73 12/05/18 17:52 O2 Sat by Pulse Oximetry (%) 98 12/05/18 17:52 Constitutional: Yes: Well Nourished, Pallor Neck: Yes: WNL Labs: CBC, BMP 12/05/18 11:30 12/05/18 11:30 - Neuro Exam Level Of Consciousness: Yes: Oriented to Person, Oriented to Place, Oriented to Time Eyes: Yes: PERRLA Speech: WNL Dominant Hand: Right Cranial Nerves II-XII Intact: Yes Gag: Present DTR's: 0 Left Bicep, 0 Right Bicep, 1+ Left Brachioradialis, 1+ Right Brachioradialis Response to light touch: Abnormal Response to pain prick: Abnormal Response to temperature: Abnormal Motor Strength: 2/5: Left Leg, Right Arm, 3/5: Left Arm, Right Leg Gait: Deferred Problem List - Problems (1) Diabetic neuropathy Assessment/Plan: painful diabetic neuropathy I cannot explain the weakness in the presence of bilateral knee reflexes Patient is also complaining of increasing bilateral hand numbness Patient is continent urine and stool The presence of the reflexes and degree of pain speaks out of the demyelinating neuropathy 1. Admit to the [facility]. 2. Fall precautions. 3. Physical therapy. 4. RONALD stockings.. 5. Repeat nerve conduction testing electromyography of the lower extremities rule out demyelinating neuropathy. 6. MRI of the T5-S1 indication is the bilateral leg weakness. 7. HTLV-1. 8. Although very low risk suggest HIV testing. 9. Pain management consult with Dr. Montes De Oca. 10. Trial of Lyrica 100 mg twice a day in addition to the gabapentin 800 mg every 8 hours with careful monitoring of the kidneys. 11. Increase Cymbalta to 30 mg in the morning 6 to him at night. 12. suggest two Percocet until seen by pain management Code(s): E11.40 - TYPE 2 DIABETES MELLITUS WITH DIABETIC NEUROPATHY, UNSP Qualifiers:
[2018-12-05] MEDS ORDERED: GABAPENTIN 100 MG CAPSULE (FP) ONE ×2 (22:26→22:37)
[2018-12-05] MEDS ORDERED: PREGABALIN 100 MG CAPSULE ONE (22:26)
[2018-12-05] MEDS: PREGABALIN 100 MG CAPSULE PO SCH (22:30)
[2018-12-05] MEDS: GABAPENTIN 400 MG CAPSULE (FP) PO SCH (22:30)
[2018-12-06] MEDS: GABAPENTIN 400 MG CAPSULE (FP) PO SCH ×3 (06:54→22:27)
[2018-12-06] MEDS: oxyCODONE HCL 5 MG TABLET PO PRN ×3 (06:54→20:46)
[2018-12-06] MEDS: PREGABALIN 100 MG CAPSULE PO SCH ×2 (10:14→22:27)
[2018-12-06] MEDS: DULoxetine HCL 30 MG CAPSULE.DR (FP) PO SCH (10:21)
--- NOTE | 2018-12-06 12:00 | HP ---
DATE OF ADMISSION: 12/05/2018 HISTORY: This is a 28-year-old woman with insulin-dependent diabetes, peripheral neuropathy admitted through the emergency room yesterday with complaints of weakness and difficulty in walking and increased loss of sensation both legs. She was evaluated by who was known to her before. Her diabetes is controlled by insulin pump. 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 SOCIAL HISTORY: She lives with her parents. Not a smoker. PHYSICAL EXAMINATION: Vital Signs: BP 130/90, pulse 118, respirations 20, temperature 98. HEENT: Unremarkable. Neck: Supple. No JVD. Lungs: Clear. Heart: S1, S2 normal. No S3, S4. Abdomen: Soft. Extremities: Legs, no edema. Neurologic: Her reflexes are normal. No obvious sensory deficit. LABORATORIES: WBC 9, hemoglobin 13.6. Electrolytes are normal. Blood sugar 215. IMPRESSION: 1. Insulin-dependent diabetes. 2. Peripheral neuropathy. 3. Muscle weakness. PLAN: Continue her present medications. Physical therapy for ambulation. We will follow. MC BLACKWELL M.D. [id number]
--- NOTE | 2018-12-06 14:37 | EKG ---
Test Reason : Blood Pressure : / mmHG Vent. Rate : 123 BPM Atrial Rate : 123 BPM P-R Int : 132 ms QRS Dur : 068 ms QT Int : 310 ms P-R-T Axes : 040 052 012 degrees QTc Int : 443 ms SINUS TACHYCARDIA OTHERWISE NORMAL ECG WHEN COMPARED WITH ECG OF 05-DEC-2018 18:09, NO SIGNIFICANT CHANGE WAS FOUND Confirmed by ALON GUALLPA MD ([id number]) on 12/06/2018 2:37:15 PM Referred By: Confirmed By:ALON GUALLPA MD
[2018-12-06] MEDS: ACETAMINOPHEN 325 MG TABLET (FP) PO PRN (14:50)
--- NOTE | 2018-12-06 15:04 | ECHO ---
Name: MARY KATE NUNEZ Exam:Adult Echocardiogram Study Date: 12/06/2018 01:08 PM Age: 28 yrs Reason For Study: Tachycardia Height: 63 in Weight: 135 lb BSA: 1.6 m2 MMode/2D Measurements & Calculations IVSd: 0.97 cm ACS: 1.9 cm LVIDd: 2.3 cm LVIDs: 1.7 cm LVPWd: 1.3 cm EDV(Teich): 17.2 ml LVOT diam: 2.0 cm ESV(Teich): 8.0 ml Doppler Measurements & Calculations MV E max josie: 74.7 cm/sec Med Peak E' Josie: 7.8 cm/sec MV A max josie: 80.8 cm/sec Med E/e': 9.6 MV E/A: 0.92 Lat Peak E' Josie: 11.7 cm/sec Lat E/e': 6.4 Procedure A complete two-dimensional transthoracic echocardiogram was performed (2D, M-mode, Doppler and color flow Doppler). Left Ventricle The left ventricle is normal in size. Left ventricular systolic function is normal. Ejection Fraction = 55- 60%. No regional wall motion abnormalities noted. Right Ventricle The right ventricle is normal size. The right ventricular systolic function is normal. Atria The left atrial size is normal. Right atrial size is normal. Mitral Valve There is mild mitral annular calcification. There is mild mitral regurgitation. Tricuspid Valve The tricuspid valve is normal in structure and function. There is mild tricuspid regurgitation. Aortic Valve The aortic valve is normal in structure and function. No aortic regurgitation is present. Pulmonic Valve The pulmonic valve is not well visualized. Great Vessels The aortic root is normal size. Pericardium/Pleura There is no pericardial effusion. Interpretation Summary The left ventricle is normal in size. Left ventricular systolic function is normal. No regional wall motion abnormalities noted. Ejection Fraction = 55-60%. The right ventricular systolic function is normal. The left atrial size is normal. Right atrial size is normal. There is mild mitral annular calcification. There is mild mitral regurgitation. There is mild tricuspid regurgitation. There is no pericardial effusion. Previous study is not available for comparison John Conti MD 12/06/2018 03:03 PM
--- NOTE | 2018-12-06 19:29 | PN ---
Progress Note, Physician History of Present Illness: evenst noted Chart reviwed Alert awake Pain is better Walks with walker Noted nacho echo - Current Medication List Current Medications: Active Medications Acetaminophen (Tylenol -) 650 mg PO Q6H PRN PRN Reason: PAIN LEVEL 6-10 Last Admin: 12/06/18 14:50 Dose: 650 mg Duloxetine HCl (Cymbalta -) 30 mg PO DAILY [facility] Last Admin: 12/06/18 10:21 Dose: 30 mg Gabapentin (Neurontin -) 800 mg PO TID [facility] Last Admin: 12/06/18 14:51 Dose: 800 mg Oxycodone HCl (Roxicodone -) 10 mg PO Q6H PRN PRN Reason: PAIN LEVEL 6-10 Last Admin: 12/06/18 12:45 Dose: 10 mg Pregabalin (Lyrica -) 100 mg PO BID [facility] Last Admin: 12/06/18 10:14 Dose: 100 mg - Objective Vital Signs: Vital Signs Temperature 98.2 F 12/06/18 14:22 Pulse Rate 120 H 12/06/18 14:22 Respiratory Rate 20 12/06/18 14:22 Blood Pressure 121/72 12/06/18 14:22 O2 Sat by Pulse Oximetry (%) 97 12/06/18 10:00 Constitutional: Yes: Well Nourished Eyes: Yes: WNL Neurological: Yes: Alert, Oriented, Babinski negative ...Motor Strength: WNL Labs: CBC, BMP 12/05/18 11:30 12/05/18 11:30 Problem List - Problems (1) Diabetic neuropathy Assessment/Plan: Painful Diabetic neuropathy 1. Combo Neurontin Lyrica and Cymbalta 2. Capscin cream 3. MRI pending Code(s): E11.40 - TYPE 2 DIABETES MELLITUS WITH DIABETIC NEUROPATHY, UNSP Qualifiers:
--- NOTE | 2018-12-06 23:49 | CONS ---
DATE OF CONSULTATION: DATE OF DICTATION: 12/06/2018 REQUESTING PHYSICIAN: Tarah Ceballos M.D. CARDIOLOGY CONSULTATION CHIEF COMPLAINT: 1. Persistent tachycardia. 2. 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 3. Painful peripheral neuropathy. HISTORY OF PRESENT ILLNESS: The patient is a 28-year-old female of [place] background who was admitted to the hospital with severe painful peripheral neuropathy dating back to several years, poorly responsive to medication including oxycodone. Patient says she has been experiencing throbbing, burning, paresthesias that are unrelenting. She also has been experiencing poor diabetic control with frequent episodes of hyper and hypoglycemia. She also has had multiple episodes of ketoacidosis which have subsided since she has been on insulin pump. She complains of palpitations which occur both with hyper and hypoglycemia associated with shortness of breath. She has periods of lightheadedness, dizziness, with hypoglycemia. She has experienced increased warmth associated with warm sweating and anterior pressure like chest discomfort during episodes of hyperglycemia. She denies sweating associated with hypoglycemia and has had no presyncopal or syncopal episodes. She denies having partial lightheadedness, dizziness, presyncope or syncope. On admission, she was found to have a resting heart rate of 130 beats per minute , and patient was unaware that she was having a rapid heart rate. She on occasion has shortness of breath which chiefly occurs with hypoglycemia. No history of paroxysmal nocturnal dyspnea or orthopnea. PAST HISTORY: As mentioned in the history of present illness. History of thrombocytopenia. History of acute pancreatitis one year ago. SURGICAL HISTORY: Had a muscle biopsy, results are not available. SOCIAL HISTORY: She is single, has never smoked, denies use of alcohol, and has an occasional cup of coffee or tea. FAMILY HISTORY: Father is 47 years of age and suffers from epilepsy for the past 5 years. There is history of heavy drinking generally on weekends. Father has 4 sisters and 1 daughter, all the sisters suffer from type 1 diabetes, and the siblings of all his sisters are diabetic. He has 1 brother who is nondiabetic. Patient's mother is 46 years of age, has peptic ulcer disease, has had some type of gastric surgery, has history of arthritis and difficulty in breathing. ALLERGIES: None reported. CURRENT MEDICATIONS: 1. Acetaminophen 650 mg p.o. q.6 h. p.r.n. 2. Neurontin 800 mg p.o. t.i.d. 3. Lyrica 100 mg p.o. b.i.d. 4. Cymbalta 30 mg p.o. daily. 5. Oxycodone 10 mg p.o. q.6 h. p.r.n. 6. Insulin via pump includes combination of NovoLog and Lantus insulin. 7. She also was on a muscle relaxant that she took q.12 h. and does not recall the name or dosage. REVIEW OF SYSTEMS: CONSTITUTIONAL: History of occasional night sweats. No history of chills or fever, gets frequent episodes of weight fluctuation. HEENT: Has blurred vision during episodes of hypoglycemia, no history of diplopia, no history of headaches, no history of hoarseness or epistaxis, no history of tinnitus or deafness. CARDIOVASCULAR: History of pressure like chest discomfort usually associated with significant elevation of blood sugar associated with palpitations and feels extremely hot. RESPIRATORY: No history of cough, expectoration, or hemoptysis. Denies having tuberculosis. GASTROINTESTINAL: Occasional nausea. No history of vomiting. Denies having diarrhea, history of pancreatitis, no history of recent abdominal pain or discomfort. Denies having change in bowel habits. See history of present illness. History of painful paresthesias, history of intermittent lightheadedness usually associated with low blood sugar, no history of seizures or epilepsy. MUSCULOSKELETAL: "Knees locking up". Severe paresthesias of the hands with at times fingers locking up. History of intermittent myalgias. HEMATOLOGICAL/LYMPHATICS: No history of recent anemia, bleeding, or ecchymosis. No history of lymphadenopathy. ENDOCRINE: See history of present illness. PHYSICAL EXAMINATION: GENERAL: 28-year-old female who is well versed with her illness was in no acute distress. There was no pallor, cyanosis, clubbing, or jaundice. VITAL SIGNS: Weight not recorded. Blood pressure 120/70 mmHg supine, pulse 130 beats per minute supine, with good volume. Blood pressure standing 86/60 mmHg within 1 minute of standing, pulse 158 beats per minute on standing. Patient did not experience any lightheadedness or dizziness. Respirations 21 beats per minute, temperature 98.2 degrees Fahrenheit, oxygen saturation 97% on room air. EYES: Pupils were equal reacting to light and accommodation, no scleral icterus or conjunctival pallor was noted. Unable to appreciate xanthelasmas or arcus senilis. NECK: Supple, no jugulovenous distention, hepatojugular reflex was negative, carotids were 2+, upstrokes were normal, no bruits were heard. There was slight fullness of right lobe of the thyroid. Trachea was midline. HEART: PMI was in the 5th intercostal space, slight parasternal heave, S1 and S2 were normal, no murmur or gallops were heard, there were no rubs present. LUNGS: Clear on auscultation bilaterally. CHEST: Normal AP diameter. Expansion was symmetrical. There was a tattoo on the posterior chest wall. ABDOMEN: Soft, slightly protuberant and nontender. No hepatosplenomegaly or palpable masses were felt. Bowel wounds were present, no bruits were heard. There is umbilical piercing. EXTREMITIES: No calf tenderness or dependent edema. Pulses were equal. LABORATORY DATA: CBC on December 05, 2018: WBC 6000, hemoglobin 13.6 g/dL, platelet count 317,000. Neutrophils 47.3%, lymphocytes 43.7%, monocytes 5.5%, eosinophils 3%, basophils 0.5%. Glucose at 18:14 hours on December 06, 2018: 82 mg/dL. Earlier, 190 mg/dL at 12:43. TSH 0.79. No other chemistry was available. ECG dated December 06, 2018: sinus tachycardia at 123 beats per minute. Right axis deviation. Nondiagnostic Q waves at II, III, AVF. Nonspecific ST and T abnormality. Echocardiogram: Interpretation summary: Left ventricle is normal in size. Left ventricular systolic function is normal. No regional wall motion abnormalities noted. Ejection fraction is 55% to 60%. Right ventricular systolic pressure is normal. Left atrial size is normal. Right atrial size is normal. There is mild mitral annular calcification. There is mild mitral regurgitation. There is mild tricuspid regurgitation . There is no pericardial effusion. X-ray chest is not available. IMPRESSION: 1. Clinical presentation is consistent with cardiac autonomic neuropathy. 2. Type 1 (juvenile) diabetes mellitus, poorly controlled. 3. Severe painful diabetic peripheral neuropathy. 4. Chest pain syndrome, etiology: A. Coronary artery disease needs exclusion in a juvenile diabetic. B. Status post acute pancreatitis. RECOMMENDATION: 1. Comprehensive metabolic profile, CBC, lipid profile, vitamin D and vitamin B12 levels. Consider free T4 and T3. 2. Increase fluid intake and will need fluid challenge. 3. Support stocking or TEDS. 4. Consider adding Florinef starting at 0.5 mg. 5. Urine analysis to exclude proteinuria. 6. X-ray chest PA and lateral. 7. Will need to exclude coronary artery disease and should avoid pharmacological stress test in the presence of severe autonomic dysfunction. 8. Thyroid ultrasound to exclude the possibility of thyromegaly. 9. She should have a cardiac MRI to exclude the possibility of infiltrative heart disease, example amyloidosis. 10. Transfer patient to telemetry for close monitoring. 11. Further suggestions will depend upon the above mentioned testing. Prognosis guarded. Thank you for your referral. BRAYAN GRADY M.D. Time spent: 2hours 10 minutes. SKYLER/[id number] MTDD
[2018-12-07] MEDS: ACETAMINOPHEN 325 MG TABLET (FP) PO PRN ×3 (02:23→16:44)
[2018-12-07] MEDS: GABAPENTIN 400 MG CAPSULE (FP) PO SCH ×3 (05:56→21:13)
[2018-12-07] MEDS: oxyCODONE HCL 5 MG TABLET PO PRN ×3 (06:51→16:43)
--- NOTE | 2018-12-07 09:36 | PN ---
Progress Note, Physician Chief Complaint: Pain persists History of Present Illness: Dr Flowers cardiology consult appreciated On telemetry,still tachycardic rate 135 - Current Medication List Current Medications: Active Medications Acetaminophen (Tylenol -) 650 mg PO Q6H PRN PRN Reason: PAIN LEVEL 6-10 Last Admin: 12/07/18 02:23 Dose: 650 mg Duloxetine HCl (Cymbalta -) 30 mg PO DAILY [facility] Last Admin: 12/06/18 10:21 Dose: 30 mg Gabapentin (Neurontin -) 800 mg PO TID [facility] Last Admin: 12/07/18 05:56 Dose: 800 mg Oxycodone HCl (Roxicodone -) 10 mg PO Q6H PRN PRN Reason: PAIN LEVEL 6-10 Last Admin: 12/07/18 06:51 Dose: 10 mg Pregabalin (Lyrica -) 100 mg PO BID [facility] Last Admin: 12/06/18 22:27 Dose: 100 mg - Objective Vital Signs: Vital Signs Temperature 98.0 F 12/07/18 06:00 Pulse Rate 112 H 12/07/18 06:00 Respiratory Rate 18 12/07/18 06:00 Blood Pressure 133/89 12/07/18 06:00 O2 Sat by Pulse Oximetry (%) 98 12/06/18 21:00 Constitutional: Yes: No Distress Eyes: Yes: WNL HENT: Yes: WNL Neck: Yes: WNL Cardiovascular: Yes: WNL, Tachycardia Respiratory: Yes: WNL Gastrointestinal: Yes: Normal Bowel Sounds ...Rectal Exam: Yes: Deferred Extremities: Yes: WNL Edema: No Neurological: Yes: Alert Labs: CBC, BMP 12/05/18 11:30 12/05/18 11:30 - ....Imaging MRI: Pending
[2018-12-07] MEDS: DULoxetine HCL 30 MG CAPSULE.DR (FP) PO SCH (09:44)
[2018-12-07] MEDS: PREGABALIN 100 MG CAPSULE PO SCH ×2 (09:44→21:13)
--- NOTE | 2018-12-07 13:27 | PN ---
Progress Note (short form) - Note Progress Note: S: 28 year female known case of Type 1 DM since the age of 7 years, poorly controlled and accompanied by severe painful neuropathy. Found to have persistent sinus tachycardia at rest and significant increase in heart with minimal exertion. H/o intermittent pressure like chest discomfort usually associated with with hyperglycemic episodes. Heart rate at rest was 114/min. BP 100/60 mmHg. and increased to 128/min on standing and BP dropped to 60mmHg. systolic associated with lightheadedne Active Medications Acetaminophen (Tylenol -) 650 mg PO Q6H PRN PRN Reason: PAIN LEVEL 6-10 Last Admin: 12/07/18 12:41 Dose: 650 mg Duloxetine HCl (Cymbalta -) 30 mg PO DAILY [facility] Last Admin: 12/07/18 09:44 Dose: 30 mg Gabapentin (Neurontin -) 800 mg PO TID [facility] Last Admin: 12/07/18 05:56 Dose: 800 mg Oxycodone HCl (Roxicodone -) 10 mg PO Q6H PRN PRN Reason: PAIN LEVEL 6-10 Last Admin: 12/07/18 12:45 Dose: 10 mg Pregabalin (Lyrica -) 100 mg PO BID [facility] Last Admin: 12/07/18 09:44 Dose: 100 mg Last Vital Signs Temp Pulse Resp BP Pulse Ox 97.9 F 128/min on standing 18 100/60 supine. 60 systolic standing. 98 12/07/18 11:00 12/07/18 11:00 12/07/18 11:00 12/07/18 11:00 12/07/18 11:00 O: NECK: Supple, no JVD, carotds 2+, no bruits. Slightly prominent right lobe of the thyroid. HEART: PMI in the 5th ICS, S1 & S2 are normal. No murmur or gallops heard. LUNGS: Clear bilaterally on auscultation. ABDOMEN: Soft, nontender, protubrant no organomegaly. EXTREMITIES: No calf tenderness or dependent edema. CBC, BMP 12/05/18 11:30 12/05/18 11:30 A: 1. Type1. Brittle IDDM. 2. Cardiac autonomic neuropathy needs exclusion. 3. Severe painful peripheral neuropathy. 4. Chest pain syndrome, CAD needs exclusion. Recommendations: 1. Fluid challenge. 2. Nephrology evaluation case discussed with Dr. Laamr and 500ml of normal saline in 1 hour. 3. Check BP/pulse supine and standing. 4. CMP, HbAIc. 5. X-Ray chest 6. Further suggestions as necessary.
[2018-12-07] MEDS ORDERED: SODIUM CHLORIDE 500 ML IV ONE (14:25)
[2018-12-07] MEDS ORDERED: SODIUM CHLORIDE 500 ML IV SCH (15:25)
--- NOTE | 2018-12-07 16:32 | EKG ---
Test Reason : Blood Pressure : / mmHG Vent. Rate : 130 BPM Atrial Rate : 130 BPM P-R Int : 120 ms QRS Dur : 066 ms QT Int : 306 ms P-R-T Axes : 040 035 002 degrees QTc Int : 450 ms SINUS TACHYCARDIA OTHERWISE NORMAL ECG WHEN COMPARED WITH ECG OF 17-FEB-2018 06:37, NONSPECIFIC T WAVE ABNORMALITY, IMPROVED IN ANTERIOR LEADS Confirmed by Viet Gimenez ([id number]) on 12/07/2018 4:31:47 PM Referred By: Confirmed By:Viet Gimenez
[2018-12-07] MEDS ORDERED: oxyCODONE HCL 5 MG TABLET PO ONE (17:45)
[2018-12-07] MEDS ORDERED: ACETAMINOPHEN 325 MG TABLET (FP) PO ONE (17:45)
[2018-12-07 18:13] LABS: HTLV I/II ANTIBODY Negative (Negative)
[2018-12-08] MEDS: GABAPENTIN 400 MG CAPSULE (FP) PO SCH ×3 (06:13→21:29)
[2018-12-08] MEDS: oxyCODONE HCL 5 MG TABLET PO PRN ×3 (06:13→20:15)
[2018-12-08] MEDS: ACETAMINOPHEN 325 MG TABLET (FP) PO PRN ×2 (06:14→13:17)
[2018-12-08 07:34] LABS: ALBUMIN 3.6 g/dl (3.4-5.0); ALK PHOS 95 U/L (45-117); ANION GAP 7 MMOL/L (8-16); BILIRUBIN,TOTAL 0.5 mg/dL (0.2-1); BLOOD UREA NITROGEN 11 mg/dL (7-18); CALCIUM 9.5 mg/dL (8.5-10.1); CHLORIDE 104 mmol/L (98-107); CO2 28 mmol/L (21-32); CREATININE 0.4 mg/dL (0.55-1.3); GLUCOSE,RANDOM 239 mg/dL (74-106); SGOT/AST 9 U/L (15-37); SGPT/ALT 21 U/L (13-61); SODIUM 139 mmol/L (136-145); TOT PROT 6.8 g/dl (6.4-8.2)
--- NOTE | 2018-12-08 09:37 | PN ---
Progress Note, Physician Chief Complaint: Feels week History of Present Illness: Case discussed with Dr Valdivia,patient may have autonomic neuropathy - Current Medication List Current Medications: Active Medications Acetaminophen (Tylenol -) 650 mg PO Q6H PRN PRN Reason: PAIN LEVEL 6-10 Last Admin: 12/08/18 06:14 Dose: 650 mg Duloxetine HCl (Cymbalta -) 30 mg PO DAILY [facility] Last Admin: 12/07/18 09:44 Dose: 30 mg Gabapentin (Neurontin -) 800 mg PO TID [facility] Last Admin: 12/08/18 06:13 Dose: 800 mg Oxycodone HCl (Roxicodone -) 10 mg PO Q6H PRN PRN Reason: PAIN LEVEL 6-10 Last Admin: 12/08/18 06:13 Dose: 10 mg Pregabalin (Lyrica -) 100 mg PO BID [facility] Last Admin: 12/07/18 21:13 Dose: 100 mg - Objective Vital Signs: Vital Signs Temperature 98.1 F 12/08/18 06:18 Pulse Rate 120 H 12/08/18 06:18 Respiratory Rate 20 12/08/18 06:18 Blood Pressure 120/81 12/08/18 06:18 O2 Sat by Pulse Oximetry (%) 96 12/07/18 21:00 Constitutional: Yes: No Distress Eyes: Yes: WNL HENT: Yes: WNL Neck: Yes: WNL Cardiovascular: Yes: WNL, Tachycardia Respiratory: Yes: WNL Gastrointestinal: Yes: WNL ...Rectal Exam: Yes: Deferred Edema: No Peripheral Pulses WNL: Yes Labs: CBC, BMP 12/05/18 11:30 12/08/18 06:30 Assessment/Plan Nephroiogy consult Dr Lamar
--- NOTE | 2018-12-08 09:59 | PN ---
Progress Note (short form) - Note Progress Note: S: 28 year female known case of Type 1 DM since the age of 7 years, poorly controlled and accompanied by severe painful neuropathy. Found to have persistent sinus tachycardia at rest and significant increase in heart with minimal exertion. H/o intermittent pressure like chest discomfort usually associated with with hyperglycemic episodes. Patient continues to have postural lightheadedness, there has been no change in heart rate and postural hypotension with fluid challenge, feeling of excessive heat, warm sweating especially when she has uncontrolled diabetes. Continues to have persistent sinus tachycardia. Resting heart rate of 125 beats per minute and increases to 155 bpm on standing up, accompanied by lightheadedness. Active Medications Acetaminophen (Tylenol -) 650 mg PO Q6H PRN PRN Reason: PAIN LEVEL 6-10 Last Admin: 12/08/18 06:14 Dose: 650 mg Duloxetine HCl (Cymbalta -) 30 mg PO DAILY [facility] Last Admin: 12/07/18 09:44 Dose: 30 mg Gabapentin (Neurontin -) 800 mg PO TID [facility] Last Admin: 12/08/18 06:13 Dose: 800 mg Oxycodone HCl (Roxicodone -) 10 mg PO Q6H PRN PRN Reason: PAIN LEVEL 6-10 Last Admin: 12/08/18 06:13 Dose: 10 mg Pregabalin (Lyrica -) 100 mg PO BID [facility] Last Admin: 12/07/18 21:13 Dose: 100 mg 28 year old female was in no acute distress, no pallor, cyanosis, clubbing or jaundice. Last Vital Signs Temp Pulse Resp BP Pulse Ox 98.1 F 125/min supine and 155/min standing for 30 seconds 20 100/60 supine 70 systolic on standing 96 12/08/18 06:18 12/08/18 06:18 12/08/18 06:18 12/08/18 06:18 12/07/18 21:00 O: NECK: Supple, no JVD, carotids 2+, no bruits. Slightly prominent right lobe of the thyroid. HEART: PMI in the 5th intercostal space, S1 & S2 are normal. No murmur or gallops heard. LUNGS: Clear on auscultation bilaterally. ABDOMEN: Soft, nontender, protubrant, no organomegaly. EXTREMITIES: No calf tenderness or dependent edema. LAB DATA 12/07/18 12/07/18 12/07/18 16:06 17:00 21:15 Sodium Potassium Chloride Carbon Dioxide Anion Gap BUN Creatinine Creat Clearance w eGFR POC Glucometer 104 121 Random Glucose Hemoglobin A1c % Calcium Total Bilirubin AST ALT Alkaline Phosphatase Total Protein Albumin Beta HCG, Quant < 1.0 HTLV I/II Antibody 12/08/18 12/08/18 12/08/18 06:16 06:30 06:30 Sodium 139 Potassium 4.0 Chloride 104 Carbon Dioxide 28 Anion Gap 7 L BUN 11 Creatinine 0.4 L Creat Clearance w eGFR > 60 POC Glucometer 236 Random Glucose 239 H Hemoglobin A1c % 7.9 H Calcium 9.5 Total Bilirubin 0.5 AST 9 L ALT 21 Alkaline Phosphatase 95 Total Protein 6.8 Albumin 3.6 Beta HCG, Quant HTLV I/II Antibody Chest X-ray 12/07/18 Impression: Unremarkable examination. A: 1. Type1. Brittle IDDM. 2. Cardiac autonomic neuropathy needs exclusion. 3. Severe painful peripheral neuropathy. 4. Chest pain syndrome, CAD needs exclusion. 5. Persistent sinus tachycardia, most likely related to #2, possibility of thyroiditis/thyrotoxicosis. Recommendations: 1. Nephrology evaluation case discussed with Dr. Lamar and 500ml of normal saline in 1 hour. 2. Check BP/pulse supine and standing. 3. CMP, HbAIc. 4. Thyroid function tests including anti thyroid antibodies. 5. Further suggestions as necessary. Raymond Valdivia M.D., F.A.C.C.
[2018-12-08] MEDS: PREGABALIN 100 MG CAPSULE PO SCH ×2 (10:01→21:29)
[2018-12-08] MEDS: DULoxetine HCL 30 MG CAPSULE.DR (FP) PO SCH (10:01)
--- NOTE | 2018-12-08 12:30 | CONSULT ---
Consult - text type - Consultation Consultation Note: Renal Consult for Orthostatic Hypotension This is a 28 year old woman with hx of DM Type 1 diagnosed at age 7, diabetic neuropathy who presented from home with worsening LE pain and weakness and found to have orthostatic hypotension. No Hx of kidney disease. No sob, cp, abd pain. Has some dizziness when standing. No hx of adrenal problems. Not on anthypertensives. No fever, chills, N/V/D. s/p IVF yesterday. PMHx: as above Allergies: NKDA Family Hx: NC Social Hx: No T/A/D ROS: as per HPI Home Medications Medication Instructions Recorded Insulin Pump/Infus. Set/Meter See Protocol SUBD DAILY 10/23/18 [Accu-Chek Combo System] Pregabalin [Lyrica] 200 mg PO TID 10/23/18 Vital Signs Temperature 98.1 F 12/08/18 11:05 Pulse Rate 119 H 12/08/18 11:05 Respiratory Rate 20 12/08/18 11:05 Blood Pressure 112/67 12/08/18 11:05 O2 Sat by Pulse Oximetry (%) 96 12/08/18 11:05 Intake & Output 12/05/18 12/06/18 12/07/18 12/08/18 23:59 23:59 23:59 23:59 Intake Total 1060 1240 370 Balance 1060 1240 370 Weight 54.431 kg 61.416 kg NAD awake and alert tachycardic, no M/R CTA soft NT/ND no LE edema CBC, BMP 12/05/18 11:30 12/08/18 06:30 Current Medications Acetaminophen (Tylenol -) 650 mg PO Q6H PRN PRN Reason: PAIN LEVEL 6-10 Last Admin: 12/08/18 06:14 Dose: 650 mg Duloxetine HCl (Cymbalta -) 30 mg PO DAILY [facility] Last Admin: 12/08/18 10:01 Dose: 30 mg Gabapentin (Neurontin -) 800 mg PO TID [facility] Last Admin: 12/08/18 06:13 Dose: 800 mg Oxycodone HCl (Roxicodone -) 10 mg PO Q6H PRN PRN Reason: PAIN LEVEL 6-10 Last Admin: 12/08/18 06:13 Dose: 10 mg Pregabalin (Lyrica -) 100 mg PO BID [facility] Last Admin: 12/08/18 10:01 Dose: 100 mg 28 year old woman with hx of DM Type 1 diagnosed at age 7, diabetic neuropathy who presented from home with worsening LE pain and weakness and found to have orthostatic hypotension. #Orthostatic Hypotension r/o hypvolemia vs. adrenal insufficiency vs. neuropathy from bed bug exterminator DM Check AM Cortisol levels, urine studies for Na check orthostatic vital signs Q shift [place] of IVF x 24 hours fall precautions ECHO showed normal LV function Neurology and Cardiology following Thank you Will follow Josep Lamar DO
[2018-12-08 12:49] LABS: URIC ACID 2.3 mg/dL (2.6-7.2)
[2018-12-08] MEDS: SODIUM CHLORIDE 1,000 ML IV SCH (13:53)
[2018-12-08 18:51] LABS: URINE APPEARANCE SLCLOUDY; URINE BILIRUBIN NEGATIVE (<2.0 mg/dL); URINE COLOR LTYELLOW; URINE GLUCOSE (UA) 1+ (NEGATIVE); URINE KETONE TRACE (NEGATIVE); URINE LEUK ESTERASE 2+ (NEGATIVE); URINE NITRITE NEGATIVE (NEGATIVE); URINE PROTEIN NEGATIVE (NEGATIVE)
[2018-12-08 19:02] LABS: EPI CELLS FEW /HPF (FEW); URINE MUCUS RARE
[2018-12-09] MEDS: GABAPENTIN 400 MG CAPSULE (FP) PO SCH ×2 (05:43→14:35)
[2018-12-09] MEDS: oxyCODONE HCL 5 MG TABLET PO PRN ×2 (05:43→12:32)
[2018-12-09] MEDS: PREGABALIN 100 MG CAPSULE PO SCH (09:26)
[2018-12-09] MEDS: DULoxetine HCL 30 MG CAPSULE.DR (FP) PO SCH (09:26)
--- NOTE | 2018-12-09 10:51 | PN ---
Progress Note (short form) - Note Progress Note: S: 28 year female known case of Type 1 DM since the age of 7 years, poorly controlled and accompanied by severe painful neuropathy, on multiple medications for neuropathy. Continues to have persistent sinus tachycardia at rest and significant increase in heart with minimal exertion accompanied by postural hypotension. H/o intermittent pressure like chest discomfort usually associated with with hyperglycemic episodes. No chest pain or discomfort, no SOB, mild postural light headedness, agreeable for transfer to [facility] for further evaluation. Active Medications Acetaminophen (Tylenol -) 650 mg PO Q6H PRN PRN Reason: PAIN LEVEL 6-10 Last Admin: 12/08/18 13:17 Dose: 650 mg Duloxetine HCl (Cymbalta -) 30 mg PO DAILY [facility] Last Admin: 12/09/18 09:26 Dose: 30 mg Gabapentin (Neurontin -) 800 mg PO TID [facility] Last Admin: 12/09/18 05:43 Dose: 800 mg Sodium Chloride (Normal Saline -) 1,000 mls @ 100 mls/hr IV ASDIR [facility] Stop: 12/10/18 22:44 Last Admin: 12/08/18 13:53 Dose: 100 mls/hr Oxycodone HCl (Roxicodone -) 10 mg PO Q6H PRN PRN Reason: PAIN LEVEL 6-10 Last Admin: 12/09/18 05:43 Dose: 10 mg Pregabalin (Lyrica -) 100 mg PO BID [facility] Last Admin: 12/09/18 09:26 Dose: 100 mg Last Vital Signs Temp Pulse Resp BP Pulse Ox 98.3 F 121 supine. 138 standing 18 90/60 sitting. 64 standing 98 12/09/18 06:56 12/09/18 10:00 12/09/18 10:00 12/09/18 10:00 12/08/18 21:00 O: NECK: Supple, no JVD, carotds 2+, no bruits. Slightly prominent right lobe of the thyroid. HEART: PMI in the 5th ICS, S1 & S2 are normal. No murmur or gallops heard. LUNGS: Clear bilaterally on auscultation. ABDOMEN: Soft, nontender, protubrant no organomegaly. EXTREMITIES: No calf tenderness or dependent edema. A: 1. Type1. Brittle IDDM. 2. Cardiac autonomic neuropathy with persistent sinus tachycardia and postural hypotension ( medications for neuroppathy may be contributing factor). 3. Severe painful peripheral neuropathy. 4. Chest pain syndrome, CAD needs exclusion. Recommendations: 1. Fluid challenge in progress. 2. Transfer to [facility] for further workup including cardiac cath. ( Patient is not a candidate for use of Lexiscan in view of vasomotor instabitity). 3. Check BP/pulse supine and standing. 4. Patient is agreeable for transfer and further evaluation. 5. Transfer center at [facility] notified and spoke to Dr. Wilkinson who will make arrangements.
[2018-12-09] MEDS: SODIUM CHLORIDE 1,000 ML IV SCH (12:34)
[2018-12-09 14:12] VITALS: BP 125/86; PULSE 112; TEMP 98.1
--- NOTE | 2018-12-09 15:21 | PN ---
Progress Note (short form) - Note Progress Note: Renal follow up for orthostatic hypotension Pt seen and examined at the bedside remain orthostatic at this time no sob, cp, abd pain continues to have neuropathic LE pain Vital Signs Temperature 98.1 F 12/09/18 14:10 Pulse Rate 112 H 12/09/18 14:10 Respiratory Rate 16 12/09/18 14:10 Blood Pressure 125/86 12/09/18 14:10 O2 Sat by Pulse Oximetry (%) 98 12/09/18 09:00 Intake & Output 12/06/18 12/07/18 12/08/18 12/09/18 23:59 23:59 23:59 23:59 Intake Total 1060 1240 1220 1700 Balance 1060 1240 1220 1700 Weight 61.416 kg NAD awake and alert tachycardic, no M/R CTA soft NT/ND no LE edema CBC, BMP 12/05/18 11:30 12/08/18 06:30 Laboratory Tests 12/09/18 06:30 Cortisol AM Sample Pending 28 year old woman with hx of DM Type 1 diagnosed at age 7, diabetic neuropathy who presented from home with worsening LE pain and weakness and found to have orthostatic hypotension. #Orthostatic Hypotension r/o hypvolemia vs. adrenal insufficiency vs. neuropathy from fdc DM Remains orthostatic despite IVF Cortisol levels pending check orthostatic vital signs Q shift Continue IVF for additional 24 hours fall precautions ECHO showed normal LV function Neurology and Cardiology following for transfer to [facility] for further work up Josep Lamar DO
--- NOTE | 2018-12-10 12:57 | PN ---
Progress Note, Physician Chief Complaint: feels better History of Present Illness: case discussed with Dr Valdivia ,plans to transfer the patient to [facility] for further management - Objective Vital Signs: Vital Signs Temperature 98.1 F 12/09/18 14:10 Pulse Rate 112 H 12/09/18 14:10 Respiratory Rate 16 12/09/18 14:10 Blood Pressure 125/86 12/09/18 14:10 O2 Sat by Pulse Oximetry (%) 98 12/09/18 09:00 Constitutional: Yes: Calm Eyes: Yes: WNL HENT: Yes: WNL Neck: Yes: WNL Gastrointestinal: Yes: WNL ...Rectal Exam: Yes: WNL Genitourinary: Yes: WNL Edema: No Integumentary: Yes: WNL Neurological: Yes: Alert ...Motor Strength: WNL Psychiatric: Yes: Alert Labs: CBC, BMP 12/05/18 11:30 12/08/18 06:30 Assessment/Plan Plan transfer to [facility]
== END 2018-12-09 16:13 | disposition hospice, inpatient (51) | DRG 48 ==
LOC: JER 10:32 → JERBED 12:33 → J5S 12-06 03:01 → J4S 12-06 23:39
PROVIDERS: ADMIT Internal Medicine; ATTEND Internal Medicine
DX: E10.43 Type 1 diabetes mellitus with diabetic autonomic (poly)neuropathy (principal); R00.0 Tachycardia, unspecified; R07.89 Other chest pain; I95.1 Orthostatic hypotension; E10.65 Type 1 diabetes mellitus with hyperglycemia; E86.1 Hypovolemia; Z79.4 Long term (current) use of insulin
CPT/HCPCS: 36415; 71045-TC-FY; 72148-TC; 76536-TC; 80053; 81003; 81015; 82533; 82570; 82962; 83036; 84300; 84439; 84443; 84480; 84550; 84702; 84703; 85025; 86376; 86790; 86800; 87804; 93005; 93010; 93306-TC; 97116-GP; 97162-GP; 99284-25; J7030

== ENCOUNTER 2019-01-11 09:46 | Inpatient (IN) | payer OTHER ==
[2019-01-11 10:05] VITALS: BMI 22.5
--- NOTE | 2019-01-11 10:52 | PDOC ---
History of Present Illness - General Chief Complaint: Pain, Acute Stated Complaint: NEUROPATHY PAIN Time Seen by Provider: 01/11/19 10:14 - History of Present Illness Initial Comments: 01/11/19 14:34 The patient is a 29 year old female, with a significant past medical history of type I diabetes w/ neuropathy, who presents to the emergency department with bilateral lower extremity pain since last night consistent with her previous neuropathy pain. She reports her pain is constant, sharp, and radiates from her glutes to her thighs down her legs. She states she was at [facility] 2 weeks ago where she had a pump placed which failed. She states she then went to rehab at [place] where she was started on a regimen of 10mg oxycodone and lyrica which offered temporary relief until the pain returned prompting her visit to [facility] yesterday. The patient denies chest pain, shortness of breath, headache and dizziness. The patient denies fever, chills, nausea, vomit, diarrhea and constipation. The patient denies dysuria, frequency, urgency and hematuria. She denies bowel or fecal incontinence. Allergies: NKDA Past History - Past Medical History Allergies/Adverse Reactions: Allergies Allergy/AdvReac Type Severity Reaction Status Date / Time No Known Allergies Allergy Verified 01/11/19 09:52 Home Medications: Ambulatory Orders Insulin Pump/Infus. Set/Meter [Accu-Chek Combo System] See Protocol SUBD DAILY 10/23/18 Pregabalin [Lyrica] 200 mg PO TID 10/23/18 Duloxetine HCl [Cymbalta -] 30 mg PO DAILY 01/11/19 Gabapentin [Neurontin -] mg PO ASDIR 01/11/19 Oxycodone HCl [Oxycodone HCl ER] mg PO ASDIR PRN 01/11/19 Anemia: No Asthma: No Cancer: No Cardiac Disorders: No CVA: No COPD: No CHF: No Dementia: No Diabetes: Yes (IDDM on insulin pumb) GI Disorders: No Disorders: No HTN: No Hypercholesterolemia: No Liver Disease: No Seizures: No Thyroid Disease: No - Surgical History Abdominal Surgery: No Appendectomy: No Cardiac Surgery: No Cholecystectomy: No Lung Surgery: No Neurologic Surgery: No Orthopedic Surgery: No - Immunization History Immunization Up to Date: Yes - Suicide/Smoking/Psychosocial Hx Smoking Status: No Smoking History: Never smoked Have you smoked in the past 12 months: No Number of Cigarettes Smoked Daily: 0 Hx Alcohol Use: No Drug/Substance Use Hx: No Substance Use Type: Alcohol Hx Substance Use Treatment: No Review of Systems - Review of Systems Comments:: 01/11/19 14:34 GENERAL/CONSTITUTIONAL: No fever or chills. No weakness. HEAD, EYES, EARS, NOSE AND THROAT: No change in vision. No ear pain or discharge. No sore throat. GASTROINTESTINAL: No nausea, vomiting, diarrhea or constipation. GENITOURINARY: No dysuria, frequency, or change in urination. CARDIOVASCULAR: No chest pain or shortness of breath. RESPIRATORY: No cough, wheezing, or hemoptysis. MUSCULOSKELETAL: +b/l LE pain SKIN: No rash NEUROLOGIC: No headache, vertigo, loss of consciousness, or change in strength/ sensation. ENDOCRINE: No increased thirst. No abnormal weight change. HEMATOLOGIC/LYMPHATIC: No anemia, easy bleeding, or history of blood clots. ALLERGIC/IMMUNOLOGIC: No hives or skin allergy. *Physical Exam - Vital Signs Last Vital Signs Temp Pulse Resp BP Pulse Ox 97.9 F 132 H 20 116/81 100 01/11/19 10:03 01/11/19 10:03 01/11/19 10:03 01/11/19 10:03 01/11/19 10:03 - Physical Exam Comments: 01/11/19 13:29 GENERAL: Awake, alert, and fully oriented, appears uncomfortable, crying EYES: PERRLA, EOMI, sclera anicteric, conjunctiva clear ENT: Auricles normal inspection, hearing grossly normal, nares patent, oropharynx clear without exudates. Moist mucosa NECK: Normal ROM, supple, no lymphadenopathy, JVD, or masses LUNGS: Breath sounds equal, clear to auscultation bilaterally. No wheezes, and no crackles HEART: tachycardic to 120s but regular, normal S1 and S2, no murmurs, rubs or gallops ABDOMEN: Soft, nontender, normoactive bowel sounds. No guarding, no rebound. No masses EXTREMITIES: Normal range of motion, no edema. No cords, erythema, or tenderness NEUROLOGICAL: Normal speech, cranial nerves intact, equal strength and sensation b/l SKIN: Warm, Dry, normal turgor, no rashes or lesions noted. Moderate Sedation - Procedure Monitoring Vital Signs: Procedure Monitoring Vital Signs Temperature 97.9 F 01/11/19 10:03 Pulse Rate 132 H 01/11/19 10:03 Respiratory Rate 20 01/11/19 10:03 Blood Pressure 116/81 01/11/19 10:03 O2 Sat by Pulse Oximetry (%) 100 01/11/19 10:03 Heart Score/ECG Review #1 01/11/19 14:44 Twelve-lead EKG was performed and reviewed by me. Sinus tachycardia, rate 119. Normal axis. No ST elevations. ED Treatment Course - LABORATORY CBC & Chemistry Diagram: 01/11/19 11:00 01/11/19 11:00 Medical Decision Making - Medical Decision Making 01/11/19 13:33 29yo F hx DM1 c/b severe demyelinating neuropathy presents to the ED for admission for pain control and IVIG per Dr. Hatch. Pt has failed outpt pain control with oxycodone, amitryptaline, symbalta, lyrica. Pt also failed recent spinal stimulator and ketamine Requesting dilaudid as it is the only thing that has worked in the past Tried toradol and tylenol today with no improvement Pt continues to appear uncomfortable Dilaudid 0.5mg IV ordered 1L NS ordered for tachycardia to 130, although likely 2/2 pain and pt appears uncomfortable Awaiting call back for admission 01/11/19 13:41 Case discussed with SAL Hodge, pt admitted to Dr. Cornell Case discussed in detail with admitting physician including history, physical exam and ancillary studies. Admitting physician has assumed care for the patient, will follow all pending diagnostics and will complete the evaluation and treatment. *DC/Admit/Observation/Transfer Diagnosis at time of Disposition: Diabetic neuropathy associated with type 1 diabetes mellitus - Discharge Dispostion Condition at time of disposition: Stable Decision to Admit order: Yes - Referrals - Patient Instructions - Post Discharge Activity - Attestations Physician Attestion: 01/11/19 13:42 I, Dr. Mily Sims MD, attest that this document has been prepared under my direction and personally reviewed by me in its entirety. I further attest, that it accurately reflects all work, treatment, procedures and medical decision -making performed by me.
[2019-01-11] MEDS ORDERED: KETOROLAC TROMETHAMINE 30 MG/1 ML VIAL ONE (10:59)
[2019-01-11 11:26] LABS: BASO % 0.3 % (0-2.0); HEMOGLOBIN 13.4 GM/dL (10.7-15.3); LYMPH % 45.2 % (8-40); MCH 31.6 pg (25.7-33.7); MCHC 35.4 g/dl (32.0-36.0); MEAN CELL VOLUME 89.2 fl (80-96); MEAN PLT VOLUME 8.2 fl (7.5-11.1); MONO % 5.7 % (3.8-10.2); NEUT % 45.8 % (42.8-82.8); PLATELET COUNT 285 K/MM3 (134-434); RBC 4.26 M/mm3 (3.60-5.2); RDW 12.8 % (11.6-15.6); WHITE BLOOD COUNT 6.2 K/mm3 (4.0-10.0)
[2019-01-11 12:15] LABS: BLOOD UREA NITROGEN 14 mg/dL (7-18); CREATININE 0.6 mg/dL (0.55-1.3); GLUCOSE,RANDOM 119 mg/dL (74-106); SODIUM 137 mmol/L (136-145)
[2019-01-11 12:16] LABS: ALK PHOS 108 U/L (45-117); ANION GAP 8 MMOL/L (8-16); BILIRUBIN,TOTAL 0.8 mg/dL (0.2-1); CALCIUM 9.6 mg/dL (8.5-10.1); CHLORIDE 103 mmol/L (98-107); CO2 26 mmol/L (21-32); POTASSIUM 4.1 mmol/L (3.5-5.1); SGOT/AST < 3 U/L (15-37); SGPT/ALT 27 U/L (13-61); TOT PROT 7.5 g/dl (6.4-8.2)
[2019-01-11] MEDS ORDERED: ACETAMINOPHEN INJECTION 100 ML IVPB ONE (12:17)
[2019-01-11] MEDS ORDERED: KETOROLAC TROMETHAMINE 15 MG/ML VIAL IVPUSH ONE (12:50)
[2019-01-11] MEDS ORDERED: ACETAMINOPHEN 1000 MG/100 ML VIAL (NON FORMULARY) IVPB ONE (12:50)
[2019-01-11] MEDS ORDERED: HYDROmorphone HCL CARPU-JECT 2 MG/1 ML DISP.SYRIN IVPUSH ONE (13:17)
[2019-01-11] MEDS ORDERED: HYDROmorphone HCl 2 MG/ML VIAL ONE (13:21)
[2019-01-11] MEDS ORDERED: SODIUM CHLORIDE 1,000 ML IV STA (14:39)
[2019-01-11] MEDS ORDERED: LORazepam 0.5 MG TABLET PO ONE (14:40)
[2019-01-11] MEDS ORDERED: oxyCODONE HCL 5 MG TABLET PO PRN (14:40)
--- NOTE | 2019-01-11 14:41 | HP ---
CHIEF COMPLAINT: neuropathy PCP: Tarah Ceballos MD Dr. Shresta HISTORY OF PRESENT ILLNESS: Patient is a 29 year old female with a significant past medical history of diabetes type 1 since age 7 (has an insulin pump), DKA and peripheral neuropathy. In the past she has had multiple admissions for neuropathy. She also has persistent sinus tachycardia at rest and significant increase in heart rate with minimal exertion accompained by postural hypotension. In the past she was also noted to have intermittent pressure like chest discomfort usually associated with hyperglycemic episodes. She presents to the ED with bilateral lower extremity severe pain since last night consistent with her previous neuropathy pain and discomfort. She reports pain even with gentle touch of her lower extremity. She reports the lower extremity pain to be constant, 10/10 sharp and that radiates from her gluteal to her feet. She was seen and evaluated at [facility] approximately 2 weeks ago and a nerve stimulator pump was placed which patient states that failed to help her neuropathy. Further she was sent to [facility] for further workup including cardiac cath. She was discharged to [facility] and her pain was managed with oxycodone 10mg which she states initially helped her pain, but after she was discharged, her pain returned and she was evaluated at [facility] yesterday. At [facility] she was given Dilaudid which she states helped her pain. She denies any any nausea, vomiting, abdominal pain or chest pain. ER course was notable for: (1) will doppler lower ext legs to rule out dvt (2) sinus tachycardia 130s (3) Recent Travel: none PAST MEDICAL HISTORY: diabetes, dka, peripheral neuropahty PAST SURGICAL HISTORY: Social History: Smoking: denies Alcohol: denies Drugs: on oxycodone Family History: Allergies No Known Allergies Allergy (Verified 01/11/19 09:52) HOME MEDICATIONS: Home Medications Medication Instructions Recorded Insulin Pump/Infus. Set/Meter See Protocol SUBD DAILY 10/23/18 [Accu-Chek Combo System] Pregabalin [Lyrica] 200 mg PO TID 10/23/18 Duloxetine HCl [Cymbalta -] 30 mg PO DAILY 01/11/19 Gabapentin [Neurontin -] mg PO ASDIR 01/11/19 Oxycodone HCl [Oxycodone HCl ER] mg PO ASDIR PRN 01/11/19 PHYSICAL EXAMINATION Vital Signs - 24 hr 01/11/19 01/11/19 10:03 13:35 Temperature 97.9 F 97.7 F Pulse Rate 132 H Pulse Rate [ 126 H Right Radial] Respiratory 20 18 Rate Blood Pressure 116/81 Blood Pressure 112/78 [Left Arm] O2 Sat by Pulse 100 100 Oximetry (%) GENERAL: Awake, alert, and fully oriented, in no acute distress. HEAD: Normal with no signs of trauma. EYES: Pupils equal, round and reactive to light, extraocular movements intact, sclera anicteric, conjunctiva clear. No lid lag. EARS, NOSE, THROAT: Ears normal, nares patent, oropharynx clear without exudates. Moist mucous membranes. NECK: Normal range of motion, supple without lymphadenopathy, JVD, or masses. LUNGS: Breath sounds equal, clear to auscultation bilaterally. No wheezes, and no crackles. No accessory muscle use. HEART: sinus tachycardia 130s ABDOMEN: Soft, nontender, not distended, normoactive bowel sounds, no guarding, no rebound, no masses. No hepatomegaly or splenomegaly. MUSCULOSKELETAL: Normal range of motion at all joints. No bony deformities or tenderness. No CVA tenderness. UPPER EXTREMITIES:No peripheral edema. LOWER EXTREMITIES: No peripheral edema. NEUROLOGICAL: Normal speech. gait not observed PSYCHIATRIC: Cooperative. Good eye contact. Appropriate mood and affect. SKIN: small circular red blotches on lower buttocks-no skin breakdown Laboratory Results - last 24 hr 01/11/19 01/11/19 01/11/19 11:00 11:00 11:00 WBC 6.2 RBC 4.26 Hgb 13.4 Hct 38.0 MCV 89.2 MCH 31.6 MCHC 35.4 RDW 12.8 Plt Count 285 MPV 8.2 Absolute Neuts (auto) 2.8 Neutrophils % 45.8 Lymphocytes % 45.2 H Monocytes % 5.7 Eosinophils % 3.0 Basophils % 0.3 Nucleated RBC % 0 Sodium 137 Potassium 4.1 Chloride 103 Carbon Dioxide 26 Anion Gap 8 BUN 14 Creatinine 0.6 Creat Clearance w eGFR 119.92 POC Glucometer Random Glucose 119 H Calcium 9.6 Total Bilirubin 0.8 AST < 3 L ALT 27 Alkaline Phosphatase 108 Total Protein 7.5 Albumin 4.0 Beta HCG, Quant < 1.0 01/11/19 13:56 WBC RBC Hgb Hct MCV MCH MCHC RDW Plt Count MPV Absolute Neuts (auto) Neutrophils % Lymphocytes % Monocytes % Eosinophils % Basophils % Nucleated RBC % Sodium Potassium Chloride Carbon Dioxide Anion Gap BUN Creatinine Creat Clearance w eGFR POC Glucometer 82 Random Glucose Calcium Total Bilirubin AST ALT Alkaline Phosphatase Total Protein Albumin Beta HCG, Quant ASSESSMENT/PLAN: Patient is a 29 year old female with a significant past medical history of diabetes type 1 since age 7 (has an insulin pump), DKA and peripheral neuropathy. In the past she has had multiple admissions for neuropathy. She also has persistent sinus tachycardia at rest and significant increase in heart rate with minimal exertion accompained by postural hypotension. In the past she was also noted to have intermittent pressure like chest discomfort usually associated with hyperglycemic episodes. She presents to the ED with bilateral lower extremity severe pain since last night consistent with her previous neuropathy pain and discomfort. She reports pain even with gentle touch of her lower extremity. She reports the lower extremity pain to be constant, 10/10 sharp and that radiates from her gluteal to her feet. She was seen and evaluated at [facility] approximately 2 weeks ago and a nerve stimulator pump was placed which patient states that failed to help her neuropathy. Further she was sent to [facility] for further workup including cardiac cath. She was discharged to [facility] and her pain was managed with oxycodone 10mg which she states initially helped her pain, but after she was discharged, her pain returned and she was evaluated at [facility] yesterday. At [facility] she was given Dilaudid which she states helped her pain. She denies any any nausea, vomiting, abdominal pain or chest pain. imaging: echo 11/2018: left vent normal, ef 55-60%, right quang sys fx is normal, mild mitral regurg, mild tricuspid regur, no pericardial eff. Neuro Peripheral neuropathy, demyelinating axonal neuropathy IVIG recommended per neurology. discussed with pharmacist, IVIG currently backordered, unsure when this hospital will get a supply. Consider transferring patient to another acute care facility vs. ivig outpatient Continue Lyrica 150mg TID Cymbalta 30mg in a.m. and Cymbalta 60mg in p.m. will order physical therapy Manage pain with oxycodone 15mg q4prn Vascular doppler to rule out dvt, as patient has been immoblle due to pain and has had numerous hospitalizations recently pain management consult Cardiology sinus tachycardia. denies chest pain or shortness of breath Given 2 liter bolus in the ED, maintain on NS @ 100cc/hr trend troponins check tsh, t4 cardiology consult monitor orthostatics Endocrine Diabetes On insulin pump, with novolog. continue insulin pump with close bgm monitoring q4 hmga1c in a.m. fen ns @ 100 monitor electrolytes diabetic diet prophy Lovenox 40mg daily fall precautions Visit type - Emergency Visit Emergency Visit: Yes ED Registration Date: 01/11/19 Care time: The patient presented to the Emergency Department on the above date and was hospitalized for further evaluation of their emergent condition. - New Patient This patient is new to me today: Yes Date on this admission: 01/12/19 - Critical Care Critical Care patient: No
[2019-01-11] MEDS ORDERED: PREGABALIN 100 MG CAPSULE PO SCH ×2 (14:45→20:56)
[2019-01-11] MEDS ORDERED: LORazepam 0.5 MG TABLET ONE (15:02)
[2019-01-11] MEDS ORDERED: PREGABALIN 100 MG CAPSULE ONE ×2 (15:02→22:36)
--- NOTE | 2019-01-11 15:37 | EKG ---
Test Reason : Blood Pressure : / mmHG Vent. Rate : 119 BPM Atrial Rate : 119 BPM P-R Int : 122 ms QRS Dur : 070 ms QT Int : 336 ms P-R-T Axes : 042 071 039 degrees QTc Int : 472 ms SINUS TACHYCARDIA OTHERWISE NORMAL ECG WHEN COMPARED WITH ECG OF 06-DEC-2018 10:25, NO SIGNIFICANT CHANGE WAS FOUND Confirmed by Quinton Henriquez MD ([id number]) on 01/11/2019 3:37:30 PM Referred By: Confirmed By:Quinton Henriquez MD
[2019-01-11 17:43] LABS: MAGNESIUM 1.9 mg/dL (1.8-2.4)
[2019-01-11] MEDS ORDERED: oxyCODONE HCL 5 MG TABLET ONE (17:49)
[2019-01-11 18:11] LABS: URINE APPEARANCE SLCLOUDY; URINE BILIRUBIN NEGATIVE (<2.0 mg/dL); URINE COLOR YELLOW; URINE GLUCOSE (UA) NEGATIVE (NEGATIVE); URINE KETONE TRACE (NEGATIVE); URINE LEUK ESTERASE TRACE (NEGATIVE); URINE NITRITE NEGATIVE (NEGATIVE); URINE PROTEIN NEGATIVE (NEGATIVE)
[2019-01-11 18:12] LABS: HCG,QUALITATIVE URINE Negative
[2019-01-11 18:17] LABS: EPI CELLS FEW /HPF (FEW); URINE BACTERIA RARE /hpf (NONE SEEN); URINE HYALINE CAST 3 /lpf; URINE MUCUS MANY
[2019-01-11] MEDS ORDERED: HYDROmorphone HCL 2 MG TABLET PO ONE (19:00)
[2019-01-11] MEDS ORDERED: ACETAMINOPHEN 325 MG TABLET (FP) PO PRN (19:04)
[2019-01-11] MEDS ORDERED: LORazepam 1 MG TABLET PO PRN (19:04)
--- NOTE | 2019-01-11 19:50 | CON.NEURO ---
Consult Consult Specialty:: [facility] Referred by:: ER Reason for Consultation:: Neuropathy - History of Present Illness History of Present Illness: 29 years old woman hx IDDM Neuropathy Recently discharged from [facility] after being admitted for trial for spinal cord stimulator according to the patient she failed the spinal cord stimulator patient had a nerve block patient was prescribed oxycodone patient was prescribed morphine sulfate with no success in controlling the degree of her pain. Patient called me this morning with severe unrelenting pain radiating from the hip area down to the thigh patient cannot stand patient was given ketamine - History Source History Provided By: Patient Limitations to Obtaining History: No Limitations - Past Medical History ...LMP: 09/17/16 Endocrine: Yes: Diabetes Mellitus (describes multiple episodes of DKA, the last being last month ), Other (Peripheral Neuropathy) - Alcohol/Substance Use Hx Alcohol Use: No - Smoking History Smoking history: Never smoked Have you smoked in the past 12 months: No Aproximately how many cigarettes per day: 0 - Social History Usual Living Arrangement: Other (staying with mother and aunt for the past week) ADL: Independent Occupation: Student / works at [employer] in [employer] History of Recent Travel: No Home Medications - Allergies Allergies/Adverse Reactions: Allergies Allergy/AdvReac Type Severity Reaction Status Date / Time No Known Allergies Allergy Verified 01/11/19 09:52 - Home Medications Home Medications: Ambulatory Orders Insulin Pump/Infus. Set/Meter [Accu-Chek Combo System] See Protocol SUBD DAILY 10/23/18 Pregabalin [Lyrica] 200 mg PO TID 10/23/18 Duloxetine HCl [Cymbalta -] 30 mg PO DAILY 01/11/19 Gabapentin [Neurontin -] mg PO ASDIR 01/11/19 Insulin (LOG) Aspart [NovoLOG -] 0 unit SQ ASDIR 01/11/19 Oxycodone HCl [Oxycodone HCl ER] mg PO ASDIR PRN 01/11/19 Family Disease History - Family Disease History Family Disease History: Diabetes: Grandparent, Other: Father (alive: 42: healthy ), Mother (alive: 43 GERD), Brother (No siblings), Son (No children) Review of Systems - Review of Systems Constitutional: reports: No Symptoms Eyes: reports: No Symptoms Musculoskeletal: reports: Back Pain, Joint Pain, Joint Swelling Physical Exam-Neuro Vital Signs: Vital Signs Temperature 98.6 F 01/11/19 18:11 Pulse Rate 111 H 01/11/19 18:11 Respiratory Rate 16 01/11/19 18:11 Blood Pressure 124/84 01/11/19 18:11 O2 Sat by Pulse Oximetry (%) 97 01/11/19 18:11 Constitutional: Yes: Well Nourished Neck: Yes: WNL Cardiovascular: Yes: WNL Labs: CBC, BMP 01/11/19 11:00 01/11/19 11:00 - Neuro Exam Level Of Consciousness: Yes: Oriented to Person, Oriented to Place, Oriented to Time Eyes: Yes: PERRLA Speech: WNL Dominant Hand: Right DTR's: 0 Left Tricep, 0 Right Tricep, 0 Left Brachioradialis, 0 Right Brachioradialis, 1+ Left Bicep, 1+ Right Bicep Response to light touch: Abnormal Response to pain prick: Abnormal Response to temperature: Abnormal Motor Strength: 3/5: Left Arm, Right Arm, Left Leg, Right Leg Gait: Deferred Problem List - Problems (1) Diabetic neuropathy Assessment/Plan: very unique painful diabetic neuropathy 1. Admit to the ttelemetry for tachycardia and questionable autonomic dysfunction associated with neuropathy. 2. Fall precautions. 3. Cardiology consult. 4. Start IVIG indication is mixed demyelinating axonal neuropathy 40 g once daily infused over 6 hours Benadryl and Tylenol prior. 5. CBC Chem-7 hemoglobin A1c. 6. Physical therapy. 7. Continue Lyrica as 150 3 times daily. 8. Increase Cymbalta to 30 mg in the morning 60 mg at8 night. pain management consult Code(s): E11.40 - TYPE 2 DIABETES MELLITUS WITH DIABETIC NEUROPATHY, UNSP Qualifiers:
[2019-01-11] MEDS: SODIUM CHLORIDE 1,000 ML IV SCH (20:24)
[2019-01-11] MEDS ORDERED: HYDROmorphone HCL 2 MG TABLET ONE (20:29)
[2019-01-11] MEDS ORDERED: PREGABALIN 50 MG CAPSULE ONE (22:35)
[2019-01-11] MEDS ORDERED: DULoxetine HCL 30 MG CAPSULE.DR PO ONE (22:36)
[2019-01-11] MEDS: DULoxetine HCL 30 MG CAPSULE.DR PO SCH (22:53)
[2019-01-11] MEDS: PREGABALIN 100 MG, PREGABALIN 50 MG PO SCH (22:54)
[2019-01-12] MEDS: INSULIN PUMP SQ SCH ×2 (00:10→23:01)
[2019-01-12] MEDS: oxyCODONE HCL 5 MG TABLET PO PRN ×3 (02:58→18:40)
[2019-01-12] MEDS ORDERED: PREGABALIN 50 MG CAPSULE ONE ×3 (05:39→21:43)
[2019-01-12] MEDS ORDERED: PREGABALIN 100 MG CAPSULE ONE ×3 (05:40→21:43)
[2019-01-12] MEDS: PREGABALIN 100 MG, PREGABALIN 50 MG PO SCH ×3 (05:40→21:56)
[2019-01-12 06:43] LABS: BASO % 0.2 % (0-2.0); EOS % 3.8 % (0-4.5); HEMATOCRIT 32.8 % (32.4-45.2); HEMOGLOBIN 11.5 GM/dL (10.7-15.3); LYMPH % 51.1 % (8-40); MEAN CELL VOLUME 88.6 fl (80-96); MEAN PLT VOLUME 8.3 fl (7.5-11.1); NEUT % 37.9 % (42.8-82.8); PLATELET COUNT 240 K/MM3 (134-434); RDW 12.7 % (11.6-15.6); WHITE BLOOD COUNT 3.8 K/mm3 (4.0-10.0)
[2019-01-12 08:06] LABS: ALBUMIN 3.4 g/dl (3.4-5.0); ALK PHOS 89 U/L (45-117); ANION GAP 5 MMOL/L (8-16); BILIRUBIN,TOTAL 0.6 mg/dL (0.2-1); BLOOD UREA NITROGEN 11 mg/dL (7-18); CALCIUM 8.5 mg/dL (8.5-10.1); CHLORIDE 102 mmol/L (98-107); CO2 28 mmol/L (21-32); CREATININE 0.3 mg/dL (0.55-1.3); GLUCOSE,RANDOM 197 mg/dL (74-106); MAGNESIUM 1.8 mg/dL (1.8-2.4); POTASSIUM 3.6 mmol/L (3.5-5.1); SGOT/AST 11 U/L (15-37); SGPT/ALT 22 U/L (13-61); SODIUM 135 mmol/L (136-145); TOT PROT 6.3 g/dl (6.4-8.2)
[2019-01-12] MEDS ORDERED: DULoxetine HCL 30 MG CAPSULE.DR PO SCH (10:00)
--- NOTE | 2019-01-12 10:17 | CON.CARD ---
Consult Referred by:: Dr. Ceballos - Past Medical History ...LMP: 09/17/16 Endocrine: Yes: Diabetes Mellitus (describes multiple episodes of DKA, the last being last month ), Other (Peripheral Neuropathy) - Alcohol/Substance Use Hx Alcohol Use: No - Smoking History Smoking history: Never smoked Have you smoked in the past 12 months: No Aproximately how many cigarettes per day: 0 - Social History Usual Living Arrangement: Other (staying with mother and aunt for the past week) ADL: Independent Occupation: Student / works at [employer] in [facility] History of Recent Travel: No <Raymond Jarod - Last Filed: 01/12/19 10:17> - History of Present Illness History of Present Illness: 29 year old female female with past medical history of Type 1 Diabetes Mellitus since the age of 7, complicated by severe peripheral neuropathy and autonomic neuropathy causing sinus tachycardia and severe postural hypotension. She is re-admitted with severe neuropathic pain involving the buttocks and both thighs. History of chest pain syndrome. Patient, during her last visit, was transferred to [facility] for evaluation and treatment for neuropathy and postural hypotension and sinus tachycardia. She had received pain management stimulator as part of a trial and according to the patient it was removed because it was unhelpful. The postural hypotension was managed with multiple medications. Patient continues to have neuropathic pain but is now localized to the buttocks and thighs. There has been significant decrease in pain up to both knees since re-adjustment of her therapy. Patient still has periods of palpitations. She has had no pre-syncope or syncope since the addition of current medications. No history of chest pain or discomfort since her discharge from [facility] and rehab center. PAST HISTORY: 1. As mentioned in the history of present illness. 2. History of thrombocytopenia. 3. History of pancreatitis. SURGICAL HISTORY: 1. Status post muscle biopsy. SOCIAL HISTORY: Single, never smoked, denies use of alcohol or recreational drug use. She has an occasional cup of coffee or tea. FAMILY HISTORY: Father is 47 years old and has suffered with epilepsy for the past 5 years. He has a history of heavy drinking, mostly on weekends. He has four sisters, all of which suffer from type 1 diabetes. He also has a brother who is non- diabetic. The patient's mother is 46 years old and has peptic ulcer disease, with history of an unknown gastric surgery. She also has arthritis an history of difficulty breathing. ALLERGIES: None reported. Home Medications Insulin Pump/Infus. Set/Meter [Accu-Chek Combo System] See Protocol SUBD DAILY 10/23/18 Pregabalin [Lyrica] 150 mg PO TID Duloxetine HCl [Cymbalta -] 60 mg PO DAILY 01/11/19 Gabapentin [Neurontin -] mg PO ASDIR 01/11/19 Insulin (LOG) Aspart [NovoLOG -] 0 unit SQ ASDIR 01/11/19 Oxycodone HCl [Oxycodone HCl ER] 5 mg PO ASDIR PRN 01/11/19 [id number] mg PO TID. Amitryptaline 25 mg PO daily. Pantoprazole 40 mg PO BID Fludrocortisone 0.1 mg two tablets PO daily. Active Medications Acetaminophen (Tylenol -) 650 mg PO Q6H PRN PRN Reason: PAIN LEVEL 1 - 3 Duloxetine HCl (Cymbalta -) 60 mg PO HS [facility] Last Admin: 01/11/19 22:53 Dose: 60 mg Sodium Chloride (Normal Saline -) 1,000 mls @ 100 mls/hr IV ASDIR [facility] Last Admin: 01/11/19 20:24 Dose: 100 mls/hr Lorazepam (Ativan -) 1 mg PO Q8H PRN PRN Reason: Anxiety/withdrawal Oxycodone HCl (Roxicodone -) 15 mg PO Q4H PRN PRN Reason: PAIN LEVEL 7 - 10 Last Admin: 01/12/19 10:16 Dose: 15 mg Pt Own Med_Insulin (Pump) 0 each SQ ONCE [facility]; Protocol Last Admin: 01/12/19 00:10 Dose: 1 each Pregabalin 100 mg/ Pregabalin (50 mg) 150 mg PO TID [facility] Last Admin: 01/12/19 05:40 Dose: 150 mg REVIEW OF SYSTEMS: Constitutional: Occasional night sweats. Gets episodes of weight fluctuation. No history of chills, fever reported. HEENT: Blurred vision during episodes of hypoglycemia. No history of headaches, diplopia, blurred vision. No history of epistaxis, hoarseness, vertigo, tinnitus , or deafness. Cardiovascular: See HPI. Respiratory: No history of cough, expectoration or hemoptysis. No history of recent shortness of breath. Gastrointestinal: Occasional nausea. No history of vomiting, melena or hematemesis. No history of abdominal pain or discomfort. No history of change in bowel habits. Neurological: History of painful parasthesias and intermittent lightheadedness associated with low blood sugar. No history of seizures, syncope, focal weakness. Endocrine: See HPI. Musculoskeletal: History of parasthesias of the hands and feet. History of joints locking up in hands and knees. Hematological: No history of anemia, bleeding or ecchymosis. Lymphatics: No history of lymphadenopathy or masses. O: 29 year old female was in no acute distress. No pallor, clubbing, cyanosis or jaundice. Last Vital Signs Temp Pulse Resp BP Pulse Ox 97.9 F 114 H 18 118/73 99 01/12/19 06:00 01/12/19 06:00 01/12/19 06:00 01/12/19 06:00 01/12/19 02:34 HEENT: Pupils were equal, reacting to light and accommodation, no scleral icterus or conjunctival pallor. Unable to appreciate arcus senilis or xanthelasmas. NECK: Supple, no JVD, negative HJR, carotids were equal and upstrokes were normal, slight fullness of right lobe of the thyroid. Trachea was midline. HEART: PMI was in the 5th intercostal space, slight parasternal heave, no rubs, S1 and S2 were normal. No murmurs or gallops were appreciated. LUNGS: Clear on auscultation bilaterally. CHEST: Normal AP diameter. Expansion was normal. There was a tattoo on the posterior chest wall. ABDOMEN: Soft, slightly protuberatn, nontender, no hepatosplenomegaly appreciated, and no palpable masses were felt. Umbilical piercing present. EXTREMITIES: No calf tenderness or dependent edema. Pulses are equal. CBC, BMP 01/12/19 06:00 01/12/19 06:00 EC01/11/19 Sinus tachycardia, right axis deviation, probable early repolarization pattern. VASCULAR STUDY: 01/11/19 No evidence of DVT. Impression: 1. Severe painful diabetic neuropathy. 2. Type 1 juvenile diabetes mellitus. 3. Persistent sinus tachycardia most likely related to cardiac autonomic neuropathy. Recommendations: 1. Patient should remain hydrated. 2. Resume all of her outpatient medications as listed above. 3. Awaiting evaluation by pain management. 4. Check blood pressure supine and standing. 5. If there is no postural hypotension, may need to consider low dose beta sreekanth for control of palpitations/sinus tachycardia. Prognosis: Guarded. Documentation prepared by Zoey Graham, acting as a medical massage therapist for Raymond Valdivia MD. <Zoey Graham - Last Filed: 01/12/19 11:09> Home Medications <Raymond Valdivia - Last Filed: 01/12/19 10:17> <Zoey Graham - Last Filed: 01/12/19 11:09> - Allergies Allergies/Adverse Reactions: Allergies Allergy/AdvReac Type Severity Reaction Status Date / Time No Known Allergies Allergy Verified 01/11/19 09:52 - Home Medications Home Medications: Ambulatory Orders Insulin Pump/Infus. Set/Meter [Accu-Chek Combo System] See Protocol SUBD DAILY 10/23/18 Pregabalin [Lyrica] 200 mg PO TID 10/23/18 Duloxetine HCl [Cymbalta -] 30 mg PO DAILY 01/11/19 Gabapentin [Neurontin -] mg PO ASDIR 01/11/19 Insulin (LOG) Aspart [NovoLOG -] 0 unit SQ ASDIR 01/11/19 Oxycodone HCl [Oxycodone HCl ER] mg PO ASDIR PRN 01/11/19 Family Disease History - Family Disease History Family Disease History: Diabetes: Grandparent, Other: Father (alive: 42: healthy ), Mother (alive: 43 GERD), Brother (No siblings), Son (No children) <Raymond Valdivia - Last Filed: 01/12/19 10:17> Vital Signs: Vital Signs Temperature 97.9 F 01/12/19 06:00 Pulse Rate 114 H 01/12/19 06:00 Respiratory Rate 18 01/12/19 06:00 Blood Pressure 118/73 01/12/19 06:00 O2 Sat by Pulse Oximetry (%) 99 01/12/19 02:34 - Other Data Labs, Other Data: CBC, BMP 01/12/19 06:00 01/12/19 06:00 Troponin, BNP 01/12/19 01/12/19 02:00 06:00 Troponin I < 0.02 < 0.02 Troponin, BNP 01/12/19 01/12/19 02:00 06:00 Troponin I < 0.02 < 0.02 <Raymond Valdivia - Last Filed: 01/12/19 10:17> Vital Signs: Vital Signs Temperature 97.9 F 01/12/19 06:00 Pulse Rate 114 H 01/12/19 06:00 Respiratory Rate 18 01/12/19 06:00 Blood Pressure 118/73 01/12/19 06:00 O2 Sat by Pulse Oximetry (%) 99 01/12/19 02:34 - Other Data Labs, Other Data: CBC, BMP 01/12/19 06:00 01/12/19 06:00 Troponin, BNP 01/12/19 01/12/19 02:00 06:00 Troponin I < 0.02 < 0.02 Troponin, BNP 01/12/19 01/12/19 02:00 06:00 Troponin I < 0.02 < 0.02 <Zoey Graham - Last Filed: 01/12/19 11:09>
--- NOTE | 2019-01-12 15:24 | PN ---
Progress Note, Physician History of Present Illness: events noted chart review patient seen on telemetry Patient was seen by cardiology Still with significant degree of bilateral thigh pain radiating to the private area Exam is unchanged Sugar is under control no shortness of breath no blurry vision or double vision - Current Medication List Current Medications: Active Medications Acetaminophen (Tylenol -) 650 mg PO Q6H PRN PRN Reason: PAIN LEVEL 1 - 3 Duloxetine HCl (Cymbalta -) 60 mg PO HS [facility] Last Admin: 01/11/19 22:53 Dose: 60 mg Sodium Chloride (Normal Saline -) 1,000 mls @ 100 mls/hr IV ASDIR [facility] Last Admin: 01/11/19 20:24 Dose: 100 mls/hr Lorazepam (Ativan -) 1 mg PO Q8H PRN PRN Reason: Anxiety/withdrawal Oxycodone HCl (Roxicodone -) 15 mg PO Q4H PRN PRN Reason: PAIN LEVEL 7 - 10 Last Admin: 01/12/19 10:16 Dose: 15 mg Pt Own Med_Insulin (Pump) 0 each SQ ONCE [facility]; Protocol Last Admin: 01/12/19 00:10 Dose: 1 each Pregabalin 100 mg/ Pregabalin (50 mg) 150 mg PO TID [facility] Last Admin: 01/12/19 14:49 Dose: 150 mg - Objective Vital Signs: Vital Signs Temperature 98.2 F 01/12/19 13:57 Pulse Rate 114 H 01/12/19 13:57 Respiratory Rate 18 01/12/19 13:57 Blood Pressure 119/73 01/12/19 13:57 O2 Sat by Pulse Oximetry (%) 99 01/12/19 10:00 Constitutional: Yes: Well Nourished Eyes: Yes: WNL Neurological: Yes: Alert, Oriented, Babinski negative ...Motor Strength: WNL Labs: CBC, BMP 01/12/19 06:00 01/12/19 06:00 Problem List - Problems (1) Diabetic neuropathy Assessment/Plan: 1. Follow-up with cardiology. 2. Follow-up with the pharmacy regarding the IVIG its on backorder. 3. Pain management consult. Code(s): E11.40 - TYPE 2 DIABETES MELLITUS WITH DIABETIC NEUROPATHY, UNSP Qualifiers:
--- NOTE | 2019-01-12 15:44 | HP ---
DATE OF ADMISSION: 01/11/2019 This is a 29-year-old patient known to have diabetes, also has autonomic nervous dysfunction, was admitted here last time with sinus tachycardia. She came yesterday with complaints of severe pain in the back, got admitted with the diagnosis of intractable pain and type 1 diabetes, being followed by Dr. Hatch, cardiology is Dr. Valdivia. Her symptoms still persist in spite of all the medications. PERSONAL HISTORY: She is not working now. Her parents are . Not . No children. PHYSICAL EXAMINATION: Vital Signs: Her blood pressure is 120/80, pulse 114, temperature 98, respiration 20. HEENT: Unremarkable. Neck: Supple. No JVD. Lungs: Clear. Heart: S1, S2 normal. No S3, S4. Abdomen: Soft. Legs: No edema. On the hip area, there is hypersensitivity. Neurological: Examination grossly normal. LABORATORY REPORTS: WBC 3.8, hemoglobin 11.5, hematocrit 31, platelets 240. Chemistry: Sodium 135, potassium 3.6, chloride 102, blood sugar 266. Hemoglobin A1c 6.6. Thyroid functions, TSH normal. IMPRESSION: 1. Diabetic with peripheral neuropathy. 2. Intractable pain. 3. Sinus tachycardia. 4. Autonomic dysfunction. PLAN: Continue present medications. Will follow. MC BLACKWELL M.D. [id number]
[2019-01-12] MEDS: DULoxetine HCL 30 MG CAPSULE.DR PO SCH (21:56)
[2019-01-12] MEDS: SODIUM CHLORIDE 1,000 ML IV SCH (22:01)
[2019-01-13] MEDS: oxyCODONE HCL 5 MG TABLET PO PRN ×4 (01:23→21:14)
[2019-01-13] MEDS ORDERED: PREGABALIN 100 MG CAPSULE ONE ×3 (04:59→21:02)
[2019-01-13] MEDS ORDERED: PREGABALIN 50 MG CAPSULE ONE ×3 (04:59→21:01)
[2019-01-13] MEDS: PREGABALIN 100 MG, PREGABALIN 50 MG PO SCH ×3 (05:05→21:14)
[2019-01-13] MEDS: SODIUM CHLORIDE 1,000 ML IV SCH (13:42)
--- NOTE | 2019-01-13 14:54 | PN ---
Progress Note, Physician Chief Complaint: Feels be History of Present Illness: Admitted with intractable back pain,feels better now - Current Medication List Current Medications: Active Medications Acetaminophen (Tylenol -) 650 mg PO Q6H PRN PRN Reason: PAIN LEVEL 1 - 3 Duloxetine HCl (Cymbalta -) 60 mg PO HS [facility] Last Admin: 01/12/19 21:56 Dose: 60 mg Sodium Chloride (Normal Saline -) 1,000 mls @ 100 mls/hr IV ASDIR [facility] Last Admin: 01/13/19 13:42 Dose: 100 mls/hr Lorazepam (Ativan -) 1 mg PO Q8H PRN PRN Reason: Anxiety/withdrawal Oxycodone HCl (Roxicodone -) 15 mg PO Q4H PRN PRN Reason: PAIN LEVEL 7 - 10 Last Admin: 01/13/19 10:14 Dose: 15 mg Pt Own Med_Insulin (Pump) 0 each SQ ONCE [facility]; Protocol Last Admin: 01/12/19 23:01 Dose: Not Given Pregabalin 100 mg/ Pregabalin (50 mg) 150 mg PO TID [facility] Last Admin: 01/13/19 13:42 Dose: 150 mg - Objective Vital Signs: Vital Signs Temperature 98.0 F 01/13/19 13:30 Pulse Rate 129 H 01/13/19 13:30 Respiratory Rate 18 01/13/19 13:30 Blood Pressure 118/80 01/13/19 13:30 O2 Sat by Pulse Oximetry (%) 99 01/12/19 21:00 Constitutional: Yes: No Distress Eyes: Yes: WNL HENT: Yes: WNL Neck: Yes: WNL Cardiovascular: Yes: WNL Respiratory: Yes: WNL Gastrointestinal: Yes: Normal Bowel Sounds ...Rectal Exam: Yes: Deferred Genitourinary: Yes: WNL Breast(s): Yes: WNL Musculoskeletal: Yes: Back Pain Neurological: Yes: Alert Labs: CBC, BMP 01/12/19 06:00 01/12/19 06:00 Assessment/Plan DC iV
--- NOTE | 2019-01-13 16:57 | PN ---
Progress Note, Physician History of Present Illness: events noted and chart reviewed Pain is manageable today Patient is on 15 mg of oxycodone every 4 hours I spent 20 minutes with the patient on narcotic counseling I do not want the patient to be on opiates the risk of using these short acting narcotics isn't dangerous in her age group patient with painful diabetic neuropathy that she be managed nerve relaxant am still waiting the IVIG from the pharmacy which is on back order. - Current Medication List Current Medications: Active Medications Acetaminophen (Tylenol -) 650 mg PO Q6H PRN PRN Reason: PAIN LEVEL 1 - 3 Duloxetine HCl (Cymbalta -) 60 mg PO HS [facility] Last Admin: 01/12/19 21:56 Dose: 60 mg Lorazepam (Ativan -) 1 mg PO Q8H PRN PRN Reason: Anxiety/withdrawal Oxycodone HCl (Roxicodone -) 15 mg PO Q4H PRN PRN Reason: PAIN LEVEL 7 - 10 Last Admin: 01/13/19 15:34 Dose: 15 mg Pt Own Med_Insulin (Pump) 0 each SQ ONCE [facility]; Protocol Last Admin: 01/12/19 23:01 Dose: Not Given Pregabalin 100 mg/ Pregabalin (50 mg) 150 mg PO TID [facility] Last Admin: 01/13/19 13:42 Dose: 150 mg - Objective Vital Signs: Vital Signs Temperature 98.0 F 01/13/19 13:30 Pulse Rate 129 H 01/13/19 13:30 Respiratory Rate 18 01/13/19 13:30 Blood Pressure 118/80 01/13/19 13:30 O2 Sat by Pulse Oximetry (%) 99 01/12/19 21:00 Constitutional: Yes: Well Nourished Eyes: Yes: WNL HENT: Yes: WNL Neurological: Yes: Alert, Oriented, Babinski negative, Unsteady Gait ...Motor Strength: WNL Labs: CBC, BMP 01/12/19 06:00 01/12/19 06:00 Problem List - Problems (1) Diabetic neuropathy Assessment/Plan: painful diabetic neuropathy mixed axonal demyelinating 1. IVIG 30 g IV with premedication and Advil and Tylenol to be infused over 4 hours for 3 days. 2. Fall precautions. 3. Follow-up with cardiology. 4. Out of bed to chair. 5. camouflage specialist consult Code(s): E11.40 - TYPE 2 DIABETES MELLITUS WITH DIABETIC NEUROPATHY, UNSP Qualifiers:
[2019-01-13] MEDS: DULoxetine HCL 30 MG CAPSULE.DR PO SCH (21:14)
[2019-01-13] MEDS: INSULIN PUMP SQ SCH (23:09)
[2019-01-14] MEDS ORDERED: PREGABALIN 50 MG CAPSULE ONE ×2 (05:16→13:29)
[2019-01-14] MEDS ORDERED: PREGABALIN 100 MG CAPSULE ONE ×2 (05:17→13:30)
[2019-01-14] MEDS: oxyCODONE HCL 5 MG TABLET PO PRN ×2 (05:21→14:02)
[2019-01-14] MEDS: PREGABALIN 100 MG, PREGABALIN 50 MG PO SCH ×2 (05:21→13:30)
[2019-01-14 16:26] VITALS: PULSE 116
[2019-01-14 18:59] VITALS: TEMP 97.6
[2019-01-14 19:09] VITALS: BP 104/63
--- NOTE | 2019-01-14 19:09 | DS ---
Physical Examination Vital Signs: Vital Signs Temperature 97.6 F 01/14/19 17:15 Pulse Rate 116 H 01/14/19 16:23 Respiratory Rate 18 01/14/19 17:15 Blood Pressure 114/74 01/14/19 16:23 O2 Sat by Pulse Oximetry (%) 97 01/13/19 21:00 Admitted with back painand autonomic disfuction Neuro wants to give IVIG Constitutional: Yes: Mild Distress Eyes: Yes: WNL HENT: Yes: WNL Neck: Yes: WNL Cardiovascular: Yes: WNL Respiratory: Yes: WNL Gastrointestinal: Yes: WNL ...Rectal Exam: Yes: WNL, Deferred Renal/: Yes: WNL Breast(s): Yes: WNL Extremities: Yes: WNL Edema: No Peripheral Pulses WNL: Yes Integumentary: Yes: WNL ...Motor Strength: WNL Psychiatric: Yes: Alert Labs: CBC, BMP 01/12/19 06:00 01/12/19 06:00 Discharge Summary Reason For Visit: DIABETIC NEUROPATHY ASSOC W TYPE 1 DIABETES IAN Current Active Problems Diabetic neuropathy associated with type 1 diabetes mellitus (Acute) Condition: Stable - Instructions - Home Medications Comprehensive Discharge Medication List: Ambulatory Orders Insulin Pump/Infus. Set/Meter [Accu-Chek Combo System] See Protocol SUBD DAILY 10/23/18 Insulin (LOG) Aspart [NovoLOG -] 0 unit SQ ASDIR 01/11/19 Amitriptyline HCl 25 mg PO DAILY 01/13/19 Duloxetine HCl [Cymbalta -] 60 mg PO DAILY 01/13/19 Fludrocortisone Acetate [Florinef -] 0.2 mg PO DAILY 01/13/19 Midodrine HCl 10 mg PO TID 01/13/19 Oxycodone HCl 10 mg PO Q4H PRN 01/13/19 Pantoprazole Sodium [Protonix] 40 mg PO BID 01/13/19 Pregabalin [Lyrica] 150 mg PO TID 01/13/19
[2019-01-14] MEDS ORDERED: oxyCODONE HCL 5 MG TABLET PO PRN (20:23)
== END 2019-01-14 21:20 | disposition home or self-care (01) | DRG 48 ==
LOC: JER 09:46 → JERBED 10:54 → J4S 01-12 00:29
PROVIDERS: ADMIT Internal Medicine; ATTEND Internal Medicine
DX: E10.43 Type 1 diabetes mellitus with diabetic autonomic (poly)neuropathy (principal); G61.81 Chronic inflammatory demyelinating polyneuritis; R00.0 Tachycardia, unspecified; G90.9 Disorder of the autonomic nervous system, unspecified; Z79.4 Long term (current) use of insulin
CPT/HCPCS: 36415; 80053; 81003; 81015; 82607; 82962; 83036; 83735; 84439; 84443; 84484; 84702; 84703; 85025; 86038; 87086; 93005; 93010; 93970-TC; 99284-25; J0131; J7030

== ENCOUNTER 2025-05-31 10:54 | Day surgery (SDC) | payer BC, OTHER ==
[2025-05-31] MEDS ORDERED: HYDROCORTISONE SOD SUCCINATE 100 MG/2 ML VIAL IVPB PRN (11:20)
[2025-05-31] MEDS: IRON SUCROSE INJECTION 200 MG in SODIUM CHLORIDE 100 ML IVPB ONE (11:25)
[2025-05-31 13:47] VITALS: BP 110/76; PULSE 73; RESP 16; TEMP 98.7
== END 2025-05-31 13:48 | disposition home or self-care (01) ==
LOC: FINFUSION 10:54 → FM/S 10:54 → FINFUSION 13:48
PROVIDERS: ATTEND Internal Medicine Gastroenterology
PROC: 3E033GC Introduction of Other Therapeutic Substance into Peripheral Vein, Percutaneous Approach (ICD-10-PCS; principal; 2025-05-31)
DX: D50.9 Iron deficiency anemia, unspecified (principal)
CPT/HCPCS: 96365; J1756

== ENCOUNTER 2025-06-07 11:08 | Day surgery (SDC) | payer BC, OTHER ==
[2025-06-07 11:30] VITALS: RESP 18; TEMP 98.2
[2025-06-07] MEDS ORDERED: HYDROCORTISONE SOD SUCCINATE 100 MG/2 ML VIAL IVPB PRN (11:32)
[2025-06-07] MEDS: IRON SUCROSE INJECTION 200 MG in SODIUM CHLORIDE 100 ML IVPB ONE (11:48)
[2025-06-07 13:20] VITALS: BP 95/52; PULSE 81
== END 2025-06-07 13:20 | disposition home or self-care (01) ==
LOC: FINFUSION 11:08 → FM/S 11:08 → FINFUSION 13:20
PROVIDERS: ATTEND Internal Medicine Gastroenterology
PROC: 3E033GC Introduction of Other Therapeutic Substance into Peripheral Vein, Percutaneous Approach (ICD-10-PCS; principal; 2025-06-07)
DX: D50.9 Iron deficiency anemia, unspecified (principal)
CPT/HCPCS: 96365; J1756